=== PATIENT | male | born 1955 | race Caucasian/White ===

== ENCOUNTER 2023-11-22 12:07 | Inpatient (IN) | payer OTHER, SELFPAY ==
[2023-11-22] VITALS (12 sets, daily range): BP systolic 107–135; BP diastolic 56–90; PULSE 82–160; RESP 18–30; TEMP 36.5–36.6; O2SAT 93–97; BMI 33.0
--- NOTE | 2023-11-22 12:17 | ED.GENADULT ---
HPI - General Adult General Chief complaint: Arrhythmia/Palpitations Stated complaint: Difficulty breathing - COPD Time Seen by Provider: 11/22/23 12:19 Source: patient and family Mode of arrival: ambulatory History of Present Illness HPI narrative: 68-year-old male with known atrial fibrillation in states he has not been on medication for months. He comes in with worsening shortness of breath, lower extremity leg swelling and not feeling well. Related Data Home Medications Medication Instructions Recorded Confirmed No Known Home Meds 11/22/23 11/22/23 Allergies Allergy/AdvReac Type Severity Reaction Status Date / Time No Known Allergies Allergy Unverified 08/05/20 19:16 [No Known Allergies*] Review of Systems Review of Systems: Pertinent positives and negatives as stated in HPI FOR[facility]LY [facility] Past Medical History Source: nursing notes reviewed Onset Date is defined in the Problem List Problems that require an onset date and time if occurred within 24 hrs of arrival to the ED Aortic Dissection and Rupture; Neurologic impairment; Cardiopulmonary Arrest; Endotracheal Intubation; Insertion or Replacement of Mechanical Circulatory Assist Device Medical History COPD (chronic obstructive pulmonary disease) Social History Social History Patient Tobacco Use Status: Never used Tobacco Use of substances other than those prescribed or required for medical reasons: Yes Substance Use Type: Marijuana Advance Directives: No Advance Directives Information Provided: Yes Nutrition Risks: No Nutritional Risk Physical Exam ED Vital Signs: Vital Signs - 24 hr 11/22/23 12:20 11/22/23 12:26 11/22/23 12:51 Temperature Pulse Rate 160 H 150 H 126 H Respiratory Rate 22 H 30 H Blood Pressure 135/84 107/80 Pulse Oximetry 95 96 97 Oxygen Delivery Method Nasal Cannula Nasal Cannula Room Air Oxygen Flow Rate 3 3 11/22/23 13:07 11/22/23 14:00 11/22/23 14:22 Temperature Pulse Rate 129 H 118 H 135 H Respiratory Rate 20 18 Blood Pressure 118/88 112/88 120/90 H Pulse Oximetry 95 96 97 Oxygen Delivery Method Nasal Cannula Room Air Nasal Cannula Nasal Cannula Oxygen Flow Rate 3 3 2 11/22/23 15:23 11/22/23 16:00 Temperature 97.9 F Pulse Rate 125 H 140 H Respiratory Rate 27 H 22 H Blood Pressure 125/86 122/88 Pulse Oximetry 97 95 Oxygen Delivery Method Nasal Cannula Nasal Cannula Oxygen Flow Rate 2 3 BMI result Body Mass Index 33.0 VITAL SIGNS: Reviewed. GENERAL: Elevated BMI, Well developed, well nourished, in severe distress. HEAD: Normocephalic/atraumatic EYES: PERRLA, EOMI intact without pain, no nystagmus/pallor/icterus noted EARS: Ext canals without abnormality NOSE: Nares patent bilateral OROPHARYNX: no oral lesions noted, posterior pharynx clear NECK: Supple, no adenopathy LUNGS: Bibasilar rales, tachypnea, increased work of breathing SpO2<95> 2 L via nasal cannula CARDIOVASCULAR: Irregular/RVR without noted murmurs, no JVD 2 to 3+ pitting edema bilaterally ABDOMEN: Soft, non-tender, non-distended with bowel sounds. MUSCULOSKELETAL: No tenderness, deformities, or effusions noted on gross inspection. EXTREMITIES: No cyanosis, clubbing or edema. SKIN: Inspection of the skin reveals no rashes NEUROLOGIC: Alert and oriented x 4. Strength and sensation to light touch were grossly intact x 4. Course Course Course Narrative: rme: 68-YEAR-OLD MALE HISTORY OF COPD AND CHF PRESENTS TO ED FOR DIFFICULTY BREATHING FOR PAST COUPLE OF DAYS. O2 SATURATION ROOM AIR 88% HEART RATE 173. PATIENT PLACED ON NON-REBREATHER OXYGEN TANK AND BROUGHT TO ED ROOM BED 9 IMMEDIATELY. dR. Mckenna TOOK CARE OF CASE. LABS ORDERED Medications Administered Generic Name Dose Route Start Last Admin Trade Name Freq PRN Reason Stop Dose Admin Albuterol/Ipratropium 3 ml 11/22/23 20:00 11/23/23 07:47 Albuterol/Iprat 2.5/0.5mg 3 Ml Ampul.Neb INHALE 3 ml RQ4H WHILE AWAKE TREY Administration Apixaban 5 mg 11/22/23 21:00 11/23/23 08:47 Apixaban 5 Mg Tablet PO 5 mg BID TREY Administration Furosemide 40 mg 11/22/23 18:00 11/23/23 08:47 Furosemide 40 Mg/4 Ml Vial IVPUSH 40 mg BID@0900,1800 TREY Administration Protocol Methylprednisolone Sodium Succinate 40 mg 11/22/23 17:00 11/23/23 04:43 Methylprednisolone Sod Succ 40 Mg/Ml Vial IVPUSH 40 mg Q12H TREY Administration Sodium Chloride 3 ml 11/23/23 00:00 11/23/23 08:49 0.9 % Sodium Chloride Flush 3 Ml Syringe IVFLUSH 3 ml QSHIFT TREY Administration Discontinued Medications Generic Name Dose Route Start Last Admin Trade Name Freq PRN Reason Stop Dose Admin Diltiazem HCl 5 mg 11/22/23 13:26 11/22/23 13:35 Diltiazem Hcl 50 Mg/10 Ml Vial IVPUSH 11/22/23 13:27 5 mg STAT STA Administration Diltiazem HCl 5 mg 11/22/23 14:17 11/22/23 14:31 Diltiazem Hcl 50 Mg/10 Ml Vial IVPUSH 11/22/23 14:18 5 mg STAT STA Administration Furosemide 60 mg 11/22/23 13:18 11/22/23 13:29 Furosemide 100 Mg/10 Ml Vial IVPUSH 11/22/23 13:19 60 mg ONCE ONE Administration Protocol Diltiazem HCl 125 mg/ Sodium 125 mls @ 0 mls/hr 11/22/23 15:30 11/23/23 03:02 Chloride IVCONT Infused .Q0M TREY Titration Protocol Per Protocol Diltiazem HCl 125 mg/ Sodium 125 mls @ 0 mls/hr 11/23/23 02:45 11/23/23 02:55 Chloride IVCONT 10 mg/hr .Q0M TREY 10 mls/hr Administration Protocol Per Protocol Metoprolol Tartrate 5 mg 11/22/23 12:23 11/22/23 12:25 Metoprolol Tartrate 5 Mg/5 Ml Vial IVPUSH 11/22/23 12:24 5 mg ONCE ONE Administration Metoprolol Tartrate 5 mg 11/22/23 12:26 11/22/23 12:28 Metoprolol Tartrate 5 Mg/5 Ml Vial IVPUSH 11/22/23 12:27 5 mg ONCE ONE Administration Metoprolol Tartrate 5 mg 11/22/23 12:32 11/22/23 12:34 Metoprolol Tartrate 5 Mg/5 Ml Vial IVPUSH 11/22/23 12:33 5 mg ONCE ONE Administration Metoprolol Tartrate 50 mg 11/22/23 16:10 11/22/23 17:01 Metoprolol Tartrate 50 Mg Tablet PO 11/22/23 16:11 50 mg ONCE ONE Administration Protocol Medical Decision Making Medical Decision Making MDM Narrative: 68-year-old male with history and clinical presentation, DDX: Atrial fibrillation with RVR, acute CHF exacerbation with pulmonary edema. INTERVENTION: Applied oxygen, IV access, Lopressor Patient is received a total of 15 mg of Lopressor with some improvement in heart rate, started off in 170s and currently 120s to 130s, also gave additional Cardizem 10 mg, blood pressure remained stable and had to place on a drip. Patient also received 60 mg of Lasix. I reviewed all investigations and hematologic indices are negative for leukocytosis/anemia/thrombocytopenia. Coagulation studies are within normal limits. VBG does not demonstrate any respiratory acidosis and there is no evidence of hypercapnia. Chemistry indices do not demonstrated KARTIK and electrolytes within normal limits, suspect elevation of the total bilirubin and AST are secondary to CHF. BNP-1130. Urinalysis negative for UTI and viral testing negative. Chest x-ray does not demonstrate any infiltrate and no reported venous congestion and otherwise my interpretation is in agreement with radiology's impression. EKG demonstrates atrial fibrillation with RVR. Patient placed on a Cardizem drip, he remains hemodynamically stable and his breathing has improved. 1601: I discussed case with inpatient hospitalist who accepts admission. Differential Diagnosis Differential Diagnoses: The differential diagnosis associated with the presentation includes Please see the discussion above Admission/Observation Consideration of admission/observation: Escalation of care including admission/observation considered Please see the discussion above Consult Healthcare Provider Management of the patient was discussed with: Hospitalist Please see the discussion above Lab Data [facility] Lab Attestation statement: I reviewed the patient's lab results. Please see the discussion above 11/23/23 06:52 11/23/23 06:52 Labs: Lab Results 11/22/23 11/22/23 11/22/23 Range/Units 12:30 12:31 12:37 WBC 10.4 (4.8-10.8) X10*3/uL RBC 4.87 (4.60-5.80) X10*6/uL Hgb 14.6 (14.0-18.0) g/dl Hct 46.5 (42.0-52.0) % MCV 95.5 (80.0-98.0) fL MCH 30.0 (27.0-33.0) pg MCHC 31.4 (31.0-36.0) g/dl RDW 15.1 (11.0-16.0) % Plt Count 201 (160-400) X10*3/uL MPV 10.7 (9.4-12.4) fL Immature Gran % (Auto) 0.6 H (0.0-0.4) % Neut % (Auto) 84.6 H (45-73) % Lymph % (Auto) 11.2 L (20-40) % [place] % (Auto) 3.4 (2-11) % Eos % (Auto) 0.0 (0-4) % Baso % (Auto) 0.2 (0-2) % Lymph # (Auto) 1.2 (1.2-4.9) X10*3/uL [place] # (Auto) 0.4 (0.1-1.2) X10*3/uL Eos # (Auto) 0.0 (0.0-0.4) X10*3/uL Baso # (Auto) 0.0 (0.0-0.2) X10*3/uL Abs Immat Gran (auto) 0.06 H (0.00-0.03) X10*3/uL Absolute Neuts (auto) 8.8 H (2.0-8.3) x10*3/uL Absolute Nucleated RBC 0.000 (0.0-0.012) X10*3/uL Nucleated RBC % (auto) 0.0 (0.0-0.2) /100WBC PT 13.5 H (11.1-13.3) SEC INR 1.1 (0.9-1.1) APTT 27.7 (26.0-36.4) SEC VBG pH 7.39 (7.32-7.43) VBG pCO2 28 mmHg VBG pO2 63 mmHg VBG HCO3 17 L (22-26) mmol/L VBG O2 Saturation 89.0 % VBG Base Excess -5.7 mmol/L Sodium 136 (135-145) mmol/L Potassium 4.4 (3.3-5.1) mmol/L Chloride 104 (96-108) mmol/L Carbon Dioxide 18 L (22-29) mmol/L Anion Gap 18 (12-20) BUN 17 H (9-16) mg/dL Creatinine 1.12 (0.5-1.4) mg/dL Estim Creat Clear Calc 74.2 Estimated GFR > 60 Random Glucose 168 H (60-115) mg/dL Calcium 9.2 (8.4-10.2) mg/dL Total Bilirubin 1.4 H (0.0-1.0) mg/dL AST 87 H (5-37) U/L ALT 38 (0-40) U/L Alkaline Phosphatase 85 (39-117) U/L Troponin I High Sens 9.2 (<3.5-35.0) ng/L B-Natriuretic Peptide 1130 H (<100) pg/mL Total Protein 7.1 (6.5-8.0) g/dL Albumin 4.1 (3.5-5.0) g/dL Urine Color Urine Appearance Urine pH (5.0-9.0) Ur Specific [place] (1.005-1.025) Urine Protein (Neg-Trace) mg/dL Urine Glucose (UA) (Negative) mg/dL Urine Ketones (Negative) mg/dL Urine Blood (Negative) Urine Nitrite (Negative) Ur Leukocyte Esterase (Negative) Urine RBC (0-2) /HPF Urine WBC (0-5) /HPF Ur Squamous Epith Cells (0-2) /HPF Urine Bacteria (None Seen) Hyaline Casts (0-2) /LPF Influenza Type A (PCR) NEGATIVE (Negative) Influenza Type B (PCR) NEGATIVE (Negative) RSV RNA Qual (PCR) NEGATIVE (Negative) SARS-CoV-2 RNA (RT-PCR) NEGATIVE (Negative) 11/22/23 Range/Units 14:06 WBC (4.8-10.8) X10*3/uL RBC (4.60-5.80) X10*6/uL Hgb (14.0-18.0) g/dl Hct (42.0-52.0) % MCV (80.0-98.0) fL MCH (27.0-33.0) pg MCHC (31.0-36.0) g/dl RDW (11.0-16.0) % Plt Count (160-400) X10*3/uL MPV (9.4-12.4) fL Immature Gran % (Auto) (0.0-0.4) % Neut % (Auto) (45-73) % Lymph % (Auto) (20-40) % [place] % (Auto) (2-11) % Eos % (Auto) (0-4) % Baso % (Auto) (0-2) % Lymph # (Auto) (1.2-4.9) X10*3/uL [place] # (Auto) (0.1-1.2) X10*3/uL Eos # (Auto) (0.0-0.4) X10*3/uL Baso # (Auto) (0.0-0.2) X10*3/uL Abs Immat Gran (auto) (0.00-0.03) X10*3/uL Absolute Neuts (auto) (2.0-8.3) x10*3/uL Absolute Nucleated RBC (0.0-0.012) X10*3/uL Nucleated RBC % (auto) (0.0-0.2) /100WBC PT (11.1-13.3) SEC INR (0.9-1.1) APTT (26.0-36.4) SEC VBG pH (7.32-7.43) VBG pCO2 mmHg VBG pO2 mmHg VBG HCO3 (22-26) mmol/L VBG O2 Saturation % VBG Base Excess mmol/L Sodium (135-145) mmol/L Potassium (3.3-5.1) mmol/L Chloride (96-108) mmol/L Carbon Dioxide (22-29) mmol/L Anion Gap (12-20) BUN (9-16) mg/dL Creatinine (0.5-1.4) mg/dL Estim Creat Clear Calc Estimated GFR Random Glucose (60-115) mg/dL Calcium (8.4-10.2) mg/dL Total Bilirubin (0.0-1.0) mg/dL AST (5-37) U/L ALT (0-40) U/L Alkaline Phosphatase (39-117) U/L Troponin I High Sens (<3.5-35.0) ng/L B-Natriuretic Peptide (<100) pg/mL Total Protein (6.5-8.0) g/dL Albumin (3.5-5.0) g/dL Urine Color Yellow Urine Appearance Clear Urine pH 5.5 (5.0-9.0) Ur Specific [place] 1.015 (1.005-1.025) Urine Protein 30 (1+) H (Neg-Trace) mg/dL Urine Glucose (UA) Negative (Negative) mg/dL Urine Ketones Negative (Negative) mg/dL Urine Blood Trace H (Negative) Urine Nitrite Negative (Negative) Ur Leukocyte Esterase Trace H (Negative) Urine RBC 0-2 (0-2) /HPF Urine WBC 6-10 H (0-5) /HPF Ur Squamous Epith Cells 0-2 (0-2) /HPF Urine Bacteria None Seen (None Seen) Hyaline Casts 3-5 (0-2) /LPF Influenza Type A (PCR) (Negative) Influenza Type B (PCR) (Negative) RSV RNA Qual (PCR) (Negative) SARS-CoV-2 RNA (RT-PCR) (Negative) Independent Interpretation I performed an independent interpretation of an: EKG Interpretation: Atrial fibrillation with RVR, HR-138, no STEMI, QRS/QTC is within normal limits. Radiology Impression Discussion of test interpretation with radiology: I have reviewed the radiologist's reading. Radiologist Impression: Please see the discussion above Chronic Conditions Patient?s care impacted by: Other Atrial fibrillation Critical Care Time Critical Care Time Critical Care Time: Yes Total Critical Care Time: 90 Attestation: I personally attest to this time spent taking care of the patient. Discharge Plan Discharge Clinical Impression: Atrial fibrillation with RVR, CHF exacerbation Patient Disposition: Admitted As Inpatient
[2023-11-22 13:00] LABS: Alanine Aminotransferase 38 U/L (0-40); Albumin Level 4.1 g/dL (3.5-5.0); Alkaline Phosphatase 85 U/L (39-117); Anion Gap 18 (12-20); Aspartate Amino Transferase 87 U/L (5-37); Bilirubin Total 1.4 mg/dL (0.0-1.0); Blood Urea Nitrogen 17 mg/dL (9-16); Calcium 9.2 mg/dL (8.4-10.2); Carbon Dioxide 18 mmol/L (22-29); Chloride 104 mmol/L (96-108); Creatinine Clr Calc Pharmacy 74.2; Estimated Glomerular Filt Rate > 60; Glucose Random 168 mg/dL (60-115); Potassium 4.4 mmol/L (3.3-5.1); Sodium 136 mmol/L (135-145); Total Protein 7.1 g/dL (6.5-8.0)
--- NOTE | 2023-11-22 13:02 | PC.NURSE ---
aox4. afib on tele rate 110-130s. 3 doses of 5mg lopressor given iv. 2 IVs right wrist, left ac. labs and ekg done.
--- NOTE | 2023-11-22 15:49 | PC.NURSE ---
diltiazem drip started 10ml/hr
--- NOTE | 2023-11-22 16:21 | PM.IMHP ---
History of Present Illness Date of Service: 11/22/23 Chief Complaint: sob 68M PMH paroxysmal afib s/p multiple ablations, no longer on meds, COPD (recently off symbicort), obesity, chf with mildly reduced EF, presented with sob. patient reports episodic sob since sep 2023, lasts 10-20 minutes, associated with palpitations and quick recovery to baseline. now complaining of several days persistent sob, wheezing, increased lower extremity edema. in ED noted to be hypoxic, in rapid afib. denies chest pain, fever, chills, n/v/d. Review of Systems Review of Systems: Yes all other systems are reviewed and are negative [facility] Medical History COPD (chronic obstructive pulmonary disease) Social History Use of substances other than those prescribed or required for medical reasons: Yes Substance Use Type: Marijuana Advance Directives: No Advance Directives Information Provided: Yes Meds Allergies Allergy/AdvReac Type Severity Reaction Status Date / Time No Known Allergies Allergy Unverified 08/05/20 19:16 [No Known Allergies*] Active Medications: Current Medications Diltiazem HCl 125 mg/ Sodium (Chloride) 125 mls @ 0 mls/hr IVCONT .Q0M TREY; Protocol Last Titration: 11/22/23 16:09 Dose: 15 mg/hr, 15 mls/hr Home Medications Medication Instructions Recorded Confirmed Last Taken Type No Known Home Meds 11/22/23 11/22/23 Unknown History Physical Exam Vital Signs and Narrative: Vital Signs: Last Vital Signs Temp 97.9 F 11/22/23 15:23 Pulse 140 H 11/22/23 16:00 Resp 22 H 11/22/23 16:00 BP 122/88 11/22/23 16:00 Pulse Ox 95 11/22/23 16:00 O2 Del Method Nasal Cannula 11/22/23 16:00 O2 Flow Rate 3 11/22/23 16:00 Oxygen Flow Rate 2 11/22/23 12:20 BMI result Body Mass Index 33.0 General: AO X 3, in some acute distress Resp: poor air entry, wheezing bilateral, no accessory muscles used CVS: S1,S2,irregular, rapid GI: soft, non tender, non distended Neuro: motor grossly intact, alert Psych: appropriate affect, appropriate insight Results Labs 11/22/23 12:31 11/22/23 12:31 Labs: Laboratory Results - last 24 hr 11/22/23 11/22/23 11/22/23 12:30 12:31 12:37 MCV 95.5 MCH 30.0 MCHC 31.4 RDW 15.1 Plt Count 201 MPV 10.7 Immature Gran % (Auto) 0.6 H Neut % (Auto) 84.6 H Lymph % (Auto) 11.2 L [place] % (Auto) 3.4 Eos % (Auto) 0.0 Baso % (Auto) 0.2 Lymph # (Auto) 1.2 [place] # (Auto) 0.4 Eos # (Auto) 0.0 Baso # (Auto) 0.0 Abs Immat Gran (auto) 0.06 H Absolute Neuts (auto) 8.8 H Absolute Nucleated RBC 0.000 Nucleated RBC % (auto) 0.0 PT 13.5 H INR 1.1 APTT 27.7 VBG pH 7.39 VBG pCO2 28 VBG pO2 63 VBG HCO3 17 L VBG O2 Saturation 89.0 VBG Base Excess -5.7 Anion Gap 18 Estim Creat Clear Calc 74.2 Estimated GFR > 60 Random Glucose 168 H Calcium 9.2 Total Bilirubin 1.4 H AST 87 H ALT 38 Alkaline Phosphatase 85 B-Natriuretic Peptide 1130 H Total Protein 7.1 Albumin 4.1 Urine Color Urine Appearance Urine pH Ur Specific [place] Urine Protein Urine Glucose (UA) Urine Ketones Urine Blood Urine Nitrite Ur Leukocyte Esterase Urine RBC Urine WBC Ur Squamous Epith Cells Urine Bacteria Hyaline Casts Influenza Type A (PCR) NEGATIVE Influenza Type B (PCR) NEGATIVE RSV RNA Qual (PCR) NEGATIVE SARS-CoV-2 RNA (RT-PCR) NEGATIVE 11/22/23 14:06 MCV MCH MCHC RDW Plt Count MPV Immature Gran % (Auto) Neut % (Auto) Lymph % (Auto) [place] % (Auto) Eos % (Auto) Baso % (Auto) Lymph # (Auto) [place] # (Auto) Eos # (Auto) Baso # (Auto) Abs Immat Gran (auto) Absolute Neuts (auto) Absolute Nucleated RBC Nucleated RBC % (auto) PT INR APTT VBG pH VBG pCO2 VBG pO2 VBG HCO3 VBG O2 Saturation VBG Base Excess Anion Gap Estim Creat Clear Calc Estimated GFR Random Glucose Calcium Total Bilirubin AST ALT Alkaline Phosphatase B-Natriuretic Peptide Total Protein Albumin Urine Color Yellow Urine Appearance Clear Urine pH 5.5 Ur Specific [place] 1.015 Urine Protein 30 (1+) H Urine Glucose (UA) Negative Urine Ketones Negative Urine Blood Trace H Urine Nitrite Negative Ur Leukocyte Esterase Trace H Urine RBC 0-2 Urine WBC 6-10 H Ur Squamous Epith Cells 0-2 Urine Bacteria None Seen Hyaline Casts 3-5 Influenza Type A (PCR) Influenza Type B (PCR) RSV RNA Qual (PCR) SARS-CoV-2 RNA (RT-PCR) Imaging Radiologist's Impressions: Impressions Chest X-Ray 11/22/23 13:30 IMPRESSION: No acute intrathoracic disease. A cause for the patient's shortness of breath is not seen. Assessment and Plan (1) COPD (chronic obstructive pulmonary disease): Status: Acute Plan 68M PMH paroxysmal afib s/p multiple ablations, no longer on meds, COPD (recently off symbicort), obesity, chf with mildly reduced EF, presented with sob Acute hypoxic respiratory failure due to COPD with acute decompensation and acute on chronic CHF with reduced EF IV Solu-Medrol, bronchodilators, IV Lasix, check echo, cardio eval Paroxysmal atrial fibrillation with rapid ventricular response Diltiazem infusion, restarted apixaban, echo, cardio Obesity Weight loss recommended DVT prophylaxis-on apixaban Full code Patient with significant shortness of breath and hypoxia due to COPD and CHF as well as AFib with RVR requiring IV infusion, expected require at least 2 midnights inpatient. Quality Stroke Does the patient have a stroke diagnosis?: No VTE Prior VTE?: No VTE Risk Level:: Medical - moderate - high VTE Device Contraindication: Treatment Not Indicated VTE Drug Contraindication: N/A - Med Ordered
--- NOTE | 2023-11-22 16:22 | PHA.MEDREC ---
Pharmacy Consult ? Medication Reconciliation Pharmacy has completed the medication reconciliation. Patient reported he only takes the ocassional OTC medications and a supplement called Lung Detox. Rhiannon Boyd, PharmD
--- NOTE | 2023-11-22 18:12 | PC.NURSE ---
titrate down to 10mg/hr based on HR between 100-110
--- NOTE | 2023-11-22 19:08 | PC.NURSE ---
assumed care of pt
[2023-11-23] VITALS (12 sets, daily range): BP systolic 106–113; BP diastolic 56–75; PULSE 84–123; RESP 20–25; TEMP 36.4–36.5; O2SAT 90–95
--- NOTE | 2023-11-23 05:59 | MHC.EDTECH ---
Hourly rounds completed,Emptied 500MLS of urine, Call nadine turcios
--- NOTE | 2023-11-23 09:31 | HO.PM.IMPN ---
Subjective Subjective Date of Service: 11/23/23 Interval History: about same as yesterday Physical Exam Vital Signs: Vital Signs: Last Vital Signs Temp 97.5 F 11/23/23 02:57 Pulse 88 11/23/23 07:50 Resp 22 H 11/23/23 07:50 BP 108/71 11/23/23 07:38 Pulse Ox 92 11/23/23 07:38 O2 Del Method Nasal Cannula 11/23/23 07:38 O2 Flow Rate 3 11/23/23 07:38 Oxygen Flow Rate 2 11/22/23 12:20 BMI result Body Mass Index 33.0 General: AO X 3, some acute distress Resp: wheezing bilateral, mild accessory muscles used CVS: S1,S2, irregular rapid GI: soft, non tender, non distended Neuro: motor grossly intact, alert Psych: appropriate affect, appropriate insight Objective Data Active Medications Albuterol/Ipratropium (Albuterol/Iprat 2.5/0.5mg 3 Ml Ampul.Neb) 3 ml INHALE RQ4H WHILE AWAKE [facility] Last Admin: 11/23/23 07:47 Dose: 3 ml Documented By: ROSARIO Apixaban (Apixaban 5 Mg Tablet) 5 mg PO BID [facility] Last Admin: 11/23/23 08:47 Dose: 5 mg Documented By: KELVIN Furosemide (Furosemide 40 Mg/4 Ml Vial) 40 mg IVPUSH BID@0900,1800 [facility]; Protocol Last Admin: 11/23/23 08:47 Dose: 40 mg Documented By: KELVIN Methylprednisolone Sodium Succinate (Methylprednisolone Sod Succ 40 Mg/Ml Vial) 40 mg IVPUSH Q12H [facility] Last Admin: 11/23/23 04:43 Dose: 40 mg Documented By: DAR Sodium Chloride (0.9 % Sodium Chloride Flush 3 Ml Syringe) 3 ml IVFLUSH QSHIFT [facility] Last Admin: 11/23/23 08:49 Dose: 3 ml Documented By: KELVIN Labs 11/23/23 06:52 11/23/23 06:52 Labs: Laboratory Results - last 24 hr 11/22/23 11/22/23 11/22/23 12:30 12:31 12:37 MCV 95.5 MCH 30.0 MCHC 31.4 RDW 15.1 Plt Count 201 MPV 10.7 Immature Gran % (Auto) 0.6 H Neut % (Auto) 84.6 H Lymph % (Auto) 11.2 L [place] % (Auto) 3.4 Eos % (Auto) 0.0 Baso % (Auto) 0.2 Lymph # (Auto) 1.2 [place] # (Auto) 0.4 Eos # (Auto) 0.0 Baso # (Auto) 0.0 Abs Immat Gran (auto) 0.06 H Absolute Neuts (auto) 8.8 H Absolute Nucleated RBC 0.000 Nucleated RBC % (auto) 0.0 PT 13.5 H INR 1.1 APTT 27.7 VBG pH 7.39 VBG pCO2 28 VBG pO2 63 VBG HCO3 17 L VBG O2 Saturation 89.0 VBG Base Excess -5.7 Anion Gap 18 Estim Creat Clear Calc 74.2 Estimated GFR > 60 Random Glucose 168 H Fasting Glucose Estimat Average Glucose Hemoglobin A1c % Calcium 9.2 Magnesium Total Bilirubin 1.4 H AST 87 H ALT 38 Alkaline Phosphatase 85 B-Natriuretic Peptide 1130 H Total Protein 7.1 Albumin 4.1 Triglycerides Cholesterol LDL Cholesterol, Calc HDL Cholesterol Urine Color Urine Appearance Urine pH Ur Specific [place] Urine Protein Urine Glucose (UA) Urine Ketones Urine Blood Urine Nitrite Ur Leukocyte Esterase Urine RBC Urine WBC Ur Squamous Epith Cells Urine Bacteria Hyaline Casts Influenza Type A (PCR) NEGATIVE Influenza Type B (PCR) NEGATIVE RSV RNA Qual (PCR) NEGATIVE SARS-CoV-2 RNA (RT-PCR) NEGATIVE 11/22/23 11/23/23 14:06 06:52 MCV 94.7 MCH 29.9 MCHC 31.6 RDW 14.7 Plt Count 188 MPV 10.8 Immature Gran % (Auto) Neut % (Auto) Lymph % (Auto) [place] % (Auto) Eos % (Auto) Baso % (Auto) Lymph # (Auto) [place] # (Auto) Eos # (Auto) Baso # (Auto) Abs Immat Gran (auto) Absolute Neuts (auto) Absolute Nucleated RBC 0.000 Nucleated RBC % (auto) 0.0 PT INR APTT VBG pH VBG pCO2 VBG pO2 VBG HCO3 VBG O2 Saturation VBG Base Excess Anion Gap 17 Estim Creat Clear Calc 86.6 Estimated GFR > 60 Random Glucose Fasting Glucose 116 H Estimat Average Glucose 105 Hemoglobin A1c % 5.3 Calcium 8.9 Magnesium 2.4 Total Bilirubin AST ALT Alkaline Phosphatase B-Natriuretic Peptide Total Protein Albumin Triglycerides 69 Cholesterol 145 LDL Cholesterol, Calc 103 H HDL Cholesterol 29 L Urine Color Yellow Urine Appearance Clear Urine pH 5.5 Ur Specific [place] 1.015 Urine Protein 30 (1+) H Urine Glucose (UA) Negative Urine Ketones Negative Urine Blood Trace H Urine Nitrite Negative Ur Leukocyte Esterase Trace H Urine RBC 0-2 Urine WBC 6-10 H Ur Squamous Epith Cells 0-2 Urine Bacteria None Seen Hyaline Casts 3-5 Influenza Type A (PCR) Influenza Type B (PCR) RSV RNA Qual (PCR) SARS-CoV-2 RNA (RT-PCR) Assessment and Plan (1) COPD (chronic obstructive pulmonary disease): Status: Acute Plan 68M PMH paroxysmal afib s/p multiple ablations, no longer on meds, COPD (recently off symbicort), obesity, chf with mildly reduced EF, presented with sob Acute hypoxic respiratory failure due to COPD with acute decompensation and acute on chronic CHF with reduced EF IV Solu-Medrol, bronchodilators, IV Lasix prelim echo with severe reduced EF, follow up cardio Paroxysmal atrial fibrillation with rapid ventricular response Diltiazem stopped for reduced EF, restarted apixaban, follow up cardio Obesity Weight loss recommended DVT prophylaxis-on apixaban Full code reason for continued hospitalization:still hypoxi, sob, rapid afib Quality Stroke Does the patient have a stroke diagnosis?: No VTE Prior VTE?: No VTE Risk Level:: Medical - moderate - high VTE Device Contraindication: Treatment Not Indicated VTE Drug Contraindication: N/A - Med Ordered
--- NOTE | 2023-11-23 11:13 | PC.NURSE ---
afib on tele. Dilt drip DCed per order. digoxin given per jan.
--- NOTE | 2023-11-23 11:22 | PM.CNCAR ---
History of Present Illness History of Present Illness Date of Service: 11/23/23 Requesting physician: Son Martin Chief complaint: Chf,afib,copd Narrative: 68-year-old gentleman with known history of coronary disease with previous ramus PCI, tobacco abuse and COPD, paroxysmal atrial fibrillation for which he was on apixaban in the past who is presenting with shortness of breath and edema. He said he ran out of his inhalers recently and developed shortness of breath after that. He has been experiencing orthopnea and PND for long time. Denying any significant palpitations. In the ER was noticed to be in AFib with RVR and had wheezes and rhonchi and was treated as COPD and heart failure. He was started on Cardizem drip. Heart rates improved with Cardizem. He would echocardiogram performed and LV function is 15-20% and right ventricle is mildly dilated with mild dysfunction. Cardizem was stopped and he was started on digoxin load. He is on IV diuretics currently. He said he ran out of his scripts on apixaban and thought that he should not take it anymore. Detailed discussion was done with him to improve his understanding of AFib and role of anticoagulation and that it will likely be lifelong. [facility] Past Medical History Medical History COPD (chronic obstructive pulmonary disease) Social History Social History Patient Tobacco Use Status: Never used Tobacco Use of substances other than those prescribed or required for medical reasons: Yes Substance Use Type: Marijuana Advance Directives: No Advance Directives Information Provided: Yes Nutrition Risks: No Nutritional Risk Meds Allergies Allergy/AdvReac Type Severity Reaction Status Date / Time No Known Allergies Allergy Unverified 08/05/20 19:16 [No Known Allergies*] Active Medications: Current Medications Albuterol/Ipratropium (Albuterol/Iprat 2.5/0.5mg 3 Ml Ampul.Neb) 3 ml INHALE RQ4H WHILE AWAKE [facility] Last Admin: 11/23/23 07:47 Dose: 3 ml Apixaban (Apixaban 5 Mg Tablet) 5 mg PO BID [facility] Last Admin: 11/23/23 08:47 Dose: 5 mg Digoxin (Digoxin 0.5 Mg/2 Ml Ampul) 0.25 mg IVPUSH Q6H [facility] Stop: 11/23/23 22:31 Last Admin: 11/23/23 11:15 Dose: 0.25 mg Furosemide (Furosemide 40 Mg/4 Ml Vial) 40 mg IVPUSH BID@0900,1800 [facility]; Protocol Last Admin: 11/23/23 08:47 Dose: 40 mg Methylprednisolone Sodium Succinate (Methylprednisolone Sod Succ 40 Mg/Ml Vial) 40 mg IVPUSH Q12H [facility] Last Admin: 11/23/23 04:43 Dose: 40 mg Sodium Chloride (0.9 % Sodium Chloride Flush 3 Ml Syringe) 3 ml IVFLUSH QSHIFT [facility] Last Admin: 11/23/23 08:49 Dose: 3 ml Home Medications Medication Instructions Recorded Confirmed Last Taken Type No Known Home Meds 11/22/23 11/22/23 Unknown History Physical Exam Vital Signs: Vital Signs: Last Vital Signs Temp 97.5 F 11/23/23 02:57 Pulse 96 11/23/23 11:12 Resp 22 H 11/23/23 11:12 BP 113/56 L 11/23/23 11:12 Pulse Ox 92 11/23/23 11:12 O2 Del Method Nasal Cannula 11/23/23 11:12 O2 Flow Rate 3 11/23/23 11:12 Oxygen Flow Rate 2 11/22/23 12:20 BMI result Body Mass Index 33.0 GENERAL APPEARANCE: in no acute distress, pleasant. NECK: no carotid bruit, ++ jugular venous distention. SKIN: no suspicious lesions, warm and dry. HEART: no murmurs, irregular rate and rhythm. LUNGS: Bilateral wheezes and rhonchi. ABDOMEN: soft, nontender. EXTREMITIES: no edema. PERIPHERAL PULSES: equal. NEUROLOGIC: No gross deficits, AAO X 3 Objective Labs and Meds 11/23/23 06:52 11/23/23 06:52 Lab results: Laboratory Results - last 24 hr 11/22/23 11/22/23 11/22/23 12:30 12:31 12:37 WBC 10.4 RBC 4.87 Hgb 14.6 Hct 46.5 MCV 95.5 MCH 30.0 MCHC 31.4 RDW 15.1 Plt Count 201 MPV 10.7 Immature Gran % (Auto) 0.6 H Neut % (Auto) 84.6 H Lymph % (Auto) 11.2 L [place] % (Auto) 3.4 Eos % (Auto) 0.0 Baso % (Auto) 0.2 Lymph # (Auto) 1.2 [place] # (Auto) 0.4 Eos # (Auto) 0.0 Baso # (Auto) 0.0 Abs Immat Gran (auto) 0.06 H Absolute Neuts (auto) 8.8 H Absolute Nucleated RBC 0.000 Nucleated RBC % (auto) 0.0 PT 13.5 H INR 1.1 APTT 27.7 VBG pH 7.39 VBG pCO2 28 VBG pO2 63 VBG HCO3 17 L VBG O2 Saturation 89.0 VBG Base Excess -5.7 Sodium 136 Potassium 4.4 Chloride 104 Carbon Dioxide 18 L Anion Gap 18 BUN 17 H Creatinine 1.12 Estim Creat Clear Calc 74.2 Estimated GFR > 60 Random Glucose 168 H Fasting Glucose Estimat Average Glucose Hemoglobin A1c % Calcium 9.2 Magnesium Total Bilirubin 1.4 H AST 87 H ALT 38 Alkaline Phosphatase 85 Troponin I High Sens 9.2 B-Natriuretic Peptide 1130 H Total Protein 7.1 Albumin 4.1 Triglycerides Cholesterol LDL Cholesterol, Calc HDL Cholesterol Urine Color Urine Appearance Urine pH Ur Specific [place] Urine Protein Urine Glucose (UA) Urine Ketones Urine Blood Urine Nitrite Ur Leukocyte Esterase Urine RBC Urine WBC Ur Squamous Epith Cells Urine Bacteria Hyaline Casts Influenza Type A (PCR) NEGATIVE Influenza Type B (PCR) NEGATIVE RSV RNA Qual (PCR) NEGATIVE SARS-CoV-2 RNA (RT-PCR) NEGATIVE 11/22/23 11/23/23 14:06 06:52 WBC 6.5 RBC 4.71 Hgb 14.1 Hct 44.6 MCV 94.7 MCH 29.9 MCHC 31.6 RDW 14.7 Plt Count 188 MPV 10.8 Immature Gran % (Auto) Neut % (Auto) Lymph % (Auto) [place] % (Auto) Eos % (Auto) Baso % (Auto) Lymph # (Auto) [place] # (Auto) Eos # (Auto) Baso # (Auto) Abs Immat Gran (auto) Absolute Neuts (auto) Absolute Nucleated RBC 0.000 Nucleated RBC % (auto) 0.0 PT INR APTT VBG pH VBG pCO2 VBG pO2 VBG HCO3 VBG O2 Saturation VBG Base Excess Sodium 137 Potassium 4.6 Chloride 101 Carbon Dioxide 24 Anion Gap 17 BUN 22 H Creatinine 0.96 Estim Creat Clear Calc 86.6 Estimated GFR > 60 Random Glucose Fasting Glucose 116 H Estimat Average Glucose 105 Hemoglobin A1c % 5.3 Calcium 8.9 Magnesium 2.4 Total Bilirubin AST ALT Alkaline Phosphatase Troponin I High Sens B-Natriuretic Peptide Total Protein Albumin Triglycerides 69 Cholesterol 145 LDL Cholesterol, Calc 103 H HDL Cholesterol 29 L Urine Color Yellow Urine Appearance Clear Urine pH 5.5 Ur Specific [place] 1.015 Urine Protein 30 (1+) H Urine Glucose (UA) Negative Urine Ketones Negative Urine Blood Trace H Urine Nitrite Negative Ur Leukocyte Esterase Trace H Urine RBC 0-2 Urine WBC 6-10 H Ur Squamous Epith Cells 0-2 Urine Bacteria None Seen Hyaline Casts 3-5 Influenza Type A (PCR) Influenza Type B (PCR) RSV RNA Qual (PCR) SARS-CoV-2 RNA (RT-PCR) Imaging Radiologist's impression: Impressions Chest X-Ray 11/22/23 13:30 IMPRESSION: No acute intrathoracic disease. A cause for the patient's shortness of breath is not seen. Assessment and Plan (1) CHF exacerbation: Status: Acute (2) Atrial fibrillation with RVR: Status: Acute Plan 68-year-old gentleman presenting with shortness of breath and AFib with RVR. Clinically he is in heart failure. On IV diuretics. Echocardiography has shown severe LV dysfunction. Stop IV Cardizem as above. Digoxin load with 250 mcg x3 6 hours apart. Apixaban 5 mg twice a day for anticoagulation. Avoid beta-mahesh currently but will introduced in the coming day or 2. Start him on low-dose losartan 25 mg daily. Coverage for Jardiance and Farxiga can be checked and if his insurance will cover it then start the medication. Hopefully blood pressure will improve as diltiazem washes out. Thank you for allowing me to participate in the care of your patient. Please feel free to contact me if you have any questions. Procedures Date of Service Date of Service: 11/23/23
--- NOTE | 2023-11-23 15:55 | MHC.CM.PN ---
PT REPORTS HE LIVES WITH HIS S/O AND IS INDEPENDENT WITH CARE HE HAS NO HOME SERVICES AND NO DME HE DOES NOT HAVE A HCP AND DECLINES TO COMPLETE ONE PCP: JESSIE BILL IMM DELIVERED DCP: HOME NO SERVICES VIA PRIVATE TRANSPORT
[2023-11-23] MEDS: Metoprolol Tartrate 25 MG TABLET PO (20:42)
--- NOTE | 2023-11-23 21:48 | PC.NURSE ---
Pt is resting comfortably in bed at this time. A&Ox4, GCS 15, denying pain. Pt is on the electronic device monitor at this time. Waiting bed assignment.
[2023-11-24] VITALS (7 sets, daily range): BP systolic 121–151; BP diastolic 65–97; PULSE 93–133; RESP 18–22; TEMP 36.2–36.6; O2SAT 88–94
--- NOTE | 2023-11-24 02:02 | PC.NURSE ---
Addendum entered by Marilou King RN 11/24/23 02:28: Per Dr Mcmillan, O2 above 88% is acceptable for the pt. Pt is getting a chest x-ray and another dose of lasix. Urinal emptied at this time, approx 700mL of urine. Original Note: Pt O2 noted to be in the mid 80's on 3 LPM O2 via NC. O2 was raised to 5 LPM and sat got up to 90%. Pt stated he feels congested and when I asked him to take a deep breath, he started to cough up mucous. aware.
--- NOTE | 2023-11-24 06:02 | PC.NURSE ---
Pt reporting trouble breathing. I administered scheduled solumedrol and pt had a coughing fit which produced mucous. Pt stated he feels better after coughing. Pt was complaining that the nasal cannula was uncomfortable. I offered an oximask and pt was very content with the oximask. O2 is remaining at 94%. Pt is comfortable in bed at this time. Waiting room assignment.
--- NOTE | 2023-11-24 06:39 | PC.NURSE ---
Report finished in chart
--- NOTE | 2023-11-24 11:28 | HO.PM.IMPN ---
Subjective Subjective Date of Service: 11/24/23 Interval History: about same as yesterday Physical Exam Vital Signs: Vital Signs: Last Vital Signs Temp 97.8 F 11/24/23 06:00 Pulse 93 11/24/23 08:11 Resp 20 11/24/23 08:11 BP 121/85 11/24/23 06:00 Pulse Ox 94 11/24/23 06:00 O2 Del Method Oxymask 11/24/23 06:00 O2 Flow Rate 5 11/24/23 06:00 Oxygen Flow Rate 2 11/22/23 12:20 BMI result Body Mass Index 30.0 GENERAL APPEARANCE: in no acute distress, pleasant. NECK: no carotid bruit, ++ jugular venous distention. SKIN: no suspicious lesions, warm and dry. HEART: no murmurs, irregular rate and rhythm. LUNGS: Bilateral wheezes and rhonchi. ABDOMEN: soft, nontender. EXTREMITIES: no edema. PERIPHERAL PULSES: equal. NEUROLOGIC: No gross deficits, AAO X 3 Objective Data Active Medications Albuterol/Ipratropium (Albuterol/Iprat 2.5/0.5mg 3 Ml Ampul.Neb) 3 ml INHALE RQ4H WHILE AWAKE [facility] Last Admin: 11/24/23 08:07 Dose: 3 ml Documented By: AMAN Apixaban (Apixaban 5 Mg Tablet) 5 mg PO BID [facility] Last Admin: 11/24/23 10:41 Dose: 5 mg Documented By: PATRICIO Furosemide (Furosemide 40 Mg/4 Ml Vial) 40 mg IVPUSH BID@0900,1800 [facility]; Protocol Last Admin: 11/24/23 10:41 Dose: 40 mg Documented By: PATRICIO Methylprednisolone Sodium Succinate (Methylprednisolone Sod Succ 40 Mg/Ml Vial) 40 mg IVPUSH Q12H [facility] Last Admin: 11/24/23 05:57 Dose: 40 mg Documented By: YARI Metoprolol Tartrate (Metoprolol Tartrate 25 Mg Tablet) 25 mg PO BID [facility]; Protocol Last Admin: 11/24/23 10:41 Dose: 25 mg Documented By: PATRICIO Sodium Chloride (0.9 % Sodium Chloride Flush 3 Ml Syringe) 3 ml IVFLUSH QSHIFT [facility] Last Admin: 11/24/23 07:00 Dose: Not Given Documented By: HO.PROVENC Non-Admin Reason: Patient Asleep Labs 11/24/23 06:50 11/24/23 06:50 Labs: Laboratory Results - last 24 hr 11/24/23 06:50 MCV 93.0 MCH 30.4 MCHC 32.7 RDW 14.3 Plt Count 194 MPV 10.5 Absolute Nucleated RBC 0.000 Nucleated RBC % (auto) 0.0 Anion Gap 14 Estim Creat Clear Calc 73.5 Estimated GFR > 60 Fasting Glucose 128 H Calcium 9.5 D Magnesium 2.4 Microbiology Microbiology Results: Microbiology 11/22/23 Unknown Urine Culture - Final Urine clean catch - Urine snider top No growth. Assessment and Plan (1) COPD (chronic obstructive pulmonary disease): Status: Acute Plan 68M PMH paroxysmal afib s/p multiple ablations, no longer on meds, COPD (recently off symbicort), obesity, chf with mildly reduced EF, presented with sob Acute hypoxic respiratory failure due to COPD with acute decompensation and acute on chronic CHF with reduced EF continue IV Solu-Medrol, bronchodilators, IV Lasix echo with severe reduced EF Paroxysmal atrial fibrillation with rapid ventricular response apixaban, metoprolol, s/p dig load Obesity Weight loss recommended DVT prophylaxis-on apixaban Full code reason for continued hospitalization:still hypoxic, sob, rapid afib Quality Stroke Does the patient have a stroke diagnosis?: No VTE Prior VTE?: No VTE Risk Level:: Medical - moderate - high VTE Device Contraindication: Treatment Not Indicated VTE Drug Contraindication: N/A - Med Ordered
--- NOTE | 2023-11-24 13:30 | PM.PNCARD ---
Subjective Subjective Date of Service: 11/24/23 Interval history: Seen examined at bedside. Still short of breath. In atrial fibrillation Physical Exam Vital Signs: Last Vital Signs Temp 97.4 F 11/24/23 12:00 Pulse 126 H 11/24/23 12:00 Resp 20 11/24/23 12:00 BP 140/75 H 11/24/23 12:00 Pulse Ox 91 L 11/24/23 12:00 O2 Del Method Nasal Cannula 11/24/23 12:00 O2 Flow Rate 3 11/24/23 12:00 Oxygen Flow Rate 2 11/22/23 12:20 BMI result Body Mass Index 30.0 GENERAL APPEARANCE: in no acute distress, pleasant. NECK: no carotid bruit, + jugular venous distention. SKIN: no suspicious lesions, warm and dry. HEART: no murmurs, irregular rate and rhythm. LUNGS: Bilateral wheezes and rhonchi. ABDOMEN: soft, nontender. EXTREMITIES: no edema. PERIPHERAL PULSES: equal. NEUROLOGIC: No gross deficits, AAO X 3 Objective Labs and Meds 11/24/23 06:50 11/24/23 06:50 Lab results: Laboratory Results - last 24 hr 11/24/23 06:50 WBC 10.3 RBC 4.73 Hgb 14.4 Hct 44.0 MCV 93.0 MCH 30.4 MCHC 32.7 RDW 14.3 Plt Count 194 MPV 10.5 Absolute Nucleated RBC 0.000 Nucleated RBC % (auto) 0.0 Sodium 136 Potassium 4.4 Chloride 98 Carbon Dioxide 28 Anion Gap 14 BUN 27 H Creatinine 1.13 Estim Creat Clear Calc 73.5 Estimated GFR > 60 Fasting Glucose 128 H Calcium 9.5 D Magnesium 2.4 Imaging Radiologist's impression: Impressions Chest X-Ray 11/24/23 02:15 IMPRESSION: No evidence for acute disease. Progress Note: A&P Assessment and plan (1) COPD (chronic obstructive pulmonary disease): Status: Acute (2) Atrial fibrillation with RVR: Status: Acute (3) CHF exacerbation: Status: Acute Plan 68-year-old gentleman presenting for shortness of breath and AFib with RVR. Echocardiography showing severe LV dysfunction. Loaded with digoxin and is on oral metoprolol for rate control. On Eliquis which was started recently. He was not using any medications at home as he ran out long time ago. Continue diurese. Also has COPD exacerbation at this point. As he stabilizes he will need MAIA cardioversion. Thank you for allowing me to participate in the care of your patient. Please feel free to contact me if you have any questions. Time Spent With Patient Time: Total time managing care of this patient today ____ minutes. Progress Note: Quality Stroke Does the patient have a stroke diagnosis?: No Procedures Date of Service Date of Service: 11/24/23
[2023-11-25] VITALS (10 sets, daily range): BP systolic 121–139; BP diastolic 65–98; PULSE 80–118; RESP 16–20; TEMP 35.9–36.9; O2SAT 88–97; BMI 29.1
[2023-11-25 08:41] LABS: Alanine Aminotransferase 41 U/L (0-40); Albumin Level 3.8 g/dL (3.5-5.0); Alkaline Phosphatase 77 U/L (39-117); Anion Gap 13 (12-20); Aspartate Amino Transferase 42 U/L (5-37); Bilirubin Direct 0.4 mg/dL (0.0-0.5); Bilirubin Total 0.9 mg/dL (0.0-1.0); Blood Urea Nitrogen 27 mg/dL (9-16); Calcium 9.3 mg/dL (8.4-10.2); Carbon Dioxide 36 mmol/L (22-29); Chloride 93 mmol/L (96-108); Creatinine Clr Calc Pharmacy 69.9; Estimated Glomerular Filt Rate > 60; Glucose Fasting 129 mg/dL (60-99); Potassium 3.9 mmol/L (3.3-5.1); Sodium 138 mmol/L (135-145); Total Protein 6.8 g/dL (6.5-8.0)
--- NOTE | 2023-11-25 10:09 | HO.PM.IMPN ---
Subjective Subjective Date of Service: 11/25/23 Interval History: about same as yesterday Physical Exam Vital Signs: Vital Signs: Last Vital Signs Temp 97.5 F 11/25/23 08:00 Pulse 80 11/25/23 08:06 Resp 18 11/25/23 08:06 BP 136/74 11/25/23 08:00 Pulse Ox 93 11/25/23 08:00 O2 Del Method Oxymask 11/25/23 08:00 O2 Flow Rate 2 11/25/23 08:00 Oxygen Flow Rate 2 11/22/23 12:20 BMI result Body Mass Index 29.1 General: AO X 3, no acute distress Resp: improved exp wheeze bilateral, no accessory muscles used CVS: S1,S2,Rapid irregular GI: soft, non tender, non distended Neuro: motor grossly intact, alert Psych: appropriate affect, appropriate insight Objective Data Active Medications Albuterol/Ipratropium (Albuterol/Iprat 2.5/0.5mg 3 Ml Ampul.Neb) 3 ml INHALE RQ4H WHILE AWAKE [facility] Last Admin: 11/25/23 08:04 Dose: 3 ml Documented By: AMAN Apixaban (Apixaban 5 Mg Tablet) 5 mg PO BID [facility] Last Admin: 11/25/23 09:04 Dose: 5 mg Documented By: PATRICIO Digoxin (Digoxin 0.125 Mg Tablet) 0.125 mg PO DAILY [facility] Last Admin: 11/25/23 09:05 Dose: 0.125 mg Documented By: PATRICIO Furosemide (Furosemide 40 Mg/4 Ml Vial) 40 mg IVPUSH BID@0900,1800 [facility]; Protocol Last Admin: 11/25/23 09:05 Dose: 40 mg Documented By: PATRICIO Methylprednisolone Sodium Succinate (Methylprednisolone Sod Succ 40 Mg/Ml Vial) 40 mg IVPUSH Q12H [facility] Last Admin: 11/25/23 05:06 Dose: 40 mg Documented By: TARYN Metoprolol Tartrate (Metoprolol Tartrate 25 Mg Tablet) 25 mg PO BID [facility]; Protocol Last Admin: 11/25/23 09:05 Dose: 25 mg Documented By: PATRICIO Sodium Chloride (0.9 % Sodium Chloride Flush 3 Ml Syringe) 3 ml IVFLUSH QSHIFT [facility] Last Admin: 11/25/23 09:07 Dose: 3 ml Documented By: PATRICIO Labs 11/25/23 07:50 11/25/23 07:50 Labs: Laboratory Results - last 24 hr 11/25/23 07:50 MCV 94.8 MCH 30.4 MCHC 32.0 RDW 14.3 Plt Count 214 MPV 10.8 Absolute Nucleated RBC 0.000 Nucleated RBC % (auto) 0.0 Anion Gap 13 Estim Creat Clear Calc 69.9 Estimated GFR > 60 Fasting Glucose 129 H Calcium 9.3 Total Bilirubin 0.9 Direct Bilirubin 0.4 AST 42 H ALT 41 H Alkaline Phosphatase 77 Total Protein 6.8 Albumin 3.8 Assessment and Plan (1) COPD (chronic obstructive pulmonary disease): Status: Acute Plan 68M PMH paroxysmal afib s/p multiple ablations, no longer on meds, COPD (recently off symbicort), obesity, chf with mildly reduced EF, presented with sob Acute hypoxic respiratory failure due to COPD with acute decompensation and acute on chronic CHF with reduced EF continue IV Solu-Medrol, bronchodilators, IV Lasix echo with severe reduced EF Paroxysmal atrial fibrillation with rapid ventricular response apixaban, metoprolol, dig Obesity Weight loss recommended DVT prophylaxis-on apixaban Full code reason for continued hospitalization:still hypoxic, sob, rapid afib Quality Stroke Does the patient have a stroke diagnosis?: No VTE Prior VTE?: No VTE Risk Level:: Medical - moderate - high VTE Device Contraindication: Treatment Not Indicated VTE Drug Contraindication: N/A - Med Ordered
--- NOTE | 2023-11-25 12:01 | PM.PNCARD ---
Subjective Subjective Date of Service: 11/25/23 Interval history: Seen examined at bedside. Feeling better. Mild wheezes. Physical Exam Vital Signs: Last Vital Signs Temp 97.5 F 11/25/23 08:00 Pulse 118 H 11/25/23 11:37 Resp 18 11/25/23 11:37 BP 136/74 11/25/23 08:00 Pulse Ox 93 11/25/23 08:00 O2 Del Method Oxymask 11/25/23 08:00 O2 Flow Rate 2 11/25/23 08:00 Oxygen Flow Rate 2 11/22/23 12:20 BMI result Body Mass Index 29.1 GENERAL APPEARANCE: in no acute distress, pleasant. NECK: no carotid bruit, no jugular venous distention. SKIN: no suspicious lesions, warm and dry. HEART: no murmurs, irregular rate and rhythm. LUNGS: Mild wheezes. ABDOMEN: soft, nontender. EXTREMITIES: no edema. PERIPHERAL PULSES: equal. NEUROLOGIC: No gross deficits, AAO X 3 Objective Labs and Meds 11/25/23 07:50 11/25/23 07:50 Lab results: Laboratory Results - last 24 hr 11/25/23 07:50 WBC 11.7 H RBC 5.20 Hgb 15.8 Hct 49.3 MCV 94.8 MCH 30.4 MCHC 32.0 RDW 14.3 Plt Count 214 MPV 10.8 Absolute Nucleated RBC 0.000 Nucleated RBC % (auto) 0.0 Sodium 138 Potassium 3.9 Chloride 93 L Carbon Dioxide 36 H Anion Gap 13 BUN 27 H Creatinine 1.12 Estim Creat Clear Calc 69.9 Estimated GFR > 60 Fasting Glucose 129 H Calcium 9.3 Total Bilirubin 0.9 Direct Bilirubin 0.4 AST 42 H ALT 41 H Alkaline Phosphatase 77 Total Protein 6.8 Albumin 3.8 Progress Note: A&P Assessment and plan (1) COPD (chronic obstructive pulmonary disease): Status: Acute (2) CHF exacerbation: Status: Acute (3) Atrial fibrillation with RVR: Status: Acute Plan [age] year gentleman with atrial fibrillation, congestive heart failure, COPD exacerbation and cardiomyopathy. LVEF is severely reduced. On metoprolol and digoxin for rate control. Clinically appears to be euvolemic now. Can be changed to oral Lasix 40 mg daily. Keep him NPO after midnight for potential MAIA cardioversion tomorrow. Thank you for allowing me to participate in the care of your patient. Please feel free to contact me if you have any questions. Time Spent With Patient Time: Total time managing care of this patient today ____ minutes. Progress Note: Quality Stroke Does the patient have a stroke diagnosis?: No Procedures Date of Service Date of Service: 11/25/23
[2023-11-26] VITALS (16 sets, daily range): BP systolic 111–155; BP diastolic 63–90; PULSE 57–117; RESP 16–20; TEMP 36–37; O2SAT 92–96; BMI 29.7; BMI 30.1
[2023-11-26 06:42] LABS: Hematocrit 50.3 % (42.0-52.0); Hemoglobin 16.1 g/dl (14.0-18.0); Mean Corpuscular Hemoglobin 30.1 pg (27.0-33.0); Mean Platelet Volume 10.7 fL (9.4-12.4); Platelet Count 209 X10*3/uL (160-400); Red Blood Count 5.35 X10*6/uL (4.60-5.80); Red Cell Distribution Width 14.1 % (11.0-16.0)
[2023-11-26 06:57] LABS: Anion Gap 16 (12-20); Blood Urea Nitrogen 31 mg/dL (9-16); Calcium 9.1 mg/dL (8.4-10.2); Carbon Dioxide 31 mmol/L (22-29); Chloride 95 mmol/L (96-108); Creatinine Clr Calc Pharmacy 71.2; Estimated Glomerular Filt Rate > 60; Glucose Fasting 115 mg/dL (60-99); Potassium 3.9 mmol/L (3.3-5.1); Sodium 138 mmol/L (135-145)
--- NOTE | 2023-11-26 09:48 | PM.PNCARD ---
Subjective Subjective Date of Service: 11/26/23 Principal diagnosis: Cardiomyopathy, CHF, atrial fibrillation. Interval history: Patient remained in slightly rapid heart rate. Shortness of breath is improved. Leg edema is improved. Wheezing has improved. Review of Systems Constitutional: Reports no additional constitutional complaints Cardiovascular: Denies chest pain, Reports rapid heart rate, Denies leg edema, Denies palpitations and Reports dyspnea on exertion Respiratory: Reports no additional respiratory complaints and Reports dyspnea on exertion Gastrointestinal: Denies no additional gastrointestinal complaints Psychiatric: Reports no additional psychiatric complaints Endocrine: Denies palpitations Physical Exam Vital Signs: Last Vital Signs Temp 96.8 F 11/26/23 08:00 Pulse 87 11/26/23 08:52 Resp 16 11/26/23 08:52 BP 132/74 11/26/23 08:00 Pulse Ox 96 11/26/23 08:00 O2 Del Method Nasal Cannula 11/26/23 08:00 O2 Flow Rate 3 11/26/23 08:00 Oxygen Flow Rate 2 11/22/23 12:20 BMI result Body Mass Index 29.7 Const General: cooperative, comfortable and no acute distress Nutritional Appearance: overweight Orientation/consciousness: patient oriented x3 Neck Neck: Yes trachea midline, Yes supple and Yes no JVD Resp Effort & Inspection: normal respiratory effort Auscultation: clear to auscultation bilaterally Cardio Jugular venous distension: no JVD Rate: tachycardic Rhythm: abnormal rhythm irregularly irregular Heart sounds: S1 normal heart sound present, S2 normal heart sound present, no click, no gallops, no murmurs and no rubs GI Auscultation: normal bowel sounds Skin General skin exam: no rashes or lesions noted Neuro General: patient oriented x3 and no focal motor deficits Extrem General: Yes no clubbing, cyanosis or edema Objective Labs and Meds 11/26/23 06:07 11/26/23 06:07 Lab results: Laboratory Results - last 24 hr 11/26/23 06:07 WBC 13.0 H RBC 5.35 Hgb 16.1 Hct 50.3 MCV 94.0 MCH 30.1 MCHC 32.0 RDW 14.1 Plt Count 209 MPV 10.7 Absolute Nucleated RBC 0.000 Nucleated RBC % (auto) 0.0 Sodium 138 Potassium 3.9 Chloride 95 L Carbon Dioxide 31 H Anion Gap 16 BUN 31 H Creatinine 1.11 Estim Creat Clear Calc 71.2 Estimated GFR > 60 Fasting Glucose 115 H Calcium 9.1 Progress Note: A&P Assessment and plan (1) CHF exacerbation: Status: Acute Assessment and Plan: Patient presents with respiratory failure with CHF exacerbation with severe LV systolic dysfunction. Question tachycardia mediated. Plan for MAIA guided cardioversion. Continue metoprolol therapy. Agree with p.o. Lasix as clinically appears to be euvolemic. Also start valsartan 40 mg b.i.d. for neurohormonal modulation and vaso dilatation. Eventually switch to Entresto therapy. (2) Atrial fibrillation with RVR: Status: Acute Assessment and Plan: Atrial fibrillation with persistent rapid ventricular response. Possibly causing heart failure as well as tachycardia mediated cardiomyopathy. Will pursue MAIA guided cardioversion later today. Continue Eliquis. Will require case management involvement for procurement of his medications especially Eliquis and help him with the same. In the past he had taken Eliquis for only about 3 weeks and then had discontinued it. Will try to assist him in any way we can. May require antiarrhythmic drug therapy with amiodarone. Discussed with him the process of MAIA and cardioversion including risk, benefits, alternatives. He understands and agrees. Will continue to follow with you. Time Spent With Patient Time: Total time managing care of this patient today ____ minutes. Progress Note: Quality Stroke Does the patient have a stroke diagnosis?: No Procedures Date of Service Date of Service: 11/26/23
--- NOTE | 2023-11-26 10:31 | HO.PM.IMPN ---
Subjective Subjective Date of Service: 11/26/23 Interval History: about same as yesterday Physical Exam Vital Signs: Vital Signs: Last Vital Signs Temp 96.8 F 11/26/23 08:00 Pulse 87 11/26/23 08:52 Resp 16 11/26/23 08:52 BP 132/74 11/26/23 08:00 Pulse Ox 96 11/26/23 08:00 O2 Del Method Nasal Cannula 11/26/23 08:00 O2 Flow Rate 3 11/26/23 08:00 Oxygen Flow Rate 2 11/22/23 12:20 BMI result Body Mass Index 29.7 Const: General: cooperative, comfortable and no acute distress Nutritional Appearance: overweight Orientation/consciousness: patient oriented x3 Neck: Neck: Yes trachea midline, Yes supple and Yes no JVD Resp: Effort & Inspection: normal respiratory effort Auscultation: clear to auscultation bilaterally Cardio: Jugular venous distension: no JVD Rate: tachycardic Rhythm: abnormal rhythm irregularly irregular Heart sounds: S1 normal heart sound present, S2 normal heart sound present, no click, no gallops, no murmurs and no rubs GI: Auscultation: normal bowel sounds Skin: General skin exam: no rashes or lesions noted Neuro: General: patient oriented x3 and no focal motor deficits Extrem: General: Yes no clubbing, cyanosis or edema Objective Data Active Medications Acetaminophen (Acetaminophen 325 Mg Tablet) 650 mg PO Q6H PRN PRN Reason: Pain, Mild (Pain Scale 1-3) Last Admin: 11/25/23 23:15 Dose: 650 mg Documented By: HÉCTOR Albuterol/Ipratropium (Albuterol/Iprat 2.5/0.5mg 3 Ml Ampul.Neb) 3 ml INHALE RQ4H WHILE AWAKE [facility] Last Admin: 11/26/23 08:50 Dose: 3 ml Documented By: ROSARIO Apixaban (Apixaban 5 Mg Tablet) 5 mg PO BID [facility] Last Admin: 11/26/23 09:18 Dose: 5 mg Documented By: NELLI Digoxin (Digoxin 0.125 Mg Tablet) 0.125 mg PO DAILY [facility] Last Admin: 11/26/23 09:18 Dose: 0.125 mg Documented By: NELLI Furosemide (Furosemide 40 Mg Tablet) 40 mg PO DAILY [facility]; Protocol Last Admin: 11/26/23 09:18 Dose: 40 mg Documented By: NELLI Methylprednisolone Sodium Succinate (Methylprednisolone Sod Succ 40 Mg/Ml Vial) 40 mg IVPUSH Q12H [facility] Last Admin: 11/26/23 05:17 Dose: 40 mg Documented By: HÉCTOR Metoprolol Tartrate (Metoprolol Tartrate 25 Mg Tablet) 25 mg PO BID [facility]; Protocol Last Admin: 11/26/23 09:18 Dose: 25 mg Documented By: NELLI Sodium Chloride (0.9 % Sodium Chloride Flush 3 Ml Syringe) 3 ml IVFLUSH QSHIFT [facility] Last Admin: 11/26/23 09:20 Dose: 3 ml Documented By: NELLI Valsartan (Valsartan 40 Mg Tablet) 40 mg PO BID [facility]; Protocol Labs 11/26/23 06:07 11/26/23 06:07 Labs: Laboratory Results - last 24 hr 11/26/23 06:07 MCV 94.0 MCH 30.1 MCHC 32.0 RDW 14.1 Plt Count 209 MPV 10.7 Absolute Nucleated RBC 0.000 Nucleated RBC % (auto) 0.0 Anion Gap 16 Estim Creat Clear Calc 71.2 Estimated GFR > 60 Fasting Glucose 115 H Calcium 9.1 Assessment and Plan (1) COPD (chronic obstructive pulmonary disease): Status: Acute Plan 68M PMH paroxysmal afib s/p multiple ablations, no longer on meds, COPD (recently off symbicort), obesity, chf with mildly reduced EF, presented with sob Acute hypoxic respiratory failure due to COPD with acute decompensation and acute on chronic CHF with reduced EF continue IV Solu-Medrol, bronchodilators, po Lasix metoprolol, valsartan echo with severe reduced EF Paroxysmal atrial fibrillation with rapid ventricular response apixaban, metoprolol, dig plan for chauncey/cv today Obesity Weight loss recommended DVT prophylaxis-on apixaban Full code reason for continued hospitalization:still hypoxic, sob, rapid afib Quality Stroke Does the patient have a stroke diagnosis?: No VTE Prior VTE?: No VTE Risk Level:: Medical - moderate - high VTE Device Contraindication: Treatment Not Indicated VTE Drug Contraindication: N/A - Med Ordered
--- NOTE | 2023-11-26 15:39 | HO.ANESPROP2 ---
[facility] Active Problems Active Problems: All Active Problems (Updated 11/22/23 @ 16:18 by Son Martin MD) COPD (chronic obstructive pulmonary disease) (Acute) CHF exacerbation (Acute) Atrial fibrillation with RVR (Acute) Past Medical History Medical History COPD (chronic obstructive pulmonary disease) Social History Social History Household Members: Significant Other Housing: Apartment Do you presently have visiting nurse or other home services: No Comment: pt refused bed alarm Patient Tobacco Use Status: Former Tobacco user Quit Date: 11/19/23 Tobacco use type: Cigarette Cigarette Packs Per Day: 0.25 Cigarettes Per Day: 5 Years Smoked: 50 Second Hand Smoke Exposure: Yes Substance Use Type: Marijuana service: Yes Meds Allergies Allergy/AdvReac Type Severity Reaction Status Date / Time No Known Allergies Allergy Unverified 08/05/20 19:16 [No Known Allergies*] Active Medications: Current Medications Acetaminophen (Acetaminophen 325 Mg Tablet) 650 mg PO Q6H PRN PRN Reason: Pain, Mild (Pain Scale 1-3) Last Admin: 11/25/23 23:15 Dose: 650 mg Albuterol/Ipratropium (Albuterol/Iprat 2.5/0.5mg 3 Ml Ampul.Neb) 3 ml INHALE RQ4H WHILE AWAKE [facility] Last Admin: 11/26/23 15:22 Dose: Not Given Apixaban (Apixaban 5 Mg Tablet) 5 mg PO BID [facility] Last Admin: 11/26/23 09:18 Dose: 5 mg Digoxin (Digoxin 0.125 Mg Tablet) 0.125 mg PO DAILY [facility] Last Admin: 11/26/23 09:18 Dose: 0.125 mg Furosemide (Furosemide 40 Mg Tablet) 40 mg PO DAILY [facility]; Protocol Last Admin: 11/26/23 09:18 Dose: 40 mg Methylprednisolone Sodium Succinate (Methylprednisolone Sod Succ 40 Mg/Ml Vial) 40 mg IVPUSH Q12H [facility] Last Admin: 11/26/23 05:17 Dose: 40 mg Metoprolol Tartrate (Metoprolol Tartrate 25 Mg Tablet) 25 mg PO BID [facility]; Protocol Last Admin: 11/26/23 09:18 Dose: 25 mg Sodium Chloride (0.9 % Sodium Chloride Flush 3 Ml Syringe) 3 ml IVFLUSH QSHIFT [facility] Last Admin: 11/26/23 09:20 Dose: 3 ml Valsartan (Valsartan 40 Mg Tablet) 40 mg PO BID [facility]; Protocol Home Medications Medication Instructions Recorded Confirmed Last Taken Type No Known Home Meds 11/22/23 11/22/23 Unknown History Exam Height,Weight and Vital Signs: Height 5 ft 10 in Weight 94 kg Last Vital Signs Temp 97.0 F 11/26/23 15:12 Pulse 80 11/26/23 15:12 Resp 20 11/26/23 15:12 BP 122/72 11/26/23 15:12 Pulse Ox 92 11/26/23 15:12 O2 Del Method Nasal Cannula 11/26/23 15:12 O2 Flow Rate 3 11/26/23 15:12 Oxygen Flow Rate 2 11/22/23 12:20 Pertinent Lab Results Pertinent Lab Results: Laboratory Tests 11/22/23 11/22/23 11/22/23 12:30 12:31 12:37 WBC 10.4 RBC 4.87 Hgb 14.6 Hct 46.5 MCV 95.5 MCH 30.0 MCHC 31.4 RDW 15.1 Plt Count 201 MPV 10.7 Immature Gran % (Auto) 0.6 H Neut % (Auto) 84.6 H Lymph % (Auto) 11.2 L [place] % (Auto) 3.4 Eos % (Auto) 0.0 Baso % (Auto) 0.2 Lymph # (Auto) 1.2 [place] # (Auto) 0.4 Eos # (Auto) 0.0 Baso # (Auto) 0.0 Abs Immat Gran (auto) 0.06 H Absolute Neuts (auto) 8.8 H Absolute Nucleated RBC 0.000 Nucleated RBC % (auto) 0.0 PT 13.5 H INR 1.1 APTT 27.7 VBG pH 7.39 VBG pCO2 28 VBG pO2 63 VBG HCO3 17 L VBG O2 Saturation 89.0 VBG Base Excess -5.7 Sodium 136 Potassium 4.4 Chloride 104 Carbon Dioxide 18 L Anion Gap 18 BUN 17 H Creatinine 1.12 Estim Creat Clear Calc 74.2 Estimated GFR > 60 Random Glucose 168 H Fasting Glucose Estimat Average Glucose Hemoglobin A1c % Calcium 9.2 Magnesium Total Bilirubin 1.4 H Direct Bilirubin AST 87 H ALT 38 Alkaline Phosphatase 85 Troponin I High Sens 9.2 B-Natriuretic Peptide 1130 H Total Protein 7.1 Albumin 4.1 Triglycerides Cholesterol LDL Cholesterol, Calc HDL Cholesterol Urine Color Urine Appearance Urine pH Ur Specific [place] Urine Protein Urine Glucose (UA) Urine Ketones Urine Blood Urine Nitrite Ur Leukocyte Esterase Urine RBC Urine WBC Ur Squamous Epith Cells Urine Bacteria Hyaline Casts Influenza Type A (PCR) NEGATIVE Influenza Type B (PCR) NEGATIVE RSV RNA Qual (PCR) NEGATIVE SARS-CoV-2 RNA (RT-PCR) NEGATIVE 11/22/23 11/23/23 11/24/23 14:06 06:52 06:50 WBC 6.5 10.3 RBC 4.71 4.73 Hgb 14.1 14.4 Hct 44.6 44.0 MCV 94.7 93.0 MCH 29.9 30.4 MCHC 31.6 32.7 RDW 14.7 14.3 Plt Count 188 194 MPV 10.8 10.5 Immature Gran % (Auto) Neut % (Auto) Lymph % (Auto) [place] % (Auto) Eos % (Auto) Baso % (Auto) Lymph # (Auto) [place] # (Auto) Eos # (Auto) Baso # (Auto) Abs Immat Gran (auto) Absolute Neuts (auto) Absolute Nucleated RBC 0.000 0.000 Nucleated RBC % (auto) 0.0 0.0 PT INR APTT VBG pH VBG pCO2 VBG pO2 VBG HCO3 VBG O2 Saturation VBG Base Excess Sodium 137 136 Potassium 4.6 4.4 Chloride 101 98 Carbon Dioxide 24 28 Anion Gap 17 14 BUN 22 H 27 H Creatinine 0.96 1.13 Estim Creat Clear Calc 86.6 73.5 Estimated GFR > 60 > 60 Random Glucose Fasting Glucose 116 H 128 H Estimat Average Glucose 105 Hemoglobin A1c % 5.3 Calcium 8.9 9.5 D Magnesium 2.4 2.4 Total Bilirubin Direct Bilirubin AST ALT Alkaline Phosphatase Troponin I High Sens B-Natriuretic Peptide Total Protein Albumin Triglycerides 69 Cholesterol 145 LDL Cholesterol, Calc 103 H HDL Cholesterol 29 L Urine Color Yellow Urine Appearance Clear Urine pH 5.5 Ur Specific [place] 1.015 Urine Protein 30 (1+) H Urine Glucose (UA) Negative Urine Ketones Negative Urine Blood Trace H Urine Nitrite Negative Ur Leukocyte Esterase Trace H Urine RBC 0-2 Urine WBC 6-10 H Ur Squamous Epith Cells 0-2 Urine Bacteria None Seen Hyaline Casts 3-5 Influenza Type A (PCR) Influenza Type B (PCR) RSV RNA Qual (PCR) SARS-CoV-2 RNA (RT-PCR) 11/25/23 11/26/23 07:50 06:07 WBC 11.7 H 13.0 H RBC 5.20 5.35 Hgb 15.8 16.1 Hct 49.3 50.3 MCV 94.8 94.0 MCH 30.4 30.1 MCHC 32.0 32.0 RDW 14.3 14.1 Plt Count 214 209 MPV 10.8 10.7 Immature Gran % (Auto) Neut % (Auto) Lymph % (Auto) [place] % (Auto) Eos % (Auto) Baso % (Auto) Lymph # (Auto) [place] # (Auto) Eos # (Auto) Baso # (Auto) Abs Immat Gran (auto) Absolute Neuts (auto) Absolute Nucleated RBC 0.000 0.000 Nucleated RBC % (auto) 0.0 0.0 PT INR APTT VBG pH VBG pCO2 VBG pO2 VBG HCO3 VBG O2 Saturation VBG Base Excess Sodium 138 138 Potassium 3.9 3.9 Chloride 93 L 95 L Carbon Dioxide 36 H 31 H Anion Gap 13 16 BUN 27 H 31 H Creatinine 1.12 1.11 Estim Creat Clear Calc 69.9 71.2 Estimated GFR > 60 > 60 Random Glucose Fasting Glucose 129 H 115 H Estimat Average Glucose Hemoglobin A1c % Calcium 9.3 9.1 Magnesium Total Bilirubin 0.9 Direct Bilirubin 0.4 AST 42 H ALT 41 H Alkaline Phosphatase 77 Troponin I High Sens B-Natriuretic Peptide Total Protein 6.8 Albumin 3.8 Triglycerides Cholesterol LDL Cholesterol, Calc HDL Cholesterol Urine Color Urine Appearance Urine pH Ur Specific [place] Urine Protein Urine Glucose (UA) Urine Ketones Urine Blood Urine Nitrite Ur Leukocyte Esterase Urine RBC Urine WBC Ur Squamous Epith Cells Urine Bacteria Hyaline Casts Influenza Type A (PCR) Influenza Type B (PCR) RSV RNA Qual (PCR) SARS-CoV-2 RNA (RT-PCR)
--- NOTE | 2023-11-26 15:40 | HO.ANESPROP2 ---
[facility] Active Problems Active Problems: All Active Problems COPD (chronic obstructive pulmonary disease) (Acute) CHF exacerbation (Acute) Atrial fibrillation with RVR (Acute) Past Medical History Medical History COPD (chronic obstructive pulmonary disease) Functional capacity: independent ambulation Family History Family history of problems with anesthesia: No Surgical History History of Problems with Anesthesia: No Social History Social History Household Members: Significant Other Housing: Apartment Do you presently have visiting nurse or other home services: No Comment: pt refused bed alarm Patient Tobacco Use Status: Former Tobacco user Quit Date: 11/19/23 Tobacco use type: Cigarette Cigarette Packs Per Day: 0.25 Cigarettes Per Day: 5 Years Smoked: 50 Second Hand Smoke Exposure: Yes Substance Use Type: Marijuana service: Yes Meds Allergies Allergy/AdvReac Type Severity Reaction Status Date / Time No Known Allergies Allergy Unverified 08/05/20 19:16 [No Known Allergies*] Active Medications: Current Medications Acetaminophen (Acetaminophen 325 Mg Tablet) 650 mg PO Q6H PRN PRN Reason: Pain, Mild (Pain Scale 1-3) Last Admin: 11/25/23 23:15 Dose: 650 mg Albuterol/Ipratropium (Albuterol/Iprat 2.5/0.5mg 3 Ml Ampul.Neb) 3 ml INHALE RQ4H WHILE AWAKE [facility] Last Admin: 11/26/23 15:22 Dose: Not Given Apixaban (Apixaban 5 Mg Tablet) 5 mg PO BID [facility] Last Admin: 11/26/23 09:18 Dose: 5 mg Digoxin (Digoxin 0.125 Mg Tablet) 0.125 mg PO DAILY [facility] Last Admin: 11/26/23 09:18 Dose: 0.125 mg Furosemide (Furosemide 40 Mg Tablet) 40 mg PO DAILY [facility]; Protocol Last Admin: 11/26/23 09:18 Dose: 40 mg Methylprednisolone Sodium Succinate (Methylprednisolone Sod Succ 40 Mg/Ml Vial) 40 mg IVPUSH Q12H [facility] Last Admin: 11/26/23 05:17 Dose: 40 mg Metoprolol Tartrate (Metoprolol Tartrate 25 Mg Tablet) 25 mg PO BID [facility]; Protocol Last Admin: 11/26/23 09:18 Dose: 25 mg Sodium Chloride (0.9 % Sodium Chloride Flush 3 Ml Syringe) 3 ml IVFLUSH QSHIFT [facility] Last Admin: 11/26/23 09:20 Dose: 3 ml Valsartan (Valsartan 40 Mg Tablet) 40 mg PO BID [facility]; Protocol Home Medications Medication Instructions Recorded Confirmed Last Taken Type No Known Home Meds 11/22/23 11/22/23 Unknown History Exam Height,Weight and Vital Signs: Height 5 ft 10 in Weight 94 kg Last Vital Signs Temp 97.0 F 11/26/23 15:12 Pulse 80 11/26/23 15:12 Resp 20 11/26/23 15:12 BP 122/72 11/26/23 15:12 Pulse Ox 92 11/26/23 15:12 O2 Del Method Nasal Cannula 11/26/23 15:12 O2 Flow Rate 3 11/26/23 15:12 Oxygen Flow Rate 2 11/22/23 12:20 Pertinent Lab Results Pertinent Lab Results: Laboratory Tests 11/22/23 11/22/23 11/22/23 12:30 12:31 12:37 WBC 10.4 RBC 4.87 Hgb 14.6 Hct 46.5 MCV 95.5 MCH 30.0 MCHC 31.4 RDW 15.1 Plt Count 201 MPV 10.7 Immature Gran % (Auto) 0.6 H Neut % (Auto) 84.6 H Lymph % (Auto) 11.2 L [place] % (Auto) 3.4 Eos % (Auto) 0.0 Baso % (Auto) 0.2 Lymph # (Auto) 1.2 [place] # (Auto) 0.4 Eos # (Auto) 0.0 Baso # (Auto) 0.0 Abs Immat Gran (auto) 0.06 H Absolute Neuts (auto) 8.8 H Absolute Nucleated RBC 0.000 Nucleated RBC % (auto) 0.0 PT 13.5 H INR 1.1 APTT 27.7 VBG pH 7.39 VBG pCO2 28 VBG pO2 63 VBG HCO3 17 L VBG O2 Saturation 89.0 VBG Base Excess -5.7 Sodium 136 Potassium 4.4 Chloride 104 Carbon Dioxide 18 L Anion Gap 18 BUN 17 H Creatinine 1.12 Estim Creat Clear Calc 74.2 Estimated GFR > 60 Random Glucose 168 H Fasting Glucose Estimat Average Glucose Hemoglobin A1c % Calcium 9.2 Magnesium Total Bilirubin 1.4 H Direct Bilirubin AST 87 H ALT 38 Alkaline Phosphatase 85 Troponin I High Sens 9.2 B-Natriuretic Peptide 1130 H Total Protein 7.1 Albumin 4.1 Triglycerides Cholesterol LDL Cholesterol, Calc HDL Cholesterol Urine Color Urine Appearance Urine pH Ur Specific [place] Urine Protein Urine Glucose (UA) Urine Ketones Urine Blood Urine Nitrite Ur Leukocyte Esterase Urine RBC Urine WBC Ur Squamous Epith Cells Urine Bacteria Hyaline Casts Influenza Type A (PCR) NEGATIVE Influenza Type B (PCR) NEGATIVE RSV RNA Qual (PCR) NEGATIVE SARS-CoV-2 RNA (RT-PCR) NEGATIVE 11/22/23 11/23/23 11/24/23 14:06 06:52 06:50 WBC 6.5 10.3 RBC 4.71 4.73 Hgb 14.1 14.4 Hct 44.6 44.0 MCV 94.7 93.0 MCH 29.9 30.4 MCHC 31.6 32.7 RDW 14.7 14.3 Plt Count 188 194 MPV 10.8 10.5 Immature Gran % (Auto) Neut % (Auto) Lymph % (Auto) [place] % (Auto) Eos % (Auto) Baso % (Auto) Lymph # (Auto) [place] # (Auto) Eos # (Auto) Baso # (Auto) Abs Immat Gran (auto) Absolute Neuts (auto) Absolute Nucleated RBC 0.000 0.000 Nucleated RBC % (auto) 0.0 0.0 PT INR APTT VBG pH VBG pCO2 VBG pO2 VBG HCO3 VBG O2 Saturation VBG Base Excess Sodium 137 136 Potassium 4.6 4.4 Chloride 101 98 Carbon Dioxide 24 28 Anion Gap 17 14 BUN 22 H 27 H Creatinine 0.96 1.13 Estim Creat Clear Calc 86.6 73.5 Estimated GFR > 60 > 60 Random Glucose Fasting Glucose 116 H 128 H Estimat Average Glucose 105 Hemoglobin A1c % 5.3 Calcium 8.9 9.5 D Magnesium 2.4 2.4 Total Bilirubin Direct Bilirubin AST ALT Alkaline Phosphatase Troponin I High Sens B-Natriuretic Peptide Total Protein Albumin Triglycerides 69 Cholesterol 145 LDL Cholesterol, Calc 103 H HDL Cholesterol 29 L Urine Color Yellow Urine Appearance Clear Urine pH 5.5 Ur Specific [place] 1.015 Urine Protein 30 (1+) H Urine Glucose (UA) Negative Urine Ketones Negative Urine Blood Trace H Urine Nitrite Negative Ur Leukocyte Esterase Trace H Urine RBC 0-2 Urine WBC 6-10 H Ur Squamous Epith Cells 0-2 Urine Bacteria None Seen Hyaline Casts 3-5 Influenza Type A (PCR) Influenza Type B (PCR) RSV RNA Qual (PCR) SARS-CoV-2 RNA (RT-PCR) 11/25/23 11/26/23 07:50 06:07 WBC 11.7 H 13.0 H RBC 5.20 5.35 Hgb 15.8 16.1 Hct 49.3 50.3 MCV 94.8 94.0 MCH 30.4 30.1 MCHC 32.0 32.0 RDW 14.3 14.1 Plt Count 214 209 MPV 10.8 10.7 Immature Gran % (Auto) Neut % (Auto) Lymph % (Auto) [place] % (Auto) Eos % (Auto) Baso % (Auto) Lymph # (Auto) [place] # (Auto) Eos # (Auto) Baso # (Auto) Abs Immat Gran (auto) Absolute Neuts (auto) Absolute Nucleated RBC 0.000 0.000 Nucleated RBC % (auto) 0.0 0.0 PT INR APTT VBG pH VBG pCO2 VBG pO2 VBG HCO3 VBG O2 Saturation VBG Base Excess Sodium 138 138 Potassium 3.9 3.9 Chloride 93 L 95 L Carbon Dioxide 36 H 31 H Anion Gap 13 16 BUN 27 H 31 H Creatinine 1.12 1.11 Estim Creat Clear Calc 69.9 71.2 Estimated GFR > 60 > 60 Random Glucose Fasting Glucose 129 H 115 H Estimat Average Glucose Hemoglobin A1c % Calcium 9.3 9.1 Magnesium Total Bilirubin 0.9 Direct Bilirubin 0.4 AST 42 H ALT 41 H Alkaline Phosphatase 77 Troponin I High Sens B-Natriuretic Peptide Total Protein 6.8 Albumin 3.8 Triglycerides Cholesterol LDL Cholesterol, Calc HDL Cholesterol Urine Color Urine Appearance Urine pH Ur Specific [place] Urine Protein Urine Glucose (UA) Urine Ketones Urine Blood Urine Nitrite Ur Leukocyte Esterase Urine RBC Urine WBC Ur Squamous Epith Cells Urine Bacteria Hyaline Casts Influenza Type A (PCR) Influenza Type B (PCR) RSV RNA Qual (PCR) SARS-CoV-2 RNA (RT-PCR) Airway Mallampati Class: III TM Dist: >3cm Loose/Missing/Broken Teeth: Yes, Upper and Lower Heart: fIrregular,fast Lungs: diminished breath sounds Assessment and Plan Assessment Anesthesia Assessment: Anesthesia Plan Discussed and Smoking Cess. Discussed Final Anesthetic Review Family History of Problems with Anesthesia: No History of Problems with Anesthesia: No NPO: Yes ASA Class: III and Emergency Final Preanesthetic Review: Meds/Allgs Chart Reviewed and Consent Obtained/Reviewed Patient Risk: Intermediate Procedure Risk: Low Anesthetic Plan Anesthetic Plan: GA Disposition: Standard PACU
--- NOTE | 2023-11-26 16:29 | CA_ITS ---
Transesophageal Echocardiogram Patient (Last, First, Middle): Steve Morales, Gender: Male Date of : 1955 Age: 68 Procedure Date: 11/26/2023 Procedure Type: Transesophageal Echocardiogram Location: [facility] [place] Height: 177.8 cm Weight: 95.25 kg BSA: 2.13 m2 Heart Rate: bpm BP: 123 / 83 mmHg Tracing Lathe Set Up Operator: Referring MD: Manny Man MD Shirt Sorter: Manny Man MD Symptoms: Afib,Pre cardioversion Conclusion: ??? 1. No intracardiac thrombi, masses or vegetations 2. Severely reduced LV ejection fraction of 15-20% 3. Biatrial enlargement, left greater than right 4. Normal cardiac valvular Dopplers next 5. No intracardiac shunting 6. Mild atherosclerotic changes noted in descending and arch of the aorta 7. No gross pericardial effusion Findings Procedure Information Consent was obtained prior to the procedure. Pre MAIA oral cavity was checked and revealed mild overcrowding. The adult 3D probe was passed with no difficulty. This was a technically good study. Left Ventricle The left ventricular systolic function is severely decreased. The visually estimated ejection fraction is between 15-20%. There is severe global hypokinesis. Diastolic function is indeterminate on the basis of available data. There is no evidence of a mass in the left ventricle. Right Ventricle Mildly increased right ventricular cavity size. There is normal right ventricular systolic function. Atria The left atrium is moderately dilated. There is lipomatous hypertrophy of the interatrial septum. There is no evidence of interatrial shunt. there is mild small formation seen the left atrial appendage cavity and the left atrial cavity. The no significant masses or clot seen within the left atrium or left atrial appendage cavity. The left upper, right upper and right lower pulmonary veins drain normally into the left atrium. The right atrium is moderately dilated. The right atrium is free of any thrombi or masses. The IVC in SVC drain normally into the right atrium. The right atrial appendage is free of any thrombus. Aortic Valve Normal aortic valve structure and function. There is no aortic valve stenosis. There is no evidence of a mass on the aortic valve. There is no aortic valve regurgitation. Mitral Valve Normal mitral valve structure and function. There is trace mitral valve regurgitation. There is no mitral valve stenosis. There is no mass noted on the mitral valve. Pulmonic Valve The pulmonic valve is normal. There is no mass noted on the pulmonic valve. There is trace to mild pulmonic valve regurgitation. Tricuspid Valve Normal tricuspid valve structure. There is mild tricuspid valve regurgitation. There is no evidence of a mass on the tricuspid valve. Great Vessels All visible segments of the aorta are normal in size. The visualized portions of the pulmonary artery and branches are normal. Mild atherosclerotic change noted descending thoracic an arch of the aorta. Venous The inferior vena cava is normal in size and collapses greater than 50% with inspiration. Pericardium/Pleural There is no evidence of pericardial effusion. Updated by Manny Man on 05:47 PM with Status of Final Manny Man MD electronically signed on 11/26/2023 5:47:09 PM with status of Final
--- NOTE | 2023-11-26 17:06 | P.CONAN_ITS ---
[facility] Active Problems Active Problems: All Active Problems (Updated 11/22/23 @ 16:18 by Son Martin MD) COPD (chronic obstructive pulmonary disease) (Acute) CHF exacerbation (Acute) Atrial fibrillation with RVR (Acute) Past Medical History Medical History COPD (chronic obstructive pulmonary disease) Functional capacity: independent ambulation Family History Family history of problems with anesthesia: No Surgical History History of Problems with Anesthesia: No Social History Social History Household Members: Significant Other Housing: Apartment Do you presently have visiting nurse or other home services: No Comment: pt refused bed alarm Patient Tobacco Use Status: Former Tobacco user Quit Date: 11/19/23 Tobacco use type: Cigarette Cigarette Packs Per Day: 0.25 Cigarettes Per Day: 5 Years Smoked: 50 Second Hand Smoke Exposure: Yes Substance Use Type: Marijuana service: Yes Meds Allergies Allergy/AdvReac Type Severity Reaction Status Date / Time No Known Allergies Allergy Unverified 08/05/20 19:16 [No Known Allergies*] Active Medications: Current Medications Acetaminophen (Acetaminophen 325 Mg Tablet) 650 mg PO Q6H PRN PRN Reason: Pain, Mild (Pain Scale 1-3) Last Admin: 11/25/23 23:15 Dose: 650 mg Albuterol/Ipratropium (Albuterol/Iprat 2.5/0.5mg 3 Ml Ampul.Neb) 3 ml INHALE RQ4H WHILE AWAKE [facility] Last Admin: 11/26/23 15:22 Dose: Not Given Apixaban (Apixaban 5 Mg Tablet) 5 mg PO BID [facility] Last Admin: 11/26/23 09:18 Dose: 5 mg Digoxin (Digoxin 0.125 Mg Tablet) 0.125 mg PO DAILY [facility] Last Admin: 11/26/23 09:18 Dose: 0.125 mg Fentanyl (Fentanyl Citrate/Pf 100 Mcg/2 Ml Vial) 25 mcg IVPUSH Q5M PRN; Protocol PRN Reason: Pain, Moderate(Pain Scale 4-6) Furosemide (Furosemide 40 Mg Tablet) 40 mg PO DAILY [facility]; Protocol Last Admin: 11/26/23 09:18 Dose: 40 mg Methylprednisolone Sodium Succinate (Methylprednisolone Sod Succ 40 Mg/Ml Vial) 40 mg IVPUSH Q12H [facility] Last Admin: 11/26/23 05:17 Dose: 40 mg Metoprolol Tartrate (Metoprolol Tartrate 25 Mg Tablet) 25 mg PO BID [facility]; Protocol Last Admin: 11/26/23 09:18 Dose: 25 mg Sodium Chloride (0.9 % Sodium Chloride Flush 3 Ml Syringe) 3 ml IVFLUSH QSHIFT [facility] Last Admin: 11/26/23 09:20 Dose: 3 ml Valsartan (Valsartan 40 Mg Tablet) 40 mg PO BID [facility]; Protocol Home Medications Medication Instructions Recorded Confirmed Last Taken Type No Known Home Meds 11/22/23 11/22/23 Unknown History Exam Height,Weight and Vital Signs: Height 5 ft 10 in Weight 95.254 kg Last Vital Signs Temp 98.5 F 11/26/23 15:44 Pulse 106 H 11/26/23 15:44 Resp 18 11/26/23 15:44 BP 111/76 11/26/23 15:44 Pulse Ox 94 11/26/23 15:44 O2 Del Method Nasal Cannula 11/26/23 15:44 O2 Flow Rate 2 11/26/23 15:44 Oxygen Flow Rate 2 11/22/23 12:20 Pertinent Lab Results Pertinent Lab Results: Laboratory Tests 11/22/23 11/22/23 11/22/23 12:30 12:31 12:37 WBC 10.4 RBC 4.87 Hgb 14.6 Hct 46.5 MCV 95.5 MCH 30.0 MCHC 31.4 RDW 15.1 Plt Count 201 MPV 10.7 Immature Gran % (Auto) 0.6 H Neut % (Auto) 84.6 H Lymph % (Auto) 11.2 L [place] % (Auto) 3.4 Eos % (Auto) 0.0 Baso % (Auto) 0.2 Lymph # (Auto) 1.2 [place] # (Auto) 0.4 Eos # (Auto) 0.0 Baso # (Auto) 0.0 Abs Immat Gran (auto) 0.06 H Absolute Neuts (auto) 8.8 H Absolute Nucleated RBC 0.000 Nucleated RBC % (auto) 0.0 PT 13.5 H INR 1.1 APTT 27.7 VBG pH 7.39 VBG pCO2 28 VBG pO2 63 VBG HCO3 17 L VBG O2 Saturation 89.0 VBG Base Excess -5.7 Sodium 136 Potassium 4.4 Chloride 104 Carbon Dioxide 18 L Anion Gap 18 BUN 17 H Creatinine 1.12 Estim Creat Clear Calc 74.2 Estimated GFR > 60 Random Glucose 168 H Fasting Glucose Estimat Average Glucose Hemoglobin A1c % Calcium 9.2 Magnesium Total Bilirubin 1.4 H Direct Bilirubin AST 87 H ALT 38 Alkaline Phosphatase 85 Troponin I High Sens 9.2 B-Natriuretic Peptide 1130 H Total Protein 7.1 Albumin 4.1 Triglycerides Cholesterol LDL Cholesterol, Calc HDL Cholesterol Urine Color Urine Appearance Urine pH Ur Specific [place] Urine Protein Urine Glucose (UA) Urine Ketones Urine Blood Urine Nitrite Ur Leukocyte Esterase Urine RBC Urine WBC Ur Squamous Epith Cells Urine Bacteria Hyaline Casts Influenza Type A (PCR) NEGATIVE Influenza Type B (PCR) NEGATIVE RSV RNA Qual (PCR) NEGATIVE SARS-CoV-2 RNA (RT-PCR) NEGATIVE 11/22/23 11/23/23 11/24/23 14:06 06:52 06:50 WBC 6.5 10.3 RBC 4.71 4.73 Hgb 14.1 14.4 Hct 44.6 44.0 MCV 94.7 93.0 MCH 29.9 30.4 MCHC 31.6 32.7 RDW 14.7 14.3 Plt Count 188 194 MPV 10.8 10.5 Immature Gran % (Auto) Neut % (Auto) Lymph % (Auto) [place] % (Auto) Eos % (Auto) Baso % (Auto) Lymph # (Auto) [place] # (Auto) Eos # (Auto) Baso # (Auto) Abs Immat Gran (auto) Absolute Neuts (auto) Absolute Nucleated RBC 0.000 0.000 Nucleated RBC % (auto) 0.0 0.0 PT INR APTT VBG pH VBG pCO2 VBG pO2 VBG HCO3 VBG O2 Saturation VBG Base Excess Sodium 137 136 Potassium 4.6 4.4 Chloride 101 98 Carbon Dioxide 24 28 Anion Gap 17 14 BUN 22 H 27 H Creatinine 0.96 1.13 Estim Creat Clear Calc 86.6 73.5 Estimated GFR > 60 > 60 Random Glucose Fasting Glucose 116 H 128 H Estimat Average Glucose 105 Hemoglobin A1c % 5.3 Calcium 8.9 9.5 D Magnesium 2.4 2.4 Total Bilirubin Direct Bilirubin AST ALT Alkaline Phosphatase Troponin I High Sens B-Natriuretic Peptide Total Protein Albumin Triglycerides 69 Cholesterol 145 LDL Cholesterol, Calc 103 H HDL Cholesterol 29 L Urine Color Yellow Urine Appearance Clear Urine pH 5.5 Ur Specific [place] 1.015 Urine Protein 30 (1+) H Urine Glucose (UA) Negative Urine Ketones Negative Urine Blood Trace H Urine Nitrite Negative Ur Leukocyte Esterase Trace H Urine RBC 0-2 Urine WBC 6-10 H Ur Squamous Epith Cells 0-2 Urine Bacteria None Seen Hyaline Casts 3-5 Influenza Type A (PCR) Influenza Type B (PCR) RSV RNA Qual (PCR) SARS-CoV-2 RNA (RT-PCR) 11/25/23 11/26/23 07:50 06:07 WBC 11.7 H 13.0 H RBC 5.20 5.35 Hgb 15.8 16.1 Hct 49.3 50.3 MCV 94.8 94.0 MCH 30.4 30.1 MCHC 32.0 32.0 RDW 14.3 14.1 Plt Count 214 209 MPV 10.8 10.7 Immature Gran % (Auto) Neut % (Auto) Lymph % (Auto) [place] % (Auto) Eos % (Auto) Baso % (Auto) Lymph # (Auto) [place] # (Auto) Eos # (Auto) Baso # (Auto) Abs Immat Gran (auto) Absolute Neuts (auto) Absolute Nucleated RBC 0.000 0.000 Nucleated RBC % (auto) 0.0 0.0 PT INR APTT VBG pH VBG pCO2 VBG pO2 VBG HCO3 VBG O2 Saturation VBG Base Excess Sodium 138 138 Potassium 3.9 3.9 Chloride 93 L 95 L Carbon Dioxide 36 H 31 H Anion Gap 13 16 BUN 27 H 31 H Creatinine 1.12 1.11 Estim Creat Clear Calc 69.9 71.2 Estimated GFR > 60 > 60 Random Glucose Fasting Glucose 129 H 115 H Estimat Average Glucose Hemoglobin A1c % Calcium 9.3 9.1 Magnesium Total Bilirubin 0.9 Direct Bilirubin 0.4 AST 42 H ALT 41 H Alkaline Phosphatase 77 Troponin I High Sens B-Natriuretic Peptide Total Protein 6.8 Albumin 3.8 Triglycerides Cholesterol LDL Cholesterol, Calc HDL Cholesterol Urine Color Urine Appearance Urine pH Ur Specific [place] Urine Protein Urine Glucose (UA) Urine Ketones Urine Blood Urine Nitrite Ur Leukocyte Esterase Urine RBC Urine WBC Ur Squamous Epith Cells Urine Bacteria Hyaline Casts Influenza Type A (PCR) Influenza Type B (PCR) RSV RNA Qual (PCR) SARS-CoV-2 RNA (RT-PCR) Airway Heart: irregular Lungs: diminished Assessment and Plan Final Anesthetic Review Family History of Problems with Anesthesia: No History of Problems with Anesthesia: No NPO: Yes ASA Class: III and Emergency Final Preanesthetic Review: Meds/Allgs Chart Reviewed, Consent Obtained/Reviewed and Anes Risks/Benef Reviewed Patient Risk: High Procedure Risk: Intermediate Anesthetic Plan Anesthetic Plan: GA Disposition: Standard PACU
--- NOTE | 2023-11-26 17:12 | HO.CARDIVERS ---
Cardioversion Procedure Note Cardioversion Date of Procedure: Today Ordering Provider: Myself Performing Provider: Myself Indication for Procedure: Persistent difficult to control atrial fibrillation with severe cardiomyopathy and heart failure Pre-Op Diagnosis: Same Post-Op Diagnosis: Sinus rhythm Performed with Transesophageal Echo: Yes MAIA findings (if MAIA Performed): Dictated separately History: See the consult note Consent: Verbal and Written consent was obtained from the patient before starting and after confirming oral anticoagulation. The patient was made aware of the risk of synchronized cardioversion including benefits and alternatives Procedure: After consent obtained, cardioversion pads were attached in anteroposterior configuration and the patient was sedated by the anesthesia team. Once adequate sedation achieved, patient was delivered 200 joules of biphasic synchronized energy in anteroposterior configuration. Patient converted to sinus rhythm Complications: None Impression: Successful conversion to sinus rhythm Recommendations: 1. 12 lead EKG 2. Continue full oral anticoagulation with Eliquis 3. Start amiodarone 400 mg b.i.d. loading dose for 2 weeks
--- NOTE | 2023-11-26 17:14 | ECG_ITS ---
Test Reason : Status post cardioversion Blood Pressure : / mmHG Vent. Rate : 081 BPM Atrial Rate : 081 BPM P-R Int : 150 ms QRS Dur : 084 ms QT Int : 380 ms P-R-T Axes : 065 030 263 degrees QTc Int : 441 ms Sinus rhythm with Premature atrial complexes ST & T wave abnormality, consider anterior ischemia Abnormal ECG When compared with ECG of 22-NOV-2023 12:23, Sinus rhythm has replaced Atrial fibrillation Vent. rate has decreased BY 57 BPM Questionable change in QRS axis T wave inversion now evident in Anterior leads Referred By: Manny Man Electronically Signed By:MANNY MAN MD
[2023-11-26] MEDS: methylPREDNISolone Sod Succ 40 MG/ML VIAL IVPUSH (18:07)
[2023-11-26] MEDS: Albuterol/Iprat 2.5/0.5MG 3 ML AMPUL.NEB INHALE (19:46)
[2023-11-26] MEDS: Amiodarone HCL 200 MG TABLET 400 MG PO (20:35)
[2023-11-26] MEDS: Valsartan 40 MG TABLET PO (20:35)
[2023-11-26] MEDS: Apixaban 5 MG TABLET PO (20:35)
[2023-11-26] MEDS: Metoprolol Tartrate 25 MG TABLET PO (20:35)
[2023-11-27 03:00] VITALS: BP 112/76; PULSE 55; RESP 20; TEMP 36.1; O2SAT 92
[2023-11-27] MEDS: methylPREDNISolone Sod Succ 40 MG/ML VIAL IVPUSH (04:29)
[2023-11-27 06:00] VITALS: BMI 30.4
[2023-11-27 07:24] LABS: Hematocrit 54.9 % (42.0-52.0); Hemoglobin 17.3 g/dl (14.0-18.0); Mean Corpuscular HGB Conc 31.5 g/dl (31.0-36.0); Mean Corpuscular Hemoglobin 30.4 pg (27.0-33.0); Mean Corpuscular Volume 96.5 fL (80.0-98.0); Mean Platelet Volume 10.9 fL (9.4-12.4); Platelet Count 218 X10*3/uL (160-400); Red Blood Count 5.69 X10*6/uL (4.60-5.80)
[2023-11-27 07:33] VITALS: BP 116/73; PULSE 78; RESP 20; TEMP 36.6; O2SAT 93
[2023-11-27 07:47] LABS: Anion Gap 15 (12-20); Blood Urea Nitrogen 33 mg/dL (9-16); Calcium 9.4 mg/dL (8.4-10.2); Carbon Dioxide 37 mmol/L (22-29); Chloride 93 mmol/L (96-108); Creatinine Clr Calc Pharmacy 64.4; Estimated Glomerular Filt Rate 58; Glucose Fasting 127 mg/dL (60-99); Potassium 4.5 mmol/L (3.3-5.1); Sodium 140 mmol/L (135-145)
[2023-11-27] MEDS: Metoprolol Tartrate 25 MG TABLET PO (08:05)
[2023-11-27] MEDS: Amiodarone HCL 200 MG TABLET 400 MG PO (08:05)
[2023-11-27] MEDS: Apixaban 5 MG TABLET PO (08:05)
[2023-11-27] MEDS: Valsartan 40 MG TABLET PO (08:06)
[2023-11-27] MEDS: Digoxin 0.125 MG TABLET PO (08:06)
[2023-11-27] MEDS: Furosemide 40 MG TABLET PO (08:09)
[2023-11-27] MEDS: Albuterol/Iprat 2.5/0.5MG 3 ML AMPUL.NEB INHALE ×2 (08:20→11:44)
[2023-11-27 08:22] VITALS: PULSE 61; RESP 18; O2SAT 94
--- NOTE | 2023-11-27 09:36 | P.PNIM_ITS ---
Subjective Subjective Date of Service: 11/27/23 Interval History: feels better after cardioversion, still some sob Physical Exam 2 Vital Signs: Vital Signs: Last Vital Signs Temp 97.8 F 11/27/23 07:33 Pulse 61 11/27/23 08:22 Resp 18 11/27/23 08:22 BP 116/73 11/27/23 07:33 Pulse Ox 93 11/27/23 07:33 O2 Del Method Nasal Cannula 11/27/23 07:33 O2 Flow Rate 3 11/27/23 07:33 Oxygen Flow Rate 2 11/22/23 12:20 BMI result Body Mass Index 30.4 Const: General: cooperative, comfortable and no acute distress Nutritional Appearance: overweight Orientation/consciousness: patient oriented x3 Neck: Neck: Yes trachea midline, Yes supple and Yes no JVD Resp: Auscultation: diminished lung sounds (wheezing) Cardio: Jugular venous distension: no JVD Rate: tachycardic Rhythm: a bnormal rhythm irregularly irregular Heart sounds: S1 normal heart sound present, S2 normal heart sound present, no click, no gallops, no murmurs and no rubs GI: Auscultation: normal bowel sounds Skin: General skin exam: no rashes or lesions noted Neuro: General: patient oriented x3 and no focal motor deficits Extrem: General: Yes no clubbing, cyanosis or edema Objective Data Active Medications Acetaminophen (Acetaminophen 325 Mg Tablet) 650 mg PO Q6H PRN PRN Reason: Pain, Mild (Pain Scale 1-3) Last Admin: 11/25/23 23:15 Dose: 650 mg Documented By: HÉCTOR Albuterol/Ipratropium (Albuterol/Iprat 2.5/0.5mg 3 Ml Ampul.Neb) 3 ml INHALE RQ4H WHILE AWAKE [facility] Last Admin: 11/27/23 08:20 Dose: 3 ml Documented By: ROSARIO Amiodarone HCl (Amiodarone Hcl 200 Mg Tablet) 400 mg PO BID [facility] Last Admin: 11/27/23 08:05 Dose: 400 mg Documented By: FELIEP Apixaban (Apixaban 5 Mg Tablet) 5 mg PO BID [facility] Last Admin: 11/27/23 08:05 Dose: 5 mg Documented By: FELIPE Digoxin (Digoxin 0.125 Mg Tablet) 0.125 mg PO DAILY [facility] Last Admin: 11/27/23 08:06 Dose: 0.125 mg Documented By: FELIPE Fentanyl (Fentanyl Citrate/Pf 100 Mcg/2 Ml Vial) 25 mcg IVPUSH Q5M PRN; Protocol PRN Reason: Pain, Moderate(Pain Scale 4-6) Furosemide (Furosemide 40 Mg Tablet) 40 mg PO DAILY [facility]; Protocol Last Admin: 11/27/23 08:09 Dose: 40 mg Documented By: FELIPE Methylprednisolone Sodium Succinate (Methylprednisolone Sod Succ 40 Mg/Ml Vial) 40 mg IVPUSH Q12H [facility] Last Admin: 11/27/23 04:29 Dose: 40 mg Documented By: HÉCTOR Metoprolol Tartrate (Metoprolol Tartrate 25 Mg Tablet) 25 mg PO BID [facility]; Protocol Last Admin: 11/27/23 08:05 Dose: 25 mg Documented By: FELIPE Sodium Chloride (0.9 % Sodium Chloride Flush 3 Ml Syringe) 3 ml IVFLUSH QSHIFT [facility] Last Admin: 11/27/23 08:06 Dose: 3 ml Documented By: FELIPE Valsartan (Valsartan 40 Mg Tablet) 40 mg PO BID [facility]; Protocol Last Admin: 11/27/23 08:06 Dose: 40 mg Documented By: FELIPE Labs 11/27/23 06:43 11/27/23 06:43 Labs: Laboratory Results - last 24 hr 11/27/23 06:43 MCV 96.5 MCH 30.4 MCHC 31.5 RDW 14.0 Plt Count 218 MPV 10.9 Absolute Nucleated RBC 0.000 Nucleated RBC % (auto) 0.0 Anion Gap 15 Estim Creat Clear Calc 64.4 Estimated GFR 58 Fasting Glucose 127 H Calcium 9.4 Assessment and Plan (1) COPD (chronic obstructive pulmonary disease): Status: Acute Plan 68M PMH paroxysmal afib s/p multiple ablations, no longer on meds, COPD (recently off symbicort), obesity, chf with mildly reduced EF, presented with sob Acute hypoxic respiratory failure due to COPD with acute decompensation and acute on chronic CHF with reduced EF continue IV Solu-Medrol, bronchodilators, po Lasix metoprolol, valsartan echo with severe reduced EF Paroxysmal atrial fibrillation with rapid ventricular response apixaban, metoprolol, dig started amiodarone load, 400mg bid for 2 weeks (end 12/09/23) then decrease to 200mg daily s/p chauncey/cv 11/26/23 now in sinus with pacs Obesity Weight loss recommended DVT prophylaxis-on apixaban Full code reason for continued hospitalization:still hypoxic, sob Quality Stroke Does the patient have a stroke diagnosis?: No VTE Prior VTE?: No VTE Risk Level:: Medical - moderate - high VTE Device Contraindication: Treatment Not Indicated VTE Drug Contraindication: N/A - Med Ordered
--- NOTE | 2023-11-27 10:15 | P.PNCA_ITS ---
Subjective Subjective Date of Service: 11/27/23 Principal diagnosis: Cardiomyopathy, CHF, atrial fibrillation. Interval history: Patient status post MAIA guided cardioversion yesterday. Remaining in sinus rhythm with PACs which short burst of AFib. Breathing is better. Review of Systems Constitutional: Reports no additional constitutional complaints Cardiovascular: Denies chest pain, Denies rapid heart rate, Denies lightheadedness, Denies Loss of Consciousness and Reports dyspnea Respiratory: Reports no additional respiratory complaints and Reports dyspnea Gastrointestinal: Reports no additional gastrointestinal complaints Reports system reviewed and no additional complaints, except as documented Psychiatric: Reports no additional psychiatric complaints Physical Exam Vital Signs: Last Vital Signs Temp 97.8 F 11/27/23 07:33 Pulse 61 11/27/23 08:22 Resp 18 11/27/23 08:22 BP 116/73 11/27/23 07:33 Pulse Ox 93 11/27/23 07:33 O2 Del Method Nasal Cannula 11/27/23 07:33 O2 Flow Rate 3 11/27/23 07:33 Oxygen Flow Rate 2 11/22/23 12:20 BMI result Body Mass Index 30.4 Const General: cooperative, comfortable and no acute distress Nutritional Appearance: overweight Orientation/consciousness: patient oriented x3 Neck Neck: Yes trachea midline, Yes supple and Yes no JVD Resp Effort & Inspection: normal respiratory effort Auscultation: wheezes Cardio Jugular venous distension: no JVD Rate: tachycardic Rhythm: abnormal rhythm irregularly irregular Heart sounds: S1 normal heart sound present, S2 normal heart sound present, no click, no gallops, no murmurs and no rubs GI Auscultation: normal bowel sounds Skin General skin exam: no rashes or lesions noted Neuro General: patient oriented x3 and no focal motor deficits Extrem General: Yes no clubbing, cyanosis or edema Objective Labs and Meds 11/27/23 06:43 11/27/23 06:43 Lab results: Laboratory Results - last 24 hr 11/27/23 06:43 WBC 10.0 RBC 5.69 Hgb 17.3 Hct 54.9 H MCV 96.5 MCH 30.4 MCHC 31.5 RDW 14.0 Plt Count 218 MPV 10.9 Absolute Nucleated RBC 0.000 Nucleated RBC % (auto) 0.0 Sodium 140 Potassium 4.5 Chloride 93 L Carbon Dioxide 37 H Anion Gap 15 BUN 33 H Creatinine 1.24 Estim Creat Clear Calc 64.4 Estimated GFR 58 Fasting Glucose 127 H Calcium 9.4 Progress Note: A&P Assessment and plan (1) CHF exacerbation: Status: Acute Assessment and Plan: Heart failure with reduced ejection fraction severe LV systolic dysfunction. Ischemic etiology needs to be evaluated as outpatient. Will schedule for Chrystal Mibi in the future. Hopefully patient shows of for follow-up. Clinically appears to be euvolemic. 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 Agree with valsartan and metoprolol and rhythm control approach. Continue p.o. Lasix. From cardiac perspective patient can be discharged home. CHF education to be provided. Will set up for follow- up in 2-4 weeks in the office. (2) Atrial fibrillation with RVR: Status: Acute Assessment and Plan: Atrial fibrillation rapid ventricular responses with left atrial enlargement. Status post MAIA guided cardioversion. Continue amiodarone loading 400 mg b.i.d. for 2 weeks followed by 200 mg daily as a maintenance dose. Continue full oral anticoagulation Eliquis. Patient says he is not going to take medication if he can afford it. Just found out that he has [employer] and have advise case management to get involved to help him to procure his medications to avoid rehospitalization. Will follow up in the clinic in 4 weeks time. Thank you for allowing me to partake in his care Time Spent With Patient Time: Total time managing care of this patient today ____ minutes. Progress Note: Quality Stroke Does the patient have a stroke diagnosis?: No Procedures Date of Service Date of Service: 11/27/23
[2023-11-27 10:56] VITALS: BP 121/63; PULSE 72; RESP 20; TEMP 36; O2SAT 91
[2023-11-27 11:45] VITALS: PULSE 60; RESP 18; O2SAT 94
--- NOTE | 2023-11-27 14:06 | P.DS_ITS ---
DS: Providers Provider Date of Service: 11/27/23 Date of admission: 11/22/23 16:20 Primary care physician: Papi Sanders MD Consults: 11/22/23 16:18 Consult to Cardiology Routine [place]ing [place] [facility] [place] [facility] Reason for consultation: afib Has provider been notified: Yes DS: Diagnosis Discharge Diagnosis (1) CHF exacerbation: Status: Acute (2) Atrial fibrillation with RVR: Status: Acute DS: Summary Hospital Course Hospital Course: from initial hpi: 68M PMH paroxysmal afib s/p multiple ablations, no longer on meds, COPD (rec ently off symbicort), obesity, chf with mildly reduced EF, presented with sob. patient reports episodic sob since sep 2023, lasts 10-20 minutes, associated with palpitations and quick recovery to baseline. now complaining of several days persistent sob, wheezing, increased lower extremity edema. in ED noted to be hypoxic, in rapid afib. denies chest pain, fever, chills, n/v/d. hospital course: Patient was admitted for acute hypoxic respiratory failure secondary to COPD with acute decompensation and acute on chronic CHF with reduced ejection fraction. He was treated with IV Solu-Medrol, bronchodilators, IV Lasix later transitioned to p.o. Lasix. Echocardiogram showed severe reduced EF of 10-20%. Course further complicated by paroxysmal atrial fibrillation with rapid ventricular response. He was seen by Cardiology who performed MAIA and cardioversion. Patient was not on any medications at home, he was been started on apixaban, metoprolol, digoxin, amiodarone load, valsartan, furosemide. Will also be given 5 more days of prednisone on discharge. For obesity weight loss recommended. Patient is not medically stable for discharge, he is still hypoxic and wheezing. He is requesting to leave against medical advice. He is not interested in home oxygen evaluation. He is aware of the risks of leaving against medical advice including and able to express understanding. Time Attestation Discharge coordination time: Greater than 30 minutes Quality: Safe Use of Opioids Does Pt have an Active Cancer Diagnosis on the Problem List?: No Quality: Stroke Does the patient have a stroke diagnosis?: No Physical Exam Vital Signs: Vital Signs: Last Vital Signs Temp 96.8 F 11/27/23 10:56 Pulse 60 11/27/23 11:45 Resp 18 11/27/23 11:45 BP 121/63 11/27/23 10:56 Pulse Ox 91 L 11/27/23 10:56 O2 Del Method Nasal Cannula 11/27/23 10:56 O2 Flow Rate 3 11/27/23 10:56 Oxygen Flow Rate 2 11/22/23 12:20 BMI result Body Mass Index 30.4 Const: General: cooperative, comfortable and no acute distress Nutritional Appearance: overweight Orientation/consciousness: patient oriented x3 Neck: Neck: Yes trachea midline, Yes supple and Yes no JVD Resp: Effort & Inspection: normal respiratory effort Auscultation: wheezes Cardio: Jugular venous distension: no JVD Rate: tachycardic Rhythm: abnormal rhythm irregularly irregular Heart sounds: S1 normal heart sound present, S2 normal heart sound present, no click, no gallops, no murmurs and no rubs GI: Auscultation: normal bowel sounds Skin: General skin exam: no rashes or lesions noted Neuro: General: patient oriented x3 and no focal motor deficits Extrem: General: Yes no clubbing, cyanosis or edema DS: Data Data Completed and Pending Labs on day of discharge: Laboratory Results - last 24 hr 11/27/23 06:43 WBC 10.0 RBC 5.69 Hgb 17.3 Hct 54.9 H MCV 96.5 MCH 30.4 MCHC 31.5 RDW 14.0 Plt Count 218 MPV 10.9 Absolute Nucleated RBC 0.000 Nucleated RBC % (auto) 0.0 Sodium 140 Potassium 4.5 Chloride 93 L Carbon Dioxide 37 H Anion Gap 15 BUN 33 H Creatinine 1.24 Estim Creat Clear Calc 64.4 Estimated GFR 58 Fasting Glucose 127 H Calcium 9.4 Discharge Plan Discharge Anticipated Discharge Date/Time: 11/27/23 14:04 Patient Disposition: Left Against Medical Advice Discharge Diagnosis: afib, chf Referrals: Papi Sanders MD [Primary Care Provider] - 1 Week Discharge Medications: New Eliquis 5 mg Tablet 5 mg PO BID Qty: 60 0RF amiodarone 200 mg Tablet 400 mg PO BID Qty: 60 0RF Rx Instructions: 400mg bid for 2 weeks then decrease to 200mg daily furosemide 40 mg Tablet 40 mg PO DAILY Qty: 30 0RF Protocol: Hold for SBP< HOLD for SBP < : 90 digoxin 125 mcg (0.125 mg) Tablet 0.125 mg PO DAILY Qty: 30 0RF valsartan 40 mg Tablet 40 mg PO BID Qty: 60 0RF Protocol: Hold for SBP< HOLD for SBP < : 90 metoprolol tartrate 25 mg Tablet 25 mg PO BID Qty: 60 0RF Protocol: Hold for SBP/HR < HOLD for SBP < : 90 HOLD for HR < : 60 prednisone 20 mg tablet 40 mg PO DAILY Qty: 10 0RF albuterol sulfate [Ventolin HFA] 90 mcg/actuation HFA aerosol inhaler 2 puff inhalation QID PRN (Reason: shortness of breath or wheezing) Qty: 6.7 0RF Discharge Orders: Discharge Order (Routine); Ordered 11/27/23 Ordered By: Son Martin Diet: Advance to usual diet Activity on Discharge: As tolerated Stand Alone Forms: Patient Portal Discharge page Care Plan Goals: recovery Health Concerns: chf, copd, afib Plan of Treatment: you are leaving against medical advice and cannot be treated ideally as outpaitnet start meds as prescribed Assessment: see above
--- NOTE | 2023-11-27 14:34 | MHC.CM.PN ---
PER HOSPITALIST PT LEAVING AMA, S.O. AT BEDSIDE AND WILL TRANSPORT.
--- NOTE | 2023-11-27 14:52 | HO.POSTANES ---
Post Anesthesia Evaluation Post Anesthesia Evaluation Date of Service: 11/27/23 Vital Signs: Vital Signs Temp Pulse Resp BP Pulse Ox O2 Del Method O2 Flow Rate 11/27/23 11:45 60 18 11/27/23 10:56 96.8 F 72 20 121/63 91 L Nasal Cannula 3 11/27/23 08:22 61 18 11/27/23 07:33 97.8 F 78 20 116/73 93 Nasal Cannula 3 11/27/23 03:00 97.0 F 55 20 112/76 92 Nasal Cannula 3 Anesthesia: General Mental Status: Awake Pain Control: Satisfactory Nausea/Vomiting: None Hydration: Adequate Anesthesia-Related Issues: No Anes. Related Issues
== END 2023-11-27 14:38 | disposition left against medical advice (07) | DRG 308 ==
LOC: HO.ED 16:10 → HO.EDOVER 16:31 → HO.IMC 11-24 07:34
PROVIDERS: Internal Medicine Cardiovascular Disease; Physician Assistant; Admitting Provider Internal Medicine; Emergency Provider Student in an Organized Health Care Education/Training Program; PCP Internal Medicine; Visit Provider Internal Medicine
PROC: 5A2204Z Restoration of Cardiac Rhythm, Single (ICD-10-PCS; CPT 93312; principal; 2023-11-26 16:00)
PROC: 5A2204Z Restoration of Cardiac Rhythm, Single (ICD-10-PCS; 2023-11-26 16:00)
DX: I48.19 Other persistent atrial fibrillation (principal); I50.23 Acute on chronic systolic (congestive) heart failure; J96.21 Acute and chronic respiratory failure with hypoxia; J44.1 Chronic obstructive pulmonary disease with (acute) exacerbation; I42.9 Cardiomyopathy, unspecified; I25.10 Atherosclerotic heart disease of native coronary artery without angina pectoris; E66.9 Obesity, unspecified; Z68.30 Body mass index [BMI] 30.0-30.9, adult; Z87.891 Personal history of nicotine dependence; Z23 Encounter for immunization; Z20.822 Contact with and (suspected) exposure to COVID-19; Z79.899 Other long term (current) drug therapy
CPT/HCPCS: 0241U; 36415; 71045; 80048; 80053; 80061; 80076; 81001; 82803; 83036; 83735; 83880; 84484; 85025; 85027; 85610; 85730; 87086; 90686; 92960; 93005; 93306; 94640; 99285; J1100; J1160; J1940; J2704; J2920; Q9957

== ENCOUNTER → 2023-11-22 12:13 | Outpatient (BNV) | payer OTHER, SELFPAY | PROVIDERS: Emergency Provider Student in an Organized Health Care Education/Training Program; PCP Internal Medicine; Visit Provider Internal Medicine Cardiovascular Disease | DX: I48.91 Unspecified atrial fibrillation (principal); R94.31 Abnormal electrocardiogram [ECG] [EKG] | CPT/HCPCS: 93010 ==

== ENCOUNTER → 2023-11-22 12:47 | Outpatient (BNV) | payer OTHER, SELFPAY | PROVIDERS: Emergency Provider Student in an Organized Health Care Education/Training Program; PCP Internal Medicine; Visit Provider Internal Medicine | DX: I50.9 Heart failure, unspecified (principal); I48.91 Unspecified atrial fibrillation; J44.9 Chronic obstructive pulmonary disease, unspecified | CPT/HCPCS: 99222; 99233; 99239 ==

== ENCOUNTER 2023-11-22 16:20 | Outpatient (BNV) | payer OTHER, SELFPAY | END 2023-11-26 16:29 | PROVIDERS: Admitting Provider Internal Medicine; Emergency Provider Student in an Organized Health Care Education/Training Program; PCP Internal Medicine; Visit Provider Internal Medicine Cardiovascular Disease | DX: I48.91 Unspecified atrial fibrillation (principal); I36.1 Nonrheumatic tricuspid (valve) insufficiency | CPT/HCPCS: 93010; 93312; 93320; 93325 ==

== ENCOUNTER 2023-11-22 16:20 | Outpatient (BNV) | payer OTHER, SELFPAY | END 2023-11-23 07:00 | PROVIDERS: Admitting Provider Internal Medicine; Emergency Provider Student in an Organized Health Care Education/Training Program; PCP Internal Medicine; Visit Provider Internal Medicine Cardiovascular Disease | DX: I50.9 Heart failure, unspecified (principal); I36.1 Nonrheumatic tricuspid (valve) insufficiency | CPT/HCPCS: 93306 ==

== ENCOUNTER → 2023-11-22 16:20 | Outpatient (BNV) | payer OTHER, SELFPAY | PROVIDERS: Admitting Provider Internal Medicine; Emergency Provider Student in an Organized Health Care Education/Training Program; PCP Internal Medicine; Visit Provider Internal Medicine Cardiovascular Disease | DX: I50.9 Heart failure, unspecified (principal); I48.91 Unspecified atrial fibrillation | CPT/HCPCS: 92960; 99223; 99233 ==

== ENCOUNTER 2023-12-24 08:47 | Outpatient (REF) | payer OTHER, SELFPAY ==
[2023-12-24 09:41] LABS: Anion Gap 15 (12-20); Blood Urea Nitrogen 11 mg/dL (9-16); Calcium 9.2 mg/dL (8.4-10.2); Carbon Dioxide 32 mmol/L (22-29); Chloride 100 mmol/L (96-108); Estimated Glomerular Filt Rate > 60; Glucose Random 102 mg/dL (60-115); Potassium 4.2 mmol/L (3.3-5.1); Sodium 143 mmol/L (135-145)
[2023-12-24 09:47] LABS: B Type Natriuretic Peptide 161 pg/mL (<100)
== END 2023-12-24 08:48 | disposition home or self-care (01) ==
LOC: HO.LAB 08:47
PROVIDERS: PCP Internal Medicine; Visit Provider Internal Medicine Cardiovascular Disease
DX: I48.91 Unspecified atrial fibrillation (principal); I50.9 Heart failure, unspecified; J44.9 Chronic obstructive pulmonary disease, unspecified
CPT/HCPCS: 36415; 80048; 83880

== ENCOUNTER → 2024-01-03 07:39 | Outpatient (REF) | payer OTHER, SELFPAY | LOC: HO.CARD 07:39 | PROVIDERS: Visit Provider Internal Medicine Cardiovascular Disease | DX: Z13.89 Encounter for screening for other disorder (principal) ==

== ENCOUNTER 2024-01-08 13:14 | Outpatient (AMB) | payer OTHER, SELFPAY ==
[2024-01-08 13:20] VITALS: BP 150/80; PULSE 126; BMI 30.2
--- NOTE | 2024-01-08 13:20 | MHC.OFFVIS ---
Intake Vital Signs 01/08/24 13:20 Height 5 ft 10 in Weight 210 lb 12.191 oz BMI 30.2 BP 150/80 H Blood Pressure Location Lt brachial Position Sitting Pulse 126 H Pulse Source Pulse Oximeter Intake Visit Reasons: f/u after testing Intake Note: pt its here f/up after testing pt its feeling fine out of breath due to walking. 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 He never got testing done due to being fluid overloaded and having rapid rates day of testing. He presents today feeling better but still short of breath. He has been without medications for about 3 weeks. He was advised to seek emergency care when he arrived for testing. He stated he would come back the next day but didn't due to feeling better. [facility] Medical History COPD (chronic obstructive pulmonary disease) Social History Household Members: Significant Other Housing: Apartment Do you presently have visiting nurse or other home services: No Comment: pt refused bed alarm Patient Tobacco Use Status: Former Tobacco user Quit Date: 11/19/23 Tobacco use type: Cigarette Cigarette Packs Per Day: 0.25 Cigarettes Per Day: 5 Years Smoked: 50 Smoked in Last 30 Days: No Second Hand Smoke Exposure: Yes Use of substances other than those prescribed or required for medical reasons: Yes Substance Use Type: Marijuana Advance Directives: No Advance Directives Information Provided: Yes service: Yes Review of Systems Const Denies chills, Denies fatigue, Denies fever(s), Denies frequent falls, Denies weakness, Denies weight gain and Denies weight loss ENT Denies dizziness Card Denies chest pain, Denies leg edema, Denies lightheadedness, Denies palpitations, Denies dyspnea and Denies dyspnea on exertion Resp Denies cough, Denies dyspnea and Denies dyspnea on exertion GI Denies hematochezia Musc Denies abnormal gait, Denies muscle weakness, Denies numbness, Denies radiating pain into limb and Denies tingling Neuro Denies abnormal gait, Denies dizziness, Denies frequent falls, Denies numbness, Denies tingling and Denies weakness Endo Denies fatigue and Denies palpitations Physical Exam Vital Signs: Last Vital Signs Pulse 126 H 01/08/24 13:20 BP 150/80 H 01/08/24 13:20 BMI result Body Mass Index 30.2 Const General: healthy appearing and no acute distress Orientation/consciousness: patient oriented x3 HEENT Head: Yes normal to inspection Eyes General: appearance normal, both eyes and all related structures Neck Neck: Yes normal visual inspection Chest Chest palpation & inspection: normal inspection of the chest Resp Effort & Inspection: normal respiratory effort Auscultation: crackles bilateral at the base Cardio Jugular venous distension: no JVD Palpation: normal PMI Rate: regular rate Rhythm: abnormal rhythm (atrial fibrillation) Heart sounds: S1 normal heart sound present, S2 normal heart sound present, no click, no gallops, no murmurs and no rubs GI Inspection: Yes normal to inspection Palpation (GI): Soft to palpation Skin General skin exam: no rashes or lesions noted Neuro General: patient oriented x3 Extrem General: Yes normal to inspection Psych Appearance: grossly normal Office Procedures EKG Details: EKG today. Atrial Fibrillation with rapid ventricular response. Nonspecific ST and T wave abnormality. Rate 136 bpm. [id number], Complete Assessment & Plan Assessment & Plan (1) Atrial fibrillation with RVR: Code(s): I48.91 - Unspecified atrial fibrillation Plan Plan to bring down the the emergency room for rate control. Patient agreed to plan and was accompanied to ED via wheelchair. Report was called to Marilyn HERNANDEZ at [facility] ED. Coding Level of Care Code Est Pt Level 3 (27118) Diagnoses Atrial fibrillation with RVR I48.91 CPT Codes EKG - CPT: 22205-[id number], Complete ([id number])
== END 2024-01-08 14:20 | disposition home or self-care (01) ==
PROVIDERS: PCP Internal Medicine; Visit Provider Nurse Practitioner
DX: I48.91 Unspecified atrial fibrillation (principal)
CPT/HCPCS: 93010; 99213

== ENCOUNTER → 2024-01-08 13:14 | Outpatient (BNVA) | payer OTHER, SELFPAY | PROVIDERS: PCP Internal Medicine; Visit Provider Nurse Practitioner ==

== ENCOUNTER 2024-01-08 14:00 | Emergency (ER) | payer OTHER, SELFPAY ==
--- NOTE | ~2024-01-08 | XR_ITS ---
EXAMINATION: XR CHEST CLINICAL INFORMATION: SOB. COMPARISON: None available. TECHNIQUE: Frontal view of the chest was obtained. FINDINGS: No significant abnormality is noted involving the heart, lungs, mediastinum, bony thorax or soft tissues. XR/XR chest 1V IMPRESSION: Unremarkable chest examination.
--- NOTE | 2024-01-08 14:05 | ECG_ITS ---
Test Reason : afib Blood Pressure : / mmHG Vent. Rate : 095 BPM Atrial Rate : 095 BPM P-R Int : 156 ms QRS Dur : 088 ms QT Int : 372 ms P-R-T Axes : 055 018 046 degrees QTc Int : 467 ms Normal sinus rhythm Low voltage QRS Borderline ECG When compared with ECG of 26-NOV-2023 17:25, Premature atrial complexes are no longer Present T wave inversion no longer evident in Anterior leads Referred By: Generic ED Physician Electronically Signed By:CECILIA GIBBS MD
[2024-01-08 14:17] VITALS: BP 141/81; PULSE 95; RESP 19; TEMP 36.6; O2SAT 88; BMI 30.7
--- NOTE | 2024-01-08 14:21 | ED_ITS ---
HPI - General Adult General Chief complaint: Arrhythmia/Palpitations Stated complaint: Afib Time Seen by Provider: 01/08/24 15:04 Source: patient Limitations: no limitations History of Present Illness HPI narrative: 68-year-old male with a history of atrial fibrillation, COPD and congestive heart failure who presents emergency department for evaluation of atrial fibrillation with rapid ventricular rate of 156 beats per minute. Patient states that he has not been on any medications since he does not have a PCP. Patient was hospitalized from 11/22/2023 until 11/27/2023 with acute congestive heart failure and atrial fibrillation with RVR. Patient was treated for COPD exacerbation and CHF with Solu-Medrol, bronchodilators IV Lasix. Echocardiogram revealed an EF of 10-20%. Patient had a transesophageal echo and then was cardioverted. He was started on apixaban, metoprolol, digoxin, amiodarone, valsartan and furosemide. He is also discharged on a 5 day course of prednisone. The patient left against medical advice. Patient followed up with the cardiology today and he was seen by Dr. Man who found the patient to be in atrial fibrillation with a ventricular rate of 156 and the patient was sent to the emergency department for evaluation. Patient states that he was asymptomatic but he was having shortness of breath and dyspnea on exertion. He denied lightheadedness, dizziness, palpitations, chest pain. Related Data Previous Rx's Medication Instructions Recorded albuterol sulfate 90 mcg/actuation 2 puff inhalation QID PRN 11/27/23 aerosol inhaler (Ventolin HFA) shortness of breath or wheezing #6.7 grams albuterol sulfate 90 mcg/actuation 2 puff inhalation Q4-6H PRN 01/08/24 aerosol inhaler (ProAir HFA) shortness of breath or wheezing #8.5 grams amiodarone 200 mg tablet 200 mg PO BID 90 days #180 tabs 01/08/24 apixaban 5 mg tablet (Eliquis) 5 mg PO BID 90 days #180 tabs 01/08/24 digoxin 125 mcg (0.125 mg) tablet 125 mcg PO DAILY 90 days #90 tabs 01/08/24 furosemide 40 mg tablet (Lasix) 40 mg PO DAILY 90 days #90 tabs 01/08/24 metoprolol tartrate 25 mg tablet 25 mg PO BID 90 days #180 tabs 01/08/24 valsartan 40 mg tablet 40 mg PO BID 90 days #180 tabs 01/08/24 Allergies Allergy/AdvReac Type Severity Reaction Status Date / Time No Known Allergies Allergy Verified 01/08/24 14:17 [No Known Allergies*] Review of Systems 2 Review of Systems: Yes all other systems are reviewed and are negative [facility] Past Medical History Medical History COPD (chronic obstructive pulmonary disease) Social History Social History Household Members: Significant Other Housing: Apartment Do you presently have visiting nurse or other home services: No Comment: pt refused bed alarm Patient Tobacco Use Status: Former Tobacco user Quit Date: 11/19/23 Tobacco use type: Cigarette Cigarette Packs Per Day: 0.25 Cigarettes Per Day: 5 Years Smoked: 50 Smoked in Last 30 Days: No Second Hand Smoke Exposure: Yes Use of substances other than those prescribed or required for medical reasons: Yes Substance Use Type: Marijuana Advance Directives: No Advance Directives Information Provided: Yes service: Yes Physical Exam ED Vital Signs: Vital Signs - 24 hr 01/08/24 14:17 01/08/24 14:35 Temperature 98 F 97.7 F Pulse Rate 95 95 Respiratory Rate 19 20 Blood Pressure 141/81 H 159/91 H Pulse Oximetry 88 L 88 L Oxygen Delivery Method Room Air Room Air BMI result Body Mass Index 30.7 Vital signs were normal Exam General: Awake, alert in no distress Head: Normocephalic, atraumatic EENT: PERRL, Lids normal, sclera normal, conjunctiva normal, nose normal , ears normal, throat without erythema or exudates Neck: Supple, no adenopathy Lung: breath sounds symmetric, no wheezing, rales or rhonchi Chest: symmetric movement, nontender Heart: regular rate and rhythm, normal S1, S2 no murmurs or rubs Abdomen: soft, non-tender, nondistended, normal bowel sounds Back: no vertebral tenderness, no CVAT Extremities: no deformities, moves all extremities symmetrically Skin: no rashes, no lesion, normal color and warmth Neuro: Awake, alert, oriented, normal speech, cranial nerves intact, moves all extremities symmetrically Psych: Pleasant, cooperative Course Course Course Narrative: RME: 68 yold male sent from cardiologists for being in Afib RVR. patient has been without his afib meds due to lack of PCP. office EKG shows afib HR 135. Now Hear rate is 96. Brought to bed 4. labs EkG Ordered Medications Administered Discontinued Medications Generic Name Dose Route Start Last Admin Trade Name Watson PRN Reason Stop Dose Admin Amiodarone HCl 200 mg 01/08/24 15:30 01/08/24 16:08 Amiodarone Hcl 200 Mg Tablet PO 01/08/24 15:31 200 mg ONCE ONE Administration Apixaban 5 mg 01/08/24 15:30 01/08/24 16:08 Apixaban 5 Mg Tablet PO 01/08/24 15:31 5 mg ONCE ONE Administration Digoxin 0.125 mg 01/08/24 15:30 01/08/24 16:08 Digoxin 0.125 Mg Tablet PO 01/08/24 15:31 0.125 mg ONCE ONE Administration Metoprolol Tartrate 25 mg 01/08/24 15:30 01/08/24 16:08 Metoprolol Tartrate 25 Mg Tablet PO 01/08/24 15:31 25 mg ONCE ONE Administration Protocol Medical Decision Making Medical Decision Making [facility] Narrative: 68-year-old male with a history of atrial fibrillation, COPD and congestive heart failure who was recently hospital from 11/22/2023 until 11/27/2023 with acute congestive heart failure and atrial fibrillation with RVR. Patient was treated for COPD exacerbation and CHF with Solu-Medrol, bronchodilators IV Lasix. Echocardiogram revealed an EF of 10-20%. Patient had a transesophageal echo and then was cardioverted. He was started on apixaban, metoprolol, digoxin, amiodarone, valsartan and furosemide. However, the patient states that he ran out of his medications and was not able to get a refill. He followed up with Cardiology and was seen by Dr. Man and was found to be in atrial fibrillation with a RVR of 156 and sent to emergency department for evaluation. Patient had no symptoms. Vital signs revealed heart rate of 88 and heart exam revealed regular rate and rhythm. Following evaluation was ordered: CBC, CMP, TSH with free T4, PT INR, PTT, troponin, BNP. My interpretation patient's laboratory evaluation as follows: CBC was normal. Coags were normal. CMP was normal. Troponin was detectable but not elevated 8.0. BNP was elevated 521. Chest x-ray revealed no evidence of congestive heart failure pneumonia 12 EKG is consistent with a sinus rhythm. The patient's spontaneously converted without any treatment. Patient was given a dose of the medications that he was prescribed from his recent admission. This included valsartan 40 mg orally, amiodarone 200 mg orally, Eliquis 5 mg orally, metoprolol 25 mg orally. Patient was given a prescription for these medications with a 90 day supply. Differential Diagnosis Differential Diagnoses: The differential diagnosis associated with the presentation includes Differential diagnosis includes was not limited to atrial fibrillation, myocardial infarction, myocardial ischemia, electrolyte abnormalities, hyperthyroidism, noncompliance with medications Admission/Observation Consideration of admission/observation: Escalation of care including admission/observation considered Lab Data MDM Lab Attestation statement: I reviewed the patient's lab results. 01/08/24 14:46 01/08/24 14:46 Labs: Lab Results 01/08/24 Range/Units 14:46 WBC 9.1 (4.8-10.8) X10*3/uL RBC 4.54 L D (4.60-5.80) X10*6/uL Hgb 13.4 L D (14.0-18.0) g/dl Hct 41.9 L D (42.0-52.0) % MCV 92.3 (80.0-98.0) fL MCH 29.5 (27.0-33.0) pg MCHC 32.0 (31.0-36.0) g/dl RDW 13.7 (11.0-16.0) % Plt Count 304 D (160-400) X10*3/uL MPV 9.4 (9.4-12.4) fL Immature Gran % (Auto) 0.5 H (0.0-0.4) % Neut % (Auto) 71.2 (45-73) % Lymph % (Auto) 20.5 (20-40) % [place] % (Auto) 5.8 (2-11) % Eos % (Auto) 1.2 (0-4) % Baso % (Auto) 0.8 (0-2) % Lymph # (Auto) 1.9 (1.2-4.9) X10*3/uL [place] # (Auto) 0.5 (0.1-1.2) X10*3/uL Eos # (Auto) 0.1 (0.0-0.4) X10*3/uL Baso # (Auto) 0.1 (0.0-0.2) X10*3/uL Abs Immat Gran (auto) 0.05 H (0.00-0.03) X10*3/uL Absolute Neuts (auto) 6.5 (2.0-8.3) x10*3/uL Absolute Nucleated RBC 0.000 (0.0-0.012) X10*3/uL Nucleated RBC % (auto) 0.0 (0.0-0.2) /100WBC PT 13.5 H (11.1-13.3) SEC INR 1.1 (0.9-1.1) APTT 34.2 (26.0-36.8) SEC Sodium 143 (135-145) mmol/L Potassium 4.0 (3.3-5.1) mmol/L Chloride 107 (96-108) mmol/L Carbon Dioxide 26 (22-29) mmol/L Anion Gap 14 (12-20) BUN 8 L (9-16) mg/dL Creatinine 0.83 (0.5-1.4) mg/dL Estim Creat Clear Calc 96.7 Estimated GFR > 60 Random Glucose 89 (60-115) mg/dL Calcium 9.1 (8.4-10.2) mg/dL Total Bilirubin 0.5 (0.0-1.0) mg/dL AST 13 (5-37) U/L ALT 8 (0-40) U/L Alkaline Phosphatase 87 (39-117) U/L Troponin I High Sens 8.0 (<3.5-35.0) ng/L B-Natriuretic Peptide 521 H (<100) pg/mL Total Protein 7.1 (6.5-8.0) g/dL Albumin 3.2 L (3.5-5.0) g/dL TSH 8.35 H (0.32-4.0) uIU/mL Free T4 0.78 (0.71-1.85) ng/dL Independent Interpretation I performed an independent interpretation of an: EKG Interpretation: My interpretation the patient's 12 EKG done at 14:09 hours is as follows: Normal sinus rhythm with a rate of 95, normal SD interval, QRS duration and QTC interval, no ST segment elevation, no ST segment depression, no significant T- wave abnormalities, no PACs, no PVCs My independent interpretation patient's chest x-ray is as follows: No acute disease Radiology Impression Discussion of test interpretation with radiology: I have reviewed the radiologist's reading. Radiologist Impression: XR chest 1V IMPRESSION: Unremarkable chest examination. Dictated By: Jhonny Alvarez MD Independent Historian Clinical information obtained from an independent historian. History obtained from or confirmed by: Spouse Chronic Conditions Patient?s care impacted by: Other (COPD, cardiomyopathy) Discharge Plan Discharge Clinical Impression: Atrial fibrillation with RVR Patient Disposition: Home, Self-Care Instructions: A-fib (Atrial Fibrillation) (ED) Additional Instructions: Your blood work was unremarkable and at your baseline which is reassuring. 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 You were given your morning dose of medications which include Eliquis 5 mg, amiodarone 200 mg, furosemide 40 mg, digoxin 125 mcg, valsartan 40 mg, metoprolol 25 mg. I am giving him a refill of these medications, take them as prescribed. I am also prescribing an albuterol inhaler, take 2 puffs every 4 hours as needed for shortness of breath. Continue using your other inhaler as prescribed by your provider Follow-up with your doctor in 2 days. Please return to the emergency department if your symptoms get worse or if you develop any symptoms that are concerning to you. Prescriptions: New Eliquis 5 mg tablet 5 mg PO BID 90 Days Qty: 180 0RF amiodarone 200 mg tablet 200 mg PO BID 90 Days Qty: 180 0RF furosemide [Lasix] 40 mg tablet 40 mg PO DAILY 90 Days Qty: 90 0RF digoxin 125 mcg (0.125 mg) tablet 125 mcg PO DAILY 90 Days Qty: 90 0RF valsartan 40 mg tablet 40 mg PO BID 90 Days Qty: 180 0RF metoprolol tartrate 25 mg tablet 25 mg PO BID 90 Days Qty: 180 0RF albuterol sulfate [ProAir HFA] 90 mcg/actuation HFA aerosol inhaler 2 puff inhalation Q4-6H PRN (Reason: shortness of breath or wheezing) Qty: 8.5 0RF No Action albuterol sulfate [Ventolin HFA] 90 mcg/actuation HFA aerosol inhaler 2 puff inhalation QID PRN (Reason: shortness of breath or wheezing) Qty: 6.7 0RF Interventions: ED Discharge Assessment Last Done: 01/08/24 16:43 Discharge Date/Time: 01/08/24 16:44
[2024-01-08 14:35] VITALS: BP 159/91; PULSE 95; RESP 20; TEMP 36.5; O2SAT 88
--- NOTE | 2024-01-08 14:38 | PC.NURSE ---
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 pt is awake, alert and oriented, breathing even but noted to be labored on any exertion. skin warm and dry. pt reports SOB on exertion, denies any CP or pain. pt reports he has not taken any of his meds in 1 week, no baseline home O2. pt has hx of COPD, SPO2 on RA noted to be 88-91%. pt on bedside quality assurance monitor body, NSR with PVCs noted. pt comfortable when at rest.
[2024-01-08 14:53] LABS: MANUAL DIFF FLAG NO
[2024-01-08 14:55] LABS: Basophils Absolute Auto 0.1 X10*3/uL (0.0-0.2); Basophils Percent Auto 0.8 % (0-2); Eosinophils Absolute Auto 0.1 X10*3/uL (0.0-0.4); Eosinophils Percent Auto 1.2 % (0-4); Hematocrit 41.9 % (42.0-52.0); Hemoglobin 13.4 g/dl (14.0-18.0); Imm Gran Abs Auto 0.05 X10*3/uL (0.00-0.03); Imm Gran Pct Auto 0.5 % (0.0-0.4); Lymphocytes Absolute Auto 1.9 X10*3/uL (1.2-4.9); Lymphocytes Percent Auto 20.5 % (20-40); Mean Corpuscular Hemoglobin 29.5 pg (27.0-33.0); Mean Corpuscular Volume 92.3 fL (80.0-98.0); Mean Platelet Volume 9.4 fL (9.4-12.4); Monocytes Absolute Auto 0.5 X10*3/uL (0.1-1.2); Monocytes Percent Auto 5.8 % (2-11); Neutrophils Absolute Auto 6.5 x10*3/uL (2.0-8.3); Neutrophils Percent Auto 71.2 % (45-73); Platelet Count 304 X10*3/uL (160-400); Red Blood Count 4.54 X10*6/uL (4.60-5.80); Red Cell Distribution Width 13.7 % (11.0-16.0); White Blood Count 9.1 X10*3/uL (4.8-10.8)
[2024-01-08 15:05] LABS: INTERNATIONAL NORM RATIO 1.1 (0.9-1.1); Prothrombin Time 13.5 SEC (11.1-13.3)
[2024-01-08 15:08] LABS: Partial Thromboplastin Time 34.2 SEC (26.0-36.8)
[2024-01-08 15:16] LABS: B Type Natriuretic Peptide 521 pg/mL (<100)
[2024-01-08 15:17] LABS: Alanine Aminotransferase 8 U/L (0-40); Albumin Level 3.2 g/dL (3.5-5.0); Alkaline Phosphatase 87 U/L (39-117); Anion Gap 14 (12-20); Aspartate Amino Transferase 13 U/L (5-37); Bilirubin Total 0.5 mg/dL (0.0-1.0); Blood Urea Nitrogen 8 mg/dL (9-16); Calcium 9.1 mg/dL (8.4-10.2); Carbon Dioxide 26 mmol/L (22-29); Chloride 107 mmol/L (96-108); Creatinine Clr Calc Pharmacy 96.7; Estimated Glomerular Filt Rate > 60; Glucose Random 89 mg/dL (60-115); Sodium 143 mmol/L (135-145); Total Protein 7.1 g/dL (6.5-8.0)
[2024-01-08 15:34] LABS: TSH reflex Free T4 8.35 uIU/mL (0.32-4.0)
[2024-01-08 16:04] LABS: Free T4 (Free Thyroxine) 0.78 ng/dL (0.71-1.85)
[2024-01-08] MEDS: Apixaban 5 MG TABLET PO (16:08)
[2024-01-08] MEDS: Digoxin 0.125 MG TABLET PO (16:08)
[2024-01-08] MEDS: Metoprolol Tartrate 25 MG TABLET PO (16:08)
[2024-01-08] MEDS: Amiodarone HCL 200 MG TABLET PO (16:08)
== END 2024-01-08 16:44 | disposition home or self-care (01) ==
PROVIDERS: Physician Assistant; Emergency Provider Emergency Medicine Emergency Medical Services
DX: I48.91 Unspecified atrial fibrillation (principal); R00.2 Palpitations; I48.20 Chronic atrial fibrillation, unspecified; R06.02 Shortness of breath; Z79.899 Other long term (current) drug therapy
CPT/HCPCS: 36415; 71045; 80053; 83880; 84439; 84443; 84484; 85025; 85610; 85730; 93005; 99212; 99284; 99285

== ENCOUNTER 2024-04-11 09:53 | Outpatient (AMB) | payer OTHER, SELFPAY ==
--- NOTE | 2024-04-11 09:56 | A.OFFPC_ITS ---
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 Transferring care from Dr Day ([facility]). Medical records have not been requested and have not received. 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 Fuser Tender: Not Required per policy Accompanied by: Self / Same As Patient Allergies No Known Allergies [No Known Allergies*] Allergy (Verified 04/11/24 10:49) Medication List - Last Reconciled 04/11/24 by Papi Sanders MD albuterol sulfate 90 mcg/actuation (Ventolin HFA) 2 puffs inhalation QID PRN amiodarone 200 mg PO BID 90 days apixaban (Eliquis) 5 mg PO BID 90 days digoxin 125 mcg PO DAILY 90 days furosemide (Lasix) 40 mg PO DAILY 90 days metoprolol tartrate 25 mg PO BID 90 days valsartan 40 mg PO BID 90 days Tobacco use date assessed: 04/11/24 Fall risk assessment: 2 + Falls in past year Last assessed Fall Risk: 04/11/24 Dental Screening Dental Screen Date: 04/11/24 Did you have a dental visit in the last 12 months?: No Did you have a dental problem in the last 6 months where you did not have access to dental care?: No Was dental information given to patient?: No 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 Akshat Bill in [place] States that Dr. Bill is no longer accepting his health insurance at present Patient states that he feels okay and that he mainly needs his Rx refilled as they are running out and he can no longer have it refilled unless he has a PCP He denies any headaches or dizziness Denies any chest pains, no SOB No nausea/vomiting, no abdominal pain No change in bowel habits noted PFSH Medical History (Updated 04/15/24 @ 13:28 by Papi Sanders MD) Obesity (BMI 30-39.9) Coronary artery disease Congestive heart failure (CHF) Atrial fibrillation with RVR COPD (chronic obstructive pulmonary disease) Surgical History (Updated 04/15/24 @ 12:48 by Papi Sanders MD) History of coronary artery stent placement Social History Household Members: Significant Other Housing: Apartment Do you presently have visiting nurse or other home services: No Alcohol intake: never Comment: pt refused bed alarm Patient Tobacco Use Status: Former Tobacco user (10/2023) Quit Date: 11/19/23 Tobacco use type: Cigarette Cigarette Packs Per Day: 0.25 Cigarettes Per Day: 5 Years Smoked: 50 e-Cigarette/Vaping Use: Never Used Second Hand Smoke Exposure: Yes Substance Use Type: Marijuana service: Yes Current occupational status: retired Cognitive needs: No Hearing needs: No Vision needs: No Questionnaire PHQ-9 Over the last 2 weeks, how often have you been bothered by any of the following problems? 1. Little interest or pleasure in doing things: not at all 2. Feeling down, depressed, or hopeless: not at all 3. Trouble falling or staying asleep, or sleeping too much: not at all 4. Feeling tired or having little energy: not at all 5. Poor appetite or overeating: not at all 6. Feeling bad about yourself - or that you are a failure or have let yourself or your family down: not at all 7. Trouble concentrating on things, such as reading the newspaper or watching television: not at all 8. Moving or speaking so slowly that other people could have noticed. Or the opposite - being so fidgety or restless that you have been moving around a lot more than usual: not at all 9. Thoughts that you would be better off or of hurting yourself in some way: not at all Total score: 0 Depression Screening Interpretation: Negative Depression Screening Done: Yes 67525 - PHQ-9 Billing: Yes Source: Developed by Drs. Danilo Rico, Denisse Brown, Tino Magana and colleagues, with an educational tali from [employer] Thrive Questionnaire Date Thrive assessed: 04/11/24 I am a: Patient What is your living situation today?: I have a steady place to live Within the past 12 months, did the food you bought not last and you didn't have the money to get more?: Never true Within the past 12 months, did you worry whether your food would run out before you got money to buy more?: Never true Do you have trouble paying for medicines?: No Do you have trouble getting transportation to medical appointments?: No Do you have trouble paying your heating and electricity bill?: No Do you have trouble taking care of your child, family member or friend?: No Do you have trouble with day-to-day activities such as bathing, preparing meals, shopping, managing finances, etc.?: No Are you currently unemployed and looking for a job?: No Are you interested in more education?: No Currently or been in a relationship where the following occur: no concerns reported THRIVE Score: 0 AUDIT C Alcohol Use Questionnaire (AUDIT-C) 1. How often do you have a drink containing alcohol?: Never 3. How often do you have six or more drinks on one occasion?: Never Total Score: 0 Score Reviewed/Action Taken: Yes JANEE-7 AMB Questionnaire JANEE-7 Date JANEE - 7 assessed: 04/11/24 Feeling nervous, anxious, or on edge: 0 = Not at all Not being able to stop or control worryin = Not at all Worrying too much about different things: 0 = Not at all Trouble relaxin = Not at all Being so restless that it is hard to sit still: 0 = Not at all Becoming easily annoyed or irritable: 0 = Not at all Feeling afraid as if something awful might happen: 0 = Not at all Total JANEE-7 score (0-4 normal; 5-9 mild; 10-14 moderate; 15-21 severe): 0 Source: Developed by Drs. Danilo Rico, Denisse Brown, Tino Magana and colleagues, with an educational tali from [employer]. Review of Systems Const Denies chills, Denies fatigue, Denies fever(s) and Denies headache(s) ENT Denies dysphagia, Denies dizziness, Denies otalgia, Denies headache(s), Denies neck pain, Denies odynophagia and Denies sore throat Card Denies chest pain, Denies palpitations and Reports dyspnea on exertion (mild) Resp Denies cough and Reports dyspnea on exertion (mild) GI Denies abdominal pain, Denies constipation, Denies dysphagia, Denies heartburn, Denies diarrhea, Denies nausea, Denies odynophagia and Denies vomiting Denies dysuria, Denies nocturia and Denies urinary frequency Musc Denies back pain and Denies neck pain Skin/Breast Denies rash Neuro Denies dizziness and Denies headache(s) Endo Denies fatigue and Denies palpitations Physical exam (Primary Care) Vital Signs: Last Vital Signs Pulse 68 04/11/24 09:59 BP 130/72 04/11/24 09:59 Pulse Ox 94 04/11/24 09:59 Oxygen Delivery Method Room Air 04/11/24 09:59 BMI result Body Mass Index 31.3 Tobacco/Smoking Status: Tobacco use Status Tobacco use date assessed 04/11/24 04/11/24 10:12 Patient Tobacco Use Status Former Tobacco user (10/202304/11/24 10:12 ) Tobacco use type Cigarette 04/11/24 10:12 e-Cigarette/Vaping Use Never Used 04/11/24 10:12 PHQ-9: PHQ-9 Score PHQ-9: Total score 0 04/11/24 10:51 Depression Screening Interpretation: Negative Thrive Assessment: Date of Thrive Assessment Date Thrive assessed 11/23/23 04/11/24 10:12 Currently or been in a relationship where the following occur: no concerns reported Const General: no acute distress and alert HENMT Ears: TM's normal bilaterally and EAC's normal Throat: Yes posterior oropharynx normal and Yes tonsils normal (no TP congestion) Neck Neck: Yes no lymphadenopathy and Yes supple Thyroid: Thyroid normal Resp Auscultation: clear to auscultation bilaterally, no rales and no wheezes Cardio Rate: regular rate Rhythm: regular rhythm Heart sounds: no murmurs GI Palpation (GI): Soft to palpation, nontender and Hernia present ventral Auscultation: normal bowel sounds General: Yes no CVA tenderness Back/Spine/Pelvis Back: no CVA tenderness Skin Rashes: no rashes Extrem General: Yes no clubbing, cyanosis or edema Assessment and Plan Assessment & Plan (1) Coronary artery disease: Code(s): I25.10 - Atherosclerotic heart disease of [place] coronary artery without angina pectoris Qualifiers: Coronary Disease-Associated Artery/Lesion type: [place] artery [place] vs. transplanted heart: [place] heart Associated angina: without angina Qualified Code(s): I25.10 - Atherosclerotic heart disease of [place] coronary artery without angina pectoris Plan: S/P coronary stenting Patient has not had any follow up labs done in a while other than those done when he presented to the ER over the past few months as he has not had a PCP to follow up with in the past year or so Will send him for some labs KAYCE for follow up (2) Congestive heart failure (CHF): Code(s): I50.9 - Heart failure, unspecified Qualifiers: Heart failure type: systolic Heart failure chronicity: chronic Qualified Code(s): I50.22 - Chronic systolic (congestive) heart failure Plan: Patient currently appears compensated Echocardiogram done back in November 2023 revealed (+) severely reduced LV ejection fraction of 15-20%; biatrial enlargement, left greater than right; normal cardiac valvular dopplers; no intracardiac shunting; mild atherosclerotic changes noted in descending and arch of the aorta, no gross pericardial effusion Reinforced fluid restriction in CHF Continue Valsartan 40 mg BID, Digoxin 125 mcg QD and Furosemide 40 mg QD (3) Atrial fibrillation with RVR: Comment: S/P cardioversion Code(s): I48.91 - Unspecified atrial fibrillation Plan: Patient is currently in sinus rhythm and is rate-controlled Continue Apixaban 5 mg BID for thromboembolism prophylaxis Continue Amiodarone 200 mg BID, Digoxin 125 mcg QD and Metoprolol 25 mg BID States that he has not seen cardiology for follow up in a while and has no upcoming appt scheduled soon - will refer him back to cardiology for follow up and continuing management (4) COPD (chronic obstructive pulmonary disease): Code(s): J44.9 - Chronic obstructive pulmonary disease, unspecified Qualifiers: COPD type: unspecified COPD Qualified Code(s): J44.9 - Chronic obstructive pulmonary disease, unspecified Plan: Appears to be currently stable Continue Albuterol HFA 1 to 2 inhalations Q 6 hours PRN (5) Elevated TSH: Code(s): R79.89 - Other specified abnormal findings of blood chemistry Plan: Will send patient to check his TFTs and labs KAYCE for follow up He is advised that as long as he is on Amiodarone, we will need to monitor his TFTs regularly (6) Ventral hernia: Comment: supraumbilical Code(s): K43.9 - Ventral hernia without obstruction or gangrene Qualifiers: Obstruction and gangrene presence: without obstruction or gangrene Qualified Code(s): K43.9 - Ventral hernia without obstruction or gangrene Plan: Will refer him to surgery for further evaluation and management (7) Obesity (BMI 30-39.9): Code(s): E66.9 - Obesity, unspecified Plan: Reinforced diet; exercise and weight loss are unrealistic given patient's multiple comorbidities and physical issues Plan Follow up in 3 months Orders: Orders Thyroid Stimulating Hormone 04/11/24 R79.89 - Other specified abnormal findings of blood chemistry Free T4 (Free Thyroxine) 04/11/24 R79.89 - Other specified abnormal findings of blood chemistry Comprehensive Met. Panel 04/11/24 I48.91 - Unspecified atrial fibrillation Complete Blood Count Auto Diff 04/11/24 D64.9 - Anemia, unspecified, I48.91 - Unspecified atrial fibrillation UA CC w/rflx Micro + Cult 04/11/24 I48.91 - Unspecified atrial fibrillation, R30.0 - Dysuria B Type Natriuretic Peptide 04/11/24 I48.91 - Unspecified atrial fibrillation, I50.9 - Heart failure, unspecified Vitamin D 25-OH Total 04/11/24 E55.9 - Vitamin D deficiency, unspecified, I48.91 - Unspecified atrial fibrillation Referrals General Surgery Referral K43.9 - Ventral hernia without obstruction or gangren e Cardiology Referral I48.91 - Unspecified atrial fibrillation Medications: Refilled albuterol sulfate 90 mcg/actuation (Ventolin HFA) 2 puffs inhalation QID PRN 6.7 grams 0RF shortness of breath or wheezing valsartan 40 mg PO BID 90 days 180 tabs 1RF digoxin 125 mcg PO DAILY 90 days 90 tabs 0RF furosemide (Lasix) 40 mg PO DAILY 90 days 90 tabs 1RF metoprolol tartrate 25 mg PO BID 90 days 180 tabs 1RF apixaban (Eliquis) 5 mg PO BID 90 days 180 tabs 1RF amiodarone 200 mg PO BID 90 days 180 tabs 1RF Coding Level of Care Code New Pt Level 4 (80129) Diagnoses Coronary artery disease involving [place] coronary artery of [place] heart without angina pectoris I25.10 Coronary Disease-Associated Artery/Lesion type: [place] artery [place] vs. transplanted heart: [place] heart Associated angina: without angina Chronic systolic congestive heart failure I50.22 Heart failure type: systolic Heart failure chronicity: chronic Atrial fibrillation with RVR I48.91 Chronic obstructive pulmonary disease, unspecified COPD type J44.9 COPD type: unspecified COPD Elevated TSH R79.89 Ventral hernia without obstruction or gangrene K43.9 Obstruction and gangrene presence: without obstruction or gangrene Obesity (BMI 30-39.9) E66.9
[2024-04-11 09:59] VITALS: BP 130/72; PULSE 68; O2SAT 94; BMI 31.3
== END 2024-04-11 11:08 | disposition home or self-care (01) ==
PROVIDERS: PCP Internal Medicine; Visit Provider Internal Medicine
DX: I25.10 Atherosclerotic heart disease of native coronary artery without angina pectoris (principal); I50.22 Chronic systolic (congestive) heart failure; I48.91 Unspecified atrial fibrillation; J44.9 Chronic obstructive pulmonary disease, unspecified; R79.89 Other specified abnormal findings of blood chemistry; K43.9 Ventral hernia without obstruction or gangrene
CPT/HCPCS: 99204

== ENCOUNTER 2024-04-11 11:20 | Outpatient (REF) | payer OTHER, SELFPAY ==
[2024-04-11 11:47] LABS: MANUAL DIFF FLAG NO
[2024-04-11 12:33] LABS: Basophils Absolute Auto 0.1 X10*3/uL (0.0-0.2); Basophils Percent Auto 0.6 % (0-2); Eosinophils Absolute Auto 0.1 X10*3/uL (0.0-0.4); Eosinophils Percent Auto 0.7 % (0-4); Hematocrit 47.6 % (42.0-52.0); Hemoglobin 14.8 g/dl (14.0-18.0); Imm Gran Abs Auto 0.11 X10*3/uL (0.00-0.03); Lymphocytes Absolute Auto 1.7 X10*3/uL (1.2-4.9); Lymphocytes Percent Auto 15.7 % (20-40); Mean Corpuscular HGB Conc 31.1 g/dl (31.0-36.0); Mean Corpuscular Hemoglobin 28.4 pg (27.0-33.0); Mean Corpuscular Volume 91.2 fL (80.0-98.0); Mean Platelet Volume 10.4 fL (9.4-12.4); Monocytes Absolute Auto 0.8 X10*3/uL (0.1-1.2); Monocytes Percent Auto 7.1 % (2-11); Neutrophils Absolute Auto 8.1 x10*3/uL (2.0-8.3); Neutrophils Percent Auto 74.9 % (45-73); Platelet Count 240 X10*3/uL (160-400); Red Blood Count 5.22 X10*6/uL (4.60-5.80); Red Cell Distribution Width 15.6 % (11.0-16.0); White Blood Count 10.8 X10*3/uL (4.8-10.8)
[2024-04-11 12:42] LABS: Appearance Urine Clear; Color Urine Yellow; Glucose Urine UA Negative (Negative); Leukocyte Esterase Urine Negative (Negative); Nitrite Urine Negative (Negative); PH 7.5 (5.0-9.0); Urine Blood Negative (Negative); Urine Ketones Negative (Negative); Urine Protein Negative (Neg-Trace)
[2024-04-11 13:00] LABS: B Type Natriuretic Peptide 135 pg/mL (<100)
[2024-04-11 13:08] LABS: Alanine Aminotransferase 9 U/L (0-40); Alkaline Phosphatase 107 U/L (39-117); Anion Gap 14 (12-20); Aspartate Amino Transferase 20 U/L (5-37); Bilirubin Total 0.6 mg/dL (0.0-1.0); Blood Urea Nitrogen 18 mg/dL (9-16); Calcium 9.3 mg/dL (8.4-10.2); Carbon Dioxide 30 mmol/L (22-29); Chloride 101 mmol/L (96-108); Estimated Glomerular Filt Rate 55; Glucose Random 96 mg/dL (60-115); Sodium 141 mmol/L (135-145); Total Protein 7.9 g/dL (6.5-8.0)
[2024-04-11 13:29] LABS: Free T4 (Free Thyroxine) 0.74 ng/dL (0.71-1.85); Vitamin D 25-OH Total 10.5 ng/mL (>30)
== END 2024-04-11 11:21 | disposition home or self-care (01) ==
LOC: HO.LAB 11:20
PROVIDERS: PCP Internal Medicine; Visit Provider Internal Medicine
DX: R79.89 Other specified abnormal findings of blood chemistry (principal); I50.9 Heart failure, unspecified; I48.91 Unspecified atrial fibrillation; D64.9 Anemia, unspecified; R30.0 Dysuria; E55.9 Vitamin D deficiency, unspecified
CPT/HCPCS: 36415; 80053; 81003; 82306; 83880; 84439; 84443; 85025

== ENCOUNTER 2024-04-24 12:30 | Outpatient (AMB) | payer OTHER, SELFPAY ==
[2024-04-24 12:50] VITALS: BP 131/63; PULSE 63; BMI 31.3
--- NOTE | 2024-04-24 12:50 | A.OFFVIS_ITS ---
Vital Signs 3 04/24/24 12:50 Height 5 ft 7 in Weight 200 lb BMI 31.3 BP 131/63 Blood Pressure Location Rt brachial Position Sitting Pulse 63 Intake Visit Reasons: Ventral hernia Intake Note: Patient is seen in office for evaluation and treatment of a ventral hernia. Pt c/o: reports bugle when standing, reports bulge is not noticeable when sitting or laying down and it is more visible when standing, reports severe pain, reports needs to hold it in place to be able to walk, reports no nausea or vomiting. 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 Accompanied by: Self / Same As Patient Allergies No Known Allergies [No Known Allergies*] Allergy (Verified 04/24/24 12:56) Medication List - Last Reconciled 04/24/24 by Shady Evans MD albuterol sulfate 90 mcg/actuation (Ventolin HFA) 2 puffs inhalation QID PRN amiodarone 200 mg PO BID 90 days apixaban (Eliquis) 5 mg PO BID 90 days digoxin 125 mcg PO DAILY 90 days furosemide (Lasix) 40 mg PO DAILY 90 days metoprolol tartrate 25 mg PO BID 90 days valsartan 40 mg PO BID 90 days HPI Comments Details: 68-year-old male patient presenting for evaluation of a ventral hernia of approximately 6 months duration. His past medical history is significant for coronary artery disease, congestive heart failure, AFib with a rapid ventricular response on Eliquis, COPD, and obesity. He denies any previous surgery in this location but did have previous hernia surgery in the lower abdomen. He reports doing a lot of coughing due to his COPD which seemed to bring on the hernia. He is able to reduce the hernia with light pressure while in the supine position. He occasionally gets some sharp pain when coughing but denies nausea, vomiting, diarrhea or constipation. He is requesting repair of this painful hernia. [facility] Medical History Obesity (BMI 30-39.9) Coronary artery disease Congestive heart failure (CHF) Atrial fibrillation with RVR COPD (chronic obstructive pulmonary disease) Surgical History S/P appendectomy History of coronary artery stent placement Social History Household Members: Significant Other Housing: Apartment Do you presently have visiting nurse or other home services: No Alcohol intake: never Comment: pt refused bed alarm Patient Tobacco Use Status: Former Tobacco user (10/2023) Tobacco use type: Cigarette Cigarette Packs Per Day: 0.25 Cigarettes Per Day: 5 Years Smoked: 50 e-Cigarette/Vaping Use: Never Used Second Hand Smoke Exposure: Yes Substance Use Type: Marijuana service: Yes Current occupational status: retired Cognitive needs: No Hearing needs: No Vision needs: No Review of Systems Const All systems reviewed & are unremarkable except as noted in HPI and below Denies chills, Denies fever(s), Denies headache(s), Denies poor appetite and Denies weakness ENT Denies headache(s) Card Denies chest pain, Reports irregular heart rhythm, Denies palpitations and Reports dyspnea Resp Reports cough, Denies excessive phlegm production and Reports dyspnea GI Reports abdominal pain, Denies bloating, Denies change in bowel habits, Denies constipation, Denies heartburn, Denies diarrhea, Denies nausea and Denies vomiting Denies difficulty urinating and Denies urinary frequency Musc Denies back pain, Denies muscle weakness and Denies numbness Skin/Breast Denies changing lesions and Denies unusual bruising Neuro Denies headache(s), Denies numbness, Denies paresthesias and Denies weakness Psych Denies anxiety and Denies depression Endo Denies palpitations Akhil/Lymph Denies lymphadenopathy Physical Exam Const General: cooperative and no acute distress Nutritional Appearance: well nourished Orientation/consciousness: patient oriented x3 Limitations: no limitations HEENT Head: Yes normocephalic and Yes atraumatic Ears: hearing grossly normal bilaterally Resp Effort & Inspection: normal respiratory effort, no audible wheezes, no cough and no respiratory distress Cardio Jugular venous distension: no JVD GI Other: Upper midline abdominal wall hernia noted in the standing position with Valsalva maneuvers. Inspection: Yes normal to inspection and Yes Abdominal panniculus present Palpation (GI): Soft to palpation, no guarding and not rigid Abdomen image: 2 1. 5 cm reducible ventral hernia mid upper abdomen Skin Other: Warm, dry, no rash Neuro General: patient oriented x3 Extrem General: Yes no clubbing, cyanosis or edema Assessment & Plan Assessment & Plan (1) Ventral hernia: Comment: supraumbilical Code(s): K43.9 - Ventral hernia without obstruction or gangrene Category: Medical Qualifiers: Obstruction and gangrene presence: without obstruction or gangrene Q ualified Code(s): K43.9 - Ventral hernia without obstruction or gangrene Plan 68-year-old male patient presenting with a reducible but symptomatic ventral hernia caused by coughing. He is requesting repair of this symptomatic hernia. I reviewed the procedure, risks, and alternatives including wearing a compressive dressing such as an abdominal binder. He will require cardiology preop evaluation to assure he is a suitable candidate for general anesthesia. Ideally we would hold the Eliquis several days prior to surgery as well. After discussion of the procedure, risks, and alternatives, he consents to repair of the reducible ventral hernia with mesh. Coding Level of Care Code New Pt Level 4 (69699) Diagnoses Ventral hernia without obstruction or gangrene K43.9 Obstruction and gangrene presence: without obstruction or gangrene
== END 2024-04-24 13:29 | disposition home or self-care (01) ==
PROVIDERS: PCP Internal Medicine; Referring Provider Internal Medicine; Visit Provider Surgery
DX: K43.9 Ventral hernia without obstruction or gangrene (principal)
CPT/HCPCS: 99204

== ENCOUNTER → 2024-04-24 12:30 | Outpatient (BNVA) | payer OTHER, SELFPAY | PROVIDERS: PCP Internal Medicine; Referring Provider Internal Medicine; Visit Provider Surgery | DX: K43.9 Ventral hernia without obstruction or gangrene (principal) | CPT/HCPCS: 99202 ==

== ENCOUNTER 2024-04-30 13:01 | Outpatient (AMB) | payer OTHER, SELFPAY ==
--- NOTE | 2024-04-30 13:20 | A.OFFVIS_ITS ---
Vital Signs 04/30/24 13:21 Height 5 ft 7 in Weight 195 lb 12.328 oz BMI 30.7 BP 150/70 H Blood Pressure Location Lt brachial Position Sitting Pulse 54 Pulse Source Monitor Intake Visit Reasons: KM pt/ Dr. 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 He has background history of COPD, paroxysmal atrial fibrillation and severe cardiomyopathy for which he underwent MAIA cardioversion in 12/08/2023. Subsequently had another episode of atrial fibrillation and went to the ER but this was self-limiting. He has been on amiodarone since then. He has not sure whether he is taking amiodarone daily or twice a day. He is also on digoxin, metoprolol tartrate 25 mg twice a day and apixaban 5 mg twice a day. He has been experiencing abd ominal pain due to ventral hernia and is being considered for surgery. He is sent to us for perioperative cardiovascular risk assessment. He has shortness of breath with short distance activity. He continues to smoke up to 3 cigarettes per day. He has not seen pulmonology in the past. [facility] Medical History Obesity (BMI 30-39.9) Coronary artery disease Congestive heart failure (CHF) Atrial fibrillation with RVR COPD (chronic obstructive pulmonary disease) Surgical History S/P appendectomy History of coronary artery stent placement Social History Household Members: Significant Other Housing: Apartment Do you presently have visiting nurse or other home services: No Alcohol intake: never Comment: pt refused bed alarm Patient Tobacco Use Status: Former Tobacco user Tobacco use type: Cigarette Cigarette Packs Per Day: 0.25 Cigarettes Per Day: 5 Years Smoked: 50 e-Cigarette/Vaping Use: Never Used Second Hand Smoke Exposure: Yes Substance Use Type: Marijuana service: Yes Current occupational status: retired Cognitive needs: No Hearing needs: No Vision needs: No Review of Systems Const Denies chills, Denies fatigue, Denies fever(s), Denies frequent falls, Denies weakness, Denies weight gain and Denies weight loss ENT Denies dizziness Card Denies chest pain, Denies leg edema, Denies lightheadedness, Denies palpitations, Denies dyspnea and Denies dyspnea on exertion Resp Denies cough, Denies dyspnea and Denies dyspnea on exertion GI Denies hematochezia Musc Denies abnormal gait, Denies muscle weakness, Denies numbness, Denies radiating pain into limb and Denies tingling Neuro Denies abnormal gait, Denies dizziness, Denies frequent falls, Denies numbness, Denies tingling and Denies weakness Endo Denies fatigue and Denies palpitations Physical Exam Vital Signs: Last Vital Signs Pulse 54 04/30/24 13:21 BP 150/70 H 04/30/24 13:21 BMI result Body Mass Index 30.7 GENERAL APPEARANCE: in no acute distress, pleasant. NECK: no carotid bruit, no jugular venous distention. SKIN: no suspicious lesions, warm and dry. HEART: no murmurs, regular rate and rhythm. LUNGS: Mild bilateral wheezes. ABDOMEN: soft, nontender. EXTREMITIES: no edema. PERIPHERAL PULSES: equal. NEUROLOGIC: No gross deficits, AAO X 3 Office Procedures EKG Details: sinus bradycardia 54/min, rightward axis, QTc 440 msec. [id number], Complete Assessment & Plan Assessment & Plan (1) Preop cardiovascular exam: Code(s): Z01.810 - Encounter for preprocedural cardiovascular examination Category: Medical (2) Congestive heart failure (CHF): Code(s): I50.9 - Heart failure, unspecified Category: Medical Qualifiers: Heart failure type: systolic Heart failure chronicity: chronic Qualified Code(s): I50.22 - Chronic systolic (congestive) heart failure (3) PAF (paroxysmal atrial fibrillation): Code(s): I48.0 - Paroxysmal atrial fibrillation Category: Medical Plan Pleasant 68-year-old gentleman who is here for follow-up. He has ventral hernia and has been experiencing abdominal pain. He is being considered for surgery. He has history of COPD and continues to smoke up to 3 cigarettes per day. He has wheezing on examination. He is just taking Ventolin inhaler as needed and will need to be optimized from pulmonary point of view. I am referring him to pulmonology for further assessment. I have discussed with him about smoking cessation completely. From cardiovascular point of view he had severe cardiomyopathy in the setting of atrial fibrillation with a rapid ventricular response. He is now status post cardioversion and is in sinus rhythm. We will repeat echocardiogram to see how his ejection fraction has responded to rhythm control strategy. He has significant shortness of breath which could be due to lung disease but underlying coronary disease is a possibility. We will arrange a Lexiscan for him. I have advised him that he should be on amiodarone 200 mg once a day not twice a day. I am stopping the digoxin. His blood pressure is elevated and I am increasing the valsartan to 80 mg twice a day. Clinically appears to be euvolemic. Thank you for allowing me to participate in the care of your patient. Please feel free to contact me if you have any questions. Orders: Orders CA echo transthoracic complete Today I50.22 - Chronic systolic (congestive) heart failure CA lexiscan stress w simon Today I50.22 - Chronic systolic (congestive) heart failure Referrals Pulmonology Referral J44.9 - Chronic obstructive pulmonary disease, unspecified Medications: Changed From valsartan 40 mg PO BID 90 days 180 tabs 1RF To valsartan 80 mg (2 x 40 mg) PO BID 90 days 360 tabs 3RF From amiodarone 200 mg PO BID 90 days 180 tabs 1RF To amiodarone 200 mg PO DAILY 90 days 120 tabs 3RF Discontinued digoxin Discontinued Reason: Doctor's Order 125 mcg PO DAILY 90 days 90 tabs 0RF Coding Level of Care Code Est Pt Level 5 (78023) Diagnoses Preop cardiovascular exam Z01.810 Chronic systolic congestive heart failure I50.22 Heart failure type: systolic Heart failure chronicity: chronic PAF (paroxysmal atrial fibrillation) I48.0 CPT Codes EKG - CPT: [id number], Complete ([id number])
[2024-04-30 13:21] VITALS: BP 150/70; PULSE 54; BMI 30.7
== END 2024-04-30 13:57 | disposition home or self-care (01) ==
PROVIDERS: PCP Internal Medicine; Visit Provider Internal Medicine Cardiovascular Disease
DX: I50.22 Chronic systolic (congestive) heart failure (principal); I48.0 Paroxysmal atrial fibrillation; Z01.810 Encounter for preprocedural cardiovascular examination
CPT/HCPCS: 93010; 99214

== ENCOUNTER → 2024-04-30 13:01 | Outpatient (BNVA) | payer OTHER, SELFPAY | PROVIDERS: PCP Internal Medicine; Visit Provider Internal Medicine Cardiovascular Disease | DX: Z01.810 Encounter for preprocedural cardiovascular examination (principal); I11.0 Hypertensive heart disease with heart failure; I50.22 Chronic systolic (congestive) heart failure; I48.0 Paroxysmal atrial fibrillation | CPT/HCPCS: 93005; 99212 ==

== ENCOUNTER → 2024-05-27 08:43 | Outpatient (REF) | payer OTHER, SELFPAY ==
--- NOTE | ~2024-05-27 | NM_ITS ---
Lexiscan Myocardial perfusion study Indication: Congestive heart failure Technique: The patient was brought in for a Lexiscan perfusion study on 05/27/2024 and was injected 0.4 mg of Lexiscan intravenously. Within a minute of this injection 30 mCi of sestamibi was given intravenously. Images were obtained using the SPECT gamma camera interlaced with the gating device. Images were obtained in supine position. Resting perfusion study was performed on 05/28/2024. Patient was administered 30 mCi of sestamibi intravenously at rest. Images were then obtained in supine position. Images were processed with the software and compared side to side in short axis, horizontal long axis and vertical long axis views. Total DLP 98mGy-cm. Findings: Raw acquisition reviewed. The stress perfusion study showed markedly diminished tracer uptake in the inferior wall, inferolateral wall, apex. There is improvement with CT attenuation correction and hence could be components of diaphragmatic attenuation artifact. The gated study shows diminished LV systolic function with calculated LVEF of 45%. LV cavity is normal in size. The gated study shows diminished inferior wall and apical thickening or contractility. Resting study shows diminished tracer uptake in the inferior wall, inferolateral wall as well as the apex. Similar to stress acquisition.. Gating at rest reveals inferior and apical hypokinesis and LVEF 48%. The findings are consistent with fixed perfusion defect in the inferior wall, inferolateral wall and adjacent parts of apex. NM/NM simon perf SPECT rest & str Impression: 1. Myocardial perfusion imaging study shows prior infarct involving the inferior wall, inferolateral wall and adjacent apex. 2. Gated LVEF is 44% during stress and 48% during rest. 3. Transient ischemic dilatation not present. EKG component of the test reported separately.
--- NOTE | 2024-05-27 08:46 | CA_ITS ---
Acquisition Time: 2024-05-27 09:51:43 Total Exercise Time: 00:02:00 Test Indications: CHF Medications: Protocol: LEXISCAN Max HR: 075 BPM 50% of Pred: 150 BPM Max BP: 142/076 mmHG Max Work Load: 1.0 METS Pharmacological stress test with Lexiscan while sitting and marchilng in place, without anginal symptoms, with isolated PVCs, with normotensive response to injection, with nondiagnoisitic EKGs. Aminophylline 75mg IVP given to reverse Lexiscan. Nuclear images pending. Test reviewed with Dr. De La Rosa. Referred By: Yordy De La Rosa Overread By: Jeaneth Ansari
--- NOTE | 2024-05-27 08:46 | CA_ITS ---
Transthoracic Echocardiogram Patient (Last, First, Middle): Steve Morales, Gender: Male Date of : 1955 Age: 68 Procedure Date: 05/27/2024 Procedure Type: Transthoracic Echocardiogram Location: OP Height: 177.8 cm Weight: 90.72 kg BSA: 2.09 m2 Heart Rate: 61 bpm BP: 132 / 70 mmHg Gum Rolling Machine Tender: PIETRO Almanzar MD: Yordy De La Rosa MD Shim Plug Cutter: Yordy De La Rosa MD Symptoms: I50.22 - Chronic systolic (congestive) heart failure Study Quality: Adequate w Contrast ECG Rhythm: Sinus Findings Procedure Information Contrast agent, definity, is being given per protocol without apparent complications. Left Ventricle Normal left ventricular cavity size. There is normal left ventricular wall thickness. The left ventricular systolic function is low normal. The visually estimated ejection fraction is between 50-55%. Abnormal diastolic function is noted. Spectral Doppler is indicative of a pseudonormal filling pattern. E/E prime ratio is between 8 and 15 consistent with indeterminate filling pressures. In some views apical dyskinesis noted but wall motion appears to be due PVCs. Frequent PVCs throughout the study. Right Ventricle Mildly increased right ventricular cavity size. There is normal right ventricular systolic function. Atria The left atrium is normal in size. The right atrium is normal in size. Aortic Valve Normal aortic valve structure and function. There is no aortic valve stenosis. There is trace (trivial) aortic valve regurgitation. Mitral Valve The mitral valve appears normal. There is no mitral valve regurgitation. There is no mitral valve stenosis. Pulmonic Valve The pulmonic valve is likely normal. Tricuspid Valve Likely normal tricuspid valve structure and function. Normal right atrial pressure. There is no evidence of pulmonary hypertension. Great Vessels All visible segments of the aorta are normal in size. Venous The inferior vena cava is normal in size and collapses greater than 50% with inspiration. Pericardium/Pleural There is no evidence of pericardial effusion. Prior Study Comparison Changes noted compared to prior study dated: 11/26/2023. EF 50-55%. normal RV function with mild dilation. Measurements 2D Linear Measurements IVSd: 0.99 0.6-0.9/0.6-1.0 cm LVIDd: 4.73 3.9-5.3/4.2-5.9 cm LVIDd Index: 2.26 2.4-3.2/2.2-3.1 cm/m2 LVIDs: 3.56 2.0-3.6 cm LVPWd: 0.59 0.7-1.1 cm Ao Root: 3.40 2.1-3.5 cm LA Diam: 4.10 2.7-3.8/3.0-4.0 cm LAIDs Index: 1.96 1.5-2.3 cm/m2 LV Mass: 150.74 67-162/88-224 g LV Mass Index: 72.12 43-95/49-115 g/m2 LVOT Diam: 2.00 3.0+(-)1.3 cm 2D Systolic Function EF 4C: 45.80 >55% EF 2C: 62.90 >55% EF BiP: 57.50 >55% Mitral Valve MV Pk E: 1.10 MV PK A: 1.03 MV Decel Time: 285.00 E/A: 1.10 E'Lateral: 8.05 E'Medial: 5.00 E/E' Med: 22.00 E/E' Lat: 13.70 PHT: 83.00 MVA PHT: 2.65 Decel [place]: 3.86 Aortic Valve AoV Pk Garrick: 1.29 AoV Mn Garrick: 0.93 AoV VTI: 0.32 AoV Pk Grad: 7.00 Aov Mn Grad: 4.00 SANIYA Cont.VTI: 2.21 LVOT LVOT Pk Garrick: 1.00 LVOT Mn Garrick: 0.72 LVOT VTI: 0.23 LVOT Pk Grad: 4.00 LVOT Mn Grad: 2.00 LVOT Diam: 2.00 LVOT Area: 3.14 Diastolic Function MV Pk E: 1.10 MV Pk A: 1.03 E/A: 1.10 E'Medial: 5.00 E/E' Med: 22.00 E' Laterial: 8.05 E/E' Lat: 13.70 Right Ventricle TAPSE (mm): 22.00 TVS' Garrick: 13.00 Tricuspid Valve TR Pk Garrick: 1.47 TR Pk Grad: 9.00 RA Press: 3.00 RVSP: 12.00 Great Vessels Aorta Ao Root-2D: 3.40 2.0-3.7 cm Ao Asc: 3.60 2.1-3.4 cm Pulmonary Valve PV Pk Garrick: 1.10 Peak PV Grad: 5.00 Updated in Other Vendor System with Status of Final Yordy De La Rosa MD electronically signed on 05/28/2024 12:01:36 PM with status of Final
== END ==
LOC: HO.CARD 08:43
PROVIDERS: PCP Internal Medicine; Visit Provider Internal Medicine Cardiovascular Disease
DX: I50.22 Chronic systolic (congestive) heart failure (principal)
CPT/HCPCS: 78452; 93017; 93306; A9500; J0280; J2785; Q9957

== ENCOUNTER → 2024-05-27 08:46 | Outpatient (BNV) | payer OTHER, SELFPAY | PROVIDERS: PCP Internal Medicine; Visit Provider Nurse Practitioner | DX: I50.9 Heart failure, unspecified (principal) | CPT/HCPCS: 78452; 93016; 93018; 93320; 93325; 93350; 93352 ==

== ENCOUNTER 2024-06-16 09:58 | Outpatient (AMB) | payer OTHER, SELFPAY ==
--- NOTE | 2024-06-15 12:08 | A.OFFVIS_ITS ---
Vital Signs 06/16/24 10:03 Height 5 ft 7 in Weight 196 lb 3.382 oz BMI 30.7 BP 150/86 H Blood Pressure Location Rt brachial Position Sitting Pulse 58 Pulse Source Pulse Oximeter Pulse Oximetry (%) 95 Oxygen Delivery Method Room Air Intake Visit Reasons: COPD Allergies No Known Allergies [No Known Allergies*] Allergy (Verified 06/16/24 10:06) HPI HPI COPD: Details: Setve is a pleasant 68 year old male, current minimal smoker with 50 pack year history with underlying COPD, severe cardiomyopathy maintained on amiodarone, metoprolol, atrial fibrillation s/p cardioverson in 2018 on eliquis, CAD and CHF on lasix 40 mg. He was referred by cardiology for pulmonary evaluation. He notes that he is going to be undergoing hernia repair at [facility] and will likely need pulmonary clearance. He has been suboptimally controlled on albuterol PRN using frequently. Of note, he has been using symbicort 80 mcg given to him by a friend. He continues to report dyspnea on exertion, wheezing and productive cough with clear to white sputum. He denies prior hospitalization related to respiratory distress. He denies prior history of asthma. He denies recent PFT. Prior CXR from 12/2023 unremarkable. He denies any pertinent family history. 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 He denies any seasonal allergies. He also reports prior diagnosis of DUSTIN with symptoms of daytime fatigue, nonrestorative sleep , frequent night awakenings and PND. Previously he had a CPAP machine but has been without and no recent sleep study. [facility] Medical History Obesity (BMI 30-39.9) Coronary artery disease Congestive heart failure (CHF) Atrial fibrillation with RVR COPD (chronic obstructive pulmonary disease) Surgical History S/P appendectomy History of coronary artery stent placement Social History (Updated 06/16/24 @ 10:05 by Savanah Jimenes CMA) Household Members: Significant Other Housing: Apartment Do you presently have visiting nurse or other home services: No Alcohol intake: never Comment: pt refused bed alarm Patient Tobacco Use Status: Current everyday Tobacco user Tobacco use type: Cigarette Cigarette Packs Per Day: 0.25 Cigarettes Per Day: 5 Years Smoked: 50 e-Cigarette/Vaping Use: Never Used Second Hand Smoke Exposure: Yes Substance Use Type: Marijuana service: Yes Current occupational status: retired Cognitive needs: No Hearing needs: No Vision needs: No Review of Systems Const Denies chills, Denies excessive sweating, Denies fever(s), Denies headache(s) and Denies night sweats Eyes Denies dry eyes, Denies irritation and Denies itchy eyes ENT Reports Normal hearing present, Denies headache(s), Denies nasal congestion, Denies nasal discharge, Denies post nasal drip and Denies sore throat Card Denies chest pain, Denies chest pain at rest, Denies chest pain with activity, Denies claudication, Denies leg edema and Denies orthopnea Resp Denies chest congestion, Denies excessive phlegm production, Denies pain on inspiration, Denies pain with cough and Denies stridor Musc Denies myalgias Neuro Reports Normal hearing present and Denies headache(s) Endo Denies excessive sweating Akhil/Lymph Denies lymphadenopathy Aller/Immun Denies itchy eyes and Denies seasonal rhinorrhea Physical Exam Vital Signs: Last Vital Signs Pulse 58 06/16/24 10:03 BP 150/86 H 06/16/24 10:03 Pulse Ox 95 06/16/24 10:03 Oxygen Delivery Method Room Air 06/16/24 10:03 BMI result Body Mass Index 30.7 Const General: cooperative, healthy appearing, comfortable, no acute distress, well developed and alert Orientation/consciousness: patient oriented x3 Limitations: no limitations HEENT Head: Yes normal to inspection, Yes normocephalic and Yes atraumatic Ears: hearing grossly normal bilaterally and external ears normal Eyes General: appearance normal, both eyes and all related structures Eyelids: Yes eyelids normal Sclerae: sclerae normal EOM: EOMs intact bilaterally Neck Neck: Yes normal visual inspection and Yes no lymphadenopathy Lymphatic: no lymphadenopathy noted Chest Chest palpation & inspection: normal inspection of the chest Resp Effort & Inspection: normal respiratory effort, able to speak in complete sentences, no audible wheezes, no cough, no stridor, not tachypneic, no tripod positioning and no use of accessory muscles Auscultation: wheezes and diminished lung sounds Cardio Jugular venous distension: no JVD Rate: regular rate Skin Other: warm, dry General skin exam: no rashes or lesions noted Neuro General: patient oriented x3 Cranial nerves: Yes Normal hearing present Cognition (Neuro): normal cognition Gait exam (Neuro): Normal gait present Extrem General: Yes normal to inspection, Yes capillary refill normal, Yes no clubbing, cyanosis or edema and Yes no pedal edema Psych Appearance: grossly normal and well kempt Speech and movement: Normal speech and movement present and Clear speech present Affect: normal affect Attitude: cooperative Thought process: Normal thought process present Thought content: Normal thought content present Insight: Good insight present (Psych) Judgement: Good judgement present (Psych) Results Reviewed Results Reviewed: [address] [address] XRay Report Signed Patient: Steve Morales MR#: [id number] : 1955 Acct:[id number] Age/Sex: 68 / M ADM Date: 01/08/24 Loc: HO.ED Attending Dr: Ordering Physician: Moses Pressley Date of Service: 01/08/24 Procedure(s): XR chest 1V Accession Number(s): [id number] cc: Moses Pressley; Physician,Unknown ~ EXAMINATION: XR CHEST CLINICAL INFORMATION: SOB. COMPARISON: None available. TECHNIQUE: Frontal view of the chest was obtained. FINDINGS: No significant abnormality is noted involving the heart, lungs, mediastinum, bony thorax or soft tissues. XR/XR chest 1V IMPRESSION: Unremarkable chest examination. Dictated By: Jhonny Alvarez MD Signed By: <Electronically signed by Jhonny Alvarez MD in OV> 01/08/24 1536 DD/ 1500 TD/TT: Medical Assisting Instructor: [facility] Assessment & Plan Assessment & Plan (1) COPD (chronic obstructive pulmonary disease): Code(s): J44.9 - Chronic obstructive pulmonary disease, unspecified Category: Medical Qualifiers: COPD type: unspecified COPD Qualified Code(s): J44.9 - Chronic obstructive pulmonary disease, unspecified (2) Congestive heart failure (CHF): Code(s): I50.9 - Heart failure, unspecified Category: Medical Qualifiers: Heart failure chronicity: chronic Heart failure type: systolic Qualified Code(s): I50.22 - Chronic systolic (congestive) heart failure (3) Nicotine dependence, cigarettes, uncomplicated: Code(s): F17.210 - Nicotine dependence, cigarettes, uncomplicated Category: Medical (4) Paroxysmal nocturnal dyspnea: Code(s): R06.00 - Dyspnea, unspecified Category: Medical Plan Steve's symptoms are likely multifactorial with contribution from pulmonary and cardiac etiologies. On exam patient with expiratory wheezing throughout, will send in prednisone. Will also trial Symbicort 160 mcg and combivent PRN. Importance of oral hygiene reviewed.Patient with significant smoking history and continues to smoke, discussed importance of smoking cessation. Will send for PFT to assess severity of COPD and chest CT. Patient also reports symptoms suggestive of DUSTIN, with prior PSG positive many years ago. Will enter order for home sleep study. All questions were answered and patient is in agreement of plan. Will follow up in 4-6 weeks or sooner if needed. Orders: Orders RT home sleep study Today R06.00 - Dyspnea, unspecified CT chest wo IV con Today F17.210 - Nicotine dependence, cigarettes, uncomplicated PFT pulmonary function test Today J44.9 - Chronic obstructive pulmonary disease, unspecified Medications: New prednisone 40 mg (2 x 20 mg) PO DAILY 10 tabs 0RF budesonide-formoterol 160-4.5 mcg/actuation (Symbicort) 2 puffs inhalation Q12H 10.2 grams 6RF ipratropium-albuterol 20-100 mcg/actuation (Combivent Respimat) 1 puff inhalation Q6H 4 grams 3RF Coding Level of Care Code New Pt Level 4 (26051) Diagnoses Chronic obstructive pulmonary disease, unspecified COPD type J44.9 COPD type: unspecified COPD Chronic systolic congestive heart failure I50.22 Heart failure chronicity: chronic Heart failure type: systolic Nicotine dependence, cigarettes, uncomplicated F17.210 Paroxysmal nocturnal dyspnea R06.00
[2024-06-16 10:03] VITALS: BP 150/86; PULSE 58; O2SAT 95; BMI 30.7
== END 2024-06-16 10:44 | disposition home or self-care (01) ==
PROVIDERS: PCP Internal Medicine; Visit Provider Nurse Practitioner Family
DX: J44.9 Chronic obstructive pulmonary disease, unspecified (principal); I50.22 Chronic systolic (congestive) heart failure; F17.210 Nicotine dependence, cigarettes, uncomplicated; R06.00 Dyspnea, unspecified
CPT/HCPCS: 99204; 99214

== ENCOUNTER → 2024-06-16 09:58 | Outpatient (BNVA) | payer OTHER, SELFPAY | PROVIDERS: PCP Internal Medicine; Visit Provider Nurse Practitioner Family | DX: J44.9 Chronic obstructive pulmonary disease, unspecified (principal); I48.91 Unspecified atrial fibrillation; I25.10 Atherosclerotic heart disease of native coronary artery without angina pectoris; I50.22 Chronic systolic (congestive) heart failure; R06.00 Dyspnea, unspecified; F17.210 Nicotine dependence, cigarettes, uncomplicated; Z79.01 Long term (current) use of anticoagulants; Z79.899 Other long term (current) drug therapy | CPT/HCPCS: 99202 ==

== ENCOUNTER 2024-07-07 10:41 | Outpatient (REF) | payer OTHER, SELFPAY ==
--- NOTE | ~2024-07-07 | CT_ITS ---
EXAMINATION: CT CHEST WITHOUT CONTRAST CLINICAL INFORMATION: Nicotine dependence. COMPARISON: CT chest 03/30/2018. TECHNIQUE: Multidetector volumetric CT imaging of the chest was done. Axial MIP volume rendering provided. Sagittal and coronal reformatted images were obtained. This CT examination was performed using dose optimization techniques as appropriate, variously including the following: *Automated exposure control *Adjustment of mA and/or kV according to patient size (this includes techniques or standardized protocols for targeted exams where dose is matched to indication/reason for exam; i.e. extremities or head) *Use of iterative reconstruction technique DLP: 187 mGy-cm FINDINGS: LUNGS: New 0.9 cm solid nodule abutting the left major fissure in the left upper lobe (5:158). New 0.3 cm solid pleural-based nodule in the posterior right lower lobe (5:422). New focal lucent pleural-based observation in the posterior left upper lobe with thickened michaud measuring 1.4 cm (5:313) and wall thickness measuring up to 0.5 cm. Unchanged 0.5 cm nodule in the posterior right upper lobe (5:203). Unchanged 0.3 cm peribronchial nodule in the right lower lobe (5:309). Increased platelike opacities in the lingula (5:406) suggesting scarring and subsegmental atelectasis. Chronic bronchial wall thickening with scattered mucous plugging and small cyclic attenuation lung parenchyma. No dense consolidation or significant groundglass disease. Central airways are patent. Moderate emphysema. MEDIASTINUM: Normal heart size. Trace amount of pericardial fluid. A few prominent mediastinal lymph nodes are not significantly changed, for instance a customer field representative measuring 1 cm short axis in the right lower paratracheal region (3:22). Moderate atherosclerotic disease of the thoracic aorta which is of normal diameter. Evaluation of the hilar structures is limited in the absence of intravenous contrast, however within limitations, no discrete bulky hilar adenopathy/mass is seen. CORONARY ARTERY CALCIFICATION: Severe multivessel coronary artery calcifications. PLEURA: No pleural effusion or pneumothorax. AXILLA: No lymphadenopathy. UPPER ABDOMEN: Unremarkable. OSSEOUS STRUCTURES: No acute or aggressive appearing osseous findings. CT/CT chest wo IV con IMPRESSION: New 0.9 cm solid nodule abutting the left major fissure in the left upper lobe and new 0.3 cm solid pleural-based nodule in the posterior right lower lobe. New focal lucent pleural-based observation in the posterior left upper lobe with thickened [place] measuring up to 1.4 cm. According to the UPDATED 2017 Fleischner Society recommendations, the advised follow-up imaging for multiple nodules with the largest measuring greater than [address] CT at 3 months, PET/CT, or tissue sampling as clinically appropriate. Chronic bronchial wall thickening with scattered mucous plugging and mosaic attenuation of the lung parenchyma that could indicate smoking-related small airways disease/bronchiolitis and air-trapping. Moderate emphysema. Severe multivessel coronary calcifications. Correlate with cardiovascular risk factors. Electronically signed by: Stella Boo MD 08/19/2024 01:42 PM EDT
== END 2024-07-07 10:42 | disposition home or self-care (01) ==
LOC: HO.CT 10:41
PROVIDERS: Visit Provider Nurse Practitioner Family
DX: F17.210 Nicotine dependence, cigarettes, uncomplicated (principal)
CPT/HCPCS: 71250

== ENCOUNTER 2024-07-12 07:35 | Outpatient (REF) | payer OTHER, SELFPAY ==
--- NOTE | 2024-07-12 08:00 | PFT_ITS ---
Flows: FEV1: 48 % of predicted at 1.53 L FVC: 83 % of predicted at 3.51 L FEV1/FVC: 44 % Bronchodilator response: Absent Volumes: Total lung capacity: 90 % of predicted at 6.39 L Residual volume: 111 % of predicted at 2.82 L Slow vital capacity: 78 % of predicted at 3.58 L Expiratory reserve volume: 70 % of predicted at 0.87 L Diffusion capacity: Severely decreased Impression: Severe obstructive ventilatory defect with no bronchodilator response. Decreased diffusion capacity suggests emphysema. MTDD
== END 2024-07-12 07:36 | disposition home or self-care (01) ==
LOC: HO.RESP 07:35
PROVIDERS: PCP Internal Medicine; Visit Provider Nurse Practitioner Family
DX: J44.9 Chronic obstructive pulmonary disease, unspecified (principal)
CPT/HCPCS: 94010; 94640; 94727; 94729

== ENCOUNTER 2024-07-14 10:36 | Outpatient (AMB) | payer OTHER, SELFPAY ==
--- NOTE | 2024-07-14 10:53 | MHC.OFFVIS ---
Vital Signs 07/14/24 10:54 Height 5 ft 7 in Weight 202 lb 13.204 oz BMI 31.8 BP 120/68 Blood Pressure Location Lt brachial Position Sitting Pulse 61 Pulse Source Pulse Oximeter Pulse Oximetry (%) 89 L Oxygen Delivery Method Room Air Intake Visit Reasons: COPD Allergies No Known Allergies [No Known Allergies*] Allergy (Verified 07/14/24 10:59) HPI HPI COPD: Details: Steve is a pleasant 68 year old male, current minimal smoker with 50 pack year history with underlying COPD, severe cardiomyopathy maintained on amiodarone, metoprolol, atrial fibrillation s/p cardioversion in 2018 on eliquis, CAD and CHF on lasix 40 mg. He continues to report suboptimal relief with symbicort 160 mcg given, using albuterol frequently. He reports dyspnea on exertion, wheezing and productive cough with clear to white sputum. Today he presents to review PFT results. [facility] Medical History Obesity (BMI 30-39.9) Coronary artery disease Congestive heart failure (CHF) Atrial fibrillation with RVR COPD (chronic obstructive pulmonary disease) Surgical History S/P appendectomy History of coronary artery stent placement Social History Household Members: Significant Other Housing: Apartment Do you presently have visiting nurse or other home services: No Alcohol intake: never Comment: pt refused bed alarm Patient Tobacco Use Status: Current everyday Tobacco user Tobacco use type: Cigarette Cigarette Packs Per Day: 0.25 Cigarettes Per Day: 5 Years Smoked: 50 e-Cigarette/Vaping Use: Never Used Second Hand Smoke Exposure: Yes Substance Use Type: Marijuana service: Yes Current occupational status: retired Cognitive needs: No Hearing needs: No Vision needs: No Review of Systems Const Denies chills, Denies excessive sweating, Denies fever(s), Denies headache(s) and Denies night sweats Eyes Denies dry eyes, Denies irritation and Denies itchy eyes ENT Reports Normal hearing present, Denies headache(s), Denies nasal congestion, Denies nasal discharge, Denies post nasal drip and Denies sore throat Card Denies chest pain, Denies chest pain at rest, Denies chest pain with activity, Denies claudication, Denies leg edema and Denies orthopnea Resp Denies chest congestion, Denies excessive phlegm production, Denies pain on inspiration, Denies pain with cough and Denies stridor Musc Denies myalgias Neuro Reports Normal hearing present and Denies headache(s) Endo Denies excessive sweating Akhil/Lymph Denies lymphadenopathy Aller/Immun Denies itchy eyes and Denies seasonal rhinorrhea Physical Exam Vital Signs: Last Vital Signs Pulse 61 07/14/24 10:54 BP 120/68 07/14/24 10:54 Pulse Ox 89 L 07/14/24 10:54 Oxygen Delivery Method Room Air 07/14/24 10:54 BMI result Body Mass Index 31.8 Const General: cooperative, healthy appearing, comfortable, no acute distress, well developed and alert Orientation/consciousness: patient oriented x3 Limitations: no limitations HEENT Head: Yes normal to inspection, Yes normocephalic and Yes atraumatic Ears: hearing grossly normal bilaterally and external ears normal Eyes General: appearance normal, both eyes and all related structures Eyelids: Yes eyelids normal Sclerae: sclerae normal EOM: EOMs intact bilaterally Neck Neck: Yes normal visual inspection and Yes no lymphadenopathy Lymphatic: no lymphadenopathy noted Chest Chest palpation & inspection: normal inspection of the chest Resp Effort & Inspection: normal respiratory effort, able to speak in complete sentences, no audible wheezes, no cough, no stridor, not tachypneic, no tripod positioning and no use of accessory muscles Auscultation: wheezes and diminished lung sounds Cardio Jugular venous distension: no JVD Rate: regular rate Skin Other: warm, dry General skin exam: no rashes or lesions noted Neuro General: patient oriented x3 Cranial nerves: Yes Normal hearing present Cognition (Neuro): normal cognition Gait exam (Neuro): Normal gait present Extrem General: Yes normal to inspection, Yes capillary refill normal, Yes no clubbing, cyanosis or edema and Yes no pedal edema Psych Appearance: grossly normal and well kempt Speech and movement: Normal speech and movement present and Clear speech present Affect: normal affect Attitude: cooperative Thought process: Normal thought process present Thought content: Normal thought content present Insight: Good insight present (Psych) Judgement: Good judgement present (Psych) Assessment & Plan Assessment & Plan (1) COPD (chronic obstructive pulmonary disease): Code(s): J44.9 - Chronic obstructive pulmonary disease, unspecified Category: Medical Qualifiers: COPD type: unspecified COPD Qualified Code(s): J44.9 - Chronic obstructive pulmonary disease, unspecified (2) Congestive heart failure (CHF): Code(s): I50.9 - Heart failure, unspecified Category: Medical Qualifiers: Heart failure chronicity: chronic Heart failure type: systolic Qualified Code(s): I50.22 - Chronic systolic (congestive) heart failure (3) Nicotine dependence, cigarettes, uncomplicated: Code(s): F17.210 - Nicotine dependence, cigarettes, uncomplicated Category: Medical (4) Paroxysmal nocturnal dyspnea: Code(s): R06.00 - Dyspnea, unspecified Category: Medical Plan On exam patient with moderate expiratory wheezes throughout, will send prednisone. He is aware if symptoms do not improve to call office and if they worsen seek emergent care. We discussed changing symbicort to a triple therapy inhaler, however he declined at this time. He was agreeable to nebulized therapy in place of combivent. He was given nebulizer in office for home use and DuoNeb rx sent to pharmacy. We reviewed PFT which revealed severe obstructive ventilatory defect with no bronchodilator response, FEV1 46%. Decreased diffusion capacity, DLCO 21%, suggests emphysema. Chest CT not officially read by radiology, will call patient when results available. He has upcoming PSG scheduled in July. All questions were answered and patient is in agreement of plan. Will follow up in 8-10 weeks or sooner if needed. Medications: New prednisone 40 mg (2 x 20 mg) PO DAILY 10 tabs 0RF ipratropium-albuterol 0.5 mg-3 mg(2.5 mg base)/3 mL 3 mL inhalation Q6H PRN 180 mL 4RF wheezing Coding Level of Care Code Est Pt Level 4 (55975) Diagnoses Chronic obstructive pulmonary disease, unspecified COPD type J44.9 COPD type: unspecified COPD Chronic systolic congestive heart failure I50.22 Heart failure chronicity: chronic Heart failure type: systolic Nicotine dependence, cigarettes, uncomplicated F17.210 Paroxysmal nocturnal dyspnea R06.00
[2024-07-14 10:54] VITALS: BP 120/68; PULSE 61; O2SAT 89; BMI 31.8
== END 2024-07-14 11:34 | disposition home or self-care (01) ==
PROVIDERS: PCP Internal Medicine; Visit Provider Nurse Practitioner Family
DX: J44.9 Chronic obstructive pulmonary disease, unspecified (principal); I50.22 Chronic systolic (congestive) heart failure; F17.210 Nicotine dependence, cigarettes, uncomplicated; R06.00 Dyspnea, unspecified
CPT/HCPCS: 99214

== ENCOUNTER → 2024-07-14 10:36 | Outpatient (BNVA) | payer OTHER, SELFPAY | PROVIDERS: PCP Internal Medicine; Visit Provider Nurse Practitioner Family | DX: J44.9 Chronic obstructive pulmonary disease, unspecified (principal); R06.00 Dyspnea, unspecified; I25.10 Atherosclerotic heart disease of native coronary artery without angina pectoris; I11.0 Hypertensive heart disease with heart failure; I50.22 Chronic systolic (congestive) heart failure; F17.210 Nicotine dependence, cigarettes, uncomplicated | CPT/HCPCS: 99212 ==

== ENCOUNTER 2024-07-15 09:30 | Outpatient (AMB) | payer OTHER, SELFPAY ==
--- NOTE | 2024-07-15 09:47 | MHC.OFFVIS ---
Vital Signs 07/15/24 09:48 Height 5 ft 7 in Weight 202 lb 13.204 oz BMI 31.8 BP 120/62 Blood Pressure Location Lt brachial Position Sitting Pulse 66 Pulse Source Monitor Intake Visit Reasons: Follow up discuss cardiac cath Allergies No Known Allergies [No Known Allergies*] Allergy (Verified 07/14/24 10:59) Medication List - Last Reconciled 07/15/24 by LINDA Lopez albuterol sulfate 90 mcg/actuation (Ventolin HFA) 2 puffs inhalation QID PRN amiodarone 200 mg PO DAILY 90 days apixaban (Eliquis) 5 mg PO BID 90 days budesonide-formoterol 160-4.5 mcg/actuation (Symbicort) 2 puffs inhalation Q12H furosemide (Lasix) 40 mg PO DAILY 90 days ipratropium-albuterol 0.5 mg-3 mg(2.5 mg base)/3 mL 3 mL inhalation Q6H PRN ipratropium-albuterol 20-100 mcg/actuation (Combivent Respimat) 1 puff inhalation Q6H metoprolol tartrate 25 mg PO BID 90 days prednisone 40 mg (2 x 20 mg) PO DAILY valsartan 80 mg (2 x 40 mg) PO BID 90 days HPI HPI Follow up discuss cardiac cath: Details: Steve is a 68-year-old male with past medical history of smoking, COPD, paroxysmal AFib, Congestive heart failure, cardiomyopathy, recent abnormal nuclear stress test to had been scheduled for a cardiac catheterization which was then canceled due to insurance issues. He now presents for follow-up. Today he reports he has been feeling well since his last visit in April. He has not been having any chest discomfort at rest or with activity. He says does get episodes where he feels short of breath and when that occurs he notices heaviness in the chest. He says the episodes are weather dependent and when he is over excited. He has more issues on the hot days. No palpitations, presyncope, syncope. He reports some lightheadedness after he gets up following prolonged sitting. No PND, orthopnea or edema. He has a ventral hernia and will still need surgery on this in the near future. No date set. No bleeding issues reported with anticoagulation use. He is taking his meds as directed. [facility] Medical History Obesity (BMI 30-39.9) Coronary artery disease Congestive heart failure (CHF) Atrial fibrillation with RVR COPD (chronic obstructive pulmonary disease) Surgical History S/P appendectomy History of coronary artery stent placement Social History Household Members: Significant Other Housing: Apartment Do you presently have visiting nurse or other home services: No Alcohol intake: never Comment: pt refused bed alarm Patient Tobacco Use Status: Current everyday Tobacco user Tobacco use type: Cigarette Cigarette Packs Per Day: 0.25 Cigarettes Per Day: 5 Years Smoked: 50 e-Cigarette/Vaping Use: Never Used Second Hand Smoke Exposure: Yes Substance Use Type: Marijuana service: Yes Current occupational status: retired Cognitive needs: No Hearing needs: No Vision needs: No Review of Systems Const All systems reviewed & are unremarkable except as noted in HPI and below Denies weakness ENT Denies dizziness Card Denies chest pain, Denies chest pain with activity, Denies syncope, Denies rapid heart rate, Denies pedal edema, Denies edema, Denies leg edema, Denies lightheadedness, Denies palpitations, Reports dyspnea, Reports dyspnea on exertion and Denies orthopnea Resp Denies cough, Reports dyspnea and Reports dyspnea on exertion GI Denies hematochezia and Denies change in stool character Musc Denies abnormal gait, Denies muscle cramps, Denies muscle weakness, Denies numbness, Denies radiating pain into limb and Denies tingling Neuro Denies abnormal gait, Denies dizziness, Denies syncope, Denies numbness, Denies tingling and Denies weakness Endo Denies palpitations Physical Exam Vital Signs: Last Vital Signs Pulse 66 07/15/24 09:48 BP 120/62 07/15/24 09:48 BMI result Body Mass Index 31.8 Const General: cooperative, healthy appearing, comfortable and no acute distress Orientation/consciousness: patient oriented x3 Neck Neck: Yes normal visual inspection and Yes no JVD Resp Effort & Inspection: normal respiratory effort Auscultation: clear to auscultation bilaterally, no crackles, no rales, no rhonchi and no wheezes Cardio Jugular venous distension: no JVD Rate: regular rate Rhythm: regular rhythm Heart sounds: S1 normal heart sound present, S2 normal heart sound present, no murmurs and no rubs Peripheral pulses: Peripheral pulses 2+ throughout Neuro General: patient oriented x3 Extrem General: Yes normal to inspection Psych Appearance: grossly normal Mental Status: mental status grossly normal Speech and movement: Normal speech and movement present Office Procedures EKG Details: Today, read by me, sinus rhythm with occasional PVC, right axis deviation, low-voltage QRS, nonspecific T-wave abnormality, rate 65, QTC 388 milliseconds [id number], Complete Assessment & Plan Assessment & Plan (1) Coronary artery disease: Code(s): I25.10 - Atherosclerotic heart disease of [place] coronary artery without angina pectoris Category: Medical Qualifiers: Associated angina: without angina Coronary Disease-Associated Artery/Lesion type: [place] artery [place] vs. transplanted heart: [place] heart Qualified Code(s): I25.10 - Atherosclerotic heart disease of [place] coronary artery without angina pectoris Plan: Known history of CAD with prior cardiac catheterization and ramus PCI 2018. Patient believes this may have been done at [facility]. He was admitted to [facility] in November 2023 with increased shortness of breath and found to have AFib RVR. An echocardiogram at that time showed EF 15-20%. His troponin level was normal. He did have treatment for the atrial fibrillation and put on medications for neurohormonal modulation. A follow-up echo was done on 05/27/2024 showing EF 50-55%, abnormal diastolic function, frequent PVCs during the exam with apical dyskinesis related to the PVCs. A nuclear stress test was done on 05/28/2024 showing prior infarct in the inferior and inferior lateral wall and adjacent apex. He has a ventral hernia that will need surgery in the near future. He was scheduled for cardiac catheterization and this was canceled due to insurance issues. Patient states his insurance does not cover [facility]. According to our commercial title examiner a prior authorization has been received. Today he reports no chest discomfort. He does have episodes of shortness of breath, especially in the hot weather. This could be related to his COPD and/or CAD. Will plan to pursue cardiac catheterization for further evaluation. Procedure and risks were described to patient last visit. Patient instructed to call his insurance company to see what the co-pay would be if the procedure was done at [facility]. Also informed to ask where his procedure would be covered by his insurance in full. -once known the arrangements will be made. Will then order preprocedure labs include lab work for amiodarone monitoring. Will continue on metoprolol. He is not on aspirin as he is on Eliquis. He is not on statin for unclear reason. Will add lipids to upcoming labs. His cardiology follow-up will be arranged for 2 weeks post cardiac catheterization. Unknown date of catheterization at this time. (2) Abnormal nuclear stress test: Code(s): R94.39 - Abnormal result of other cardiovascular function study Category: Medical Plan: As above (3) PAF (paroxysmal atrial fibrillation): Code(s): I48.0 - Paroxysmal atrial fibrillation Category: Medical Plan: History of paroxysmal atrial fibrillation. PAF noted at time of [facility] admission November 2023. He did require a MAIA cardioversion at that time. His rhythm has remained stable. EKG done today showing sinus rhythm with occasional PVCs, rate 65. He is not noticing any heart palpitations. He continues on amiodarone for rhythm control. He is on metoprolol for heart rate control. On Eliquis for anticoagulation. No bleeding issues reported. Will check labs for amiodarone monitoring as above. EF did improve with rhythm control. (4) Congestive heart failure (CHF): Code(s): I50.9 - Heart failure, unspecified Category: Medical Qualifiers: Heart failure chronicity: chronic Heart failure type: systolic Qualified Code(s): I50.22 - Chronic systolic (congestive) heart failure Plan: Treated for Congestive heart failure at the time of November 2023 admission. His EF was greatly reduced at that time but has since improved. Most recent EF 50-55%. He does not appear fluid overloaded on examination. He continues on daily Lasix. Signs and symptoms of heart failure reviewed with him. (5) COPD (chronic obstructive pulmonary disease): Code(s): J44.9 - Chronic obstructive pulmonary disease, unspecified Category: Medical Qualifiers: COPD type: unspecified COPD Qualified Code(s): J44.9 - Chronic obstructive pulmonary disease, unspecified Plan: History of COPD. He does have some expiratory wheezes noted on examination. He tells me his breathing feels comfortable. He has recently started seeing a windows deployment technician. Continues to smoke 3 cigarettes daily. Benefits of smoking cessation discussed with him and he does state understanding. Plan Time spent on chart review, documentation, interview and assessment Coding Level of Care Code Est Pt Level 4 (83654) Diagnoses Coronary artery disease involving [place] coronary artery of [place] heart without angina pectoris I25.10 Associated angina: without angina Coronary Disease-Associated Artery/Lesion type: [place] artery [place] vs. transplanted heart: [place] heart Abnormal nuclear stress test R94.39 PAF (paroxysmal atrial fibrillation) I48.0 Chronic systolic congestive heart failure I50.22 Heart failure chronicity: chronic Heart failure type: systolic Chronic obstructive pulmonary disease, unspecified COPD type J44.9 COPD type: unspecified COPD CPT Codes EKG - CPT: [id number], Complete ([id number]) Time Spent (min) 28
[2024-07-15 09:48] VITALS: BP 120/62; PULSE 66; BMI 31.8
== END 2024-07-15 10:55 | disposition home or self-care (01) ==
PROVIDERS: PCP Internal Medicine; Visit Provider Nurse Practitioner Family
DX: I25.10 Atherosclerotic heart disease of native coronary artery without angina pectoris (principal); R94.39 Abnormal result of other cardiovascular function study; I48.0 Paroxysmal atrial fibrillation; I50.22 Chronic systolic (congestive) heart failure; J44.9 Chronic obstructive pulmonary disease, unspecified
CPT/HCPCS: 93010; 99214

== ENCOUNTER → 2024-07-15 09:30 | Outpatient (BNVA) | payer OTHER, SELFPAY | PROVIDERS: PCP Internal Medicine; Visit Provider Nurse Practitioner Family | DX: I25.10 Atherosclerotic heart disease of native coronary artery without angina pectoris (principal); I50.22 Chronic systolic (congestive) heart failure; I48.0 Paroxysmal atrial fibrillation; I42.9 Cardiomyopathy, unspecified; J44.9 Chronic obstructive pulmonary disease, unspecified; R94.39 Abnormal result of other cardiovascular function study; Z87.891 Personal history of nicotine dependence | CPT/HCPCS: 93005; 99212 ==

== ENCOUNTER → 2024-07-29 09:35 | Outpatient (REF) | payer OTHER, SELFPAY | LOC: HO.SL 09:35 | PROVIDERS: PCP Internal Medicine; Visit Provider Nurse Practitioner Family | DX: R06.00 Dyspnea, unspecified (principal); G47.33 Obstructive sleep apnea (adult) (pediatric) | CPT/HCPCS: 95806 ==

== ENCOUNTER → 2024-07-29 10:00 | Outpatient (BNV) | payer OTHER, SELFPAY | PROVIDERS: PCP Internal Medicine; Visit Provider Internal Medicine | DX: G47.33 Obstructive sleep apnea (adult) (pediatric) (principal) | CPT/HCPCS: 95806 ==

== ENCOUNTER 2024-08-01 15:29 | Outpatient (AMB) | payer OTHER, SELFPAY ==
[2024-08-01 15:31] VITALS: BP 128/80; PULSE 65; O2SAT 86; BMI 31.4
--- NOTE | 2024-08-01 15:31 | MHC.PC.OV ---
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 [employer] Required: No Accompanied by: Self / Same As Patient Allergies No Known Allergies [No Known Allergies*] Allergy (Verified 08/01/24 16:19) Medication List - Last Reconciled 08/01/24 by Papi Sanders MD albuterol sulfate 90 mcg/actuation (Ventolin HFA) 2 puffs inhalation QID PRN amiodarone 200 mg PO DAILY 90 days apixaban (Eliquis) 5 mg PO BID 90 days budesonide-formoterol 160-4.5 mcg/actuation (Symbicort) 2 puffs inhalation Q12H furosemide (Lasix) 40 mg PO DAILY 90 days ipratropium-albuterol 0.5 mg-3 mg(2.5 mg base)/3 mL 3 mL inhalation Q6H PRN ipratropium-albuterol 20-100 mcg/actuation (Combivent Respimat) 1 puff inhalation Q6H metoprolol tartrate 25 mg PO BID 90 days prednisone 40 mg (2 x 20 mg) PO DAILY valsartan 80 mg (2 x 40 mg) PO BID 90 days Tobacco use date assessed: 08/01/24 Fall risk assessment: No Falls in past year Last assessed Fall Risk: 08/01/24 Dental Screening Dental Screen Date: 08/01/24 Did you have a dental visit in the last 12 months?: No Did you have a dental problem in the last 6 months where you did not have access to dental care?: No Was dental information given to patient?: No HPI 3 Month F/U HPI Details Patient comes in today for his follow up visit States that he currently feels okay He denies any headaches; reports (+) occasional brief episodes of lightheadedness that tend to occur when he gets up too quickly after he is sitting for a while He denies any exertional chest pains; still has some mild JAIMES States that he was experiencing on and off shortness of breath associated with a heavy sensation in his chest over the past few months - has noticed that these tend to occur more often when the weather was hot and humid States that he has not had these lately since the weather is now starting to turn cooler No nausea/vomiting, no abdominal pain No change in bowel habits noted Since his last visit in March 2024 when we referred him for his ventral hernia, he was seen by surgery and was advised to see cardiology first for cardiac clearance He was eventually seen by cardiology and was sent for a Lexiscan stress test prior to being cleared for surgery Myocardial perfusion scan revealed findings consistent with a fixed perfusion defect in the inferior wall, inferolateral wall and adjacent parts of apex; gated LVEF was 44% during stress and 48% during rest He was then scheduled for a cardiac catheterization but this was eventually canceled due to insurance issues He was also referred by cardiology to pulmonary to help assess his frequent JAIMES and was recommended to try switching from his current inhaler(s) (Symbicort) to triple therapy (Trelegy) but patient declined and opted to continue on his current Rx, likely due to insurance issues as well PFTs done revealed findings suggestive of emphysema, with (+) severe obstructive ventilatory defect with no bronchodilator response, FEV1 46%. Decreased diffusion capacity, DLCO 21% Chest CT was done back on 07/07/2024 but there are still no official radiology report on this available at this time Patient states that he will be switching over to a new insurance in August 2024 after which he will then be able to proceed with cardiac catheterization. States that he will contact cardiology KAYCE when he is ready to schedule his cardiac procedure [facility] Medical History (Updated 08/02/24 @ 03:15 by Papi Sanders MD) Smoker Acquired hypothyroidism Obesity (BMI 30-39.9) Coronary artery disease Congestive heart failure (CHF) Atrial fibrillation with RVR COPD (chronic obstructive pulmonary disease) Surgical History (Updated 08/02/24 @ 03:09 by Papi Sanders MD) S/P appendectomy History of coronary artery stent placement Social History Household Members: Significant Other Housing: Apartment Do you presently have visiting nurse or other home services: No Alcohol intake: never Comment: pt refused bed alarm Patient Tobacco Use Status: Current everyday Tobacco user Tobacco use type: Cigarette Cigarette Packs Per Day: 0.25 Cigarettes Per Day: 5 Years Smoked: 50 e-Cigarette/Vaping Use: Never Used Second Hand Smoke Exposure: Yes Substance Use Type: Marijuana service: Yes Current occupational status: retired Cognitive needs: No Hearing needs: No Vision needs: No Questionnaire PHQ-9 Over the last 2 weeks, how often have you been bothered by any of the following problems? 1. Little interest or pleasure in doing things: not at all 2. Feeling down, depressed, or hopeless: not at all 3. Trouble falling or staying asleep, or sleeping too much: not at all 4. Feeling tired or having little energy: not at all 5. Poor appetite or overeating: not at all 6. Feeling bad about yourself - or that you are a failure or have let yourself or your family down: not at all 7. Trouble concentrating on things, such as reading the newspaper or watching television: not at all 8. Moving or speaking so slowly that other people could have noticed. Or the opposite - being so fidgety or restless that you have been moving around a lot more than usual: not at all 9. Thoughts that you would be better off or of hurting yourself in some way: not at all Total score: 0 Depression Screening Interpretation: Negative Depression Screening Done: Yes 30227 - PHQ-9 Billing: Yes Source: Developed by Drs. Danilo Rico, Denisse Brown, Tino Magana and colleagues, with an educational tali from [employer]. Thrive Questionnaire Date Thrive assessed: 08/01/24 I am a: Patient What is your living situation today?: I have a steady place to live Within the past 12 months, did the food you bought not last and you didn't have the money to get more?: Never true Within the past 12 months, did you worry whether your food would run out before you got money to buy more?: Never true Do you have trouble paying for medicines?: No Do you have trouble getting transportation to medical appointments?: No Do you have trouble paying your heating and electricity bill?: No Do you have trouble taking care of your child, family member or friend?: No Do you have trouble with day-to-day activities such as bathing, preparing meals, shopping, managing finances, etc.?: No Are you currently unemployed and looking for a job?: No Are you interested in more education?: No Please select the resources that you would like help with: None Currently or been in a relationship where the following occur: No concerns reported THRIVE Score: 0 AUDIT C Alcohol Use Questionnaire (AUDIT-C) 1. How often do you have a drink containing alcohol?: Never 3. How often do you have six or more drinks on one occasion?: Never Total Score: 0 Score Reviewed/Action Taken: Yes JANEE-7 AMB Questionnaire JANEE-7 Date JANEE - 7 assessed: 08/01/24 Feeling nervous, anxious, or on edge: 0 = Not at all Not being able to stop or control worryin = Not at all Worrying too much about different things: 0 = Not at all Trouble relaxin = Not at all Being so restless that it is hard to sit still: 0 = Not at all Becoming easily annoyed or irritable: 0 = Not at all Feeling afraid as if something awful might happen: 0 = Not at all Total JANEE-7 score (0-4 normal; 5-9 mild; 10-14 moderate; 15-21 severe): 0 Source: Developed by Drs. Danilo Rico, Denisse Brown, Tino Magana and colleagues, with an educational tali from [employer]. Review of Systems Const Denies chills, Reports fatigue, Denies fever(s) and Denies headache(s) ENT Denies dysphagia, Denies dizziness, Denies otalgia, Denies headache(s), Denies neck pain, Denies odynophagia and Denies sore throat Card Denies chest pain, Denies chest pain with activity, Denies palpitations and Reports dyspnea on exertion (mild) Resp Denies chest congestion, Denies cough, Reports dyspnea on exertion (mild) and Denies wheezing GI Reports abdominal pain (on and off, mostly over where his hernia is at), Denies constipation, Denies dysphagia, Denies heartburn, Denies diarrhea, Denies nausea, Denies odynophagia and Denies vomiting Denies dysuria, Denies nocturia and Denies urinary frequency Musc Denies back pain and Denies neck pain Skin/Breast Denies rash Neuro Denies dizziness and Denies headache(s) Endo Reports fatigue and Denies palpitations Aller/Immun Denies wheezing Physical exam (Primary Care) Vital Signs: Last Vital Signs Pulse 65 08/01/24 15:31 BP 128/80 08/01/24 15:31 Pulse Ox 86 L 08/01/24 15:31 Oxygen Delivery Method Room Air 08/01/24 15:31 BMI result Body Mass Index 31.4 Tobacco/Smoking Status: Tobacco use Status Tobacco use date assessed 08/01/24 08/01/24 15:32 Patient Tobacco Use Status Current everyday Tobacco 08/01/24 15:32 Tobacco use type Cigarette 08/01/24 15:32 e-Cigarette/Vaping Use Never Used 08/01/24 15:32 PHQ-9: PHQ-9 Score PHQ-9: Total score 0 08/01/24 16:29 Depression Screening Interpretation: Negative Thrive Assessment: Date of Thrive Assessment Date Thrive assessed 08/01/24 08/01/24 15:32 Currently or been in a relationship where the following occur: No concerns reported Const General: no acute distress and alert HENMT Ears: TM's normal bilaterally and EAC's normal Throat: Yes posterior oropharynx normal and Yes tonsils normal (no TP congestion) Neck Neck: Yes no lymphadenopathy and Yes supple Thyroid: Thyroid normal Resp Auscultation: no crackles, no rales, rhonchi (occasional) throughout, no wheezes and diminished lung sounds bilateral Cardio Rate: regular rate Rhythm: regular rhythm Heart sounds: no murmurs GI Palpation (GI): Soft to palpation, nontender and Hernia present ventral Auscultation: normal bowel sounds General: Yes no CVA tenderness Back/Spine/Pelvis Back: no CVA tenderness Thoracic/Lumbar Spine: No lumbar spinal tenderness Skin Rashes: no rashes Extrem General: Yes no clubbing, cyanosis or edema Results Reviewed Results Reviewed: Laboratory Tests 04/11/24 11:46 WBC 10.8 Hgb 14.8 Hct 47.6 Plt Count 240 Sodium 141 Potassium 4.0 Creatinine 1.30 Estimated GFR 55 Random Glucose 96 Calcium 9.3 AST 20 ALT 9 B-Natriuretic Peptide 135 H 25-OH Vitamin D Total 10.5 L TSH 21.30 H Free T4 0.74 Assessment and Plan Assessment & Plan (1) Coronary artery disease: Code(s): I25.10 - Atherosclerotic heart disease of [place] coronary artery without angina pectoris Qualifiers: Associated angina: without angina Coronary Disease-Associated Artery/Lesion type: [place] artery [place] vs. transplanted heart: [place] heart Qualified Code(s): I25.10 - Atherosclerotic heart disease of [place] coronary artery without angina pectoris Plan: (+) history of CAD with prior cardiac catheterization and ramus PCI at [facility] in 2018 Patient is not on Aspirin 81 mg QD as he is on Apixaban 5 mg BID Myocardial perfusion scan done in May 2024 revealed findings consistent with a fixed perfusion defect in the inferior wall, inferolateral wall and adjacent parts of apex; gated LVEF was 44% during stress and 48% during rest He was scheduled for a cardiac catheterization but this was eventually canceled due to insurance issues Patient states that he will be switching over to a new insurance in August 2024 after which he will then be able to proceed with cardiac catheterization. States that he will contact cardiology KAYCE when he is ready to schedule his cardiac procedure As he has not had his fasting lipids done in a while, will try to include this when patient is instructed to go to the lab to recheck his TFTs in 6 week (2) Congestive heart failure (CHF): Code(s): I50.9 - Heart failure, unspecified Qualifiers: Heart failure chronicity: chronic Heart failure type: systolic Qualified Code(s): I50.22 - Chronic systolic (congestive) heart failure Plan: Patient currently appears compensated Echocardiogram done back in November 2023 revealed (+) severely reduced LV ejection fraction of 15-20%; biatrial enlargement, left greater than right; normal cardiac valvular dopplers; no intracardiac shunting; mild atherosclerotic changes noted in descending and arch of the aorta, no gross pericardial effusion Reinforced fluid restriction in CHF Continue Valsartan 80 mg BID and Furosemide 40 mg QD His Digoxin was discontinued by cardiology and he was started instead on Metoprolol 25 mg BID; Valsartan was also raised then from 40 mg to 80 mg BID Follow up with cardiology as scheduled (3) Atrial fibrillation with RVR: Comment: S/P cardioversion Code(s): I48.91 - Unspecified atrial fibrillation Plan: S/P MAIA cardioversion in 12/08/2023; he subsequently had another episode of atrial fibrillation and went to the ER but this was self-limiting Patient is currently in sinus rhythm and is rate-controlled Continue Apixaban 5 mg BID for thromboembolism prophylaxis Continue Amiodarone 200 mg QD and Metoprolol 25 mg BID Follow up with cardiology as scheduled (4) COPD (chronic obstructive pulmonary disease): Code(s): J44.9 - Chronic obstructive pulmonary disease, unspecified Qualifiers: COPD type: unspecified COPD Qualified Code(s): J44.9 - Chronic obstructive pulmonary disease, unspecified Plan: PFTs done revealed findings suggestive of emphysema, with (+) severe obstructive ventilatory defect with no bronchodilator response, FEV1 46%. Decreased diffusion capacity, DLCO 21% Chest CT was done back on 07/07/2024 but there are still no official radiology report on this available at this time Continue Symbicort 160-4.5 mcg 2 inhalations BID, Combivent Respimat 20-100 mcg 1 inhalation Q 6 hours and Albuterol HFA 1 to 2 inhalations Q 6 hours PRN He also uses Duoneb via updrafts Q 6 hours as needed alternatively when his symptoms are more pronounced He was recommended to try switching from his current inhaler(s) (Symbicort and Combivent) to triple therapy (Trelegy) but patient declined and opted to continue on his current Rx, likely due to insurance issues Follow up with pulmonary as scheduled (5) Acquired hypothyroidism: Code(s): E03.9 - Hypothyroidism, unspecified Plan: Patient currently remains on Amiodarone Rx for his PAF His TSH level was elevated at 8.35 back in December 2023 and he was sent for repeat labs at his last visit for further evaluation His repeat TFTs revealed a significantly higher TSH level at 21.30 (with low normal free T4 level at 0.74) consistent with hypothyrodism Will go ahead and start patient on Levothyroxine 25 mcg QD Will have him recheck his TFTs in 6 weeks for follow up (6) Ventral hernia: Comment: supraumbilical Code(s): K43.9 - Ventral hernia without obstruction or gangrene Qualifiers: Obstruction and gangrene presence: without obstruction or gangrene Qualified Code(s): K43.9 - Ventral hernia without obstruction or gangrene Plan: He was referred to and seen by surgery a few months ago Ventral hernia repair was recommended but he has to get cleared by cardiology first to be able to proceed with surgery (7) Smoker: Code(s): F17.200 - Nicotine dependence, unspecified, uncomplicated Plan: Patient is currently still smoking a few cigarettes a day Counseled again on complete smoking cessation (8) Obesity (BMI 30-39.9): Code(s): E66.9 - Obesity, unspecified Plan: Reinforced diet; exercise and weight loss are unrealistic given patient's multiple comorbidities and physical issues Plan Follow up in 3 months Orders: Orders Free T4 (Free Thyroxine) 6 Weeks E03.9 - Hypothyroidism, unspecified Lipid Panel 6 Weeks E78.00 - Pure hypercholesterolemia, unspecified Thyroid Stimulating Hormone 6 Weeks E03.9 - Hypothyroidism, unspecified Comprehensive Cando. Panel Fast 6 Weeks E78.00 - Pure hypercholesterolemia, unspecified Medications: New levothyroxine Take on an empty stomach, first thing in the morning, with water. Do not eat or drink anything else for 30 minutes afterwards 25 mcg PO DAILY 90 days 90 tabs 1RF E03.9 - Hypothyroidism, unspecified Coding Level of Care Code Est Pt Level 4 (35087) Complex EM visit Add On G2211 Diagnoses Coronary artery disease involving [place] coronary artery of [place] heart without angina pectoris I25.10 Associated angina: without angina Coronary Disease-Associated Artery/Lesion type: [place] artery [place] vs. transplanted heart: [place] heart Chronic systolic congestive heart failure I50.22 Heart failure chronicity: chronic Heart failure type: systolic Atrial fibrillation with RVR I48.91 Chronic obstructive pulmonary disease, unspecified COPD type J44.9 COPD type: unspecified COPD Acquired hypothyroidism E03.9 Ventral hernia without obstruction or gangrene K43.9 Obstruction and gangrene presence: without obstruction or gangrene Smoker F17.200 Obesity (BMI 30-39.9) E66.9
== END 2024-08-01 16:31 | disposition home or self-care (01) ==
PROVIDERS: Visit Provider Internal Medicine
DX: I25.10 Atherosclerotic heart disease of native coronary artery without angina pectoris (principal); I50.22 Chronic systolic (congestive) heart failure; I48.91 Unspecified atrial fibrillation; J44.9 Chronic obstructive pulmonary disease, unspecified; E03.9 Hypothyroidism, unspecified; K43.9 Ventral hernia without obstruction or gangrene; F17.200 Nicotine dependence, unspecified, uncomplicated
CPT/HCPCS: 99214; G2211

== ENCOUNTER 2024-08-18 15:00 | Outpatient (AMB) | payer OTHER, SELFPAY ==
--- NOTE | 2024-08-18 15:11 | MHC.OFFVIS ---
Vital Signs 08/18/24 15:12 Height 5 ft 7 in Weight 200 lb 9.93 oz BMI 31.4 BP 104/60 Blood Pressure Location Rt brachial Position Sitting Pulse 62 Pulse Source Pulse Oximeter Pulse Oximetry (%) 89 L Oxygen Delivery Method Room Air Intake Visit Reasons: COPD/ sleep study results Allergies No Known Allergies [No Known Allergies*] Allergy (Verified 08/18/24 15:14) HPI HPI COPD/ sleep study results: Details: Steve is a pleasant 68 year old male, current minimal smoker with 50 pack year history with underlying COPD, severe cardiomyopathy maintained on amiodarone, metoprolol, atrial fibrillation s/p cardioversion in 2018 on eliquis, CAD and CHF on lasix 40 mg. He reports moderate control with symbicort 160 mcg, DuoNeb and albuterol MDI. He continues to report dyspnea on exertion and wheezing. Denies cough or chest tightness. Today he presents to review home sleep study and chest CT results of CT however not officially read by radiology. [facility] Medical History (Updated 08/18/24 @ 19:47 by Kinga Carey NP) Smoker Acquired hypothyroidism Obesity (BMI 30-39.9) Coronary artery disease Congestive heart failure (CHF) Atrial fibrillation with RVR COPD (chronic obstructive pulmonary disease) Surgical History (Updated 08/02/24 @ 03:09 by Papi Sanders MD) S/P appendectomy History of coronary artery stent placement Social History Household Members: Significant Other Housing: Apartment Do you presently have visiting nurse or other home services: No Alcohol intake: never Comment: pt refused bed alarm Patient Tobacco Use Status: Current everyday Tobacco user Tobacco use type: Cigarette Cigarette Packs Per Day: 0.25 Cigarettes Per Day: 5 Years Smoked: 50 e-Cigarette/Vaping Use: Never Used Second Hand Smoke Exposure: Yes Substance Use Type: Marijuana service: Yes Current occupational status: retired Cognitive needs: No Hearing needs: No Vision needs: No Review of Systems Const Denies chills, Denies excessive sweating, Denies fever(s), Denies headache(s) and Denies night sweats Eyes Denies dry eyes, Denies irritation and Denies itchy eyes ENT Reports Normal hearing present, Denies headache(s), Denies nasal congestion, Denies nasal discharge, Denies post nasal drip and Denies sore throat Card Denies chest pain, Denies chest pain at rest, Denies chest pain with activity, Denies claudication, Denies leg edema and Denies orthopnea Resp Denies chest congestion, Denies excessive phlegm production, Denies pain on inspiration and Denies stridor Musc Denies myalgias Neuro Reports Normal hearing present and Denies headache(s) Endo Denies excessive sweating Akhil/Lymph Denies lymphadenopathy Aller/Immun Denies itchy eyes and Denies seasonal rhinorrhea Physical Exam Vital Signs: Last Vital Signs Pulse 62 08/18/24 15:12 BP 104/60 08/18/24 15:12 Pulse Ox 89 L 08/18/24 15:12 Oxygen Delivery Method Room Air 08/18/24 15:12 BMI result Body Mass Index 31.4 Const General: cooperative, comfortable, no acute distress, well developed and alert Orientation/consciousness: patient oriented x3 Limitations: no limitations HEENT Head: Yes normal to inspection, Yes normocephalic and Yes atraumatic Ears: hearing grossly normal bilaterally and external ears normal Eyes General: appearance normal, both eyes and all related structures Eyelids: Yes eyelids normal Sclerae: sclerae normal EOM: EOMs intact bilaterally Neck Neck: Yes normal visual inspection and Yes no lymphadenopathy Lymphatic: no lymphadenopathy noted Chest Chest palpation & inspection: normal inspection of the chest Resp Effort & Inspection: normal respiratory effort, able to speak in complete sentences, no audible wheezes, no cough, no stridor, not tachypneic, no tripod positioning and no use of accessory muscles Auscultation: wheezes and diminished lung sounds Cardio Jugular venous distension: no JVD Rate: regular rate Skin Other: warm, dry General skin exam: no rashes or lesions noted Neuro General: patient oriented x3 Cranial nerves: Yes Normal hearing present Cognition (Neuro): normal cognition Gait exam (Neuro): Normal gait present Extrem General: Yes normal to inspection, Yes capillary refill normal, Yes no clubbing, cyanosis or edema and Yes no pedal edema Psych Appearance: grossly normal and well kempt Speech and movement: Normal speech and movement present and Clear speech present Affect: normal affect Attitude: cooperative Thought process: Normal thought process present Thought content: Normal thought content present Insight: Good insight present (Psych) Judgement: Good judgement present (Psych) Assessment & Plan Assessment & Plan (1) COPD (chronic obstructive pulmonary disease): Code(s): J44.9 - Chronic obstructive pulmonary disease, unspecified Category: Medical Qualifiers: COPD type: unspecified COPD Qualified Code(s): J44.9 - Chronic obstructive pulmonary disease, unspecified (2) Congestive heart failure (CHF): Code(s): I50.9 - Heart failure, unspecified Category: Medical Qualifiers: Heart failure type: systolic Heart failure chronicity: chronic Qualified Code(s): I50.22 - Chronic systolic (congestive) heart failure (3) Nicotine dependence, cigarettes, uncomplicated: Code(s): F17.210 - Nicotine dependence, cigarettes, uncomplicated Category: Medical (4) Obstructive sleep apnea: Code(s): G47.33 - Obstructive sleep apnea (adult) (pediatric) Category: Medical (5) Nocturnal hypoxemia: Code(s): G47.34 - Idiopathic sleep related nonobstructive alveolar hypoventilation Category: Medical Plan Patient has been better controlled using DuoNeb with symbicort, advised to continue. At this time patient presents with exacerbation, will send prednisone. Upon arrival to exam room patient 89% RA. After recovering rechecked and patient increased to 91% on RA. Discussed performing a 6MWT however he decline as he has significant pain related to abdominal hernia, which he has consultation at [facility] to have repaired in the near future. He is aware that he likely needs supplemental oxygen but stated even if he required it, he would decline at this time. Discussed adverse effects of hypoxia. Reviewed home sleep study which revealed mild DUSTIN with AHI of 11 with significant nocturnal hypoxemia, <88% for 344 minutes, lowest 65%. Discussed importance of in lab sleep titration study to ensure optimal pressures. Again reviewed importance of correcting hypoxia with nocturnal supplemental oxygen but he declined. He stated many years ago, he required supplemental oxygen and could not afford the cost of having a concentrator at home. He is in the process of obtaining new insurance and will consider in the future if financially feasible. He was agreeable to a 6MWT at the next visit, if he is not in significant pain. He is aware to seek emergent care if symptoms persist. Chest CT not officially read, will review at next visit, as he will be scheduled for close follow up. All questions were answered and patient is in agreement of plan. Will follow up in 8-10 weeks or sooner if needed. Orders: Orders RT PSG in-lab sleep titration Today G47.33 - Obstructive sleep apnea (adult) (pediatric), G47.34 - Idiopathic sleep related nonobstructive alveolar hypoventilation Medications: New prednisone 40 mg x 5 days, 20 mg x 5 days 40 mg (2 x 20 mg) PO DAILY 15 tabs 0RF Refilled budesonide-formoterol 160-4.5 mcg/actuation (Symbicort) 2 puffs inhalation Q12H 10.2 grams 6RF ipratropium-albuterol 20-100 mcg/actuation (Combivent Respimat) 1 puff inhalation Q6H 4 grams 3RF Coding Level of Care Code Est Pt Level 4 (22748) Diagnoses Chronic obstructive pulmonary disease, unspecified COPD type J44.9 COPD type: unspecified COPD Chronic systolic congestive heart failure I50.22 Heart failure type: systolic Heart failure chronicity: chronic Nicotine dependence, cigarettes, uncomplicated F17.210 Obstructive sleep apnea G47.33 Nocturnal hypoxemia G47.34
[2024-08-18 15:12] VITALS: BP 104/60; PULSE 62; O2SAT 89; BMI 31.4
== END 2024-08-18 16:17 | disposition home or self-care (01) ==
PROVIDERS: PCP Internal Medicine; Visit Provider Nurse Practitioner Family
DX: J44.9 Chronic obstructive pulmonary disease, unspecified (principal); I50.22 Chronic systolic (congestive) heart failure; F17.210 Nicotine dependence, cigarettes, uncomplicated; G47.33 Obstructive sleep apnea (adult) (pediatric); G47.34 Idiopathic sleep related nonobstructive alveolar hypoventilation
CPT/HCPCS: 99214

== ENCOUNTER → 2024-08-18 15:00 | Outpatient (BNVA) | payer OTHER, SELFPAY | PROVIDERS: PCP Internal Medicine; Visit Provider Nurse Practitioner Family | DX: J44.9 Chronic obstructive pulmonary disease, unspecified (principal); G47.33 Obstructive sleep apnea (adult) (pediatric); G47.34 Idiopathic sleep related nonobstructive alveolar hypoventilation; I50.22 Chronic systolic (congestive) heart failure; F17.210 Nicotine dependence, cigarettes, uncomplicated | CPT/HCPCS: 99212 ==

== ENCOUNTER 2024-08-26 10:28 | Outpatient (REF) | payer MEDICARE, SELFPAY ==
[2024-08-26 12:21] LABS: Hemoglobin 15.2 g/dl (14.0-18.0); Mean Corpuscular Volume 96.8 fL (80.0-98.0); Mean Platelet Volume 9.8 fL (9.4-12.4); Platelet Count 180 X10*3/uL (160-400); Red Blood Count 5.06 X10*6/uL (4.60-5.80); Red Cell Distribution Width 17.5 % (11.0-16.0); White Blood Count 14.2 X10*3/uL (4.8-10.8)
[2024-08-26 12:31] LABS: INTERNATIONAL NORM RATIO 1.1 (0.9-1.1); Prothrombin Time 12.9 SEC (10.9-12.4)
[2024-08-26 12:58] LABS: Anion Gap 13 (12-20); Blood Urea Nitrogen 22 mg/dL (9-16); Calcium 8.9 mg/dL (8.4-10.2); Carbon Dioxide 36 mmol/L (22-29); Chloride 100 mmol/L (96-108); Estimated Glomerular Filt Rate 52; Glucose Random 92 mg/dL (60-115); Potassium 4.2 mmol/L (3.3-5.1); Sodium 145 mmol/L (135-145)
== END 2024-08-26 10:29 | disposition home or self-care (01) ==
LOC: HO.LAB 10:28
PROVIDERS: PCP Internal Medicine; Visit Provider Internal Medicine Cardiovascular Disease
DX: I25.10 Atherosclerotic heart disease of native coronary artery without angina pectoris (principal)
CPT/HCPCS: 36415; 80048; 85027; 85610

== ENCOUNTER → 2024-09-04 23:59 | Outpatient (BNV) | payer MEDICARE, SELFPAY | PROVIDERS: PCP Internal Medicine; Visit Provider Internal Medicine Cardiovascular Disease | DX: I20.89 Other forms of angina pectoris (principal) | CPT/HCPCS: 92928; 92978; 93458; 99152 ==

== ENCOUNTER 2024-09-15 12:57 | Outpatient (AMB) | payer MEDICARE, SELFPAY ==
[2024-09-15 13:15] VITALS: BP 110/60; PULSE 66; BMI 32.2
--- NOTE | 2024-09-15 13:15 | A.OFFVIS_ITS ---
Vital Signs 09/15/24 13:15 Height 5 ft 7 in Weight 205 lb 14.588 oz BMI 32.2 BP 110/60 Blood Pressure Location Lt brachial Position Sitting Pulse 66 Pulse Source Monitor Intake Visit Reasons: 4 mth f/up testing/ surg Intake Note: 4 mth f/up/testing/ Surg Slot Router Required: No Accompanied by: Self / Same As Patient Allergies No Known Allergies [No Known Allergies*] Allergy (Verified 08/18/24 15:14) Medication List - Last Reconciled 09/15/24 by Yordy De La Rosa MD albuterol sulfate 90 mcg/actuation (Ventolin HFA) 2 puffs inhalation QID PRN amiodarone 200 mg PO DAILY 90 days apixaban (Eliquis) 5 mg PO BID 90 days budesonide-formoterol 160-4.5 mcg/actuation (Symbicort) 2 puffs inhalation Q12H furosemide (Lasix) 40 mg PO DAILY 90 days ipratropium-albuterol 0.5 mg-3 mg(2.5 mg base)/3 mL 3 mL inhalation Q6H PRN ipratropium-albuterol 20-100 mcg/actuation (Combivent Respimat) 1 puff inhalation Q6H levothyroxine 25 mcg PO DAILY 90 days metoprolol tartrate 25 mg PO BID 90 days prednisone 40 mg (2 x 20 mg) PO DAILY prednisone 40 mg (2 x 20 mg) PO DAILY valsartan 80 mg (2 x 40 mg) PO BID 90 days HPI Comments Details: Pleasant 68-year-old gentleman who is here for follow-up. He has background history of COPD, paroxysmal atrial fibrillation and severe cardiomyopathy for which he underwent MAIA cardioversion in 12/08/2023. Subsequently had another episode of atrial fibrillation and went to the ER but this was self-limiting. He has been on amiodarone since then. He has not sure whether he is taking amiodarone daily or twice a day. He is also on digoxin, metoprolol tartrate 25 mg twice a day and apixaban 5 mg twice a day. He has been experiencing abdominal pain due to ventral hernia and is being considered for surgery. He is sent to us for perioperative cardiovascular risk assessment. He has shortness of breath with short distance activity. He continues to smoke up to 3 cigarettes per day. He has not seen pulmonology in the past. 09/15/24: He is here for follow-up. He underwent cardiac catheterization for abnormal nuclear perfusion imaging showing inferior perfusion defect. This was done on September 04. He was noticed to have severe distal RCA stenosis involving the PDA PL bifurcation. This was treated with provisional approach with 2.75 by 18 mm tori JOSE which was post dilated with 3.5 mm balloon proximally. He was noticed to have hypoxia at rest and we decided to admit him and involve Pulmonary have nurse to see if we can get home oxygen arranged for him. He said he had oxygen arranged for him and went home. Next day he had some swelling at the wrist/cath site which slowly progressed and he has significant bruising of his whole forearm and lower part of the arm. He has some swelling there too. He is denying any trauma to the arm. He has left arm bruising which is improving and he is saying this is due to local trauma from bumping into things etcetera. He is on Plavix 75 mg daily and Eliquis currently. He is on prednisone for COPD. [facility] Medical History (Updated 09/15/24 @ 13:20 by Yordy De La Rosa MD) Smoker Acquired hypothyroidism Obesity (BMI 30-39.9) Coronary artery disease Congestive heart failure (CHF) Atrial fibrillation with RVR COPD (chronic obstructive pulmonary disease) Surgical History (Updated 09/15/24 @ 13:19 by Marian Lopez [facility]) Hx of cardiac cath S/P appendectomy History of coronary artery stent placement Social History Household Members: Significant Other Housing: Apartment Do you presently have visiting nurse or other home services: No Alcohol intake: never Comment: pt refused bed alarm Patient Tobacco Use Status: Current everyday Tobacco user Tobacco use type: Cigarette Cigarette Packs Per Day: 0.25 Cigarettes Per Day: 5 Years Smoked: 50 e-Cigarette/Vaping Use: Never Used Second Hand Smoke Exposure: Yes Substance Use Type: Marijuana service: Yes Current occupational status: retired Cognitive needs: No Hearing needs: No Vision needs: No Review of Systems Const Denies chills, Denies fatigue, Denies fever(s), Denies frequent falls, Denies weakness, Denies weight gain and Denies weight loss ENT Denies dizziness Card Denies chest pain, Denies leg edema, Denies lightheadedness, Denies palpitations, Denies dyspnea and Denies dyspnea on exertion Resp Denies cough, Denies dyspnea and Denies dyspnea on exertion GI Denies hematochezia Musc Denies abnormal gait, Denies muscle weakness, Denies numbness, Denies radiating pain into limb and Denies tingling Neuro Denies abnormal gait, Denies dizziness, Denies frequent falls, Denies numbness, Denies tingling and Denies weakness Endo Denies fatigue and Denies palpitations Physical Exam Vital Signs: Last Vital Signs Temp 97.5 F 11/25/23 08:00 Pulse 118 H 11/25/23 11:37 Resp 18 11/25/23 11:37 BP 136/74 11/25/23 08:00 Pulse Ox 93 11/25/23 08:00 O2 Del Method Oxymask 11/25/23 08:00 O2 Flow Rate 2 11/25/23 08:00 Oxygen Flow Rate 2 11/22/23 12:20 BMI result Body Mass Index 29.1 GENERAL APPEARANCE: in no acute distress, pleasant. NECK: no carotid bruit, no jugular venous distention. SKIN: no suspicious lesions, warm and dry. HEART: no murmurs, irregular rate and rhythm. LUNGS: Mild wheezes. ABDOMEN: soft, nontender. EXTREMITIES: no edema. Right hand, forearm and arm has bruising with mild swelling. Pulses are intact. No perfusion issue to the hand. PERIPHERAL PULSES: equal. NEUROLOGIC: No gross deficits, AAO X 3 Office Procedures EKG Details: Sinus rhythm 66 beats per minute, normal axis, low voltage, QTC 503 milliseconds. [id number], Complete Assessment & Plan Assessment & Plan (1) PAF (paroxysmal atrial fibrillation): Code(s): I48.0 - Paroxysmal atrial fibrillation Category: Medical (2) Chronic heart failure: Code(s): I50.9 - Heart failure, unspecified Category: Medical (3) Coronary artery disease: Code(s): I25.10 - Atherosclerotic heart disease of [place] coronary artery without angina pectoris Category: Medical Qualifiers: Associated angina: without angina Coronary Disease-Associated Artery/Lesion type: [place] artery [place] vs. transplanted heart: [place] heart Qualified Code(s): I25.10 - Atherosclerotic heart disease of [place] coronary artery without angina pectoris Plan Pleasant 68-year-old gentleman who is here for follow-up. He had tachycardia induced cardiomyopathy which improved after cardioversion and starting him on amiodarone. He has been taking Eliquis for anticoagulation. He was complaining of dyspnea with activities and underwent stress testing which showed inferior perfusion defect. He underwent cardiac catheterization which showed severe distal RCA stenosis involving the PDA PLV bifurcation. This was treated with drug-eluting stent with provisional stenting approach. He was noticed to be hypoxic and was admitted and Pulmonary rehab nurse saw him and he has oxygen arrange for him at this point. He did fine postop but as he went home a day later he had swelling at the wrist side with progressive bruising involving the whole forearm at this point. He has slight tenderness in the arm with swelling but has bounding radial pulse as well as normal perfusion to the hand. I have advised him to ice the arm and hand and keep it elevated. We will bring him back on Sunday to reassess the arm. He is on Plavix 75 mg and Eliquis currently. From atrial fibrillation point of view he has been on amiodarone. He has COPD and is on oxygen at this point. I think amiodarone is not a long-term drug for him. I am referring him to atrial physiology to have a discussion about ablation and if he is a good candidate for ablation then potentially can get off the amiodarone post ablation. Follow-up with us in few months. He will see us for site check on Sunday again. Thank you for allowing me to participate in the care of your patient. Please feel free to contact me if you have any questions. Orders: Referrals Cardiology Referral I48.0 - Paroxysmal atrial fibrillation Medications: New clopidogrel 75 mg PO DAILY 90 tabs 4RF Coding Level of Care Code Est Pt Level 5 (47351) Diagnoses PAF (paroxysmal atrial fibrillation) I48.0 Chronic heart failure I50.9 Coronary artery disease involving [place] coronary artery of [place] heart without angina pectoris I25.10 Associated angina: without angina Coronary Disease-Associated Artery/Lesion type: [place] artery [place] vs. transplanted heart: [place] heart CPT Codes EKG - CPT: 53343-[id number], Complete ([id number])
== END 2024-09-15 13:56 | disposition home or self-care (01) ==
LOC: HO.HCS 12:57
PROVIDERS: PCP Internal Medicine; Visit Provider Internal Medicine Cardiovascular Disease
DX: I48.0 Paroxysmal atrial fibrillation (principal); I50.9 Heart failure, unspecified; I25.10 Atherosclerotic heart disease of native coronary artery without angina pectoris
CPT/HCPCS: 93010; 99214

== ENCOUNTER → 2024-09-15 12:57 | Outpatient (BNVA) | payer MEDICARE, SELFPAY | PROVIDERS: PCP Internal Medicine; Visit Provider Internal Medicine Cardiovascular Disease | DX: I48.0 Paroxysmal atrial fibrillation (principal); I25.10 Atherosclerotic heart disease of native coronary artery without angina pectoris; I11.0 Hypertensive heart disease with heart failure; I50.9 Heart failure, unspecified; Z72.0 Tobacco use; Z95.5 Presence of coronary angioplasty implant and graft | CPT/HCPCS: 93005; 99212 ==

== ENCOUNTER → 2024-09-17 00:54 | Outpatient (BNV) | payer MEDICARE, SELFPAY | PROVIDERS: PCP Internal Medicine; Visit Provider Internal Medicine | DX: G47.33 Obstructive sleep apnea (adult) (pediatric) (principal); G47.34 Idiopathic sleep related nonobstructive alveolar hypoventilation | CPT/HCPCS: 95811 ==

== ENCOUNTER → 2024-09-17 19:30 | Outpatient (REF) | payer MEDICARE, SELFPAY | LOC: HO.SL 19:30 | PROVIDERS: PCP Internal Medicine; Visit Provider Nurse Practitioner Family | DX: G47.33 Obstructive sleep apnea (adult) (pediatric) (principal); G47.34 Idiopathic sleep related nonobstructive alveolar hypoventilation | CPT/HCPCS: 95811 ==

== ENCOUNTER 2024-09-19 12:50 | Outpatient (AMB) | payer MEDICARE, SELFPAY ==
[2024-09-19 13:05] VITALS: BP 100/60; PULSE 76; BMI 31.2
--- NOTE | 2024-09-19 13:05 | MHC.OFFVIS ---
Vital Signs 09/19/24 13:05 Height 5 ft 7 in Weight 199 lb 4.766 oz BMI 31.2 BP 100/60 Blood Pressure Location Lt brachial Position Sitting Pulse 76 Intake Visit Reasons: follow up ok per DC [place] [employer] Required: No Allergies No Known Allergies [No Known Allergies*] Allergy (Verified 09/19/24 13:08) Medication List - Last Reconciled 09/19/24 by LINDA Lopez albuterol sulfate 90 mcg/actuation (Ventolin HFA) 2 puffs inhalation QID PRN amiodarone 200 mg PO DAILY 90 days apixaban (Eliquis) 5 mg PO BID 90 days budesonide-formoterol 160-4.5 mcg/actuation (Symbicort) 2 puffs inhalation Q12H clopidogrel 75 mg PO DAILY furosemide (Lasix) 40 mg PO DAILY 90 days ipratropium-albuterol 0.5 mg-3 mg(2.5 mg base)/3 mL 3 mL inhalation Q6H PRN ipratropium-albuterol 20-100 mcg/actuation (Combivent Respimat) 1 puff inhalation Q6H levothyroxine 25 mcg PO DAILY 90 days metoprolol tartrate 25 mg PO BID 90 days prednisone 40 mg (2 x 20 mg) PO DAILY valsartan 80 mg (2 x 40 mg) PO BID 90 days HPI HPI follow up ok per DC: Details: Steve is a 68-year-old male with past medical history of COPD, paroxysmal atrial fibrillation with MAIA cardioversion 12/08/2023, now on amiodarone, who had an abnormal nuclear stress test and recently had cardiac catheterization with placement of RCA stent. He was seen in post catheterization follow-up earlier this week and was noted to have significant ecchymosis and swelling of his right upper extremity, from his right radial catheterization site. Today he presents for re-evaluation. Today he reports he is feeling good overall. He is pleased with how his right arm is looking. 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 He denies any mobility or sensory issues with his right arm or hand. He does have some mild discomfort the base of his right thumb with grasping. He is unsure if this is entirely new. No chest discomfort at rest or with activity. No shortness of breath, PND, orthopnea or edema. He tells me he is not sleeping well for the last few months and he is unsure why. No lightheadedness, presyncope, syncope, falls. Taking meds as directed. No other bleeding issues noted. [facility] Medical History (Updated 09/19/24 @ 13:42 by Pricilla Mack NP-C) Smoker Acquired hypothyroidism Obesity (BMI 30-39.9) Coronary artery disease Congestive heart failure (CHF) Atrial fibrillation with RVR COPD (chronic obstructive pulmonary disease) Surgical History (Updated 09/19/24 @ 13:57 by Pricilla Mack NP-C) Hx of cardiac cath S/P appendectomy History of coronary artery stent placement Social History Household Members: Significant Other Housing: Apartment Do you presently have visiting nurse or other home services: No Alcohol intake: never Comment: pt refused bed alarm Patient Tobacco Use Status: Current everyday Tobacco user Tobacco use type: Cigarette Cigarette Packs Per Day: 0.25 Cigarettes Per Day: 5 Years Smoked: 50 e-Cigarette/Vaping Use: Never Used Second Hand Smoke Exposure: Yes Substance Use Type: Marijuana service: Yes Current occupational status: retired Cognitive needs: No Hearing needs: No Vision needs: No Review of Systems Const All systems reviewed & are unremarkable except as noted in HPI and below ENT Denies dizziness Card Denies chest pain, Denies chest pain at rest, Denies chest pain with activity, Denies rapid heart rate, Denies pedal edema, Denies edema, Denies leg edema, Denies lightheadedness, Denies palpitations, Denies dyspnea, Denies dyspnea on exertion and Denies orthopnea Resp Denies cough, Denies dyspnea and Denies dyspnea on exertion GI Denies hematochezia and Denies change in stool character Musc Details: Right arm swelling and bruising improving Denies abnormal gait, Denies limited range of motion, Denies muscle cramps, Denies muscle weakness, Denies numbness, Denies radiating pain into limb, Denies stiffness and Denies tingling Neuro Denies abnormal gait, Denies dizziness, Denies numbness and Denies tingling Endo Denies palpitations Physical Exam Vital Signs: Last Vital Signs Pulse 76 09/19/24 13:05 BP 100/60 09/19/24 13:05 BMI result Body Mass Index 31.2 Const General: cooperative, healthy appearing, comfortable and no acute distress Orientation/consciousness: patient oriented x3 Neck Neck: Yes normal visual inspection Resp Effort & Inspection: normal respiratory effort Auscultation: clear to auscultation bilaterally, no rales, no rhonchi and no wheezes Cardio Rate: regular rate Rhythm: regular rhythm Heart sounds: S1 normal heart sound present, S2 normal heart sound present, no murmurs and no rubs Neuro General: patient oriented x3 Extrem Other: Significant ecchimosis along right arm from fingers to upper arm, mild forearm swelling - No increase in discoloration or swelling compared to when I assessed it on 09/15. Overall looks improved. Radial pulse is easily palpable. Right hand mobility and sensation normal. Immediate capillary refill of nailbeds. Psych Appearance: grossly normal Mental Status: mental status grossly normal Speech and movement: Normal speech and movement present Assessment & Plan Assessment & Plan (1) Visit for wound check: Code(s): Z51.89 - Encounter for other specified aftercare Category: Medical Plan: Cardiac catheterization performed on 09/04/2024, right radial catheterization site. He was on Eliquis which was held for the catheterization then restarted. Following catheterization he was also started on Plavix. He came for post catheterization follow-up on 09/15/2024 and was found to have significant ecchymosis and swelling in his left arm. His right radial pulse was easily palpable. He was brought back in today for re-evaluation. Overall the condition of his right arm looks much improved. The ecchymosis has lightened and the swelling has decreased. His skin does have some laxity to it. His right radial pulse is easily palpable. Right hand assessment normal. Informed him that the condition of his right arm should only improve from this point going forward. He currently states it is not bothering him at all. (2) PAF (paroxysmal atrial fibrillation): Code(s): I48.0 - Paroxysmal atrial fibrillation Category: Medical Plan: History of paroxysmal atrial fibrillation with prior tachycardia induced cardiomyopathy which improved with rhythm control. Pulse is regular on examination today. No reports of heart palpitations. He is on amiodarone for rhythm control, metoprolol for heart rate control and Eliquis for anticoagulation. (3) Coronary artery disease: Code(s): I25.10 - Atherosclerotic heart disease of [place] coronary artery without angina pectoris Category: Medical Qualifiers: Coronary Disease-Associated Artery/Lesion type: [place] artery [place] vs. transplanted heart: [place] heart Associated angina: without angina Qualified Code(s): I25.10 - Atherosclerotic heart disease of [place] coronary artery without angina pectoris Plan: History of CAD with ramus PCI 2018. He recently had a nuclear stress test as part of preop evaluation for abdominal surgery. His nuclear stress test done on 05/28/2024 shows prior infarct involving the inferior wall, inferior lateral wall and adjacent apex. A cardiac catheterization was done on 09/04/2024 showing severe mid RCA stenosis and stent was placed. He was put on Plavix in addition to his Eliquis. He was continued on metoprolol rosuvastatin. He declines cardiac rehab due to the high cost. Signs and symptoms of angina reviewed. Cardiology follow-up in 3-4 months, sooner if needed. (4) Hx of cardiac cath: Comment: 09/04/2024, left main normal, mid LAD 50% stenosis at diagonal bifurcation, left circumflex normal, mid RCA, 90% stenosis, culprit lesion, mild disease in the ramus branch, previous stent mid ramus patent. JOSE to the mid RCA Code(s): Z98.890 - Other specified postprocedural states Category: Surgical (5) History of coronary artery stent placement: Comment: S/P cardiac catheterization and ramus PCI at [facility] in 2018 Code(s): Z95.5 - Presence of coronary angioplasty implant and graft Category: Surgical (6) Preop cardiovascular exam: Code(s): Z01.810 - Encounter for preprocedural cardiovascular examination Category: Medical Plan: Previously evaluated by Dr. Evans for possible ventral hernia repair surgery. At this time elective surgeries should be postponed. Patient had a coronary stent placement 09/04/2024. He should remain on Plavix uninterrupted for at least 1 year. 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 De La Rosa can be done. Plan Time spent on chart review, documentation, intravenous assessment Coding Level of Care Code Est Pt Level 3 (61114) Complex EM visit Add On G2211 Diagnoses Visit for wound check Z51.89 PAF (paroxysmal atrial fibrillation) I48.0 Coronary artery disease involving [place] coronary artery of [place] heart without angina pectoris I25.10 Coronary Disease-Associated Artery/Lesion type: [place] artery [place] vs. transplanted heart: [place] heart Associated angina: without angina Hx of cardiac cath Z98.890 History of coronary artery stent placement Z95.5 Preop cardiovascular exam Z01.810 Time Spent (min) 24
== END 2024-09-19 13:28 | disposition home or self-care (01) ==
LOC: HO.HCS 12:51
PROVIDERS: PCP Internal Medicine; Visit Provider Nurse Practitioner Family
DX: Z51.89 Encounter for other specified aftercare (principal); I48.0 Paroxysmal atrial fibrillation; I25.10 Atherosclerotic heart disease of native coronary artery without angina pectoris; Z98.890 Other specified postprocedural states; Z95.5 Presence of coronary angioplasty implant and graft; Z01.810 Encounter for preprocedural cardiovascular examination
CPT/HCPCS: 99213; G2211

== ENCOUNTER → 2024-09-19 12:50 | Outpatient (BNVA) | payer MEDICARE, SELFPAY | PROVIDERS: PCP Internal Medicine; Visit Provider Nurse Practitioner Family | DX: Z01.810 Encounter for preprocedural cardiovascular examination (principal); I48.0 Paroxysmal atrial fibrillation; I25.10 Atherosclerotic heart disease of native coronary artery without angina pectoris; Z51.89 Encounter for other specified aftercare; Z95.5 Presence of coronary angioplasty implant and graft; Z98.890 Other specified postprocedural states; Z79.01 Long term (current) use of anticoagulants; Z79.899 Other long term (current) drug therapy | CPT/HCPCS: 99212 ==

== ENCOUNTER 2024-10-04 09:52 | Inpatient (IN) | payer MEDICARE, SELFPAY ==
[2024-10-04] VITALS (9 sets, daily range): BP systolic 99–132; BP diastolic 50–63; PULSE 70–88; RESP 16–26; TEMP 36.6–37.1; O2SAT 92–96; BMI 29.2; BMI 28.1
--- NOTE | ~2024-10-04 | CT_ITS ---
EXAMINATION: CT CHEST WITHOUT CONTRAST CLINICAL INFORMATION: Hypoxia COMPARISON: 07/07/2024 TECHNIQUE: Multidetector volumetric CT imaging of the chest was done. Axial MIP volume rendering provided. Sagittal and coronal reformatted images were obtained. This CT examination was performed using dose optimization techniques as appropriate, variously including the following: *Automated exposure control *Adjustment of mA and/or kV according to patient size (this includes techniques or standardized protocols for targeted exams where dose is matched to indication/reason for exam; i.e. extremities or head) *Use of iterative reconstruction technique DLP: 194 mGy-cm FINDINGS: SERVICE ADVISOR: Hyperinflation consistent with obstructive airway disease LUNGS: Emphysematous changes noted consistent with COPD. Pre-existing small nodules are stable largest measuring up to 8 mm left upper lobe posteriorly. In the interim, there is development of parenchymal disease bilaterally. On the right, it is right upper lobe paramediastinal and suprahilar. No definite endobronchial central lesion. On the left, it involves multiple segments including the left perihilar, the left upper lobe and the superior segment left lower lobe. MEDIASTINUM: Reactive appearing mediastinal lymph nodes. No pathologic enlargement. Fatty israel noted. Thoracic vascular grossly normal. CORONARY ARTERY CALCIFICATION: Present PLEURA: There is no pleural effusion. No pleural mass or thickening. AXILLA: No lymphadenopathy. UPPER ABDOMEN: High density liver with the liver measuring 71 Hounsfield units. No discrete lesion. OSSEOUS STRUCTURES: Unremarkable. CT/CT chest wo IV con IMPRESSION: Multifocal airspace disease which could represent pneumonia versus atelectasis. No definite central endobronchial lesion. Hypodense liver consistent with statistically hemochromatosis. Pulmonary nodules are essentially stable from recent imaging. Continued surveillance imaging recommended in 6 months. Fleischner guidelines were followed. Electronically signed by: Brice Kirk MD 10/06/2024 06:03 PM [facility]
--- NOTE | ~2024-10-04 | XR_ITS ---
EXAMINATION: XR CHEST CLINICAL INFORMATION: Shortness of breath. COMPARISON: Most recent chest radiograph dated 10/04/2024. TECHNIQUE: Frontal view of the chest was obtained. FINDINGS: Mild interstitial prominence is unchanged. No new airspace consolidation. No pleural effusion or pneumothorax. Stable cardiomediastinal silhouette. XR/XR chest 1V IMPRESSION: No acute cardiopulmonary findings. Electronically signed by: Jose Zuniga MD 10/05/2024 12:[address] [facility]
--- NOTE | ~2024-10-04 | XR_ITS ---
EXAMINATION: XR CHEST CLINICAL INFORMATION: Dyspnea COMPARISON: January 08, 2024 TECHNIQUE: Frontal view of the chest was obtained. FINDINGS: There are no evidence of infiltrates but there mild increase interstitial markings with few Radha B-lines seen mostly on the left. No vascular congestion or cardiomegaly no pleural effusion. XR/XR chest 1V IMPRESSION: Mild interstitial edema Electronically signed by: Hossein Fam MD 10/04/2024 11:07 AM [facility]
--- NOTE | 2024-10-04 10:19 | ECG_ITS ---
Test Reason : SOB Blood Pressure : / mmHG Vent. Rate : 089 BPM Atrial Rate : 067 BPM P-R Int : 000 ms QRS Dur : 098 ms QT Int : 484 ms P-R-T Axes : 000 -34 056 degrees QTc Int : 588 ms Normal sinus rhythm Left axis deviation Pulmonary disease pattern Cannot rule out Inferior infarct , age undetermined Abnormal ECG When compared with ECG of 08-JAN-2024 14:09, Current undetermined rhythm precludes rhythm comparison, needs review QT has lengthened Referred By: Brunilda Vargas Electronically Signed By:Yordy De La Rosa
[2024-10-04] MEDS: Albuterol Sulfate 5 MG, Albuterol/Iprat 2.5/0.5MG 3 ML 3 ML INHALE (10:26)
--- NOTE | 2024-10-04 10:26 | ED_ITS ---
HPI - SOB/Dyspnea General Chief Complaint: Dyspnea Stated Complaint: diff breathing Time Seen by Provider: 10/04/24 10:18 Source: patient and old records reviewed Mode of arrival: ambulatory Limitations: no limitations History of Present Illness ED Provider: NATIVIDAD SORIA Narrative: 68 yo male with PMH of COPD on home 2-4L home O2 continues to smoke, CHF, cardiac cath with stent 1 month ago, hypothyroidism, PAF on eliquis here with c/o 2 weeks of worsening cough, congestion. NO sick contacts or travel. He is not responding to home therapy. No recent prednisone or antibiotics per the . He denies pain has a hard time sleeping at night and walking around - he does not have portable O2 tank MD elicited complaint: shortness of breath and cough Pertinent past history: COPD and congestive heart failure Onset (ago): week(s) (2) Context: smoke/fume exposure Timing: progressively worsening Severity: moderate Exacerbating factors: lying flat and exertion Relieving factors: oxygen, rest and upright position Known history of: COPD and congestive heart failure Associated symptoms: cough and sputum production Treatment prior to arrival: oxygen and bronchodilator Related Data Home Medications ?Medication ?Instructions ?Recorded ?Confirmed levothyroxine 25 mcg tablet 25 mcg PO DAILY@0600 10/04/24 rosuvastatin 20 mg tablet 20 mg PO BEDTIME 10/04/24 Previous Rx's ?Medication ?Instructions ?Recorded apixaban 5 mg tablet (Eliquis) 5 mg PO BID 90 days #180 tabs 04/11/24 furosemide 40 mg tablet (Lasix) 40 mg PO DAILY 90 days #90 tabs 04/11/24 metoprolol tartrate 25 mg tablet 25 mg PO BID 90 days #180 tabs 04/11/24 amiodarone 200 mg tablet 200 mg PO DAILY 90 days #120 tabs 04/30/24 valsartan 40 mg tablet 80 mg (2 x 40 mg) PO BID 90 days 04/30/24 #360 tabs albuterol sulfate 90 mcg/actuation 2 puff inhalation QID PRN 05/27/24 aerosol inhaler (Ventolin HFA) shortness of breath or wheezing #6.7 grams ipratropium 0.5 mg-albuterol 3 mg 3 ml inhalation Q6H PRN wheezing 07/14/24 (2.5 mg base)/3 mL nebulization #180 mL soln budesonide-formoterol HFA 160 2 puff inhalation Q12H #10.2 grams 08/18/24 mcg-4.5 mcg/actuation aerosol inhaler (Symbicort) ipratropium 20 mcg-albuterol 100 1 puff inhalation Q6H #4 grams 08/18/24 mcg/actuation mist for inhalation (Combivent Respimat) clopidogrel 75 mg tablet 75 mg PO DAILY #90 tabs 09/15/24 Allergies Allergy/AdvReac Type Severity Reaction Status Date / Time No Known Allergies Allergy Verified 10/04/24 10:05 [No Known Allergies*] Review of Systems 2 Review of Systems: Constitutional : No Fever, No Chills ENT/Mouth : No Hoarseness, No sore throat, No Rhinorrhea Eyes: No Redness, No Discharge, No Vision Changes Cardiovascular : No Chest Pain, positive SOB, positive Dyspnea on Exertion, No Edema Respiratory : positive Cough, pos Sputum, positive Wheezing, Gastrointestinal : No Nausea, No Vomiting, No Diarrhea, No abdominal Pain Genitourinary : No Dysuria, No Hematuria Musculoskeletal : No joint pain, No Myalgias Skin : No rash Neuro : No Weakness, No Numbness, No Headache Psych : No anxiety, depression All other systems reviewed and are negative PMFSH Past Medical History Attestation statement: The following information was validated with the patient. Source: old records reviewed Medical History Smoker Acquired hypothyroidism Obesity (BMI 30-39.9) Coronary artery disease Congestive heart failure (CHF) Atrial fibrillation with RVR COPD (chronic obstructive pulmonary disease) Surgical History Hx of cardiac cath S/P appendectomy History of coronary artery stent placement Social History Social History Household Members: Significant Other Housing: Apartment Do you presently have visiting nurse or other home services: No Alcohol intake: never Comment: pt refused bed alarm Patient Tobacco Use Status: Current everyday Tobacco user Tobacco use type: Cigarette Cigarette Packs Per Day: 0.25 Cigarettes Per Day: 5 Years Smoked: 50 Smoked in Last 30 Days: No e-Cigarette/Vaping Use: Never Used Second Hand Smoke Exposure: Yes Use of substances other than those prescribed or required for medical reasons: Yes Substance Use Type: Marijuana Substance Use Frequency: Chronic Longstanding Advance Directives: No Advance Directives Information Provided: Yes service: Yes Current occupational status: retired Cognitive needs: No Hearing needs: No Vision needs: No Physical Exam 2 Vital Signs: Vital Signs: Last Vital Signs Temp 97.9 F 10/04/24 13:05 Pulse 78 10/04/24 13:05 Resp 18 10/04/24 13:05 BP 104/56 L 10/04/24 13:05 Pulse Ox 96 10/04/24 13:05 O2 Del Method Room Air 10/04/24 13:05 O2 Flow Rate 3 10/04/24 11:17 Oxygen Flow Rate 3 10/04/24 09:59 BMI result Body Mass Index 29.2 Appearance: Alert. Oriented X3. No acute distress. Eyes: Pupils equal, round and reactive to light. ENT: Pharynx normal. Neck: Normal inspection. Neck supple. CVS: Normal heart rate and rhythm. Pulses normal. Respiratory: No respiratory distress. Breath sounds diminished throughout with insp and exp wheezes Abdomen: Soft and non-tender. Skin: Skin warm and dry. Normal skin color. Normal skin turgor. Extremities: No lower extremity edema. Neuro: Oriented X 3. No motor deficit. No sensory deficit. Medications Administered Generic Name Dose Route Start Last Admin Trade Name Freq PRN Reason Stop Dose Admin Potassium Chloride 10 meq in 100 mls @ 100 mls/hr 10/04/24 12:30 10/04/24 12:45 Potassium Chloride/H20 IV 10/04/24 16:29 100 mls/hr Q1H TREY Administration Discontinued Medications Generic Name Dose Route Start Last Admin Trade Name Freq PRN Reason Stop Dose Admin Albuterol Sulfate 5 mg/ 0 mg 10/04/24 10:21 10/04/24 10:26 Albuterol/Ipratropium 3 ml INHALE 10/04/24 10:22 7.5 each ONCE ONE Administration Furosemide 20 mg 10/04/24 11:14 10/04/24 11:27 Furosemide 20 Mg/2 Ml Vial IVPUSH 10/04/24 11:15 20 mg ONCE ONE Administration Protocol Azithromycin 500 mg/ Sodium 250 mls @ 125 mls/hr 10/04/24 10:18 10/04/24 11:27 Chloride IV 10/04/24 12:17 125 mls/hr ONCE ONE Administration Magnesium Sulfate 2 gm in 50 mls @ 150 mls/hr 10/04/24 11:05 10/04/24 12:24 Magnesium Sulfate/H2o IV 10/04/24 11:24 Infused ONCE ONE Infusion Methylprednisolone Sodium Succinate 60 mg 10/04/24 10:18 10/04/24 11:26 Methylprednisolone Sod Succ 125 Mg/2 Ml Vial IVPUSH 10/04/24 10:19 60 mg ONCE ONE Administration Potassium Chloride 40 meq 10/04/24 12:26 10/04/24 12:41 Potassium Chloride Er 20 Meq Tab.Er.Prt PO 10/04/24 12:27 40 meq ONCE ONE Administration Medical Decision Making Medical Decision Making [facility] Narrative: 68 yo male with PMH of COPD on home 2-4L home O2 continues to smoke, CHF, cardiac cath with stent 1 month ago, hypothyroidism, PAF on eliquis here with c/o cough, not feeling well, JAIMES and orthopnea x 2 weeks at this time will start steroids, IV azithromycin, EKG, labs, CXR viral panel Differential Diagnosis Differential Diagnoses: The differential diagnosis associated with the presentation includes COPD, pneumonia, viral syndrome, CHF Admission/Observation Consideration of admission/observation: Escalation of care including admission/observation considered repleting K needs qtc monitoring admission for COPD Consult Healthcare Provider Management of the patient was discussed with: Hospitalist (will admit) Lab Data [facility] Lab Attestation statement: I reviewed the patient's lab results. 10/04/24 11:00 10/04/24 11:00 Labs: Lab Results 10/04/24 10/04/24 10/04/24 Range/Units 11:00 11:08 11:35 WBC 7.7 (4.8-10.8) X10*3/uL RBC 4.10 L (4.60-5.80) X10*6/uL Hgb 12.7 L (14.0-18.0) g/dl Hct 37.8 L D (42.0-52.0) % MCV 92.2 (80.0-98.0) fL MCH 31.0 (27.0-33.0) pg MCHC 33.6 (31.0-36.0) g/dl RDW 14.2 (11.0-16.0) % Plt Count 194 (160-400) X10*3/uL MPV 9.5 (9.4-12.4) fL Immature Gran % (Auto) 0.8 H (0.0-0.4) % Neut % (Auto) 80.1 H (45-73) % Lymph % (Auto) 9.7 L (20-40) % [place] % (Auto) 8.6 (2-11) % Eos % (Auto) 0.3 (0-4) % Baso % (Auto) 0.5 (0-2) % Lymph # (Auto) 0.7 L (1.2-4.9) X10*3/uL [place] # (Auto) 0.7 (0.1-1.2) X10*3/uL Eos # (Auto) 0.0 (0.0-0.4) X10*3/uL Baso # (Auto) 0.0 (0.0-0.2) X10*3/uL Abs Immat Gran (auto) 0.06 H (0.00-0.03) X10*3/uL Absolute Neuts (auto) 6.1 (2.0-8.3) x10*3/uL Absolute Nucleated RBC 0.000 (0.0-0.012) X10*3/uL Nucleated RBC % (auto) 0.0 (0.0-0.2) /100WBC VBG pH 7.43 (7.32-7.43) VBG pCO2 51 mmHg VBG pO2 39 mmHg VBG HCO3 34 H (22-26) mmol/L VBG O2 Saturation 62.0 % VBG Base Excess 8.4 mmol/L Sodium 131 L (135-145) mmol/L Potassium 2.3 L* D (3.3-5.1) mmol/L Chloride 90 L (96-108) mmol/L Carbon Dioxide 31 H (22-29) mmol/L Anion Gap 12 (12-20) BUN 15 (9-16) mg/dL Creatinine 2.00 H (0.5-1.4) mg/dL Estim Creat Clear Calc 38.0 Estimated GFR 33 Random Glucose 101 (60-115) mg/dL Lactic Acid 1.3 (0.5-2.0) mmol/L Calcium 8.9 (8.4-10.2) mg/dL Magnesium 1.8 (1.6-2.6) mg/dL Total Bilirubin 0.4 (0.0-1.0) mg/dL Direct Bilirubin 0.2 (0.0-0.5) mg/dL AST 44 H (5-37) U/L ALT 15 (0-40) U/L Alkaline Phosphatase 93 (39-117) U/L Troponin I High Sens 11.3 (<3.5-35.0) ng/L C-Reactive Protein 10.71 H (< or = 0.50) mg/dL B-Natriuretic Peptide 70 (<100) pg/mL Total Protein 7.2 (6.5-8.0) g/dL Albumin 3.7 (3.5-5.0) g/dL Lipase 9 (8-78) U/L Urine Color Yellow Urine Appearance Clear Urine pH 6.0 (5.0-9.0) Ur Specific Orange 1.010 (1.005-1.025) Urine Protein 30 (1+) H (Neg-Trace) mg/dL Urine Glucose (UA) Negative (Negative) mg/dL Urine Ketones Negative (Negative) mg/dL Urine Blood Small (1+) H (Negative) Urine Nitrite Negative (Negative) Ur Leukocyte Esterase Negative (Negative) Urine RBC 0-2 (0-2) /HPF Urine WBC 0-5 (0-5) /HPF Ur Squamous Epith Cells 0-2 (0-2) /HPF Urine Bacteria None Seen (None Seen) Hyaline Casts 0-2 (0-2) /LPF Influenza Type A (PCR) NEGATIVE (Negative) Influenza Type B (PCR) NEGATIVE (Negative) RSV RNA Qual (PCR) NEGATIVE (Negative) SARS-CoV-2 RNA (RT-PCR) NEGATIVE (Negative) Independent Interpretation I performed an independent interpretation of an: EKG and Plain X-Ray (no pneumonia) Interpretation: Rate: 89 Rhythm: afib [place]: left Normal QRS complex. ST T wave : no KLEVER, flat t waves throughout qTC: 588 prolonged prior studies: afib The study has been interpreted contemporaneously by me. EKG#2 Rate: 88 Rhythm: afib [place]: left Normal QRS complex. ST T wave : no KLEVER artifact throughout but no KLEVER qTC: 367 prior studies: qtc shorter The study has been interpreted contemporaneously by me. . Radiology Impression Discussion of test interpretation with radiology: I have reviewed the radiologist's reading. Independent Historian Clinical information obtained from an independent historian. History obtained from or confirmed by: Spouse External Record Review External record reviewed: Inpatient record Critical Care Time Critical Care Time Critical Care Time: Yes Total Critical Care Time: 45 Attestation: review of records, IV potassium, nebs, IV magnesium I attest to this time spent taking care of the patient Discharge Plan Discharge Clinical Impression: Acute hypokalemia, Prolonged QT interval, KARTIK (acute kidney injury) COPD (chronic obstructive pulmonary disease) Qualifiers: COPD type: unspecified COPD Qualified Code(s): J44.9 - Chronic obstructive pulmonary disease, unspecified Patient Disposition: Admitted As Inpatient Print Language: Russian
[2024-10-04 11:08] LABS: MANUAL DIFF FLAG NO
[2024-10-04 11:10] LABS: Basophils Percent Auto 0.5 % (0-2); Eosinophils Percent Auto 0.3 % (0-4); Hematocrit 37.8 % (42.0-52.0); Imm Gran Abs Auto 0.06 X10*3/uL (0.00-0.03); Imm Gran Pct Auto 0.8 % (0.0-0.4); Lymphocytes Absolute Auto 0.7 X10*3/uL (1.2-4.9); Lymphocytes Percent Auto 9.7 % (20-40); Mean Corpuscular HGB Conc 33.6 g/dl (31.0-36.0); Mean Corpuscular Volume 92.2 fL (80.0-98.0); Mean Platelet Volume 9.5 fL (9.4-12.4); Monocytes Absolute Auto 0.7 X10*3/uL (0.1-1.2); Monocytes Percent Auto 8.6 % (2-11); Neutrophils Absolute Auto 6.1 x10*3/uL (2.0-8.3); Neutrophils Percent Auto 80.1 % (45-73); Platelet Count 194 X10*3/uL (160-400); Red Cell Distribution Width 14.2 % (11.0-16.0); White Blood Count 7.7 X10*3/uL (4.8-10.8)
[2024-10-04 11:15] LABS: VBG Base Excess 8.4 mmol/L; VBG HCO3 34 mmol/L (22-26); VBG pCO2 51 mmHg; VBG pH 7.43 (7.32-7.43); VBG pO2 39 mmHg
--- NOTE | 2024-10-04 11:18 | PC.NURSE ---
Assumed care of this patient at 1100, upon entering the room, patient was not on any oxygen at all, sating 89% on RA. placed on 3L NC, sats much improved 95%. IV line placed, labs obtained by AHMET Snider, patient to be medicated w/ ordered meds from JAN. Resting quietly on the stretcher at this time.
[2024-10-04 11:19] LABS: Venous Blood Gas Refer to POC result
[2024-10-04] MEDS: methylPREDNISolone Sod Succ 125 MG/2 ML VIAL 60 MG IVPUSH (11:26)
[2024-10-04] MEDS: Magnesium Sulfate/H2O 2 GM/50 ML PIGGYBACK IV (11:27)
[2024-10-04] MEDS: Azithromycin 500 MG in 0.9 % Sodium Chloride 250 ML 125 MG IV (11:27)
[2024-10-04] MEDS: Furosemide 20 MG/2 ML VIAL IVPUSH (11:27)
[2024-10-04 11:28] LABS: Hemoglobin 12.7 g/dl (14.0-18.0)
[2024-10-04 11:29] LABS: Lactic Acid 1.3 mmol/L (0.5-2.0)
[2024-10-04 11:34] LABS: B Type Natriuretic Peptide 70 pg/mL (<100)
[2024-10-04 11:36] LABS: Troponin-I High Sensitivity 11.3 ng/L (<3.5-35.0)
[2024-10-04 11:45] LABS: Appearance Urine Clear; Color Urine Yellow; Glucose Urine UA Negative (Negative); Leukocyte Esterase Urine Negative (Negative); Nitrite Urine Negative (Negative); UMIC TRIGGER UACC YES; Urine Blood Small (1+) (Negative); Urine Ketones Negative (Negative); Urine Protein 30 (1+) mg/dL (Neg-Trace)
[2024-10-04 11:48] LABS: Influenza A PCR NEGATIVE (Negative); Influenza B PCR NEGATIVE (Negative); Resp Syncy Virus RNA Qual PCR NEGATIVE (Negative); SARS COV2 PCR INHOUSE NEGATIVE (Negative)
[2024-10-04 11:56] LABS: Bacteria Urine None Seen (None Seen); Hyaline Casts Urine 0-2 /LPF (0-2); RBC Urine 0-2 /HPF (0-2); Squamous Epithelial Cell Urine 0-2 /HPF (0-2); WBC Urine 0-5 /HPF (0-5)
[2024-10-04 12:28] LABS: Alanine Aminotransferase 15 U/L (0-40); Albumin Level 3.7 g/dL (3.5-5.0); Alkaline Phosphatase 93 U/L (39-117); Anion Gap 12 (12-20); Aspartate Amino Transferase 44 U/L (5-37); Bilirubin Direct 0.2 mg/dL (0.0-0.5); Bilirubin Total 0.4 mg/dL (0.0-1.0); Blood Urea Nitrogen 15 mg/dL (9-16); C Reactive Protein 10.71 mg/dL (< or = 0.50); Calcium 8.9 mg/dL (8.4-10.2); Carbon Dioxide 31 mmol/L (22-29); Chloride 90 mmol/L (96-108); Estimated Glomerular Filt Rate 33; Glucose Random 101 mg/dL (60-115); Lipase 9 U/L (8-78); Magnesium 1.8 mg/dL (1.6-2.6); Potassium 2.3 mmol/L (3.3-5.1); Sodium 131 mmol/L (135-145); Total Protein 7.2 g/dL (6.5-8.0)
[2024-10-04] MEDS: Potassium Chloride ER 20 MEQ TAB.ER.PRT 40 MEQ PO (12:41)
[2024-10-04] MEDS: Potassium Chloride/H20 10 MEQ/100 ML PIGGYBACK 100 MEQ IV (12:45)
--- NOTE | 2024-10-04 13:30 | ECG_ITS ---
Test Reason : PROLONGED QTC Blood Pressure : / mmHG Vent. Rate : 088 BPM Atrial Rate : 080 BPM P-R Int : 266 ms QRS Dur : 092 ms QT Int : 304 ms P-R-T Axes : 030 -17 023 degrees QTc Int : 367 ms Poor data quality Likely sinus rhythm When compared with ECG of 04-OCT-2024 10:41, Current undetermined rhythm precludes rhythm comparison, needs review Referred By: Brunilda Vargas Electronically Signed By:Yordy De La Rosa
[2024-10-04] MEDS: Potassium Chloride/H20 10 MEQ/100 ML PIGGYBACK 75 MEQ IV ×3 (13:51→17:03)
--- NOTE | 2024-10-04 14:28 | PM.IMHP ---
History of Present Illness Date of Service: 10/04/24 Attending physician on admission: Nawaf Mcgowan Chief Complaint: sob, low k This is a 68-year-old male with history of COPD who presents to the emergency department with complaints of shortness of breath. Patient reports 2 weeks of increasing shortness a breath with associated dry cough. He also reports chills and nasal congestion. In addition he reports decreased oral appetite. He denies any recent sick contacts workup in the emergency department was significant for RADHA with a creatinine of 2.0, hypokalemia with potassium of 2.3 and prolonged QTC on EKG. Patient received 40 mEq of potassium and was started on IV potassium as well as IV magnesium. He was noted to have wheezing on physical exam. He received a dose of Solu-Medrol, IV Lasix, azithromycin, DuoNeb breathing treatment. Due to electrolyte abnormalities, prolonged QTC and acute COPD exacerbation he will be admitted to the hospital for further management. Review of Systems Review of Systems: Yes all other systems are reviewed and are negative Constitutional: Constitutional: Reports chills and Denies fever(s) Cardiovascular: Cardiovascular: Denies chest pain, Denies palpitations and Reports dyspnea Respiratory: Respiratory: Reports cough and Reports dyspnea Endocrine: Endocrine: Denies palpitations [facility] Medical History Smoker Acquired hypothyroidism Obesity (BMI 30-39.9) Coronary artery disease Congestive heart failure (CHF) Atrial fibrillation with RVR COPD (chronic obstructive pulmonary disease) Surgical History Hx of cardiac cath S/P appendectomy History of coronary artery stent placement Social History Household Members: Significant Other Housing: Apartment Do you presently have visiting nurse or other home services: No Alcohol intake: never Comment: pt refused bed alarm Patient Tobacco Use Status: Current everyday Tobacco user Tobacco use type: Cigarette Cigarette Packs Per Day: 0.25 Cigarettes Per Day: 5 Years Smoked: 50 Smoked in Last 30 Days: No e-Cigarette/Vaping Use: Never Used Second Hand Smoke Exposure: Yes Use of substances other than those prescribed or required for medical reasons: Yes Substance Use Type: Marijuana Substance Use Frequency: Chronic Longstanding Advance Directives: No Advance Directives Information Provided: Yes service: Yes Current occupational status: retired Cognitive needs: No Hearing needs: No Vision needs: No Meds Allergies Allergy/AdvReac Type Severity Reaction Status Date / Time No Known Allergies Allergy Verified 10/04/24 10:05 [No Known Allergies*] Active Medications: Current Medications Potassium Chloride (Potassium Chloride/H20) 10 meq in 100 mls @ 100 mls/hr IV Q1H TREY Stop: 10/04/24 16:29 Last Admin: 10/04/24 13:51 Dose: 75 mls/hr Home Medications ?Medication ?Instructions ?Recorded ?Confirmed ?Last Taken ?Type levothyroxine 25 mcg tablet 25 mcg PO DAILY@0600 10/04/24 10/04/24 10/04/24 History rosuvastatin 20 mg tablet 20 mg PO BEDTIME 10/04/24 10/04/24 Unknown History Physical Exam Vital Signs and Narrative: Vital Signs: Last Vital Signs Temp 97.9 F 10/04/24 13:05 Pulse 78 10/04/24 13:05 Resp 18 10/04/24 13:05 BP 104/56 L 10/04/24 13:05 Pulse Ox 96 10/04/24 13:05 O2 Del Method Room Air 10/04/24 13:05 O2 Flow Rate 3 10/04/24 11:17 Oxygen Flow Rate 3 10/04/24 09:59 BMI result Body Mass Index 29.2 Const: General: cooperative, comfortable, no acute distress, alert and awake Nutritional Appearance: overweight Orientation/consciousness: patient oriented x3 Resp: Other: b/l expiratory wheeze Effort & Inspection: normal respiratory effort, able to speak in complete sentences and no respiratory distress Cardio: Rate: regular rate GI: Inspection: No distended Palpation (GI): Soft to palpation and nontender Neuro: General: patient oriented x3, moves all extremities and CN's II-XI intact bilaterally Extrem: General: Yes no pedal edema Results Labs 10/04/24 11:00 10/04/24 11:00 Labs: Laboratory Results - last 24 hr 10/04/24 10/04/24 10/04/24 11:00 11:08 11:35 MCV 92.2 MCH 31.0 MCHC 33.6 RDW 14.2 Plt Count 194 MPV 9.5 Immature Gran % (Auto) 0.8 H Neut % (Auto) 80.1 H Lymph % (Auto) 9.7 L [place] % (Auto) 8.6 Eos % (Auto) 0.3 Baso % (Auto) 0.5 Lymph # (Auto) 0.7 L [place] # (Auto) 0.7 Eos # (Auto) 0.0 Baso # (Auto) 0.0 Abs Immat Gran (auto) 0.06 H Absolute Neuts (auto) 6.1 Absolute Nucleated RBC 0.000 Nucleated RBC % (auto) 0.0 VBG pH 7.43 VBG pCO2 51 VBG pO2 39 VBG HCO3 34 H VBG O2 Saturation 62.0 VBG Base Excess 8.4 Anion Gap 12 Estim Creat Clear Calc 38.0 Estimated GFR 33 Random Glucose 101 Lactic Acid 1.3 Calcium 8.9 Magnesium 1.8 Total Bilirubin 0.4 Direct Bilirubin 0.2 AST 44 H ALT 15 Alkaline Phosphatase 93 Troponin I High Sens 11.3 C-Reactive Protein 10.71 H B-Natriuretic Peptide 70 Total Protein 7.2 Albumin 3.7 Lipase 9 Urine Color Yellow Urine Appearance Clear Urine pH 6.0 Ur Specific [place] 1.010 Urine Protein 30 (1+) H Urine Glucose (UA) Negative Urine Ketones Negative Urine Blood Small (1+) H Urine Nitrite Negative Ur Leukocyte Esterase Negative Urine RBC 0-2 Urine WBC 0-5 Ur Squamous Epith Cells 0-2 Urine Bacteria None Seen Hyaline Casts 0-2 Influenza Type A (PCR) NEGATIVE Influenza Type B (PCR) NEGATIVE RSV RNA Qual (PCR) NEGATIVE SARS-CoV-2 RNA (RT-PCR) NEGATIVE Imaging Radiologist's Impressions: Impressions Chest X-Ray 10/04/24 10:19 IMPRESSION: Mild interstitial edema Electronically signed by: Hossein Fam MD 10/04/2024 11:07 AM [facility] Assessment and Plan (1) Prolonged QT interval: Status: Acute (2) RADHA (acute kidney injury): Status: Acute (3) Acute hypokalemia: Status: Acute Plan This is a 68-year-old male with history of COPD on 2-3L home oxygen (does not have portable tank), atrial fibrillation on Eliquis, coronary artery disease status post stent placement in August who presents to the emergency department with shortness of breath of 2 week duration found to have RADHA, hypokalemia and prolonged QTC Acute exacerbation of COPD no sepsis IV Solu-Medrol, breathing treatments continue supplemental oxygen RADHA denies recent changes in medications does report decreased appetite avoid nephrotoxic medications - hold lasix and valsartan follow BMP Prolonged QTC Due to medication (on amio at baseline) and hypokalemia received po and IV K replacement as well as mag repeat EKG shows improvement tele monitoring goal to keep K>4 and mag >2 paroxysmal atrial fibrillation HR controlled continue metoprolol continue AC with Eliquis hold amiodorone for now due to prolonged QTc severe cardiomyopathy hold lasix for RADHA CAD s/p JOSE to RCA in august continue plavix, BB hold statin for radha hypothyroidism continue thyroid replacement dvt ppx - eliquis code status - DNR/DNI Patient will likely require 2 midnight stay in the hospital for close cardiac monitoring in the setting of electrolyte abnormalities and prolonged QTC Quality Stroke Does the patient have a stroke diagnosis?: No VTE Prior VTE?: No VTE Risk Level:: Medical - moderate - high VTE Device Contraindication: Treatment Not Indicated VTE Drug Contraindication: N/A - Med Ordered
--- NOTE | 2024-10-04 15:43 | PHA.MEDREC ---
Pharmacy Consult ? Medication Reconciliation Pharmacy has completed the medication reconciliation. Spoke to pt to confirm meds. His confirmed all meds on the phone. Pt pciked up rosuvastatin last august per [facility] pharmacy.
[2024-10-04] MEDS: Albuterol/Iprat 2.5/0.5MG 3 ML AMPUL.NEB INHALE (20:29)
[2024-10-04] MEDS: Apixaban 5 MG TABLET PO (20:40)
[2024-10-04] MEDS: Metoprolol Tartrate 25 MG TABLET PO (20:41)
[2024-10-04] MEDS: Benzonatate 100 MG CAPSULE PO (20:44)
[2024-10-04] MEDS: Melatonin 3 MG TABLET 6 MG PO (20:44)
[2024-10-04] MEDS: 0.9 % Sodium Chloride Flush 3 ML SYRINGE IVFLUSH (20:46)
[2024-10-04] MEDS: methylPREDNISolone Sod Succ 40 MG/ML VIAL IVPUSH (23:53)
[2024-10-05] VITALS (12 sets, daily range): BP systolic 102–128; BP diastolic 51–66; PULSE 57–78; RESP 16–24; TEMP 36.6–37; O2SAT 90–98
--- NOTE | 2024-10-05 | ECG_ITS ---
Test Reason : qtc Blood Pressure : / mmHG Vent. Rate : 071 BPM Atrial Rate : 071 BPM P-R Int : 202 ms QRS Dur : 098 ms QT Int : 456 ms P-R-T Axes : 085 -32 066 degrees QTc Int : 495 ms Normal sinus rhythm Left axis deviation Pulmonary disease pattern Abnormal ECG When compared with ECG of 04-OCT-2024 13:36, Previous ECG has undetermined rhythm, needs review Nonspecific T wave abnormality now evident in Lateral leads QT has lengthened Referred By: Savanah Figueroa Electronically Signed By:Yordy De La Rosa
[2024-10-05 06:32] LABS: Anion Gap 16 (12-20); Blood Urea Nitrogen 15 mg/dL (9-16); Carbon Dioxide 25 mmol/L (22-29); Chloride 96 mmol/L (96-108); Creatinine Clr Calc Pharmacy 48.2; Estimated Glomerular Filt Rate 45; Glucose Random 123 mg/dL (60-115); Potassium 3.6 mmol/L (3.3-5.1); Sodium 133 mmol/L (135-145)
[2024-10-05] MEDS: Levothyroxine Sodium 25 MCG TABLET PO (06:38)
[2024-10-05] MEDS: Clopidogrel Bisulfate 75 MG TABLET PO (08:36)
[2024-10-05] MEDS: Acetaminophen 325 MG TABLET 650 MG PO ×3 (08:36→22:28)
[2024-10-05] MEDS: Apixaban 5 MG TABLET PO ×2 (08:36→20:30)
[2024-10-05] MEDS: Benzonatate 100 MG CAPSULE PO ×3 (08:36→20:30)
[2024-10-05] MEDS: Albuterol/Iprat 2.5/0.5MG 3 ML AMPUL.NEB INHALE ×3 (08:36→19:40)
[2024-10-05] MEDS: Metoprolol Tartrate 25 MG TABLET PO ×2 (08:36→20:30)
[2024-10-05] MEDS: methylPREDNISolone Sod Succ 40 MG/ML VIAL IVPUSH ×2 (08:36→20:30)
[2024-10-05] MEDS: Fluticasone/Vilanterol 200/25 BLST.W.DEV 1 PUFF INHALE (08:36)
[2024-10-05] MEDS: 0.9 % Sodium Chloride Flush 3 ML SYRINGE IVFLUSH ×2 (08:37→14:42)
--- NOTE | 2024-10-05 10:43 | MHC.CM.PN ---
IMM 10/05. Pt self-care, lives at home with significant other Faye, who will transport him home at discharge. Pt has home O2 through [facility]. Pt states Faye is his HCP, a copy has been requested. PCP: Dr. Papi Sanders
[2024-10-05 10:52] LABS: Magnesium 2.3 mg/dL (1.6-2.6)
--- NOTE | 2024-10-05 11:35 | P.PNIM_ITS ---
Subjective Subjective Date of Service: 10/05/24 Interval History: seen and examined this morning follow up for COPD exacerbation +SOB, +cough Review of Systems Review of Systems: Yes all other systems are reviewed and are negative Constitutional Constitutional: Denies chills and Denies fever(s) Cardiovascular Cardiovascular: Denies chest pain, Denies palpitations and Reports dyspnea Respiratory Respiratory: Reports cough and Reports dyspnea Endocrine Endocrine: Denies palpitations Physical Exam 2 Vital Signs: Vital Signs: Last Vital Signs Temp 98.6 F 10/05/24 11:05 Pulse 64 10/05/24 11:05 Resp 20 10/05/24 11:05 BP 110/54 L 10/05/24 11:05 Pulse Ox 94 10/05/24 11:05 O2 Del Method Nasal Cannula 10/05/24 11:05 O2 Flow Rate 3 10/05/24 11:05 Oxygen Flow Rate 3 10/04/24 09:59 BMI result Body Mass Index 28.1 Const: General: cooperative, comfortable, no acute distress, alert and awake Nutritional Appearance: overweight Orientation/consciousness: patient oriented x3 Resp: Other: b/l expiratory wheeze Effort & Inspection: normal respiratory effort, able to speak in complete sentences and no respiratory distress Auscultation: no crackles and wheezes Cardio: Rate: regular rate GI: Inspection: No distended Palpation (GI): Soft to palpation and nontender Neuro: General: patient oriented x3, moves all extremities and CN's II-XI intact bilaterally Extrem: Other: trace leg edema Objective Data Active Medications Acetaminophen (Acetaminophen 325 Mg Tablet) 650 mg PO Q6H PRN PRN Reason: Pain, Mild (Pain Scale 1-3), fever or headache Last Admin: 10/05/24 08:36 Dose: 650 mg Documented By: PATRICIO Albuterol Sulfate (Albuterol Sulfate (0.083%) 2.5 Mg/3 Ml Vial.Neb) 2.5 mg INHALE Q4H PRN PRN Reason: Shortness of Breath Albuterol/Ipratropium (Albuterol/Iprat 2.5/0.5mg 3 Ml Ampul.Neb) 3 ml INHALE RQ6H WHILE AWAKE TREY Last Admin: 10/05/24 08:36 Dose: 3 ml Documented By: DOREEN Amiodarone HCl (Amiodarone Hcl 200 Mg Tablet) 200 mg PO DAILY [facility] Apixaban (Apixaban 5 Mg Tablet) 5 mg PO BID [facility] Last Admin: 10/05/24 08:36 Dose: 5 mg Documented By: PATRICIO Benzonatate (Benzonatate 100 Mg Capsule) 100 mg PO TID PRN PRN Reason: Cough Last Admin: 10/05/24 08:36 Dose: 100 mg Documented By: PATRICIO Calcium Carbonate (Calcium Carbonate 750 Mg Tab.Chew) 750 mg PO Q4H PRN PRN Reason: Heartburn Clopidogrel Bisulfate (Clopidogrel Bisulfate 75 Mg Tablet) 75 mg PO DAILY [facility] Last Admin: 10/05/24 08:36 Dose: 75 mg Documented By: PATRICIO Fluticasone/Vilanterol (Fluticasone/Vilanterol 200/25 Blst.W.Dev) 1 puff INHALE RDAILY [facility] Last Admin: 10/05/24 08:36 Dose: 1 puff Documented By: DOREEN Levothyroxine Sodium (Levothyroxine Sodium 25 Mcg Tablet) 25 mcg PO DAILY@0600 [facility] Last Admin: 10/05/24 06:38 Dose: 25 mcg Documented By: THADDEUS Magnesium Hydroxide (Milk Of Magnesia 30 Ml Oral.Susp) 30 ml PO DAILY PRN PRN Reason: Constipation Melatonin (Melatonin 3 Mg Tablet) 6 mg PO BEDTIME PRN PRN Reason: Insomnia Last Admin: 10/04/24 20:44 Dose: 6 mg Documented By: THADDEUS Methylprednisolone Sodium Succinate (Methylprednisolone Sod Succ 40 Mg/Ml Vial) 40 mg IVPUSH Q12H [facility] Last Admin: 10/05/24 08:36 Dose: 40 mg Documented By: PATRICIO Metoprolol Tartrate (Metoprolol Tartrate 25 Mg Tablet) 25 mg PO BID [facility]; Protocol Last Admin: 10/05/24 08:36 Dose: 25 mg Documented By: PATRICIO Sodium Chloride (0.9 % Sodium Chloride Flush 3 Ml Syringe) 3 ml IVFLUSH QSHIFT [facility] Last Admin: 10/05/24 08:37 Dose: 3 ml Documented By: PATRICIO Labs 10/04/24 11:00 10/05/24 05:27 Labs: Laboratory Results - last 24 hr 10/04/24 10/04/24 10/05/24 11:00 11:35 05:27 Anion Gap 12 16 Estim Creat Clear Calc 38.0 48.2 Estimated GFR 33 45 Random Glucose 101 123 H Calcium 8.9 9.0 Magnesium 1.8 2.3 Total Bilirubin 0.4 Direct Bilirubin 0.2 AST 44 H ALT 15 Alkaline Phosphatase 93 Troponin I High Sens 11.3 C-Reactive Protein 10.71 H B-Natriuretic Peptide 70 Total Protein 7.2 Albumin 3.7 Lipase 9 Urine Color Yellow Urine Appearance Clear Urine pH 6.0 Ur Specific [place] 1.010 Urine Protein 30 (1+) H Urine Glucose (UA) Negative Urine Ketones Negative Urine Blood Small (1+) H Urine Nitrite Negative Ur Leukocyte Esterase Negative Urine RBC 0-2 Urine WBC 0-5 Ur Squamous Epith Cells 0-2 Urine Bacteria None Seen Hyaline Casts 0-2 Influenza Type A (PCR) NEGATIVE Influenza Type B (PCR) NEGATIVE RSV RNA Qual (PCR) NEGATIVE SARS-CoV-2 RNA (RT-PCR) NEGATIVE Assessment and Plan (1) Prolonged QT interval: Status: Acute (2) KARTIK (acute kidney injury): Status: Acute (3) COPD (chronic obstructive pulmonary disease): Status: Acute Plan This is a 68-year-old male with history of COPD on 2-3L home oxygen (does not have portable tank), atrial fibrillation on Eliquis, coronary artery disease status post stent placement in August who presents to the emergency department with shortness of breath of 2 week duration found to have KARTIK, hypokalemia and prolonged QTC Acute exacerbation of COPD no sepsis IV Solu-Medrol, breathing treatments scheduled and prn po doxycycline continue supplemental oxygen, uses 2-3L at baseline KARTIK SCr 2 on arrival, down 1.55 resume lasix at 20mg (baseline 40) if SCr remains stable would add spironolactone 25mg follow BMP Prolonged QTC Due to medication (on amio at baseline) and hypokalemia received po and IV K replacement as well as mag repeat EKG shows improvement tele monitoring goal to keep K>4 and mag >2 paroxysmal atrial fibrillation HR controlled continue metoprolol continue AC with Eliquis ok to resume amiodorone HFrEF with recovered EF does not appear fluid overloaded lasix on hold for KARTIK initially, will resume lasix lower dose and consider adding aldactone CAD s/p JOSE to RCA in august continue plavix, BB hold statin for kartik hypothyroidism continue synthroid dvt ppx - eliquis code status - DNR/DNI patient will need ongoing inpatient stay for cardiac monitoring in the setting of electrolyte abnormalities and prolonged QTC and management of copd exacerbation Quality Stroke Does the patient have a stroke diagnosis?: No VTE Prior VTE?: No VTE Risk Level:: Medical - moderate - high VTE Device Contraindication: Treatment Not Indicated VTE Drug Contraindication: N/A - Med Ordered
[2024-10-05] MEDS: Albuterol Sulfate (0.083%) 2.5 MG/3 ML VIAL.NEB INHALE (11:46)
[2024-10-05] MEDS: Doxycycline Monohydrate 100 MG CAPSULE PO ×2 (11:51→22:28)
[2024-10-05] MEDS: Amiodarone HCL 200 MG TABLET PO (11:51)
[2024-10-05] MEDS: Furosemide 20 MG TABLET PO (12:10)
[2024-10-05] MEDS: guaiFEN/Codeine SF 200/20/10ML 10 ML LIQUID 5 ML PO ×2 (14:41→20:29)
[2024-10-05] MEDS: Albuterol Sulfate 5 MG, Albuterol/Iprat 2.5/0.5MG 3 ML 3 ML INHALE (21:25)
[2024-10-05] MEDS: HYDROmorphone HCl 0.5 MG/0.5 ML SYRINGE IVPUSH (22:29)
[2024-10-06] VITALS (9 sets, daily range): BP systolic 105–146; BP diastolic 56–68; PULSE 66–77; RESP 16–19; TEMP 36.3–37.1; O2SAT 82–96
--- NOTE | 2024-10-06 | ECG_ITS ---
Test Reason : qtc check Blood Pressure : / mmHG Vent. Rate : 068 BPM Atrial Rate : 068 BPM P-R Int : 186 ms QRS Dur : 100 ms QT Int : 412 ms P-R-T Axes : 072 026 035 degrees QTc Int : 438 ms Normal sinus rhythm Low voltage QRS Septal infarct , age undetermined Abnormal ECG When compared with ECG of 05-OCT-2024 08:30, QT has shortened Referred By: Lili Stallings Electronically Signed By:CECILIA GIBBS MD
[2024-10-06] MEDS: 0.9 % Sodium Chloride Flush 3 ML SYRINGE IVFLUSH ×2 (06:05→09:52)
[2024-10-06] MEDS: Levothyroxine Sodium 25 MCG TABLET PO (06:07)
[2024-10-06 07:25] LABS: Anion Gap 15 (12-20); Blood Urea Nitrogen 16 mg/dL (9-16); Calcium 9.3 mg/dL (8.4-10.2); Carbon Dioxide 28 mmol/L (22-29); Chloride 92 mmol/L (96-108); Creatinine Clr Calc Pharmacy 46.4; Estimated Glomerular Filt Rate 43; Glucose Random 127 mg/dL (60-115); Potassium 3.5 mmol/L (3.3-5.1); Sodium 131 mmol/L (135-145)
[2024-10-06] MEDS: Albuterol/Iprat 2.5/0.5MG 3 ML AMPUL.NEB INHALE ×2 (08:17→14:38)
[2024-10-06] MEDS: Fluticasone/Vilanterol 200/25 BLST.W.DEV 1 PUFF INHALE (08:17)
[2024-10-06] MEDS: methylPREDNISolone Sod Succ 40 MG/ML VIAL IVPUSH (09:52)
[2024-10-06] MEDS: Furosemide 20 MG TABLET PO (09:54)
[2024-10-06] MEDS: Clopidogrel Bisulfate 75 MG TABLET PO (09:54)
[2024-10-06] MEDS: Apixaban 5 MG TABLET PO (09:55)
[2024-10-06] MEDS: Metoprolol Tartrate 25 MG TABLET PO (09:55)
[2024-10-06] MEDS: Amiodarone HCL 200 MG TABLET PO (09:55)
[2024-10-06] MEDS: Benzonatate 100 MG CAPSULE PO ×2 (09:55→17:35)
--- NOTE | 2024-10-06 10:19 | HO.WOUND ---
Wound Consult: Initial 68yr old?Male admitted to [facility] on 10/04/24 - See progress notes and H&P for detailed history.? Wound consult placed for Left Forearm Skin Tear.? Patient agreeable to assessment and photo documentation. 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 of note the patients bilateral arms are noted for ? various stages of scabbed wounds beds. Stable and intact no topical dressings needs to area other than forearm. Left Forearm Etiology: Skin Tear Measurements: 1cm x 0.4cm x 0.2cm Wound Bed: red moist wound bed Drainage / Odor: serosang oozing noted Edges: ? well defined Bettie wound: ?dry thin fragile skin, ecchymosis noted - No Induration, Fluctuance or Warmth noted Pain: denies Goals of Treatment: ? moist wound healing Recommendations: 1. Left Forearm - Cleanse with [place], pat dry. ?Apply Xeroform secure with Abd pads, gauze wrap and tape. Change Daily. ?Do not apply tape to patient?s skin.? Avoid Adhesive application to skin - when necessary, apply skin prep prior.? Re-consult wound care Nurse for wound deterioration or wound changes.
[2024-10-06] MEDS: Doxycycline Monohydrate 100 MG CAPSULE PO (12:46)
--- NOTE | 2024-10-06 13:04 | P.DS_ITS ---
DS: Providers Provider Date of Service: 10/06/24 Date of admission: 10/04/24 14:25 Primary care physician: Papi Sanders MD Consults: 10/04/24 17:37 Consult to Wound Care Routine Reason for consultation: JOSE G skin tear Has provider been notified: Yes DS: Diagnosis Discharge Diagnosis (1) Prolonged QT interval: Status: Acute (2) KARTIK (acute kidney injury): Status: Acute (3) COPD (chronic obstructive pulmonary disease): Status: Acute DS: Summary Hospital Course Hospital Course: History and physical as per admitting provider. This is a 68-year-old male with history of COPD who presents to the emergency department with complaints of shortness of breath. Patient reports 2 weeks of increasing shortness a breath with associated dry cough. He also reports chills and nasal congestion. In addition he reports decreased oral appetite. He denies any recent sick contacts workup in the emergency department was significant for KARTIK with a creatinine of 2.0, hypokalemia with potassium of 2.3 and prolonged QTC on EKG. Patient received 40 mEq of potassium and was started on IV potassium as well as IV mag nesium. He was noted to have wheezing on physical exam. He received a dose of Solu-Medrol, IV Lasix, azithromycin, DuoNeb breathing treatment. Due to electrolyte abnormalities, prolonged QTC and acute COPD exacerbation he will be admitted to the hospital for further management. 68-year-old man treated for acute COPD exacerbation with IV Solu-Medrol, scheduled DuoNebs and oral doxycycline. Patient was on baseline 2-3 L of oxygen at home, he has been continued on this. He was also noted to have KARTIK which may have been related to his Lasix. He is now back to baseline. He was also noted to have prolonged QTC patient is on amiodarone at baseline, he received IV potassium replacement due to hypokalemia, repeat EKG showed stable QTC. Plan is to discharge patient home with steroid taper and a few more days of doxycycline. He continue his inhalers as needed and oxygen. Paroxysmal atrial fibrillation. Heart rate controlled. 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 No fluid overload during hospitalization. Continue Lasix dose of Coronary artery disease. Status post drug-eluting stent to RCA in August. Continue Plavix, beta-mahesh, statin Hypothyroidism. Continue levothyroxine Time Attestation Discharge Coordination Time (in mins): 35 Quality: Safe Use of Opioids Does Pt have an Active Cancer Diagnosis on the Problem List?: No Quality: Stroke Does the patient have a stroke diagnosis?: No Physical Exam Vital Signs: Vital Signs: Last Vital Signs Temp 97.7 F 10/06/24 11:28 Pulse 74 10/06/24 11:28 Resp 17 10/06/24 11:28 BP 113/56 L 10/06/24 11:28 Pulse Ox 94 10/06/24 11:28 O2 Del Method Nasal Cannula 10/06/24 11:28 O2 Flow Rate 4 10/06/24 11:28 Oxygen Flow Rate 3 10/04/24 09:59 BMI result Body Mass Index 28.1 Appearing in no acute distress head is normocephalic atraumatic eyes pupils are PERRLA sclera is anicteric mouth throat mucous membranes are intact and moist neck is supple no lymphadenopathy, no JVD noted lung sounds are clear to auscultation heart regular rate rhythm, clear S1, S2 positive bowel sounds, abdomen is soft, nontender neuro patient is alert x3, no focal deficits DS: Data Data Completed and Pending Completed studies during hospitalization [Text1]: Procedures Denominational of Cardiac Rhythm, Single (11/22/23) Ultrasonography of Heart with Aorta, Transesophageal (11/22/23) Labs on day of discharge: Laboratory Results - last 24 hr 10/06/24 06:34 Hold Purple Top SEE NOTE Sodium 131 L Potassium 3.5 Chloride 92 L Carbon Dioxide 28 Anion Gap 15 BUN 16 Creatinine 1.61 H Estim Creat Clear Calc 46.4 Estimated GFR 43 Random Glucose 127 H Calcium 9.3 Preliminary micro results at discharge 10/04/24 11:14 Blood Culture - Preliminary Blood - Venous No growth after 24 hours. 10/04/24 11:00 Blood Culture - Preliminary Blood - Venous No growth after 24 hours. Discharge Plan Discharge Anticipated Discharge Date/Time: 10/06/24 12:46 Patient Disposition: Home, Self-Care Discharge Diagnosis: Acute COPD exacerbation KARTIK Prolonged QTC Referrals: Papi Sanders MD [Primary Care Provider] - 1 Week Discharge Medications: New prednisone 10 mg tablet See Taper PO DIRECTED Qty: 30 0RF Taper: Prednisone 40 mg daily for 3 Days and 0 Hour 30 mg daily for 3 Days and 0 Hour 20 mg daily for 3 Days and 0 Hour 10 mg daily for 3 Days and 0 Hour Rx Instructions: see taper instructions doxycycline monohydrate 100 mg Capsule 100 mg PO Q12H Qty: 6 0RF Continued rosuvastatin 20 mg tablet 20 mg PO BEDTIME levothyroxine 25 mcg tablet 25 mcg PO DAILY@0600 Rx Instructions: Take on an empty stomach, first thing in the morning, with water. Do not eat or drink anything else for 30 minutes afterwards furosemide [Lasix] 40 mg tablet 40 mg PO DAILY 90 Days Qty: 90 1RF metoprolol tartrate 25 mg tablet 25 mg PO BID 90 Days Qty: 180 1RF Eliquis 5 mg tablet 5 mg PO BID 90 Days Qty: 180 1RF amiodarone 200 mg tablet 200 mg PO DAILY 90 Days Qty: 120 3RF valsartan 40 mg tablet 80 mg PO BID 90 Days Qty: 360 3RF clopidogrel 75 mg tablet 75 mg PO DAILY Qty: 90 4RF ipratropium-albuterol 0.5 mg-3 mg(2.5 mg base)/3 mL solution for nebulization 3 ml inhalation Q6H PRN (Reason: wheezing) Qty: 180 4RF budesonide-formoterol [Symbicort] 160-4.5 mcg/actuation HFA aerosol inhaler 2 puff inhalation Q12H Qty: 10.2 6RF Combivent Respimat 20-100 mcg/actuation mist 1 puff inhalation Q6H Qty: 4 3RF Discharge Orders: Discharge Order (Routine); Ordered 10/06/24 Ordered By: Lili Stallings Diet: Advance to usual diet Activity on Discharge: As tolerated Stand Alone Forms: Patient Portal Discharge page Print Language: [place]an Care Plan Goals: Continue supplemental oxygen therapy as per home dose Health Concerns: Acute COPD exacerbation KARTIK Prolonged QTC Plan of Treatment: Follow-up with primary care provider as needed Take all medications as prescribed Assessment: See discharge summary
--- NOTE | 2024-10-06 14:07 | MHC.CM.PN ---
Pt has been medically cleared for DC, he will go home via private transport, plan is: home, self care.
--- NOTE | 2024-10-06 15:20 | P.PNIM_ITS ---
Subjective Subjective Date of Service: 10/06/24 Interval History: seen and examined this morning follow up for COPD exacerbation +SOB, +cough Review of Systems Review of Systems: Yes all other systems are reviewed and are negative Constitutional Constitutional: Denies chills and Denies fever(s) Cardiovascular Cardiovascular: Denies chest pain, Denies palpitations and Reports dyspnea Respiratory Respiratory: Reports cough and Reports dyspnea Endocrine Endocrine: Denies palpitations Physical Exam 2 Vital Signs: Vital Signs: Last Vital Signs Temp 98.2 F 10/06/24 15:14 Pulse 77 10/06/24 15:14 Resp 18 10/06/24 15:14 BP 146/68 H 10/06/24 15:14 Pulse Ox 92 10/06/24 15:14 O2 Del Method Nasal Cannula 10/06/24 15:14 O2 Flow Rate 3 10/06/24 15:14 Oxygen Flow Rate 3 10/04/24 09:59 BMI result Body Mass Index 28.1 Appearing in no acute distress lung sounds clear with mild exp wheezing heart regular rate rhythm, clear S1, S2 positive bowel sounds, abdomen is soft, nontender neuro patient is alert x3, no focal deficits Objective Data Active Medications Acetaminophen (Acetaminophen 325 Mg Tablet) 650 mg PO Q6H PRN PRN Reason: Pain, Mild (Pain Scale 1-3), fever or headache Last Admin: 10/05/24 22:28 Dose: 650 mg Documented By: WHIT Albuterol Sulfate (Albuterol Sulfate (0.083%) 2.5 Mg/3 Ml Vial.Neb) 2.5 mg INHALE Q4H PRN PRN Reason: Shortness of Breath Last Admin: 10/05/24 11:46 Dose: 2.5 mg Documented By: DOREEN Albuterol/Ipratropium (Albuterol/Iprat 2.5/0.5mg 3 Ml Ampul.Neb) 3 ml INHALE RQ6H WHILE AWAKE [facility] Last Admin: 10/06/24 14:38 Dose: 3 ml Documented By: NIKKI Amiodarone HCl (Amiodarone Hcl 200 Mg Tablet) 200 mg PO DAILY [facility] Last Admin: 10/06/24 09:55 Dose: 200 mg Documented By: TIANA Apixaban (Apixaban 5 Mg Tablet) 5 mg PO BID [facility] Last Admin: 10/06/24 09:55 Dose: 5 mg Documented By: TIANA Benzonatate (Benzonatate 100 Mg Capsule) 100 mg PO TID [facility] Last Admin: 10/06/24 09:55 Dose: 100 mg Documented By: TIANA Calcium Carbonate (Calcium Carbonate 750 Mg Tab.Chew) 750 mg PO Q4H PRN PRN Reason: Heartburn Clopidogrel Bisulfate (Clopidogrel Bisulfate 75 Mg Tablet) 75 mg PO DAILY [facility] Last Admin: 10/06/24 09:54 Dose: 75 mg Documented By: TIANA Doxycycline Monohydrate (Doxycycline Monohydrate 100 Mg Capsule) 100 mg PO Q12H [facility] Last Admin: 10/06/24 12:46 Dose: 100 mg Documented By: TIANA Fluticasone/Vilanterol (Fluticasone/Vilanterol 200/25 Blst.W.Dev) 1 puff INHALE RDAILY [facility] Last Admin: 10/06/24 08:17 Dose: 1 puff Documented By: NIKKI Furosemide (Furosemide 20 Mg Tablet) 20 mg PO DAILY [facility]; Protocol Last Admin: 10/06/24 09:54 Dose: 20 mg Documented By: TIANA Guaifenesin/Codeine Phosphate (Guaifen/Codeine Sf 200/20/10ml 10 Ml Liquid) 5 ml PO Q6H PRN PRN Reason: Cough Last Admin: 10/05/24 20:29 Dose: 5 ml Documented By: WHIT Levothyroxine Sodium (Levothyroxine Sodium 25 Mcg Tablet) 25 mcg PO DAILY@0600 [facility] Last Admin: 10/06/24 06:07 Dose: 25 mcg Documented By: PEYMAN Magnesium Hydroxide (Milk Of Magnesia 30 Ml Oral.Susp) 30 ml PO DAILY PRN PRN Reason: Constipation Melatonin (Melatonin 3 Mg Tablet) 6 mg PO BEDTIME PRN PRN Reason: Insomnia Last Admin: 10/04/24 20:44 Dose: 6 mg Documented By: THADDEUS Methylprednisolone Sodium Succinate (Methylprednisolone Sod Succ 40 Mg/Ml Vial) 40 mg IVPUSH Q12H [facility] Last Admin: 10/06/24 09:52 Dose: 40 mg Documented By: TIANA Metoprolol Tartrate (Metoprolol Tartrate 25 Mg Tablet) 25 mg PO BID [facility]; Protocol Last Admin: 10/06/24 09:55 Dose: 25 mg Documented By: TIANA Sodium Chloride (0.9 % Sodium Chloride Flush 3 Ml Syringe) 3 ml IVFLUSH QSHIFT [facility] Last Admin: 10/06/24 09:52 Dose: 3 ml Documented By: TIANA Labs 10/04/24 11:00 10/06/24 06:34 Labs: Laboratory Results - last 24 hr 10/06/24 06:34 Hold Purple Top SEE NOTE Anion Gap 15 Estim Creat Clear Calc 46.4 Estimated GFR 43 Random Glucose 127 H Calcium 9.3 Microbiology Microbiology Results: Microbiology 10/04/24 11:14 Blood Culture - Preliminary Blood - Venous No growth after 48 hours. 10/04/24 11:00 Blood Culture - Preliminary Blood - Venous No growth after 48 hours. Assessment and Plan (1) Prolonged QT interval: Status: Acute (2) RADHA (acute kidney injury): Status: Acute (3) COPD (chronic obstructive pulmonary disease): Status: Acute Plan This is a 68-year-old male with history of COPD on 2-3L home oxygen (does not have portable tank), atrial fibrillation on Eliquis, coronary artery disease status post stent placement in August who presents to the emergency department with shortness of breath of 2 week duration found to have RADHA, hypokalemia and prolonged QTC Acute exacerbation of COPD no sepsis IV Solu-Medrol, breathing treatments scheduled and prn po doxycycline continue supplemental oxygen, uses 2-3L at baseline hypoxia down to 82% on [address] RADHA SCr 2 on arrival, down 1.61 lasix at 20mg (baseline 40) if SCr remains stable would add spironolactone 25mg follow BMP Prolonged QTC. Resolved Due to medication (on amio at baseline) and hypokalemia received po and IV K replacement as well as mag repeat EKG shows improvement tele monitoring goal to keep K>4 and mag >2 paroxysmal atrial fibrillation HR controlled continue metoprolol continue AC with Eliquis ok to resume amiodorone HFrEF with recovered EF does not appear fluid overloaded lasix on hold for RADHA initially, will resume lasix lower dose and consider adding aldactone CAD s/p JOSE to RCA in august continue plavix, BB hold statin for radha hypothyroidism continue synthroid dvt ppx - eliquis Attending Dr. Mejía code status - DNR/DNI patient will need ongoing inpatient stay for cardiac monitoring in the setting of electrolyte abnormalities and prolonged QTC and management of copd exacerbation Quality Stroke Does the patient have a stroke diagnosis?: No VTE Prior VTE?: No VTE Risk Level:: Medical - moderate - high VTE Device Contraindication: Treatment Not Indicated VTE Drug Contraindication: N/A - Med Ordered
== END 2024-10-06 19:15 | disposition home or self-care (01) | DRG 191 ==
LOC: HO.ED 12:27 → HO.EDOVER 14:51 → HO.IMC 16:17
PROVIDERS: Admitting Provider Physician Assistant Medical; Emergency Provider Emergency Medicine; PCP Internal Medicine; Visit Provider Nurse Practitioner Acute Care
DX: J44.1 Chronic obstructive pulmonary disease with (acute) exacerbation (principal); I42.9 Cardiomyopathy, unspecified; I50.22 Chronic systolic (congestive) heart failure; R94.31 Abnormal electrocardiogram [ECG] [EKG]; E87.6 Hypokalemia; I25.10 Atherosclerotic heart disease of native coronary artery without angina pectoris; Z66 Do not resuscitate; E03.9 Hypothyroidism, unspecified; Z99.81 Dependence on supplemental oxygen; F17.210 Nicotine dependence, cigarettes, uncomplicated; Z71.6 Tobacco abuse counseling; I48.0 Paroxysmal atrial fibrillation; Z20.822 Contact with and (suspected) exposure to COVID-19; Z95.5 Presence of coronary angioplasty implant and graft; Z79.02 Long term (current) use of antithrombotics/antiplatelets; Z79.890 Hormone replacement therapy; Z79.899 Other long term (current) drug therapy
CPT/HCPCS: 0241U; 36415; 71045; 71250; 80048; 80076; 81001; 82803; 83605; 83690; 83735; 83880; 84484; 85025; 86140; 87040; 93005; 94640; 99285; J0456; J1171; J1940; J2919; J3475; J3480

== ENCOUNTER → 2024-10-04 10:19 | Outpatient (BNV) | payer MEDICARE, SELFPAY | PROVIDERS: Admitting Provider Physician Assistant Medical; Emergency Provider Emergency Medicine; PCP Internal Medicine; Visit Provider Internal Medicine Cardiovascular Disease | DX: R94.31 Abnormal electrocardiogram [ECG] [EKG] (principal); I45.81 Long QT syndrome | CPT/HCPCS: 93010 ==

== ENCOUNTER 2024-10-04 14:25 | Outpatient (BNV) | payer MEDICARE, SELFPAY | END 2024-10-05 08:30 | PROVIDERS: Admitting Provider Physician Assistant Medical; Emergency Provider Emergency Medicine; PCP Internal Medicine; Visit Provider Internal Medicine Cardiovascular Disease | DX: R94.31 Abnormal electrocardiogram [ECG] [EKG] (principal) | CPT/HCPCS: 93010 ==

== ENCOUNTER 2024-10-04 14:25 | Outpatient (BNV) | payer MEDICARE, SELFPAY | END 2024-10-06 08:32 | PROVIDERS: Admitting Provider Physician Assistant Medical; Emergency Provider Emergency Medicine; PCP Internal Medicine; Visit Provider Internal Medicine Cardiovascular Disease | DX: R94.31 Abnormal electrocardiogram [ECG] [EKG] (principal) | CPT/HCPCS: 93010 ==

== ENCOUNTER → 2024-10-04 14:25 | Outpatient (BNV) | payer MEDICARE, SELFPAY | PROVIDERS: Admitting Provider Physician Assistant Medical; Emergency Provider Emergency Medicine; PCP Internal Medicine; Visit Provider Physician Assistant Medical | DX: N17.9 Acute kidney failure, unspecified (principal); J44.1 Chronic obstructive pulmonary disease with (acute) exacerbation; R94.31 Abnormal electrocardiogram [ECG] [EKG] | CPT/HCPCS: 99222; 99232; 99239 ==

== ENCOUNTER 2024-10-08 03:03 | Emergency (ER) | payer MEDICARE, SELFPAY ==
[2024-10-08] VITALS (9 sets, daily range): BP systolic 108–127; BP diastolic 66–75; PULSE 74–83; RESP 17–25; TEMP 36.4; O2SAT 67–96; BMI 29.1
--- NOTE | ~2024-10-08 | XR_ITS ---
EXAMINATION: XR CHEST CLINICAL INFORMATION: SOB COMPARISON: CT chest 10/06/2024. TECHNIQUE: Frontal view of the chest was obtained. FINDINGS: Normal appearance of the cardiomediastinal structures. No effusions or pneumothoraces. Scattered coarse reticular opacities are present in the left lung base. Central peribronchial wall thickening noted. No focal pulmonary consolidation identified. No effusions or pneumothoraces visualized. XR/XR chest 1V IMPRESSION: *Peribronchial wall thickening which could represent bronchitis or the chronic sequela of asthma. *Mild scattered coarse reticular opacities in the left lung base which may represent minimal platelike atelectasis. *No focal pulmonary consolidation. Electronically signed by: Jose Maldonado MD 10/08/2024 04:33 AM [facility] GRANT
--- NOTE | 2024-10-08 03:14 | ECG_ITS ---
Test Reason : SOB Blood Pressure : / mmHG Vent. Rate : 079 BPM Atrial Rate : 079 BPM P-R Int : 186 ms QRS Dur : 084 ms QT Int : 310 ms P-R-T Axes : 109 046 084 degrees QTc Int : 355 ms Normal sinus rhythm Low voltage QRS Nonspecific ST and T wave abnormality Abnormal ECG When compared with ECG of 08-OCT-2024 03:20, Nonspecific T wave abnormality now evident in Lateral leads QT has shortened Referred By: Generic ED Physician Electronically Signed By:CECILIA GIBBS MD
--- NOTE | 2024-10-08 03:20 | ECG_ITS ---
Test Reason : DYSPNEA Blood Pressure : / mmHG Vent. Rate : 076 BPM Atrial Rate : 076 BPM P-R Int : 176 ms QRS Dur : 094 ms QT Int : 428 ms P-R-T Axes : 061 051 041 degrees QTc Int : 481 ms Normal sinus rhythm Low voltage QRS Borderline ECG When compared with ECG of 06-OCT-2024 08:32, Criteria for Septal infarct are no longer Present Nonspecific T wave abnormality, improved in Inferior leads Referred By: Ronald Brown Electronically Signed By:CECILIA GIBBS MD
[2024-10-08 03:25] LABS: Basophils Percent Auto 0.1 % (0-2); Hematocrit 41.6 % (42.0-52.0); Hemoglobin 13.6 g/dl (14.0-18.0); Imm Gran Abs Auto 0.56 X10*3/uL (0.00-0.03); Imm Gran Pct Auto 4.2 % (0.0-0.4); Lymphocytes Absolute Auto 1.8 X10*3/uL (1.2-4.9); Lymphocytes Percent Auto 13.7 % (20-40); MANUAL DIFF FLAG NO; Mean Corpuscular HGB Conc 32.7 g/dl (31.0-36.0); Mean Corpuscular Hemoglobin 30.7 pg (27.0-33.0); Mean Corpuscular Volume 93.9 fL (80.0-98.0); Mean Platelet Volume 9.1 fL (9.4-12.4); Monocytes Absolute Auto 0.9 X10*3/uL (0.1-1.2); Monocytes Percent Auto 6.4 % (2-11); Neutrophils Absolute Auto 10.1 x10*3/uL (2.0-8.3); Neutrophils Percent Auto 75.6 % (45-73); Platelet Count 274 X10*3/uL (160-400); Red Blood Count 4.43 X10*6/uL (4.60-5.80); Red Cell Distribution Width 14.1 % (11.0-16.0); White Blood Count 13.4 X10*3/uL (4.8-10.8)
--- NOTE | 2024-10-08 03:26 | PC.NURSE ---
pt brought from waiting room, a&ox4, respirations even and unlabored. pt reporting sudden onset of shortness of breath at home today, reports being discharged sunday and sent home. pt reports hx of copd and uses 2-4L of o2 at home as needed. pt did not have o2 on, on arrival. pt noted to be 68%on room air, placed on 2L oxymax, sating 92%. pt denies chest pain. 20G placed in right forearm, labs obtained and sent to lab.
--- NOTE | 2024-10-08 03:30 | ED_ITS ---
HPI - SOB/Dyspnea General Chief Complaint: Dyspnea Stated Complaint: SOB Time Seen by Provider: 10/08/24 03:27 Source: patient Mode of arrival: EMS Limitations: no limitations History of Present Illness ED Provider: dana SORIA Narrative: 68-year-old male with history of COPD on 2-3L home oxygen (does not have portable tank), atrial fibrillation on Eliquis, coronary artery disease status post stent placement in August/2024 , severe cardiomyopathy with diastolic heart failure discharged on 10/06 for COPD exacerbation comes back as he did not feel good even after discharge ,feeling short of breath no chest pain or palpitation currently patient is on Eliquis, clopidogrel, aspirin prednisone and doxycycline Related Data Home Medications ?Medication ?Instructions ?Recorded ?Confirmed levothyroxine 25 mcg tablet 25 mcg PO DAILY@0600 10/04/24 10/07/24 rosuvastatin 20 mg tablet 20 mg PO BEDTIME 10/04/24 10/07/24 Previous Rx's ?Medication ?Instructions ?Recorded apixaban 5 mg tablet (Eliquis) 5 mg PO BID 90 days #180 tabs 04/11/24 furosemide 40 mg tablet (Lasix) 40 mg PO DAILY 90 days #90 tabs 04/11/24 metoprolol tartrate 25 mg tablet 25 mg PO BID 90 days #180 tabs 04/11/24 amiodarone 200 mg tablet 200 mg PO DAILY 90 days #120 tabs 04/30/24 valsartan 40 mg tablet 80 mg (2 x 40 mg) PO BID 90 days 04/30/24 #360 tabs ipratropium 0.5 mg-albuterol 3 mg 3 ml inhalation Q6H PRN wheezing 07/14/24 (2.5 mg base)/3 mL nebulization #180 mL soln budesonide-formoterol HFA 160 2 puff inhalation Q12H #10.2 grams 08/18/24 mcg-4.5 mcg/actuation aerosol inhaler (Symbicort) ipratropium 20 mcg-albuterol 100 1 puff inhalation Q6H #4 grams 08/18/24 mcg/actuation mist for inhalation (Combivent Respimat) clopidogrel 75 mg tablet 75 mg PO DAILY #90 tabs 09/15/24 doxycycline monohydrate 100 mg 100 mg PO Q12H #6 caps 10/06/24 capsule prednisone 10 mg tablet See Taper PO DIRECTED #30 tabs 10/06/24 Allergies Allergy/AdvReac Type Severity Reaction Status Date / Time No Known Allergies Allergy Verified 10/08/24 03:19 [No Known Allergies*] Review of Systems 2 Review of Systems: Yes all other systems are reviewed and are negative [facility] Past Medical History Medical History Smoker Acquired hypothyroidism Obesity (BMI 30-39.9) Coronary artery disease Congestive heart failure (CHF) Atrial fibrillation with RVR COPD (chronic obstructive pulmonary disease) Surgical History Hx of cardiac cath S/P appendectomy History of coronary artery stent placement Social History Social History Household Members: Significant Other Housing: Apartment Do you presently have visiting nurse or other home services: No Alcohol intake: never Comment: pt refused bed alarm Patient Tobacco Use Status: Former Tobacco user Tobacco use type: Cigarette Cigarette Packs Per Day: 0.25 Cigarettes Per Day: 5 Years Smoked: 50 Smoked in Last 30 Days: No e-Cigarette/Vaping Use: Former Use Second Hand Smoke Exposure: Yes Use of substances other than those prescribed or required for medical reasons: No Substance Use Type: Marijuana Advance Directives: No service: No Current occupational status: retired Cognitive needs: No Hearing needs: No Vision needs: No Physical Exam 2 Vital Signs: Vital Signs: Last Vital Signs Temp 97.5 F 10/08/24 03:16 Pulse 81 10/08/24 05:11 Resp 25 H 10/08/24 05:11 BP 108/75 10/08/24 05:11 Pulse Ox 95 10/08/24 05:11 O2 Del Method Oxymask 10/08/24 05:11 O2 Flow Rate 4 10/08/24 05:11 BMI result Body Mass Index 29.1 Appearance: Alert. Oriented X3. No acute distress. Eyes: PERRLA, No Nystagmus ENT: Pharynx normal. Oral Mucosa moist Neck: Normal inspection. Neck supple. CVS: Normal heart rate and rhythm. Pulses normal. Respiratory: No respiratory distress. Equal air entry bilateral, bilateral prolonged expiration Abdomen: Soft and nontender. Bowel sounds are present, no mass palpable, no CVA tenderness Skin: Skin warm and dry. Normal skin color. Normal skin turgor. Extremities: No lower extremity edema. No calf tenderness Neuro: Oriented X 3. No motor deficit. No sensory deficit. Medications Administered Discontinued Medications Generic Name Dose Route Start Last Admin Trade Name Freq PRN Reason Stop Dose Admin Albuterol Sulfate 2.5 mg/ 0 mg 10/08/24 03:41 10/08/24 03:53 Albuterol/Ipratropium 3 ml INHALE 10/08/24 03:42 3.5 dose ONCE ONE Administration Albuterol Sulfate 2.5 mg/ 0 mg 10/08/24 04:13 10/08/24 04:30 Albuterol/Ipratropium 3 ml INHALE 10/08/24 04:14 3.5 dose ONCE ONE Administration Morphine Sulfate 4 mg 10/08/24 05:01 10/08/24 05:11 Morphine Sulfate 4 Mg/Ml Cartridge IVPUSH 10/08/24 05:02 4 mg ONCE ONE Administration Protocol Ondansetron HCl 4 mg 10/08/24 05:01 10/08/24 05:11 Ondansetron Hcl 4 Mg/2 Ml Vial IVPUSH 10/08/24 05:02 4 mg ONCE ONE Administration Medical Decision Making Medical Decision Making [facility] Narrative: Patient's COPD with coronary artery disease status post stent placement with cardiomyopathy came back after discharge a day ago for COPD workup again is stable 2 sets of cardiac enzymes negative no signs of CHF normal BNP chest x-ray without any acute changes after nebulizing treatment patient is feeling much better saturating 96% on 4 L will discharge patient home advised to follow with web solutions architect Differential Diagnosis Differential Diagnoses: The differential diagnosis associated with the presentation includes Pneumonia/bronchitis/COPD/ACS/CHF Admission/Observation Consideration of admission/observation: Escalation of care including admission/observation considered Lab Data [facility] Lab Attestation statement: I reviewed the patient's lab results. 10/08/24 03:19 10/08/24 03:19 Labs: Lab Results 10/08/24 10/08/24 10/08/24 Range/Units 03:19 03:20 03:28 WBC 13.4 H (4.8-10.8) X10*3/uL RBC 4.43 L (4.60-5.80) X10*6/uL Hgb 13.6 L (14.0-18.0) g/dl Hct 41.6 L (42.0-52.0) % MCV 93.9 (80.0-98.0) fL MCH 30.7 (27.0-33.0) pg MCHC 32.7 (31.0-36.0) g/dl RDW 14.1 (11.0-16.0) % Plt Count 274 D (160-400) X10*3/uL MPV 9.1 L (9.4-12.4) fL Immature Gran % (Auto) 4.2 H (0.0-0.4) % Neut % (Auto) 75.6 H (45-73) % Lymph % (Auto) 13.7 L (20-40) % Vigo % (Auto) 6.4 (2-11) % Eos % (Auto) 0.0 (0-4) % Baso % (Auto) 0.1 (0-2) % Lymph # (Auto) 1.8 (1.2-4.9) X10*3/uL Vigo # (Auto) 0.9 (0.1-1.2) X10*3/uL Eos # (Auto) 0.0 (0.0-0.4) X10*3/uL Baso # (Auto) 0.0 (0.0-0.2) X10*3/uL Abs Immat Gran (auto) 0.56 H (0.00-0.03) X10*3/uL Absolute Neuts (auto) 10.1 H (2.0-8.3) x10*3/uL Absolute Nucleated RBC 0.000 (0.0-0.012) X10*3/uL Nucleated RBC % (auto) 0.0 (0.0-0.2) /100WBC PT 14.1 H (10.9-12.4) SEC INR 1.2 H (0.9-1.1) APTT 34.9 (26.0-36.8) SEC D-Dimer High Sensitivty 179 NG/ML Hold Blue Top SEE NOTE VBG pH 7.40 (7.32-7.43) VBG pCO2 59 mmHg VBG pO2 47 mmHg VBG HCO3 37 H (22-26) mmol/L VBG O2 Saturation 80.0 % VBG Base Excess 10.0 mmol/L Sodium 136 (135-145) mmol/L Potassium 3.2 L (3.3-5.1) mmol/L Chloride 93 L (96-108) mmol/L Carbon Dioxide 30 H (22-29) mmol/L Anion Gap 16 (12-20) BUN 25 H (9-16) mg/dL Creatinine 1.81 H (0.5-1.4) mg/dL Estim Creat Clear Calc 42.0 Estimated GFR 37 Random Glucose 115 (60-115) mg/dL Calcium 10.1 D (8.4-10.2) mg/dL Total Bilirubin 0.3 (0.0-1.0) mg/dL AST 51 H (5-37) U/L ALT 30 (0-40) U/L Alkaline Phosphatase 111 (39-117) U/L Troponin I High Sens 9.1 (<3.5-35.0) ng/L B-Natriuretic Peptide 91 (<100) pg/mL Total Protein 7.2 (6.5-8.0) g/dL Albumin 3.8 (3.5-5.0) g/dL Hold Green Top See Note Influenza Type A (PCR) NEGATIVE (Negative) Influenza Type B (PCR) NEGATIVE (Negative) RSV RNA Qual (PCR) NEGATIVE (Negative) SARS-CoV-2 RNA (RT-PCR) NEGATIVE (Negative) 10/08/24 Range/Units 05:19 WBC (4.8-10.8) X10*3/uL RBC (4.60-5.80) X10*6/uL Hgb (14.0-18.0) g/dl Hct (42.0-52.0) % MCV (80.0-98.0) fL MCH (27.0-33.0) pg MCHC (31.0-36.0) g/dl RDW (11.0-16.0) % Plt Count (160-400) X10*3/uL MPV (9.4-12.4) fL Immature Gran % (Auto) (0.0-0.4) % Neut % (Auto) (45-73) % Lymph % (Auto) (20-40) % Vigo % (Auto) (2-11) % Eos % (Auto) (0-4) % Baso % (Auto) (0-2) % Lymph # (Auto) (1.2-4.9) X10*3/uL Vigo # (Auto) (0.1-1.2) X10*3/uL Eos # (Auto) (0.0-0.4) X10*3/uL Baso # (Auto) (0.0-0.2) X10*3/uL Abs Immat Gran (auto) (0.00-0.03) X10*3/uL Absolute Neuts (auto) (2.0-8.3) x10*3/uL Absolute Nucleated RBC (0.0-0.012) X10*3/uL Nucleated RBC % (auto) (0.0-0.2) /100WBC PT (10.9-12.4) SEC INR (0.9-1.1) APTT (26.0-36.8) SEC D-Dimer High Sensitivty NG/ML Hold Blue Top VBG pH (7.32-7.43) VBG pCO2 mmHg VBG pO2 mmHg VBG HCO3 (22-26) mmol/L VBG O2 Saturation % VBG Base Excess mmol/L Sodium (135-145) mmol/L Potassium (3.3-5.1) mmol/L Chloride (96-108) mmol/L Carbon Dioxide (22-29) mmol/L Anion Gap (12-20) BUN (9-16) mg/dL Creatinine (0.5-1.4) mg/dL Estim Creat Clear Calc Estimated GFR Random Glucose (60-115) mg/dL Calcium (8.4-10.2) mg/dL Total Bilirubin (0.0-1.0) mg/dL AST (5-37) U/L ALT (0-40) U/L Alkaline Phosphatase (39-117) U/L Troponin I High Sens 9.0 (<3.5-35.0) ng/L B-Natriuretic Peptide (<100) pg/mL Total Protein (6.5-8.0) g/dL Albumin (3.5-5.0) g/dL Hold Green Top Influenza Type A (PCR) (Negative) Influenza Type B (PCR) (Negative) RSV RNA Qual (PCR) (Negative) SARS-CoV-2 RNA (RT-PCR) (Negative) Independent Interpretation I performed an independent interpretation of an: EKG and Plain X-Ray Interpretation: Normal sinus rhythm heart rate 79 beats per minute normal intervals normal axis no acute ST-T changes no acute ischemia Radiology Impression Discussion of test interpretation with radiology: I have reviewed the radiologist's reading. Discharge Plan Discharge Clinical Impression: Acute exacerbation of chronic obstructive airways disease Patient Disposition: Home, Self-Care Instructions: COPD (Chronic Obstructive Pulmonary Disease) (ED) Additional Instructions: Continue to use your medication nebulizer steroids and oxygen Take your antibiotics as prescribed Follow with your web solutions architect Prescriptions: No Action rosuvastatin 20 mg tablet 20 mg PO BEDTIME levothyroxine 25 mcg tablet 25 mcg PO DAILY@0600 Rx Instructions: Take on an empty stomach, first thing in the morning, with water. Do not eat or drink anything else for 30 minutes afterwards prednisone 10 mg tablet See Taper PO DIRECTED Qty: 30 0RF Taper: Prednisone 40 mg daily for 3 Days and 0 Hour 30 mg daily for 3 Days and 0 Hour 20 mg daily for 3 Days and 0 Hour 10 mg daily for 3 Days and 0 Hour Rx Instructions: see taper instructions doxycycline monohydrate 100 mg Capsule 100 mg PO Q12H Qty: 6 0RF furosemide [Lasix] 40 mg tablet 40 mg PO DAILY 90 Days Qty: 90 1RF metoprolol tartrate 25 mg tablet 25 mg PO BID 90 Days Qty: 180 1RF Eliquis 5 mg tablet 5 mg PO BID 90 Days Qty: 180 1RF amiodarone 200 mg tablet 200 mg PO DAILY 90 Days Qty: 120 3RF valsartan 40 mg tablet 80 mg PO BID 90 Days Qty: 360 3RF clopidogrel 75 mg tablet 75 mg PO DAILY Qty: 90 4RF ipratropium-albuterol 0.5 mg-3 mg(2.5 mg base)/3 mL solution for nebulization 3 ml inhalation Q6H PRN (Reason: wheezing) Qty: 180 4RF budesonide-formoterol [Symbicort] 160-4.5 mcg/actuation HFA aerosol inhaler 2 puff inhalation Q12H Qty: 10.2 6RF Combivent Respimat 20-100 mcg/actuation mist 1 puff inhalation Q6H Qty: 4 3RF Print Language: Kittitian
[2024-10-08 03:38] LABS: Venous Blood Gas Refer to POC result
[2024-10-08 03:41] LABS: VBG HCO3 37 mmol/L (22-26); VBG pCO2 59 mmHg; VBG pO2 47 mmHg
[2024-10-08 03:49] LABS: Troponin-I High Sensitivity 9.1 ng/L (<3.5-35.0)
[2024-10-08 03:51] LABS: Alanine Aminotransferase 30 U/L (0-40); Albumin Level 3.8 g/dL (3.5-5.0); Alkaline Phosphatase 111 U/L (39-117); Anion Gap 16 (12-20); Aspartate Amino Transferase 51 U/L (5-37); Bilirubin Total 0.3 mg/dL (0.0-1.0); Blood Urea Nitrogen 25 mg/dL (9-16); Calcium 10.1 mg/dL (8.4-10.2); Carbon Dioxide 30 mmol/L (22-29); Chloride 93 mmol/L (96-108); Estimated Glomerular Filt Rate 37; Glucose Random 115 mg/dL (60-115); Potassium 3.2 mmol/L (3.3-5.1); Sodium 136 mmol/L (135-145); Total Protein 7.2 g/dL (6.5-8.0)
[2024-10-08 03:53] LABS: B Type Natriuretic Peptide 91 pg/mL (<100)
[2024-10-08] MEDS: Albuterol Sulfate 2.5 MG, Albuterol/Iprat 2.5/0.5MG 3 ML 3 ML INHALE ×2 (03:53→04:30)
[2024-10-08 04:02] LABS: Influenza A PCR NEGATIVE (Negative); Influenza B PCR NEGATIVE (Negative); Resp Syncy Virus RNA Qual PCR NEGATIVE (Negative); SARS COV2 PCR INHOUSE NEGATIVE (Negative)
[2024-10-08] MEDS: Morphine Sulfate 4 MG/ML CARTRIDGE IVPUSH (05:11)
[2024-10-08] MEDS: ondansetron HCL 4 MG/2 ML VIAL IVPUSH (05:11)
--- NOTE | 2024-10-08 05:12 | PC.NURSE ---
pt reporting sudden onset of chest pain, aware, pt medicated per jan. vss.
[2024-10-08 05:13] LABS: INTERNATIONAL NORM RATIO 1.2 (0.9-1.1); Prothrombin Time 14.1 SEC (10.9-12.4)
[2024-10-08 05:15] LABS: D Dimer High Sensitivity 179 NG/ML
[2024-10-08 05:16] LABS: Partial Thromboplastin Time 34.9 SEC (26.0-36.8)
--- NOTE | 2024-10-08 07:02 | PC.NURSE ---
respiratory to come to bedside to give pt home o2 to go home. provider aware, pt offers no complaints at this time. pt uses 2-4L nasal cannula at home baseline but at this time does not have portable o2.
--- NOTE | 2024-10-08 07:13 | PC.NURSE ---
RT to ED to provide Pt with supplemental O2 for d/c. RT applies O2 via NC with Pts settings. This RN escorted Pt out to car in wheelchair. No sign of respiratory distress and supplemental O2. Pt placed in car with and departed.
== END 2024-10-08 07:16 | disposition home or self-care (01) ==
PROVIDERS: Emergency Provider Internal Medicine; PCP Internal Medicine
DX: J44.1 Chronic obstructive pulmonary disease with (acute) exacerbation (principal); R06.02 Shortness of breath; Z03.818 Encounter for observation for suspected exposure to other biological agents ruled out; I48.0 Paroxysmal atrial fibrillation; F17.210 Nicotine dependence, cigarettes, uncomplicated; Z79.01 Long term (current) use of anticoagulants; Z79.02 Long term (current) use of antithrombotics/antiplatelets
CPT/HCPCS: 0241U; 36415; 71045; 80053; 82803; 83880; 84484; 85025; 85379; 85610; 85730; 93005; 94640; 96374; 96375; 99284; 99285; J2270; J2405

== ENCOUNTER → 2024-10-08 03:14 | Outpatient (BNV) | payer MEDICARE, SELFPAY | PROVIDERS: Emergency Provider Internal Medicine; PCP Internal Medicine; Visit Provider Internal Medicine Cardiovascular Disease | DX: R06.00 Dyspnea, unspecified (principal) | CPT/HCPCS: 93010 ==

== ENCOUNTER 2024-10-10 14:39 | Outpatient (AMB) | payer MEDICARE, SELFPAY ==
--- NOTE | 2024-10-10 14:56 | A.OFFVIS_ITS ---
Vital Signs 10/10/24 14:57 Height 5 ft 9 in Weight 194 lb 8 oz BMI 28.7 BP 142/60 H Blood Pressure Location Rt brachial Position Sitting Pulse 81 Pulse Source Pulse Oximeter Pulse Oximetry (%) 93 Oxygen Delivery Method Nasal Cannula Oxygen Flow Rate 3 Intake Visit Reasons: ER follow up/reassess O2 need Allergies No Known Allergies [No Known Allergies*] Allergy (Verified 10/10/24 15:03) HPI HPI ER follow up/reassess O2 need: Details: Steve is a pleasant 68 year old male, current minimal smoker with 50 pack year history with underlying COPD, severe cardiomyopathy maintained on amiodarone, metoprolol, atrial fibrillation s/p cardioversion in 2018 on eliquis, CAD and CHF on lasix 40 mg. At baseline, he is moderately controlled on symbicort 160 mcg, DuoNeb and albuterol MDI. Since the last visit, he had worsening respiratory symptoms requiring ED evaluation. He was admitted to [facility] from 10/04- 10/06 for COPD exacerbation treated with IV steroids, IV lasix, discharged with doxycycline and prednisone. At this time, he was discharged on 3L of supplemental oxygen. He is currently on 40 mg of prednisone. Of note, he was also evaluated on 10/08 for worsening respiratory symptoms however discharged same day without any change in medications. Today he presented to room 84% on room air, as he noted his tank was running low. He was switched to office tanks, initially requiring 4 L of supplemental oxygen to get him to maintain 92-93%, able to decrease to 3L to maintain >92%. He reports significant weakness, dyspnea with any exertion and wheezing with intermittent cough over the last few days that has been progressively worsening. He reports this morning oxygen saturation dropped to the 60s on room air. He denies fevers, reports chills. Of note, he has a concentrator at home through [employer] without larger portable tanks. [facility] Medical History Smoker Acquired hypothyroidism Obesity (BMI 30-39.9) Coronary artery disease Congestive heart failure (CHF) Atrial fibrillation with RVR COPD (chronic obstructive pulmonary disease) Surgical History Hx of cardiac cath S/P appendectomy History of coronary artery stent placement Social History Household Members: Significant Other Housing: Apartment Do you presently have visiting nurse or other home services: No Alcohol intake: never Comment: pt refused bed alarm Patient Tobacco Use Status: Former Tobacco user Tobacco use type: Cigarette Cigarette Packs Per Day: 0.25 Cigarettes Per Day: 5 Years Smoked: 50 e-Cigarette/Vaping Use: Former Use Second Hand Smoke Exposure: Yes Substance Use Type: Marijuana service: No Current occupational status: retired Cognitive needs: No Hearing needs: No Vision needs: No Review of Systems Const Denies excessive sweating, Denies fever(s), Denies headache(s) and Denies night sweats Eyes Denies dry eyes, Denies irritation and Denies itchy eyes ENT Reports Normal hearing present, Denies headache(s), Denies nasal congestion, Denies nasal discharge, Denies post nasal drip and Denies sore throat Card Denies chest pain, Denies chest pain at rest, Denies chest pain with activity and Denies claudication Resp Denies chest congestion, Denies excessive phlegm production, Denies pain on inspiration, Denies pain with cough and Denies stridor Musc Denies myalgias Neuro Reports Normal hearing present and Denies headache(s) Endo Denies excessive sweating Akhil/Lymph Denies lymphadenopathy Aller/Immun Denies itchy eyes and Denies seasonal rhinorrhea Physical Exam Vital Signs: Last Vital Signs Pulse 81 10/10/24 14:57 BP 142/60 H 10/10/24 14:57 Pulse Ox 93 10/10/24 14:57 Oxygen Delivery Method Nasal Cannula 10/10/24 14:57 Oxygen Flow Rate 3 10/10/24 14:57 BMI result Body Mass Index 28.7 Const General: cooperative, well developed and alert Orientation/consciousness: patient oriented x3 HEENT Head: Yes normal to inspection, Yes normocephalic and Yes atraumatic Ears: hearing grossly normal bilaterally and external ears normal Eyes General: appearance normal, both eyes and all related structures Eyelids: Yes eyelids normal Sclerae: sclerae normal EOM: EOMs intact bilaterally Neck Neck: Yes normal visual inspection and Yes no lymphadenopathy Lymphatic: no lymphadenopathy noted Chest Chest palpation & inspection: normal inspection of the chest Resp Other: scattered coarse expiratory wheezes throughout, mildly improved with Duoneb, bibasilar inspiratory crackles Effort & Inspection: normal respiratory effort, audible wheezes, no cough, no stridor, not tachypneic, no tripod positioning, no use of accessory muscles and prolonged expiratory phase Auscultation: crackles, wheezes and diminished lung sounds Cardio Jugular venous distension: no JVD Rate: regular rate Skin Other: warm, dry General skin exam: no rashes or lesions noted Neuro General: patient oriented x3 Cranial nerves: Yes Normal hearing present Cognition (Neuro): normal cognition Extrem Other: 1-2 + pitting edema BLE Psych Appearance: grossly normal and well kempt Speech and movement: Normal speech and movement present and Clear speech present Affect: normal affect Attitude: cooperative Thought process: Normal thought process present Thought content: Normal thought content present Insight: Good insight present (Psych) Judgement: Good judgement present (Psych) Office Procedures Nebulizer Treatment Nebulizer Treatment [id number] RX initial, or Nebulizer Subsequent Treatment Office Meds ipratropium 0.5 mg-albuterol 3 mg (2.5 mg base)/3 mL nebulization soln Performing Provider: Kinga Carey NP Performing Location: [facility] Pulmonology Services-[facility] Administered by: Lorena Quintero LPN on 10/10/24 16:07 Dose Route Admin Location Dispensed Lot Number Expiration Date [facility] [employer] 3 mL inhalation 3 mL [id number] 02/16/26 05044-983-56 [employer] Assessment & Plan Assessment & Plan (1) COPD (chronic obstructive pulmonary disease): Code(s): J44.9 - Chronic obstructive pulmonary disease, unspecified Category: Medical Qualifiers: COPD type: unspecified COPD Qualified Code(s): J44.9 - Chronic obstructive pulmonary disease, unspecified (2) Congestive heart failure (CHF): Code(s): I50.9 - Heart failure, unspecified Category: Medical Qualifiers: Heart failure type: systolic Heart failure chronicity: chronic Qualified Code(s): I50.22 - Chronic systolic (congestive) heart failure (3) Nicotine dependence, cigarettes, uncomplicated: Code(s): F17.210 - Nicotine dependence, cigarettes, uncomplicated Category: Medical (4) Obstructive sleep apnea: Code(s): G47.33 - Obstructive sleep apnea (adult) (pediatric) Category: Medical (5) Nocturnal hypoxemia: Code(s): G47.34 - Idiopathic sleep related nonobstructive alveolar hypoventilation Category: Medical Plan Steve presents with significant wheezing throughout despite being on 40 mg of prednisone and recently completed doxycyline. Minimal change after Duoneb. On exam patient also with bibasilar inspiratory crackles and 1+ pitting edema of BLE. He also noted that his oxygen saturation had dropped into the 60s earlier today on room air. Today he was 84% when he arrived to the room, slowly recovering to >92% on 4L. He was given duoneb in office and discussed solumedrol IM however he stated he would wait until he went to the ED to obtain. Patient agreeable to emergent evaluation, he is accompanied by his who will be transporting him. All questions were answered and patient is in agreement of plan. Will follow up after ED evaluation. Orders: Orders AMB Nebulizer Treatment Today J44.9 - Chronic obstructive pulmonary disease, unspecified Medications: New tiotropium bromide 2.5 mcg/actuation (Spiriva Respimat) 2 puffs inhalation DAILY 4 grams 6RF Coding Level of Care Code Est Pt Level 4 (39602) Complex EM visit Add On G2211 Diagnoses Chronic obstructive pulmonary disease, unspecified COPD type J44.9 COPD type: unspecified COPD Chronic systolic congestive heart failure I50.22 Heart failure type: systolic Heart failure chronicity: chronic Nicotine dependence, cigarettes, uncomplicated F17.210 Obstructive sleep apnea G47.33 Nocturnal hypoxemia G47.34 CPT Codes Nebulizer Treatment - Nebulizer Treatment, initial or subsequent: 50119- Nebulizer/MDI RX initial, or Nebulizer Subsequent Treatment ([id number])
[2024-10-10 14:57] VITALS: BP 142/60; PULSE 81; O2SAT 93; BMI 28.7
== END 2024-10-10 16:16 | disposition home or self-care (01) ==
PROVIDERS: PCP Internal Medicine; Visit Provider Nurse Practitioner Family
DX: J44.9 Chronic obstructive pulmonary disease, unspecified (principal); I50.22 Chronic systolic (congestive) heart failure; F17.210 Nicotine dependence, cigarettes, uncomplicated; G47.33 Obstructive sleep apnea (adult) (pediatric); G47.34 Idiopathic sleep related nonobstructive alveolar hypoventilation
CPT/HCPCS: 99214; G2211

== ENCOUNTER → 2024-10-10 14:39 | Outpatient (BNVA) | payer MEDICARE, SELFPAY | PROVIDERS: PCP Internal Medicine; Visit Provider Nurse Practitioner Family | DX: J44.9 Chronic obstructive pulmonary disease, unspecified (principal); F17.210 Nicotine dependence, cigarettes, uncomplicated; G47.33 Obstructive sleep apnea (adult) (pediatric); G47.34 Idiopathic sleep related nonobstructive alveolar hypoventilation; I50.22 Chronic systolic (congestive) heart failure | CPT/HCPCS: 94640; 99212 ==

== ENCOUNTER 2024-10-10 16:52 | Emergency (ER) | payer MEDICARE, SELFPAY ==
--- NOTE | ~2024-10-10 | XR_ITS ---
EXAMINATION: XR CHEST CLINICAL INFORMATION: pain COMPARISON: 10/08/2024 TECHNIQUE: 2 views of the chest were obtained. FINDINGS: No focal consolidation, pulmonary edema, or pleural effusion. Longitudinal scarring along the medial right upper lobe. Stable cardiomediastinal silhouette. XR/XR chest 2V IMPRESSION: No acute cardiopulmonary findings. Electronically signed by: Smith Lipscomb MD 10/10/2024 08:53 PM EST
[2024-10-10 17:17] VITALS: BP 125/66; PULSE 73; RESP 22; TEMP 36.1; O2SAT 93; BMI 27.9
--- NOTE | 2024-10-10 17:22 | ED_ITS ---
HPI - General Adult General Chief complaint: Dyspnea Stated complaint: Wheezing/Sent by provider Time Seen by Provider: 10/10/24 18:26 Source: patient and family History of Present Illness HPI narrative: 68-year-old male who has a history of COPD on 2-3 L of oxygen at all time, history of CHF, paroxysmal AFib currently on Eliquis, presents from his electronics scale tester's office for evaluation of shortness of breath and hypoxia. Of note, patient was admitted to the hospital on October 04 for COPD exacerbation and KARTIK. Patient felt well at time of discharge. However the patient returned on October 08 due to shortness of breath. He received a nebulizer treatment at that time and was feeling well and was discharged home. Patient states he has been doing fairly well since that time. He had a follow up appointment with his electronics scale tester today and was noted to be hypoxic with oxygen saturation dropping into the 70s and 80s. He received a albuterol treatment there and was feeling well since then. Patient states he is compliant with all his medications including the recent antibiotics, steroid taper and nebulizer treatments. He denies any chest pain at this time. No shortness of breath. He reports having oxygen at home. Related Data Home Medications ?Medication ?Instructions ?Recorded ?Confirmed levothyroxine 25 mcg tablet 25 mcg PO DAILY@0600 10/04/24 10/10/24 rosuvastatin 20 mg tablet 20 mg PO BEDTIME 10/04/24 10/10/24 albuterol sulfate 90 mcg/actuation 2 puff inhalation QID PRN wheezing 10/10/24 10/10/24 aerosol inhaler (Ventolin HFA) prednisone 10 mg tablet See Taper PO DIRECTED 10/10/24 10/10/24 valsartan 80 mg tablet 80 mg PO BID 10/10/24 10/10/24 Previous Rx's ?Medication ?Instructions ?Recorded apixaban 5 mg tablet (Eliquis) 5 mg PO BID 90 days #180 tabs 04/11/24 furosemide 40 mg tablet (Lasix) 40 mg PO DAILY 90 days #90 tabs 04/11/24 metoprolol tartrate 25 mg tablet 25 mg PO BID 90 days #180 tabs 04/11/24 amiodarone 200 mg tablet 200 mg PO DAILY 90 days #120 tabs 04/30/24 ipratropium 0.5 mg-albuterol 3 mg 3 ml inhalation Q6H PRN wheezing 07/14/24 (2.5 mg base)/3 mL nebulization #180 mL soln budesonide-formoterol HFA 160 2 puff inhalation Q12H #10.2 grams 08/18/24 mcg-4.5 mcg/actuation aerosol inhaler (Symbicort) ipratropium 20 mcg-albuterol 100 1 puff inhalation Q6H #4 grams 08/18/24 mcg/actuation mist for inhalation (Combivent Respimat) clopidogrel 75 mg tablet 75 mg PO DAILY #90 tabs 09/15/24 doxycycline monohydrate 100 mg 100 mg PO Q12H #6 caps 10/06/24 capsule Allergies Allergy/AdvReac Type Severity Reaction Status Date / Time No Known Allergies Allergy Verified 10/10/24 17:22 [No Known Allergies*] Review of Systems 2 Constitutional: Constitutional: Denies chills and Denies fever(s) Cardiovascular: Cardiovascular: Denies chest pain, Denies palpitations, Reports dyspnea and Denies orthopnea Respiratory: Respiratory: Denies cough and Reports dyspnea Gastrointestinal: Gastrointestinal: Denies abdominal pain, Denies melena, Denies hematochezia, Denies diarrhea, Denies nausea and Denies vomiting Genitourinary: Genitourinary: Denies difficulty urinating, Denies dysuria and Denies urinary urgency Musculoskeletal: Musculoskeletal: Denies back pain and Denies muscle weakness Endocrine: Endocrine: Denies palpitations PMFSH Past Medical History Medical History Smoker Acquired hypothyroidism Obesity (BMI 30-39.9) Coronary artery disease Congestive heart failure (CHF) Atrial fibrillation with RVR COPD (chronic obstructive pulmonary disease) Surgical History Hx of cardiac cath S/P appendectomy History of coronary artery stent placement Social History Social History Household Members: Significant Other Housing: Apartment Do you presently have visiting nurse or other home services: No Alcohol intake: never Comment: pt refused bed alarm Patient Tobacco Use Status: Former Tobacco user Tobacco use type: Cigarette Cigarette Packs Per Day: 0.25 Cigarettes Per Day: 5 Years Smoked: 50 Smoked in Last 30 Days: No e-Cigarette/Vaping Use: Former Use Second Hand Smoke Exposure: Yes Use of substances other than those prescribed or required for medical reasons: No Substance Use Type: Marijuana Advance Directives: No Advance Directives Information Provided: No Do you have a plan to hurt others: No Plan service: No Current occupational status: retired Cognitive needs: No Hearing needs: No Vision needs: No Physical Exam ED Vital Signs: Vital Signs - 24 hr 10/10/24 17:17 10/10/24 18:34 10/10/24 19:28 Temperature 96.9 F Pulse Rate 73 70 75 Respiratory Rate 22 H 20 19 Blood Pressure 125/66 111/61 Pulse Oximetry 93 94 Oxygen Delivery Method Oxymask Oxymask Oxygen Flow Rate 2 10/10/24 20:00 10/10/24 22:40 Temperature 98.2 F 97.5 F Pulse Rate 74 70 Respiratory Rate 17 26 H Blood Pressure 122/61 124/69 Pulse Oximetry 92 94 Oxygen Delivery Method Non-Rebreather Mask Non-Rebreather Mask Oxygen Flow Rate 3 3 BMI result Body Mass Index 27.9 Const Other: Speaks full clear sentences Resp Other: decreased lung sounds throughout. Fine expiratory wheezes throughout. Cardio Rate: regular rate Extrem Other: No calf tenderness or pedal edema bilaterally. Course Course Course Narrative: RME, this is a rapid medical exam performed by Richy Mckeon please refer to primary provider for complete H&P- 69-year-old male with past medical history significant for heart failure, hypothyroidism, atrial fibrillation, COPD on 4 L via nasal cannula, coronary artery disease presents for evaluation of shortness of breath and chest pain. His PCP sent him over here after he found the patient to have an oxygen saturation of 92% on his 4 L. plan for labs, chest x-ray, viral swabs Reevaluation(s) Reevaluation #1: Upon initial arrival, patient with mild wheezing. No tachypnea. Check DuoNeb treatment. Patient reports good improvement after DuoNeb treatment. He is maintaining oxygen saturation of approximately 90-92% on 3 L. Time: 19:00 Reevaluation #2: patient is resting comfortably while in the exam stretcher. Oxygen saturation maintained at approximately 90% on 3 L. with short ambulation, desaturation on 3 L of oxygen to 84% with tachypnea. Given this finding, patient will be brought into the hospital for further evaluation and management. Discussed with Dr. Mcmillan for transfer of care. Discussed with the patient and significant other at the bedside, he agrees with current plan of admission. Time: 21:00 Reevaluation #3: at this time the patient is quite adamant about not staying in the hospital. Patient states that after much thought he feels as though he can manage at home. Patient states that his is there to care for him and he has the appropriate medications which he is compliant. Patient states he has oxygen at home. Patient also spoke with Dr. Mcmillan about his refusal for admission. He did receive IV steroids. The patient is requesting to sign out against medical advice. He appears to be of sound mind and able to make the decision along with his at the bedside. Patient expresses understanding that his condition may worsen and may not improve which could result in severe debilitation or even . Patient expressed understanding of all discharge instructions and has no further questions at this time. Time: 22:01 Medications Administered Generic Name Dose Route Start Last Admin Trade Name Freq PRN Reason Stop Dose Admin Methylprednisolone Sodium Succinate 40 mg 10/10/24 21:00 10/10/24 21:15 Methylprednisolone Sod Succ 40 Mg/Ml Vial IVPUSH 40 mg Q12H TREY Administration Discontinued Medications Generic Name Dose Route Start Last Admin Trade Name Freq PRN Reason Stop Dose Admin Albuterol Sulfate 5 mg/ 0 mg 10/10/24 18:57 10/10/24 19:24 Albuterol/Ipratropium 3 ml INHALE 10/10/24 18:58 1 each ONCE ONE Administration Potassium Chloride 40 meq 10/10/24 19:01 10/10/24 19:16 Potassium Chloride Packet 20 Meq Packet PO 10/10/24 19:02 40 meq ONCE ONE Administration Medical Decision Making Medical Decision Making MDM Narrative: 68-year-old male with history of COPD currently on 3 L of oxygen at home, CHF, paroxysmal AFib on Eliquis, returns to the emergency department for shortness of breath despite current antibiotic, steroid and respiratory treatments. Patient affirms compliance with his medications. Concern for patient's significant hypoxia while at the pulmonology office. Patient states his baseline is between 90 and 94% while on oxygen. Repeat labs, chest x-ray. Consideration for ABG. Consideration for chest CT however the study from 4 days ago did not reveal any acute process. Differential Diagnosis Differential Diagnoses: The differential diagnosis associated with the presentation includes Hypoxia Pneumonia COPD Respiratory failure Admission/Observation Consideration of admission/observation: Escalation of care including admission/observation considered Consult Healthcare Provider Management of the patient was discussed with: Hospitalist (Dr. Nixon) Lab Data MDM Lab Attestation statement: I reviewed the patient's lab results. 10/10/24 17:41 10/10/24 17:41 Labs: Lab Results 10/10/24 10/10/24 Range/Units 17:40 17:41 WBC 14.7 H (4.8-10.8) X10*3/uL RBC 4.41 L (4.60-5.80) X10*6/uL Hgb 13.4 L (14.0-18.0) g/dl Hct 40.9 L (42.0-52.0) % MCV 92.7 (80.0-98.0) fL MCH 30.4 (27.0-33.0) pg MCHC 32.8 (31.0-36.0) g/dl RDW 14.2 (11.0-16.0) % Plt Count 274 (160-400) X10*3/uL MPV 9.2 L (9.4-12.4) fL Immature Gran % (Auto) 4.2 H (0.0-0.4) % Neut % (Auto) 78.0 H (45-73) % Lymph % (Auto) 12.7 L (20-40) % Rolette % (Auto) 4.8 (2-11) % Eos % (Auto) 0.0 (0-4) % Baso % (Auto) 0.3 (0-2) % Lymph # (Auto) 1.9 (1.2-4.9) X10*3/uL Rolette # (Auto) 0.7 (0.1-1.2) X10*3/uL Eos # (Auto) 0.0 (0.0-0.4) X10*3/uL Baso # (Auto) 0.0 (0.0-0.2) X10*3/uL Abs Immat Gran (auto) 0.62 H (0.00-0.03) X10*3/uL Absolute Neuts (auto) 11.4 H (2.0-8.3) x10*3/uL Absolute Nucleated RBC 0.000 (0.0-0.012) X10*3/uL Nucleated RBC % (auto) 0.0 (0.0-0.2) /100WBC PT 15.6 H (10.9-12.4) SEC INR 1.3 H (0.9-1.1) Sodium 138 (135-145) mmol/L Potassium 3.2 L (3.3-5.1) mmol/L Chloride 95 L (96-108) mmol/L Carbon Dioxide 35 H (22-29) mmol/L Anion Gap 11 L (12-20) BUN 29 H (9-16) mg/dL Creatinine 1.32 (0.5-1.4) mg/dL Estim Creat Clear Calc 56.5 Estimated GFR 54 Random Glucose 112 (60-115) mg/dL Lactic Acid 1.1 (0.5-2.0) mmol/L Calcium 8.8 D (8.4-10.2) mg/dL Total Bilirubin 0.4 (0.0-1.0) mg/dL AST 40 H (5-37) U/L ALT 32 (0-40) U/L Alkaline Phosphatase 90 (39-117) U/L Troponin I High Sens 11.2 (<3.5-35.0) ng/L B-Natriuretic Peptide 88 (<100) pg/mL Total Protein 6.8 (6.5-8.0) g/dL Albumin 3.6 (3.5-5.0) g/dL Lipase 22 (8-78) U/L Influenza Type A (PCR) NEGATIVE (Negative) Influenza Type B (PCR) NEGATIVE (Negative) RSV RNA Qual (PCR) NEGATIVE (Negative) SARS-CoV-2 RNA (RT-PCR) NEGATIVE (Negative) Independent Interpretation I performed an independent interpretation of an: EKG ( sinusAt 73 beats per minute. No acute ischemic changes) Radiology Impression Discussion of test interpretation with radiology: I have reviewed the radiologist's reading. Radiologist Impression: [address] [address] XRay Report Signed Patient: Steve Morales MR#: [id number] : 1955 Acct:[id number] Age/Sex: 68 / M ADM Date: 10/10/24 Loc: HO.ED Attending Dr: Ordering Physician: Loki Mckeon Date of Service: 10/10/24 Procedure(s): XR chest 2V Accession Number(s): [id number] cc: Papi Sanders MD; Loki Mckeon~ EXAMINATION: XR CHEST CLINICAL INFORMATION: pain COMPARISON: 10/08/2024 TECHNIQUE: 2 views of the chest were obtained. FINDINGS: No focal consolidation, pulmonary edema, or pleural effusion. Longitudinal scarring along the medial right upper lobe. Stable cardiomediastinal silhouette. XR/XR chest 2V IMPRESSION: No acute cardiopulmonary findings. Electronically signed by: Smith Lipscomb MD 10/10/2024 08:53 PM EST Dictated By: Smith Lipscomb MD Signed By: <Electronically signed by Smith Lipscomb MD in OV> 10/10/242052 DD/ 21 TD/TT: 10/10/24 1750 Appeals Analyst: JUANA Independent Historian Clinical information obtained from an independent historian. History obtained from or confirmed by: Spouse External Record Review External record reviewed: Inpatient record Tests considered The following testing was considered but not selected: consideration for CT, ABG. Chronic Conditions Patient?s care impacted by: Hypertension and Other ( Respiratory) Critical Care Time Critical Care Time Critical Care Time: Yes Total Critical Care Time: 35 Attestation: repeat assessments respiratory treatments, family and patient updates. Discharge Plan Discharge Clinical Impression: Hypoxia Patient Disposition: Left Against Medical Advice Instructions: Hypoxia (ED) Additional Instructions: You have chosen To leave against medical advice. You may return at any time for any concern. You received a breathing treatment and steroids today. Follow up with your electronics scale tester. Call tomorrow for follow-up appointment. Follow-up with your primary care provider. Call this week to schedule a follow- up appointment. Return to the emergency department if you have any worsening of symptoms, or any concerns. Get well soon! Prescriptions: No Action rosuvastatin 20 mg tablet 20 mg PO BEDTIME levothyroxine 25 mcg tablet 25 mcg PO DAILY@0600 Rx Instructions: Take on an empty stomach, first thing in the morning, with water. Do not eat or drink anything else for 30 minutes afterwards doxycycline monohydrate 100 mg Capsule 100 mg PO Q12H Qty: 6 0RF prednisone 10 mg tablet See Taper PO DIRECTED Taper: Prednisone 30 mg daily for 3 Days and 0 Hour 20 mg daily for 3 Days and 0 Hour 10 mg daily for 3 Days and 0 Hour Rx Instructions: see taper instructions albuterol sulfate [Ventolin HFA] 90 mcg/actuation HFA aerosol inhaler 2 puff INHALATION QID PRN (Reason: wheezing) valsartan 80 mg tablet 80 mg PO BID furosemide [Lasix] 40 mg tablet 40 mg PO DAILY 90 Days Qty: 90 1RF metoprolol tartrate 25 mg tablet 25 mg PO BID 90 Days Qty: 180 1RF Eliquis 5 mg tablet 5 mg PO BID 90 Days Qty: 180 1RF amiodarone 200 mg tablet 200 mg PO DAILY 90 Days Qty: 120 3RF clopidogrel 75 mg tablet 75 mg PO DAILY Qty: 90 4RF ipratropium-albuterol 0.5 mg-3 mg(2.5 mg base)/3 mL solution for nebulization 3 ml inhalation Q6H PRN (Reason: wheezing) Qty: 180 4RF budesonide-formoterol [Symbicort] 160-4.5 mcg/actuation HFA aerosol inhaler 2 puff inhalation Q12H Qty: 10.2 6RF Combivent Respimat 20-100 mcg/actuation mist 1 puff inhalation Q6H Qty: 4 3RF Stand Alone Forms: Against Medical Advice Print Language: Turkish
--- NOTE | 2024-10-10 17:22 | ECG_ITS ---
Test Reason : SOB Blood Pressure : / mmHG Vent. Rate : 073 BPM Atrial Rate : 073 BPM P-R Int : 158 ms QRS Dur : 096 ms QT Int : 440 ms P-R-T Axes : 057 032 047 degrees QTc Int : 484 ms Normal sinus rhythm Low voltage QRS Nonspecific T wave abnormality Abnormal ECG When compared with ECG of 08-OCT-2024 04:52, Nonspecific T wave abnormality now evident in Inferior leads QT has lengthened Referred By: Loki Mckeon Electronically Signed By:CECILIA GIBBS MD
[2024-10-10 17:49] LABS: MANUAL DIFF FLAG NO
[2024-10-10 17:59] LABS: INTERNATIONAL NORM RATIO 1.3 (0.9-1.1); Prothrombin Time 15.6 SEC (10.9-12.4)
[2024-10-10 18:06] LABS: Basophils Percent Auto 0.3 % (0-2); Hematocrit 40.9 % (42.0-52.0); Hemoglobin 13.4 g/dl (14.0-18.0); Imm Gran Abs Auto 0.62 X10*3/uL (0.00-0.03); Imm Gran Pct Auto 4.2 % (0.0-0.4); Lactic Acid 1.1 mmol/L (0.5-2.0); Lymphocytes Absolute Auto 1.9 X10*3/uL (1.2-4.9); Lymphocytes Percent Auto 12.7 % (20-40); Mean Corpuscular HGB Conc 32.8 g/dl (31.0-36.0); Mean Corpuscular Hemoglobin 30.4 pg (27.0-33.0); Mean Corpuscular Volume 92.7 fL (80.0-98.0); Mean Platelet Volume 9.2 fL (9.4-12.4); Monocytes Absolute Auto 0.7 X10*3/uL (0.1-1.2); Monocytes Percent Auto 4.8 % (2-11); Neutrophils Absolute Auto 11.4 x10*3/uL (2.0-8.3); Platelet Count 274 X10*3/uL (160-400); Red Blood Count 4.41 X10*6/uL (4.60-5.80); Red Cell Distribution Width 14.2 % (11.0-16.0); White Blood Count 14.7 X10*3/uL (4.8-10.8)
[2024-10-10 18:07] LABS: Alanine Aminotransferase 32 U/L (0-40); Albumin Level 3.6 g/dL (3.5-5.0); Alkaline Phosphatase 90 U/L (39-117); Anion Gap 11 (12-20); Aspartate Amino Transferase 40 U/L (5-37); Bilirubin Total 0.4 mg/dL (0.0-1.0); Blood Urea Nitrogen 29 mg/dL (9-16); Calcium 8.8 mg/dL (8.4-10.2); Carbon Dioxide 35 mmol/L (22-29); Chloride 95 mmol/L (96-108); Creatinine Clr Calc Pharmacy 56.5; Estimated Glomerular Filt Rate 54; Glucose Random 112 mg/dL (60-115); Lipase 22 U/L (8-78); Potassium 3.2 mmol/L (3.3-5.1); Sodium 138 mmol/L (135-145); Total Protein 6.8 g/dL (6.5-8.0)
[2024-10-10 18:14] LABS: B Type Natriuretic Peptide 88 pg/mL (<100)
--- NOTE | 2024-10-10 18:15 | PC.NURSE ---
pt is alert and oriented, skin pwd, respirations even and unlabored, ls wheezing on the lower bases and some rhonci/corse, pt reports being told to come to the ED for feeling SOB, was just admitted recently- feels better when in the hospital then goes home and starts feeling SOB again, pt reports midsternal chest pain only with deep inspirations, pt does have some old bruising and dressing on the left forearm area-pt is on blood thinners for a-fib
[2024-10-10 18:16] LABS: Troponin-I High Sensitivity 11.2 ng/L (<3.5-35.0)
[2024-10-10 18:25] LABS: Influenza A PCR NEGATIVE (Negative); Influenza B PCR NEGATIVE (Negative); Resp Syncy Virus RNA Qual PCR NEGATIVE (Negative); SARS COV2 PCR INHOUSE NEGATIVE (Negative)
[2024-10-10 18:34] VITALS: BP 111/61; PULSE 70; RESP 20; O2SAT 94
[2024-10-10] MEDS: Potassium Chloride Packet 20 MEQ PACKET 40 MEQ PO (19:16)
--- NOTE | 2024-10-10 19:19 | PC.NURSE ---
medicated per mar.
[2024-10-10] MEDS: Albuterol Sulfate 5 MG, Albuterol/Iprat 2.5/0.5MG 3 ML 3 ML INHALE (19:24)
[2024-10-10 19:28] VITALS: PULSE 75; RESP 19; O2SAT 95
[2024-10-10 20:00] VITALS: BP 122/61; PULSE 74; RESP 17; TEMP 36.8; O2SAT 92
--- NOTE | 2024-10-10 20:53 | PC.NURSE ---
O2 walk test, pt O2 drop to 84, provider aware.
[2024-10-10] MEDS: methylPREDNISolone Sod Succ 40 MG/ML VIAL IVPUSH (21:15)
--- NOTE | 2024-10-10 21:21 | PC.NURSE ---
medicated per mar.
--- NOTE | 2024-10-10 21:33 | PHA.MEDREC ---
Addendum entered by Mic Marin [facility] 10/10/24 21:46: med rec reviewed Original Note: Pharmacy Consult ? Medication Reconciliation Pharmacy has completed the medication reconciliation. Spoke with patient had list from home. list had on it Prednisone 20mg tabs 2 tabs daily and when I asked about that the patient and his were not sure what the dose hes taking is but his states he is taking 4 tabs daily and when I asked if it is a taper the was not aware of it being a taper and stating the Dr never told them if it was a taper or not. The confirmed the Doxycycline Monohydrate 100mg tab 1 Q12H and the states he has 1-2 tabs left at home but would of been done in the next day or 2. The confirmed he was still taking the Rosuvastatin 20mg tabs but states he ran out in the last week and has not been able to get refills yet. They also confirmed he got prescribed a Spiriva inhaler today after the patients appointment but he has not been able to pick remover and start that. They confirmed he took all his morning medication this morning.
--- NOTE | 2024-10-10 22:16 | PM.EVENT ---
Event Note Date of Service: 10/10/24 Event Note: Was asked to evaluate patient for possible admission into the hospital for acute on chronic hypoxic respiratory failure in the setting of COPD exacerbation. Spoke to patient who adamantly declined admission into the hospital, stating he felt much better and there was nothing we would do in the hospital that he could not do at home. Patient is alert and oriented x4 and demonstrating capacity. Attempted to explain to patient our recommendation for additional treatments here at the hospital that exceed capabilities at home, including the use of IV steroids, but patient stated he no longer wanted any more steroids and instead wanted to leave the hospital as soon as possible. Patient understood risks of leaving the hospital against medical advice, including complications such as severe respiratory distress/failure leading to intubation and/or , but patient continued to decline hospital admission and left AMA. Patient knows to return to the hospital should his symptoms worsen. Time Spent With Patient Time: Total time managing care of this patient today ____ minutes.
[2024-10-10 22:40] VITALS: BP 124/69; PULSE 70; RESP 26; TEMP 36.4; O2SAT 94
--- NOTE | 2024-10-10 22:56 | PC.NURSE ---
Iv removed, Reviewed discharge instructions with pt. pt verbalized understanding, no sign of distress upon discharge.
[2024-10-10 22:59] VITALS: BP 124/69; PULSE 70; RESP 26; TEMP 36.4; O2SAT 94
== END 2024-10-11 00:41 | disposition left against medical advice (07) ==
LOC: HO.ED 17:51 → HO.EDOVER 21:12 → HO.ED 22:35
PROVIDERS: Physician Assistant; Emergency Provider Internal Medicine; PCP Internal Medicine
DX: R09.02 Hypoxemia (principal); Z53.29 Procedure and treatment not carried out because of patient's decision for other reasons; R06.02 Shortness of breath; J44.9 Chronic obstructive pulmonary disease, unspecified; Z99.81 Dependence on supplemental oxygen; Z03.818 Encounter for observation for suspected exposure to other biological agents ruled out; I48.0 Paroxysmal atrial fibrillation; Z79.01 Long term (current) use of anticoagulants; Z87.891 Personal history of nicotine dependence
CPT/HCPCS: 0241U; 71046; 80053; 83605; 83690; 83880; 84484; 85025; 85610; 87040; 93005; 94640; 96374; 99212; 99285; J2919

== ENCOUNTER → 2024-10-10 17:22 | Outpatient (BNV) | payer MEDICARE, SELFPAY | PROVIDERS: Emergency Provider Internal Medicine; PCP Internal Medicine; Visit Provider Internal Medicine Cardiovascular Disease | DX: R94.31 Abnormal electrocardiogram [ECG] [EKG] (principal) | CPT/HCPCS: 93010 ==

== ENCOUNTER 2024-10-13 10:08 | Outpatient (AMB) | payer MEDICARE, SELFPAY ==
--- NOTE | 2024-10-13 10:19 | MHC.PC.OV ---
Vital Signs 10/13/24 10:21 Height 5 ft 9 in Weight 194 lb 2 oz BMI 28.7 BP 120/62 Blood Pressure Location Lt brachial Position Sitting Pulse 138 H Pulse Source Pulse Oximeter Pulse Oximetry (%) 77 L Oxygen Delivery Method Nasal Cannula Intake Visit Reasons: [facility] COPD Intake Note: Patient is here for hospital discharge follow up. Patient was [place] [facility] [place]. 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 Date of admission 10/04/2024, date of discharge 10/10/2024. TCM TCM Information Date of Discharge 10/06/24 Discharged From [facility] Interactive Contact Date (Reference documentation from this date) 10/07/24 [facility] Medical History Smoker Acquired hypothyroidism Obesity (BMI 30-39.9) Coronary artery disease Congestive heart failure (CHF) Atrial fibrillation with RVR COPD (chronic obstructive pulmonary disease) Surgical History Hx of cardiac cath S/P appendectomy History of coronary artery stent placement Social History Household Members: Significant Other Housing: Apartment Do you presently have visiting nurse or other home services: No Alcohol intake: never Comment: pt refused bed alarm Patient Tobacco Use Status: Former Tobacco user Tobacco use type: Cigarette Cigarette Packs Per Day: 0.25 Cigarettes Per Day: 5 Years Smoked: 50 e-Cigarette/Vaping Use: Former Use Second Hand Smoke Exposure: Yes Substance Use Type: Marijuana service: No Current occupational status: retired Cognitive needs: No Hearing needs: No Vision needs: No Questionnaire Thrive Questionnaire Date Thrive assessed: 10/05/24 AUDIT C Alcohol Use Questionnaire (AUDIT-C) 2. How many drinks containing alcohol do you have on a typical day when you are drinking?: 1 or 2 3. How often do you have six or more drinks on one occasion?: Never Total Score: 0 JANEE-7 AMB Questionnaire JANEE-7 Date JANEE - 7 assessed: 08/01/24 Source: Developed by Drs. Danilo Rico, Denisse Brown, Tino Magana and colleagues, with an educational tali from [employer]. Physical exam (Primary Care) Vital Signs: Last Vital Signs Pulse 138 H 10/13/24 10:21 BP 120/62 10/13/24 10:21 Pulse Ox 77 L 10/13/24 10:21 Oxygen Delivery Method Nasal Cannula 10/13/24 10:21 BMI result Body Mass Index 28.7 Tobacco/Smoking Status: Tobacco use Status Tobacco use date assessed 10/13/24 10/13/24 10:30 Patient Tobacco Use Status Former Tobacco user 10/13/24 10:30 Tobacco use type Cigarette 10/13/24 10:30 e-Cigarette/Vaping Use Former Use 10/13/24 10:30 Thrive Assessment: Date of Thrive Assessment Date Thrive assessed 10/05/24 10/13/24 10:30 Const General: cooperative and healthy appearing Nutritional Appearance: well nourished Orientation/consciousness: patient oriented x3 Limitations: no limitations HENMT Head: Yes normal to inspection Eyes General: appearance normal, both eyes and all related structures Neck Neck: Yes normal visual inspection Chest Chest palpation & inspection: normal palpation of entire chest wall Resp Effort & Inspection: normal respiratory effort Neuro General: patient oriented x3 Coding Level of Care Code TCM Mod MDM <= 14 Days Complex EM visit Add On G2211 Diagnoses Chronic obstructive pulmonary disease, unspecified COPD type J44.9 COPD type: unspecified COPD Assessment & Plan Assessment & Plan (1) COPD (chronic obstructive pulmonary disease): Code(s): J44.9 - Chronic obstructive pulmonary disease, unspecified Category: Medical Qualifiers: COPD type: unspecified COPD Qualified Code(s): J44.9 - Chronic obstructive pulmonary disease, unspecified Plan: History of Present Illness The patient is a 68-year-old male presenting with chronic respiratory insufficiency. The initial hospital admission occurred on September 03, and discharge was on the after stabilization. Thereafter, follow-up visits with a schedule checker indicated repeated episodes of breathlessness, leading to recommendations for ED visits, which the patient resisted due to financial concerns. Post-discharge, the patient has been utilizing supplemental oxygen since August, a new necessity in his management plan. He reported inadequate supply and issues with refilling oxygen tanks. Prior to oxygen therapy commencement, the patient never used oxygen support and described a significant limitation in mobility due to current insufficiencies in oxygen supply. The patient has a history of Chronic Obstructive Pulmonary Disease, congestive heart failure, and atrial fibrillation, diagnosed in 2017. He moved recently from [place] to [place], received a heart pacemaker, and is actively managing his health status with various cardiologists. A prior heart attack led to a hospitalization where congestive heart failure management became paramount. He reports past smoking history, quitting in November following a health scare involving swollen extremities and increased shortness of breath. The chronic breathing issues are accompanied by occasional exacerbations possibly related to underlying heart conditions. Social History Review of Systems - Respiratory: Reports shortness of breath, especially without supplemental oxygen. - Cardiovascular: Reports history of myocardial infarction, management with pacemaker. - Genitourinary: Denies current kidney-related symptoms outside of those managed in the last hospital stay. Physical Exam Results Plan - For COPD: Reassessment of current oxygen therapy to ensure adequate supply. Discussions with the current oxygen vendor Ruth Ann) to supply full tanks and larger volumes if necessary. - For CHF: Maintain current cardiac medications, monitor symptoms closely, and report any weight gain indicative of fluid retention. - For AFib: Continue current anti-coagulant therapy with Eliquist. Evaluate the potential for medication adjustment based on renal function. - For Renal: Monitor renal function, ensure hydration status is maintained to prevent acute renal episodes. - General: Arrange necessary follow-up with cardiology and pulmonology as scheduled. Patient was informed and verbally consented to the use of an ambient scribe for clinic note documentation during this visit. Discussion Notes I have discussed with the patient the need to ensure a full and reliable oxygen supply for improved management of COPD-related respiratory insufficiency. We have agreed to liaise with the oxygen vendor to address the issues of half-filled oxygen tanks and the potential to increase tank size or accessibility. I emphasized to the patient the importance of contacting healthcare providers if he experiences weight changes indicating possible exacerbation of CHF. The patient acknowledged the chronicity and severity of his conditions and agreed to follow up with the scheduled medical appointments, including that with Dr. Sanders in October. I reviewed the necessity to continue current cardiac medications, including Eliquist, while considering his renal function status. Patient Instructions - Contact the oxygen supply vendor to ensure full tanks and discuss the possibility of larger tanks. - Monitor weight daily and report any significant changes to your healthcare provider. - Continue taking all prescribed medications as directed. - Keep all scheduled follow-up appointments, including the October appointment with Dr. Sanders. - Maintain a diet inclusive of fruits and vegetables to support overall health and possible nutritional needs due to the medication side effects. - Report any episodes of severe shortness of breath or other significant symptoms to your healthcare provider immediately.
[2024-10-13 10:21] VITALS: BP 120/62; PULSE 138; O2SAT 77; BMI 28.7
== END 2024-10-13 11:03 | disposition home or self-care (01) ==
PROVIDERS: PCP Internal Medicine; Visit Provider Internal Medicine
DX: J44.9 Chronic obstructive pulmonary disease, unspecified (principal)

== ENCOUNTER → 2024-10-13 10:08 | Outpatient (BNVA) | payer MEDICARE, SELFPAY | PROVIDERS: PCP Internal Medicine; Visit Provider Internal Medicine | DX: J44.9 Chronic obstructive pulmonary disease, unspecified (principal) | CPT/HCPCS: 99495 ==

== ENCOUNTER 2024-10-17 07:40 | Observation (INO) | payer MEDICARE, SELFPAY ==
[2024-10-17] VITALS (11 sets, daily range): BP systolic 94–136; BP diastolic 54–73; PULSE 61–76; RESP 16–20; TEMP 36.2–37.4; O2SAT 91–100; BMI 30.3
--- NOTE | ~2024-10-17 | CT_ITS ---
EXAMINATION: CT CHEST WITHOUT CONTRAST. CT ABDOMEN AND PELVIS WITH CONTRAST CLINICAL INFORMATION: Cough, fever. Right lower abdominal pain, mass on blood thinner COMPARISON: CT chest 10/06/[address] abdomen and pelvis 04/10/2018. TECHNIQUE: CT chest without contrast. Multidetector volumetric imaging was performed of the abdomen and pelvis following administration of 85 mL Omnipaque 350 intravenous contrast. No oral contrast material.. Sagittal and coronal reformatted images were obtained on the technologist's workstation. This CT examination was performed using dose optimization techniques as appropriate, variously including the following: *Automated exposure control *Adjustment of mA and/or kV according to patient size (this includes techniques or standardized protocols for targeted exams where dose is matched to indication/reason for exam; i.e. extremities or head) *Use of iterative reconstruction technique DLP: 294 and 744 mGy-cm FINDINGS: LUNGS: Mild centrilobular emphysema with atelectasis/scarring at the lung apices, decreased since the prior study. Linear atelectasis/scarring in the anterior upper lobes is also slightly less prominent. There is atelectasis/consolidation in the right middle lobe abutting the minor fissure which is slightly retracted, possibly due to mucous plugging. This is more prominent. MEDIASTINUM: No pericardial effusion. No significant adenopathy. There is a 9 mm precarinal lymph node with a fatty hilum. Coronary artery calcifications are present. PLEURA: No pleural effusion. AXILLA: No adenopathy. LIVER, GALLBLADDER, AND BILIARY TREE: The liver is normal in size, shape, and attenuation. No focal hepatic lesion or biliary ductal dilatation is present. The gallbladder is unremarkable with no evidence of radiopaque gallstones, gallbladder wall thickening, or obvious pericholecystic inflammatory changes. PANCREAS: Unremarkable SPLEEN: Unremarkable ADRENAL GLANDS: Unremarkable KIDNEYS AND URETERS: The kidneys are normal in size, shape, and attenuation. No hydronephrosis, hydroureter, or calculi seen. No perinephric stranding. BLADDER: Unremarkable GASTROINTESTINAL TRACT: Colonic diverticulosis, severe at the junction of the descending and sigmoid colon. No focal inflammatory process or obstruction. ABDOMINAL WALL: There is a right rectus sheath hematoma measuring 4.1 x 4.2 cm in transverse dimensions, extending the length of approximately 8 cm. There is a fat-containing supraumbilical hernia. LYMPH NODES: Normal VASCULAR: Scattered atherosclerotic calcifications. PELVIC VISCERA: Unremarkable. OSSEOUS STRUCTURES: Unremarkable CT/CT abdomen pelvis w IV con IMPRESSION: 1. There is a right rectus sheath hematoma measuring 4.1 x 4.2 x 8 cm. 2. There is atelectasis/consolidation in the right middle lobe abutting the minor fissure which is slightly retracted, possibly due to mucous plugging. This is more prominent than on the prior study. Centrilobular emphysema. 3. Colonic diverticulosis, severe at the junction of the descending and sigmoid colon. No focal inflammatory process or obstruction. Fleischner guidelines were followed. Electronically signed by: Smith Lipscomb MD 10/17/2024 12:02 PM [facility] GRANT
--- NOTE | ~2024-10-17 | XR_ITS ---
EXAMINATION: XR CHEST CLINICAL INFORMATION: Wheezing. Shortness of breath. COMPARISON: CT chest dated 10/17/2024. TECHNIQUE: Frontal view of the chest was obtained. FINDINGS: Chronic interstitial prominence is unchanged with new patchy right basilar opacities which could represent atelectasis versus early pneumonia. No pleural effusion or pneumothorax. Stable cardiomediastinal silhouette. XR/XR chest 1V IMPRESSION: 1. New patchy right basilar opacities which could represent atelectasis versus early pneumonia. 2. Chronic interstitial prominence is unchanged. Electronically signed by: Jose Zuniga MD 10/18/2024 07:43 AM EST
--- NOTE | ~2024-10-17 | XR_ITS ---
EXAMINATION: XR CHEST CLINICAL INFORMATION: cough COMPARISON: Chest radiograph from 10/10/2024 TECHNIQUE: Frontal view of the chest was obtained. FINDINGS: Increasing right infrahilar radiopacity and left lung base curvilinear radiopacity which may reflect atelectasis versus infectious/inflammatory etiology potentially as a sequela of aspiration. Correlation with symptomatology. No pneumothorax. Trachea is midline. Cardiac mediastinal silhouette is stable. No large pleural effusion. Osseous structures are intact. Soft tissues are unremarkable. XR/XR chest 1V IMPRESSION: Increasing right infrahilar radiopacity and left lung base curvilinear radiopacity which may reflect atelectasis versus infectious/inflammatory etiology potentially as a sequela of aspiration. Correlation with symptomatology. Electronically signed by: Hedy Farias MD 10/17/2024 09:39 AM SUKHWINDER
--- NOTE | 2024-10-17 07:42 | ED_ITS ---
HPI - SOB/Dyspnea General Chief Complaint: Abdominal Pain Stated Complaint: SOB SINCE YESTERDAY COUGH Source: patient, EMS and old records reviewed Mode of arrival: EMS Limitations: no limitations History of Present Illness ED Provider: NATIVIDAD SORIA Narrative: 68 yo male with PMH of COPD on home 2-4L home O2 continues to smoke, CHF, cardiac cath with stent 1 month ago, hypothyroidism, PAF on eliquis, just admitted here 10/04 for COPD and KARTIK he returned on 10/08 received neg and felt better, returned again 10/10 for dyspnea and refused admission. Today he comes in with c/o pain in RLQ that hurts with a cough. He has no n/v/d. His breathing is worse at times due to pain in that area. He never felt a mass but it tears when he coughs or stands up. No constipation n/v/d and is passing flatus. MD elicited complaint: cough (abdominal wall pain) Pertinent past history: COPD, congestive heart failure and diabetes Onset (ago): day(s) (1) Context: recent illness Timing: intermittent Severity: moderate Exacerbating factors: movement and coughing Relieving factors: rest Known history of: COPD and congestive heart failure Associated symptoms: cough Treatment prior to arrival: bronchodilator Related Data Home Medications ?Medication ?Instructions ?Recorded ?Confirmed levothyroxine 25 mcg tablet 25 mcg PO DAILY@0600 10/04/24 10/10/24 rosuvastatin 20 mg tablet 20 mg PO BEDTIME 10/04/24 10/10/24 albuterol sulfate 90 mcg/actuation 2 puff inhalation QID PRN wheezing 10/10/24 10/10/24 aerosol inhaler (Ventolin HFA) prednisone 10 mg tablet See Taper PO DIRECTED 10/10/24 10/10/24 valsartan 80 mg tablet 80 mg PO BID 10/10/24 10/10/24 Previous Rx's ?Medication ?Instructions ?Recorded amiodarone 200 mg tablet 200 mg PO DAILY 90 days #120 tabs 04/30/24 ipratropium 0.5 mg-albuterol 3 mg 3 ml inhalation Q6H PRN wheezing 07/14/24 (2.5 mg base)/3 mL nebulization #180 mL soln budesonide-formoterol HFA 160 2 puff inhalation Q12H #10.2 grams 08/18/24 mcg-4.5 mcg/actuation aerosol inhaler (Symbicort) ipratropium 20 mcg-albuterol 100 1 puff inhalation Q6H #4 grams 08/18/24 mcg/actuation mist for inhalation (Combivent Respimat) clopidogrel 75 mg tablet 75 mg PO DAILY #90 tabs 09/15/24 doxycycline monohydrate 100 mg 100 mg PO Q12H #6 caps 10/06/24 capsule apixaban 5 mg tablet (Eliquis) 5 mg PO BID 90 days #180 tabs 10/14/24 furosemide 40 mg tablet (Lasix) 40 mg PO DAILY 90 days #90 tabs 10/14/24 metoprolol tartrate 25 mg tablet 25 mg PO BID 90 days #180 tabs 10/14/24 Allergies Allergy/AdvReac Type Severity Reaction Status Date / Time No Known Allergies Allergy Verified 10/17/24 07:54 [No Known Allergies*] Review of Systems 2 Review of Systems: Constitutional : No Weight loss, No Fever, No Chills ENT/Mouth : No sore throat, No Rhinorrhea Eyes: No Swelling, No Redness Cardiovascular : No Chest Pain, No SOB, NoEdema Respiratory : pos Cough, No Sputum, No Wheezing Gastrointestinal : no Nausea, no Vomiting, no Diarrhea, positive abdominal Pain, No Hematochezia, No Melena Genitourinary : No Dysuria, No Urinary Frequency, No Hematuria, No Urgency Musculoskeletal : No joint pain, No Myalgias, No Joint Swelling Skin : No Skin Lesions, No rash Neuro : No Weakness, No Numbness, No Dizziness, No Headache All other systems reviewed and are negative. [facility] Past Medical History Attestation statement: The following information was validated with the patient. Source: old records reviewed Medical History Smoker Acquired hypothyroidism Obesity (BMI 30-39.9) Coronary artery disease Congestive heart failure (CHF) Atrial fibrillation with RVR COPD (chronic obstructive pulmonary disease) Surgical History Hx of cardiac cath S/P appendectomy History of coronary artery stent placement Social History Social History Household Members: Significant Other Housing: Apartment Do you presently have visiting nurse or other home services: No Alcohol intake: never Comment: pt refused bed alarm Patient Tobacco Use Status: Former Tobacco user Tobacco use type: Cigarette Cigarette Packs Per Day: 0.25 Cigarettes Per Day: 5 Years Smoked: 50 Smoked in Last 30 Days: No e-Cigarette/Vaping Use: Former Use Second Hand Smoke Exposure: Yes Use of substances other than those prescribed or required for medical reasons: No Substance Use Type: Marijuana Advance Directives: Yes Advance Directives Information Provided: Yes Advance Directives on File: No service: No Current occupational status: retired Cognitive needs: No Hearing needs: No Vision needs: No Physical Exam 2 Vital Signs: Vital Signs: Last Vital Signs Temp 98.2 F 10/17/24 10:49 Pulse 68 10/17/24 10:49 Resp 18 10/17/24 10:49 BP 103/56 L 10/17/24 10:49 Pulse Ox 100 10/17/24 10:49 O2 Del Method Room Air 10/17/24 10:49 O2 Flow Rate 1.5 10/17/24 08:46 Oxygen Flow Rate 4 10/17/24 07:50 BMI result Body Mass Index 30.3 Appearance: Alert. Oriented X3. No acute distress. Eyes: Pupils equal, round and reactive to light. ENT: Pharynx normal. Neck: Normal inspection. Neck supple. CVS: Normal heart rate and rhythm. Pulses normal. Respiratory: No respiratory distress. Breath sounds diminished Abdomen: Soft and very reducible non tender umbilical hernia, R groin he reports pain but I see no mass he does have bruising - no firmness Skin: Skin warm and dry. Normal skin color. Normal skin turgor. Extremities: trace pitting lower extremity edema. Neuro: Oriented X 3. No motor deficit. No sensory deficit. Course Course Course Narrative: WBC count is chronic up and down likely due to recent steroid use and not infection or severe sepsis Medications Administered Discontinued Medications Generic Name Dose Route Start Last Admin Trade Name Ripq PRN Reason Stop Dose Admin Albuterol Sulfate 2.5 mg/ 0 mg 10/17/24 08:20 10/17/24 08:23 Albuterol/Ipratropium 3 ml INHALE 10/17/24 08:21 1 dose ONCE ONE Administration Iohexol 85 ml 10/17/24 10:20 10/17/24 10:20 Iohexol 350 Mg/Ml 100 Ml Infus..Btl IV 10/17/24 10:21 85 ml ONCE ONE Administration Oxycodone HCl 5 mg 10/17/24 09:13 10/17/24 09:25 Oxycodone Hcl Immed Release 5 Mg Tablet PO 10/17/24 09:14 5 mg ONCE ONE Administration Medical Decision Making Medical Decision Making [facility] Narrative: 68 yo male with PMH of COPD on home 2-4L home O2 continues to smoke, CHF, cardiac cath with stent 1 month ago, hypothyroidism, PAF on eliquis here with c/o chronic cough no changes but reports he did have a coughing fit yesterday and now has RLQ pain worried he popped a hernia. On exam I do not see a hernia or feel a hard mass but given his eliquis use I am going to obtain labs, give nebs PRN, cough does not appear infectious and is at baseline. Will need CT scan to rule out hernia/rectus sheath hematoma Differential Diagnosis Differential Diagnoses: The differential diagnosis associated with the presentation includes hernia/rectus sheath hematoma/abd wall strain Admission/Observation Consideration of admission/observation: Escalation of care including admission/observation considered admit for pain control and observation of H/H. He is at risk with his resp status as well would benefit from pulm toilet Consult Healthcare Provider Management of the patient was discussed with: Hospitalist (will admit) Lab Data [facility] Lab Attestation statement: I reviewed the patient's lab results. 10/17/24 10:48 10/17/24 08:09 Labs: Lab Results 10/17/24 10/17/24 Range/Units 08:09 10:48 WBC 16.2 H 13.9 H (4.8-10.8) X10*3/uL RBC 4.04 L 3.94 L (4.60-5.80) X10*6/uL Hgb 12.4 L 12.2 L (14.0-18.0) g/dl Hct 38.3 L 37.4 L (42.0-52.0) % MCV 94.8 94.9 (80.0-98.0) fL MCH 30.7 31.0 (27.0-33.0) pg MCHC 32.4 32.6 (31.0-36.0) g/dl RDW 14.2 14.2 (11.0-16.0) % Plt Count 165 D 155 L (160-400) X10*3/uL MPV 9.8 9.9 (9.4-12.4) fL Immature Gran % (Auto) 1.3 H (0.0-0.4) % Neut % (Auto) 86.3 H (45-73) % Lymph % (Auto) 8.5 L (20-40) % [place] % (Auto) 3.6 (2-11) % Eos % (Auto) 0.2 (0-4) % Baso % (Auto) 0.1 (0-2) % Lymph # (Auto) 1.4 (1.2-4.9) X10*3/uL [place] # (Auto) 0.6 (0.1-1.2) X10*3/uL Eos # (Auto) 0.0 (0.0-0.4) X10*3/uL Baso # (Auto) 0.0 (0.0-0.2) X10*3/uL Abs Immat Gran (auto) 0.21 H (0.00-0.03) X10*3/uL Absolute Neuts (auto) 14.0 H (2.0-8.3) x10*3/uL Absolute Nucleated RBC 0.000 0.000 (0.0-0.012) X10*3/uL Nucleated RBC % (auto) 0.0 0.0 (0.0-0.2) /100WBC Sodium 135 (135-145) mmol/L Potassium 4.1 D (3.3-5.1) mmol/L Chloride 94 L (96-108) mmol/L Carbon Dioxide 32 H (22-29) mmol/L Anion Gap 13 (12-20) BUN 19 H (9-16) mg/dL Creatinine 1.61 H (0.5-1.4) mg/dL Estim Creat Clear Calc 48.1 Estimated GFR 43 Random Glucose 106 (60-115) mg/dL Calcium 8.5 (8.4-10.2) mg/dL Magnesium 2.1 (1.6-2.6) mg/dL Total Bilirubin 0.9 (0.0-1.0) mg/dL Direct Bilirubin 0.4 (0.0-0.5) mg/dL AST 32 (5-37) U/L ALT 27 (0-40) U/L Alkaline Phosphatase 71 (39-117) U/L Troponin I High Sens 8.2 (<3.5-35.0) ng/L B-Natriuretic Peptide 200 H (<100) pg/mL Total Protein 6.4 L (6.5-8.0) g/dL Albumin 3.5 (3.5-5.0) g/dL Independent Interpretation I performed an independent interpretation of an: EKG, Plain X-Ray and CT Scan (rectus sheath hematoma) Interpretation: Rate: 68 Rhythm: NSR with PVCs [place]: normal Normal P waves. Normal SUNSHINE. Normal QRS complex. ST T wave : no KLEVER qTC: 435 prior studies: other than PVCs no sig change The study has been interpreted contemporaneously by me. . Radiology Impression Discussion of test interpretation with radiology: I have reviewed the radiologist's reading. External Record Review External record reviewed: Inpatient record and Outpatient record Discharge Plan Discharge Clinical Impression: Rectus sheath hematoma Patient Disposition: Admitted As Inpatient Prescriptions: No Action metoprolol tartrate 25 mg tablet 25 mg PO BID 90 Days Qty: 180 1RF furosemide [Lasix] 40 mg tablet 40 mg PO DAILY 90 Days Qty: 90 1RF Eliquis 5 mg tablet 5 mg PO BID 90 Days Qty: 180 1RF rosuvastatin 20 mg tablet 20 mg PO BEDTIME levothyroxine 25 mcg tablet 25 mcg PO DAILY@0600 Rx Instructions: Take on an empty stomach, first thing in the morning, with water. Do not eat or drink anything else for 30 minutes afterwards doxycycline monohydrate 100 mg Capsule 100 mg PO Q12H Qty: 6 0RF prednisone 10 mg tablet See Taper PO DIRECTED Taper: Prednisone 30 mg daily for 3 Days and 0 Hour 20 mg daily for 3 Days and 0 Hour 10 mg daily for 3 Days and 0 Hour Rx Instructions: see taper instructions albuterol sulfate [Ventolin HFA] 90 mcg/actuation HFA aerosol inhaler 2 puff INHALATION QID PRN (Reason: wheezing) valsartan 80 mg tablet 80 mg PO BID amiodarone 200 mg tablet 200 mg PO DAILY 90 Days Qty: 120 3RF clopidogrel 75 mg tablet 75 mg PO DAILY Qty: 90 4RF ipratropium-albuterol 0.5 mg-3 mg(2.5 mg base)/3 mL solution for nebulization 3 ml inhalation Q6H PRN (Reason: wheezing) Qty: 180 4RF budesonide-formoterol [Symbicort] 160-4.5 mcg/actuation HFA aerosol inhaler 2 puff inhalation Q12H Qty: 10.2 6RF Combivent Respimat 20-100 mcg/actuation mist 1 puff inhalation Q6H Qty: 4 3RF Print Language: [place]
--- NOTE | 2024-10-17 07:55 | ECG_ITS ---
Test Reason : SOB Blood Pressure : / mmHG Vent. Rate : 068 BPM Atrial Rate : 068 BPM P-R Int : 164 ms QRS Dur : 088 ms QT Int : 410 ms P-R-T Axes : 070 010 060 degrees QTc Int : 435 ms Sinus rhythm with frequent Premature ventricular complexes Low voltage QRS Nonspecific T wave abnormality Abnormal ECG When compared with ECG of 10-OCT-2024 17:18, Premature ventricular complexes are now Present QT has shortened Referred By: Brunilda Vargas Electronically Signed By:BULL NUNN
[2024-10-17 08:14] LABS: MANUAL DIFF FLAG NO
[2024-10-17 08:15] LABS: Basophils Percent Auto 0.1 % (0-2); Eosinophils Percent Auto 0.2 % (0-4); Hematocrit 38.3 % (42.0-52.0); Hemoglobin 12.4 g/dl (14.0-18.0); Imm Gran Abs Auto 0.21 X10*3/uL (0.00-0.03); Imm Gran Pct Auto 1.3 % (0.0-0.4); Lymphocytes Absolute Auto 1.4 X10*3/uL (1.2-4.9); Lymphocytes Percent Auto 8.5 % (20-40); Mean Corpuscular HGB Conc 32.4 g/dl (31.0-36.0); Mean Corpuscular Hemoglobin 30.7 pg (27.0-33.0); Mean Corpuscular Volume 94.8 fL (80.0-98.0); Mean Platelet Volume 9.8 fL (9.4-12.4); Monocytes Absolute Auto 0.6 X10*3/uL (0.1-1.2); Monocytes Percent Auto 3.6 % (2-11); Neutrophils Percent Auto 86.3 % (45-73); Platelet Count 165 X10*3/uL (160-400); Red Blood Count 4.04 X10*6/uL (4.60-5.80); Red Cell Distribution Width 14.2 % (11.0-16.0); White Blood Count 16.2 X10*3/uL (4.8-10.8)
[2024-10-17] MEDS: Albuterol Sulfate 2.5 MG, Albuterol/Iprat 2.5/0.5MG 3 ML 3 ML INHALE (08:23)
[2024-10-17 08:32] LABS: Alanine Aminotransferase 27 U/L (0-40); Albumin Level 3.5 g/dL (3.5-5.0); Alkaline Phosphatase 71 U/L (39-117); Anion Gap 13 (12-20); Aspartate Amino Transferase 32 U/L (5-37); Bilirubin Direct 0.4 mg/dL (0.0-0.5); Bilirubin Total 0.9 mg/dL (0.0-1.0); Blood Urea Nitrogen 19 mg/dL (9-16); Calcium 8.5 mg/dL (8.4-10.2); Carbon Dioxide 32 mmol/L (22-29); Chloride 94 mmol/L (96-108); Creatinine Clr Calc Pharmacy 48.1; Estimated Glomerular Filt Rate 43; Glucose Random 106 mg/dL (60-115); Magnesium 2.1 mg/dL (1.6-2.6); Potassium 4.1 mmol/L (3.3-5.1); Sodium 135 mmol/L (135-145); Total Protein 6.4 g/dL (6.5-8.0)
[2024-10-17 08:37] LABS: B Type Natriuretic Peptide 200 pg/mL (<100)
[2024-10-17 08:39] LABS: Troponin-I High Sensitivity 8.2 ng/L (<3.5-35.0)
[2024-10-17] MEDS: oxyCODONE HCl Immed Release 5 MG TABLET PO ×2 (09:25→17:06)
[2024-10-17] MEDS: iohexoL 350 MG/ML 100 ML INFUS..BTL 85 ML IV (10:20)
[2024-10-17 10:54] LABS: Hematocrit 37.4 % (42.0-52.0); Hemoglobin 12.2 g/dl (14.0-18.0); Mean Corpuscular HGB Conc 32.6 g/dl (31.0-36.0); Mean Corpuscular Volume 94.9 fL (80.0-98.0); Mean Platelet Volume 9.9 fL (9.4-12.4); Platelet Count 155 X10*3/uL (160-400); Red Blood Count 3.94 X10*6/uL (4.60-5.80); Red Cell Distribution Width 14.2 % (11.0-16.0); White Blood Count 13.9 X10*3/uL (4.8-10.8)
--- NOTE | 2024-10-17 12:40 | PM.IMHP ---
History of Present Illness Date of Service: 10/17/24 Attending physician on admission: Nawaf Mcgowan Chief Complaint: Lower right quadrant abdominal pain Pt is a 68-year-old male with a PMH significant for?paroxysmal AFib on Eliquis with MAIA cardioversion 12/08/2023, CAD s/p RCA stenting 08/2024, CHF with mildly reduced EF, COPD chronically on 2-4L home O2, active smoker, and hypothyroidism who presents to the ED with?RLQ abdominal pain x72 hours. Patient states approximately 3 days ago had a ?COPD coughing fit? and then felt a ?pull in the bottom of my gut? and subsequently experienced right lower abdominal/pelvic pain that worsened with cough, standing, or movement. Patient has long had an umbilical hernia, and thought pain was from a new inguinal hernia. Experienced no other symptoms. No nausea, vomiting. Changes to bowel or bladder habits. Denies fever, chills. Chronic Chest tightness, cough, and SOB secondary to COPD at baseline. Pain continued to worsen until patient was unable to tolerate standing or ambulation, so presented to the ED for further evaluation. In the ED pt had soft BP as low as 96/56, otherwise vitals stable and WNL. Labs were significant for leukocytosis of 16.2 (has been chronically elevated), H&H 12.4/38.3, down from 13 0.4/40.9 on 10/10/2024, creatinine 1.61 (elevated from 1.32 on 10/10), and BNP elevated at 200. CT of abdomen/pelvis found right rectus sheath hematoma measuring 4.1 x 4.2 x 8 cm. CTA of chest found atelectasis/consolidation in right middle lobe abutting minor fissure which is slightly retracted, possibly due to mucus plugging. CXR showed increasing right infrahilar radiopacity at left lung base possibly reflecting atelectasis versus infectious/inflammatory etiology. EKG demonstrated sinus rhythm with frequent PVCs but no evidence of significant ST elevations or depressions. Pt was treated with DuoNebs and oxycodone. Pt will be admitted to the hospital under observation for treatment and further evaluation of right rectus sheath hematoma with pain control and close monitoring CBC. Review of Systems Review of Systems: Negative except for that which is stated in the [facility] Medical History Smoker Acquired hypothyroidism Obesity (BMI 30-39.9) Coronary artery disease Congestive heart failure (CHF) Atrial fibrillation with RVR COPD (chronic obstructive pulmonary disease) Surgical History Hx of cardiac cath S/P appendectomy History of coronary artery stent placement Social History Household Members: Significant Other Housing: Apartment Do you presently have visiting nurse or other home services: No Alcohol intake: never Comment: pt refused bed alarm Patient Tobacco Use Status: Former Tobacco user Tobacco use type: Cigarette Cigarette Packs Per Day: 0.25 Cigarettes Per Day: 5 Years Smoked: 50 Smoked in Last 30 Days: No e-Cigarette/Vaping Use: Former Use Second Hand Smoke Exposure: Yes Use of substances other than those prescribed or required for medical reasons: No Substance Use Type: Marijuana Advance Directives: Yes Advance Directives Information Provided: Yes Advance Directives on File: No service: No Current occupational status: retired Cognitive needs: No Hearing needs: No Vision needs: No Meds Allergies Allergy/AdvReac Type Severity Reaction Status Date / Time No Known Allergies Allergy Verified 10/17/24 07:54 [No Known Allergies*] Home Medications ?Medication ?Instructions ?Recorded ?Confirmed ?Last Taken ?Type levothyroxine 25 mcg tablet 25 mcg PO DAILY@0600 10/04/24 10/17/24 10/17/24 04:30 History rosuvastatin 20 mg tablet 20 mg PO BEDTIME 10/04/24 10/17/24 10/16/24 History valsartan 80 mg tablet 80 mg PO BID 10/10/24 10/17/24 10/17/24 04:30 History Physical Exam Vital Signs and Narrative: Vital Signs: Last Vital Signs Temp 98.2 F 10/17/24 10:49 Pulse 68 10/17/24 10:49 Resp 18 10/17/24 10:49 BP 103/56 L 10/17/24 10:49 Pulse Ox 100 10/17/24 10:49 O2 Del Method Room Air 10/17/24 10:49 O2 Flow Rate 1.5 10/17/24 08:46 Oxygen Flow Rate 4 10/17/24 07:50 BMI result Body Mass Index 30.3 Constitutional: Alert, in no acute distress. Mental Status: Oriented to person, place and time. Eyes: Pupils are equal, round, and reactive to light. Ear, Nose, and Throat: Oropharynx clear, mucous membranes moist. Ears and nose without deformities. Trachea midline. Respiratory: Diffuse wheezing and rhonchi. Cardiovascular: S1, S2 regular. No murmurs, rubs, or gallops. Gastrointestinal: Abdomen soft, non-tender, non-distended. Normal bowel sounds. Reducible, nontender umbilical hernia. Right groin tenderness. Small amount of bruising to right groin. No palpable mass. Neurologic: Cranial nerves II-XII are grossly intact bilaterally. No focal neurological deficits. Moves all extremities spontaneously. Skin: Warm, dry. Musculoskeletal: No cyanosis or clubbing. Extremities: No edema. Psychiatric: Normal mood and affect. Results Labs 10/17/24 10:48 10/17/24 08:09 Labs: Laboratory Results - last 24 hr 10/17/24 10/17/24 08:09 10:48 MCV 94.8 94.9 MCH 30.7 31.0 MCHC 32.4 32.6 RDW 14.2 14.2 Plt Count 165 D 155 L MPV 9.8 9.9 Immature Gran % (Auto) 1.3 H Neut % (Auto) 86.3 H Lymph % (Auto) 8.5 L Carroll % (Auto) 3.6 Eos % (Auto) 0.2 Baso % (Auto) 0.1 Lymph # (Auto) 1.4 Carroll # (Auto) 0.6 Eos # (Auto) 0.0 Baso # (Auto) 0.0 Abs Immat Gran (auto) 0.21 H Absolute Neuts (auto) 14.0 H Absolute Nucleated RBC 0.000 0.000 Nucleated RBC % (auto) 0.0 0.0 Anion Gap 13 Estim Creat Clear Calc 48.1 Estimated GFR 43 Random Glucose 106 Calcium 8.5 Magnesium 2.1 Total Bilirubin 0.9 Direct Bilirubin 0.4 AST 32 ALT 27 Alkaline Phosphatase 71 Troponin I High Sens 8.2 B-Natriuretic Peptide 200 H Total Protein 6.4 L Albumin 3.5 Imaging Radiologist's Impressions: Impressions Chest X-Ray 10/17/24 07:55 IMPRESSION: Increasing right infrahilar radiopacity and left lung base curvilinear radiopacity which may reflect atelectasis versus infectious/inflammatory etiology potentially as a sequela of aspiration. Correlation with symptomatology. Electronically signed by: Hedy Farias MD 10/17/2024 09:39 AM EST RP Abdomen/Pelvis CT 10/17/24 09:39 IMPRESSION: 1. There is a right rectus sheath hematoma measuring 4.1 x 4.2 x 8 cm. 2. There is atelectasis/consolidation in the right middle lobe abutting the minor fissure which is slightly retracted, possibly due to mucous plugging. This is more prominent than on the prior study. Centrilobular emphysema. 3. Colonic diverticulosis, severe at the junction of the descending and sigmoid colon. No focal inflammatory process or obstruction. Fleischner guidelines were followed. Electronically signed by: Smith Lipscomb MD 10/17/2024 12:02 PM EST RP Chest CT 10/17/24 09:48 IMPRESSION: 1. There is a right rectus sheath hematoma measuring 4.1 x 4.2 x 8 cm. 2. There is atelectasis/consolidation in the right middle lobe abutting the minor fissure which is slightly retracted, possibly due to mucous plugging. This is more prominent than on the prior study. Centrilobular emphysema. 3. Colonic diverticulosis, severe at the junction of the descending and sigmoid colon. No focal inflammatory process or obstruction. Fleischner guidelines were followed. Electronically signed by: Smith Lipscomb MD 10/17/2024 12:02 PM EST RP Assessment and Plan (1) Rectus sheath hematoma: Qualifiers: Encounter type: initial encounter Qualified Code(s): S30.1XXA - Contusion of abdominal wall, initial encounter Status: Acute Plan Pt is a 68-year-old male with a PMH significant for?paroxysmal AFib on Eliquis with MAIA cardioversion 12/08/2023, CAD s/p RCA stenting 08/2024, CHF with mildly reduced EF, COPD chronically on 2-4L home O2, active smoker, and hypothyroidism who presents to the ED with?RLQ abdominal pain x72 hours. Pt will be admitted to the hospital under observation for treatment and further evaluation of right rectus sheath hematoma with pain control and close monitoring CBC. Right rectus sheath hematoma CT found hematoma measuring 4.1 x 4.2 x 8 cm Likely stress-induced from coughing in the setting Eliquis and clopidogrel use H&H 12.4/38.3, stable while in the ED but reduced from 13.4/40.9 on 10/10 No indication for surgical intervention at this time Analgesics for pain management Hold Plavix and Eliquis today, resume Plavix tomorrow Monitor CBC COPD Does not appear to be in acute exacerbation Wheezing, but no hypoxia Continue home inhalers DuoNebs On 4L NC at home Paroxysmal AFib Hold Eliquis for now Continue amiodarone CAD/HLD S/P JOSE to RCA in 08/2024 Hold Plavix HTN BP soft, hold metoprolol, valsartan for now Resume as warranted Hypothyroidism Levothyroxine DNR/DNI Attending:?Dr. Mcgowan DVT Prophylaxis: Pneumatic compression due to hematoma Patient will be admitted to the hospital under observation for treatment and further evaluation of right rectus sheath hematoma that will require pain control and close H&H monitoring. Quality Stroke Does the patient have a stroke diagnosis?: No VTE Prior VTE?: No VTE Risk Level:: Medical - moderate - high VTE Device Contraindication: Treatment Not Indicated VTE Drug Contraindication: N/A - Med Ordered
--- NOTE | 2024-10-17 13:22 | PHA.MEDREC ---
Addendum entered by Mic Marin [facility] 10/17/24 14:26: Med rec reviewed Original Note: Pharmacy Consult ? Medication Reconciliation Pharmacy has completed the medication reconciliation. Spoke with patient and his at bedside. Patients had a list from home that she verbally read down to me. The patient and his stated he was done with his Doxycycline 100mg regimen about 3 days after coming home from the hospital. and the Prednisone 10mg tab they claim he is done with them and he finished them about 2-3 days ago. , I asked more on that since the script was started 10/06 for 12 days but the got a bit agitated and stated my is not taking any antibiotics right now . The patient confirmed he took his medications this morning around 0430.
[2024-10-17] MEDS: 0.9 % Sodium Chloride Flush 3 ML SYRINGE IVFLUSH ×2 (17:06→19:39)
[2024-10-17] MEDS: Albuterol/Iprat 2.5/0.5MG 3 ML AMPUL.NEB INHALE ×2 (17:16→20:02)
[2024-10-17] MEDS: Morphine Sulfate 2 MG/ML CARTRIDGE IVPUSH (18:02)
[2024-10-17] MEDS: guaiFENesin DM 200/20/10 ML 10 ML SYRUP PO (18:02)
[2024-10-17] MEDS: Valsartan 80 MG TABLET PO (19:39)
[2024-10-17] MEDS: Atorvastatin Calcium 80 MG TABLET PO (19:39)
[2024-10-18] VITALS (13 sets, daily range): BP systolic 97–111; BP diastolic 51–59; PULSE 64–85; RESP 16–20; TEMP 36.3–36.9; O2SAT 87–100
[2024-10-18] MEDS: Albuterol/Iprat 2.5/0.5MG 3 ML AMPUL.NEB INHALE ×6 (01:26→19:48)
--- NOTE | 2024-10-18 03:41 | HO.SKINPHOTO ---
Location: Right hand- thenar region Pt states this has been present since start of admission, but feels that it has spread/worsened . Region is reddened with small areas of bruising, warm to the touch and tender. Outlined area with skin marker.
[2024-10-18] MEDS: Levothyroxine Sodium 25 MCG TABLET PO (05:36)
[2024-10-18] MEDS: Acetaminophen 325 MG TABLET 650 MG PO (05:36)
[2024-10-18] MEDS: guaiFENesin DM 200/20/10 ML 10 ML SYRUP PO (05:56)
--- NOTE | 2024-10-18 05:57 | P.EN_ITS ---
Event Note Date of Service: 10/18/24 Event Note: The patient reports intermittent shortness of breath (SOB), bilateral wheezing, and productive cough with phlegm. He states these episodes occur at home but are typically relieved with a nebulizer. His oxygen requirement has increased to 3 liters. Exam: very pleasant: RR 18, O2 sat 94 on 3 liter, speaks in full sentences Respiratory: No obvious acute respiratory distress observed. Bilateral expiratory wheezing is present without accessory muscle use. Chest Imaging: Chest CT from yesterday shows right middle lobe (RML) consolidation/atelectasis and possible mucus plug. Plan: Acute COPD Exacerbation and Possible RML PNA with acute hypoxic resp failure * IV Solumedrol for inflammation control. * Ceftriaxone and Doxycycline for potential infectious trigger. * Provide flutter valve therapy to aid secretion clearance. * Tessalon and robitussin for cough relief. * Repeat CXR to assess for progression or improvement of consolidation. * Monitor oxygen saturation and titrate O2 as needed to maintain adequate ox ygenation of no more than 94% * Continue nebulizer treatments scheduled and as needed for bronchodilation and symptom relief. Time Spent With Patient Time: Total time managing care of this patient today ____ minutes.
[2024-10-18] MEDS: cefTRIAXone sodium 1 GM VIAL IVPUSH (06:09)
[2024-10-18] MEDS: Doxycycline Monohydrate 100 MG CAPSULE PO ×2 (06:09→17:22)
[2024-10-18] MEDS: Benzonatate 100 MG CAPSULE PO ×3 (06:09→20:31)
[2024-10-18] MEDS: methylPREDNISolone Sod Succ 40 MG/ML VIAL 30 MG IVPUSH ×2 (06:37→17:22)
[2024-10-18 07:08] LABS: Hematocrit 36.1 % (42.0-52.0); Hemoglobin 11.4 g/dl (14.0-18.0); Mean Corpuscular HGB Conc 31.6 g/dl (31.0-36.0); Mean Corpuscular Hemoglobin 30.6 pg (27.0-33.0); Mean Corpuscular Volume 96.8 fL (80.0-98.0); Mean Platelet Volume 10.2 fL (9.4-12.4); Platelet Count 150 X10*3/uL (160-400); Red Blood Count 3.73 X10*6/uL (4.60-5.80); Red Cell Distribution Width 14.6 % (11.0-16.0); White Blood Count 13.1 X10*3/uL (4.8-10.8)
[2024-10-18 07:11] LABS: Anion Gap 11 (12-20); Blood Urea Nitrogen 18 mg/dL (9-16); Calcium 7.9 mg/dL (8.4-10.2); Carbon Dioxide 35 mmol/L (22-29); Chloride 93 mmol/L (96-108); Creatinine Clr Calc Pharmacy 63.4; Estimated Glomerular Filt Rate 59; Glucose Random 73 mg/dL (60-115); Potassium 3.1 mmol/L (3.3-5.1); Sodium 136 mmol/L (135-145)
[2024-10-18] MEDS: Furosemide 40 MG TABLET PO (09:34)
[2024-10-18] MEDS: Valsartan 80 MG TABLET PO ×2 (09:34→20:31)
[2024-10-18] MEDS: Amiodarone HCL 200 MG TABLET PO (09:34)
[2024-10-18] MEDS: Clopidogrel Bisulfate 75 MG TABLET PO (09:34)
[2024-10-18] MEDS: Potassium Chloride ER 20 MEQ TAB.ER.PRT 40 MEQ PO (09:35)
[2024-10-18] MEDS: 0.9 % Sodium Chloride Flush 3 ML SYRINGE IVFLUSH ×3 (09:35→20:40)
--- NOTE | 2024-10-18 09:46 | MHC.CM.PN ---
PT REPORTS HE LIVES WITH HIS S/O AND IS INDEPENDENT WITH PERSONAL CARE PT HAS OXYGEN FROM [facility] AND A NEBULIZER COPY OF HCP REQUESTED, HE REPORTS IT IS HIS [facility] PCP: JESSIE BILL OBSERVATION NOTICE DELIVERED DCP: HOME NO SERVICES S/O TO TRANSPORT
--- NOTE | 2024-10-18 12:28 | HO.PM.IMPN ---
Subjective Subjective Date of Service: 10/18/24 Interval History: seen and evaluated had rough time overnight breathing Hb dropped no abd pain Review of Systems Review of Systems: Yes all other systems are reviewed and are negative Physical Exam Vital Signs: Vital Signs: Last Vital Signs Temp 97.8 F 10/18/24 11:27 Pulse 75 10/18/24 12:00 Resp 20 10/18/24 12:00 BP 100/56 L 10/18/24 12:00 Pulse Ox 95 10/18/24 12:00 O2 Del Method Nasal Cannula 10/18/24 12:00 O2 Flow Rate 4 10/18/24 12:00 Oxygen Flow Rate 4 10/17/24 07:50 BMI result Body Mass Index 30.3 Const: Other: Constitutional : Awake, interactive, not in distress Neck : Normal inspection, Supple Cardiovascular : RRR, no JVP, no lower extremity edema Respiratory : good bilateral air entry, no crackles, bilateral wheezes Gastrointestinal: soft, lax, Normal bowel sounds, Non tender Skin : Warm, Dry Neurological : Alert & oriented x3, No focal deficit Objective Data Active Medications Acetaminophen (Acetaminophen 325 Mg Tablet) 650 mg PO Q6H PRN PRN Reason: Pain, Mild (Pain Scale 1-3), fever or headache Last Admin: 10/18/24 05:36 Dose: 650 mg Documented By: TAMARA Albuterol/Ipratropium (Albuterol/Iprat 2.5/0.5mg 3 Ml Ampul.Neb) 3 ml INHALE RQ4H WHILE AWAKE [facility] Last Admin: 10/18/24 11:25 Dose: 3 ml Documented By: ROSARIO Albuterol/Ipratropium (Albuterol/Iprat 2.5/0.5mg 3 Ml Ampul.Neb) 3 ml INHALE Q2H PRN PRN Reason: Shortness of Breath/Wheezing Last Admin: 10/18/24 03:32 Dose: 3 ml Documented By: NIXON Amiodarone HCl (Amiodarone Hcl 200 Mg Tablet) 200 mg PO DAILY [facility] Last Admin: 10/18/24 09:34 Dose: 200 mg Documented By: TORY Atorvastatin Calcium (Atorvastatin Calcium 80 Mg Tablet) 80 mg PO BEDTIME [facility] Last Admin: 10/17/24 19:39 Dose: 80 mg Documented By: TAMARA Benzonatate (Benzonatate 100 Mg Capsule) 100 mg PO TID PRN PRN Reason: Cough Last Admin: 10/18/24 06:09 Dose: 100 mg Documented By: TAMARA Calcium Carbonate (Calcium Carbonate 750 Mg Tab.Chew) 750 mg PO Q4H PRN PRN Reason: Heartburn Ceftriaxone Sodium (Ceftriaxone Sodium 1 Gm Vial) 1 gm IVPUSH Q24H [facility] Last Admin: 10/18/24 06:09 Dose: 1 gm Documented By: TAMARA Clopidogrel Bisulfate (Clopidogrel Bisulfate 75 Mg Tablet) 75 mg PO DAILY [facility] Last Admin: 10/18/24 09:34 Dose: 75 mg Documented By: TORY Doxycycline Monohydrate (Doxycycline Monohydrate 100 Mg Capsule) 100 mg PO Q12H [facility] Last Admin: 10/18/24 06:09 Dose: 100 mg Documented By: TAMARA Furosemide (Furosemide 40 Mg Tablet) 40 mg PO DAILY [facility]; Protocol Last Admin: 10/18/24 09:34 Dose: 40 mg Documented By: TORY Guaifenesin/Dextromethorphan (Guaifenesin Dm 200/20/10 Ml 10 Ml Syrup) 10 ml PO Q4H PRN PRN Reason: Cough Last Admin: 10/18/24 05:56 Dose: 10 ml Documented By: TAMARA Levothyroxine Sodium (Levothyroxine Sodium 25 Mcg Tablet) 25 mcg PO DAILY@0600 [facility] Last Admin: 10/18/24 05:36 Dose: 25 mcg Documented By: TAMARA Magnesium Hydroxide (Milk Of Magnesia 30 Ml Oral.Susp) 30 ml PO DAILY PRN PRN Reason: Constipation Melatonin (Melatonin 3 Mg Tablet) 6 mg PO BEDTIME PRN PRN Reason: Insomnia Methylprednisolone Sodium Succinate (Methylprednisolone Sod Succ 40 Mg/Ml Vial) 30 mg IVPUSH Q12H [facility] Last Admin: 10/18/24 06:37 Dose: 30 mg Documented By: TAMARA Morphine Sulfate (Morphine Sulfate 2 Mg/Ml Cartridge) 2 mg IVPUSH Q4H PRN; Protocol PRN Reason: Pain, Severe (Pain Scale 7-10) Last Admin: 10/17/24 18:02 Dose: 2 mg Documented By: TORY Ondansetron HCl (Ondansetron Hcl 4 Mg/2 Ml Vial) 4 mg IVPUSH Q8H PRN PRN Reason: Nausea and Vomiting Oxycodone HCl (Oxycodone Hcl Immed Release 5 Mg Tablet) 5 mg PO Q4H PRN PRN Reason: Pain, Moderate(Pain Scale 4-6) Last Admin: 10/17/24 17:06 Dose: 5 mg Documented By: TORY Sodium Chloride (0.9 % Sodium Chloride Flush 3 Ml Syringe) 3 ml IVFLUSH QSHIFT [facility] Last Admin: 10/18/24 09:35 Dose: 3 ml Documented By: TORY Valsartan (Valsartan 80 Mg Tablet) 80 mg PO BID [facility]; Protocol Last Admin: 10/18/24 09:34 Dose: 80 mg Documented By: TORY Labs 10/18/24 05:30 10/18/24 05:30 Labs: Laboratory Results - last 24 hr 10/18/24 05:30 MCV 96.8 MCH 30.6 MCHC 31.6 RDW 14.6 Plt Count 150 L MPV 10.2 Absolute Nucleated RBC 0.000 Nucleated RBC % (auto) 0.0 Anion Gap 11 L Estim Creat Clear Calc 63.4 Estimated GFR 59 Random Glucose 73 Calcium 7.9 L D Assessment and Plan (1) Rectus sheath hematoma: Status: Acute (2) Hypoxia: Status: Acute (3) CHF exacerbation: Status: Acute (4) Acute on chronic blood loss anemia: Status: Acute Plan Pt is a 68-year-old male with a PMH significant for?paroxysmal AFib on Eliquis with MAIA cardioversion 12/08/2023, CAD s/p RCA stenting 08/2024, CHF with mildly reduced EF, COPD chronically on 2-4L home O2, active smoker, and hypothyroidism who presents to the ED with?RLQ abdominal pain x72 hours. Pt will be admitted to the hospital under observation for treatment and further evaluation of right rectus sheath hematoma with pain control and close monitoring CBC. acute on chronic blood loss anemia 2/2 [address]us sheath hematoma CT found hematoma measuring 4.1 x 4.2 x 8 cm Likely stress-induced from coughing in the setting Eliquis and clopidogrel use Hn dropped to 11.5 No indication for surgical intervention at this time Analgesics for pain management Hold Eliquis , resume Plavix Monitor CBC COPD with acute exacerbation Continue home inhalers DuoNebs and steroids On 4L NC at home cough medication Paroxysmal AFib Hold Eliquis for now Continue amiodarone CAD/HLD S/P JOSE to RCA in 08/2024 restart Plavix HTN BP soft, hold metoprolol, valsartan for now Resume as warranted Hypothyroidism Levothyroxine DNR/DNI DVT Prophylaxis: Pneumatic compression due to hematoma Patient will be admitted to the hospital overnight for treatment and further evaluation of anemia 2/2 right rectus sheath hematoma that will require pain control and close H&H monitoring with treatment of COPD exacerbation Quality Stroke Does the patient have a stroke diagnosis?: No VTE Prior VTE?: No VTE Risk Level:: Medical - moderate - high VTE Device Contraindication: Treatment Not Indicated VTE Drug Contraindication: N/A - Med Ordered
[2024-10-18] MEDS: Sodium Chloride 0.65 % Nasal 44 ML SPRBTL 1 SPRAY NOSTRIL-B (17:56)
[2024-10-18] MEDS: Atorvastatin Calcium 80 MG TABLET PO (20:31)
[2024-10-18] MEDS: oxyCODONE HCl Immed Release 5 MG TABLET PO (20:34)
[2024-10-19 02:33] VITALS: BP 101/55; PULSE 76; RESP 18; TEMP 36.2; O2SAT 93
[2024-10-19] MEDS: cefTRIAXone sodium 1 GM VIAL IVPUSH (05:33)
[2024-10-19] MEDS: methylPREDNISolone Sod Succ 40 MG/ML VIAL 30 MG IVPUSH (05:33)
[2024-10-19] MEDS: Levothyroxine Sodium 25 MCG TABLET PO (05:33)
[2024-10-19] MEDS: Doxycycline Monohydrate 100 MG CAPSULE PO (05:33)
[2024-10-19 06:33] LABS: Hematocrit 35.4 % (42.0-52.0); Hemoglobin 11.6 g/dl (14.0-18.0); Mean Corpuscular HGB Conc 32.8 g/dl (31.0-36.0); Mean Corpuscular Hemoglobin 30.9 pg (27.0-33.0); Mean Corpuscular Volume 94.1 fL (80.0-98.0); Mean Platelet Volume 10.1 fL (9.4-12.4); Platelet Count 151 X10*3/uL (160-400); Red Blood Count 3.76 X10*6/uL (4.60-5.80); Red Cell Distribution Width 14.4 % (11.0-16.0); White Blood Count 12.2 X10*3/uL (4.8-10.8)
[2024-10-19 06:34] LABS: Hematocrit 34.8 % (42.0-52.0); Hemoglobin 11.3 g/dl (14.0-18.0); Mean Corpuscular HGB Conc 32.5 g/dl (31.0-36.0); Mean Corpuscular Hemoglobin 30.6 pg (27.0-33.0); Mean Corpuscular Volume 94.3 fL (80.0-98.0); Mean Platelet Volume 10.3 fL (9.4-12.4); Platelet Count 157 X10*3/uL (160-400); Red Blood Count 3.69 X10*6/uL (4.60-5.80); Red Cell Distribution Width 14.3 % (11.0-16.0); White Blood Count 12.5 X10*3/uL (4.8-10.8)
[2024-10-19 07:03] LABS: Anion Gap 12 (12-20); Blood Urea Nitrogen 14 mg/dL (9-16); Calcium 8.7 mg/dL (8.4-10.2); Carbon Dioxide 30 mmol/L (22-29); Chloride 95 mmol/L (96-108); Creatinine Clr Calc Pharmacy 81.5; Estimated Glomerular Filt Rate > 60; Glucose Random 120 mg/dL (60-115); Sodium 133 mmol/L (135-145)
[2024-10-19 07:14] VITALS: BP 113/59; PULSE 71; RESP 18; TEMP 36.6; O2SAT 95
[2024-10-19 08:00] VITALS: PULSE 72; RESP 18; O2SAT 92
[2024-10-19] MEDS: Albuterol/Iprat 2.5/0.5MG 3 ML AMPUL.NEB INHALE (08:00)
[2024-10-19] MEDS: Benzonatate 100 MG CAPSULE PO (08:55)
[2024-10-19] MEDS: Furosemide 40 MG TABLET PO (08:55)
[2024-10-19] MEDS: 0.9 % Sodium Chloride Flush 3 ML SYRINGE IVFLUSH (08:55)
[2024-10-19] MEDS: Clopidogrel Bisulfate 75 MG TABLET PO (08:55)
[2024-10-19] MEDS: Amiodarone HCL 200 MG TABLET PO (08:55)
[2024-10-19] MEDS: Valsartan 80 MG TABLET PO (08:55)
--- NOTE | 2024-10-19 10:45 | PM.DS ---
DS: Providers Provider Date of Service: 10/19/24 Date of admission: 10/17/24 12:43 Date of discharge: 10/19/24 Primary care physician: Papi Sanders MD DS: Diagnosis Discharge Diagnosis (1) Rectus sheath hematoma: Status: Acute (2) Hypoxia: Status: Acute (3) Acute on chronic blood loss anemia: Status: Acute (4) COPD exacerbation: Status: Acute (5) Pneumonia involving right lung: Status: Acute DS: Summary Hospital Course Hospital Course: Admission note HPI Pt is a 68-year-old male with a PMH significant for?paroxysmal AFib on Eliquis with MAIA cardioversion 12/08/2023, CAD s/p RCA stenting 08/2024, CHF with mildly reduced EF, COPD chronically on 2-4L home O2, active smoker, and hypothyroidism who presents to the ED with?RLQ abdominal pain x72 hours. Patient states approximately 3 days ago had a ?COPD coughing fit? and then felt a ?pull in the bottom of my gut? and subsequently experienced right lower abdominal/pelvic pain that worsened with cough, standing, or movement. Patient has long had an umbilical hernia, and thought pain was from a new inguinal hernia. Experienced no other symptoms. No nausea, vomiting. Changes to bowel or bladder habits. Denies fever, chills. Chronic Chest tightness, cough, and SOB secondary to COPD at baseline. Pain continued to worsen until patient was unable to tolerate standing or ambulation, so presented to the ED for further evaluation. In the ED pt had soft BP as low as 96/56, otherwise vitals stable and WNL. Labs were significant for leukocytosis of 16.2 (has been chronically elevated), H&H 12.4/38.3, down from 13 0.4/40.9 on 10/10/2024, creatinine 1.61 (elevated from 1.32 on 10/10), and BNP elevated at 200. CT of abdomen/pelvis found right rectus sheath hematoma measuring 4.1 x 4.2 x 8 cm. CTA of chest found atelectasis/consolidation in right middle lobe abutting minor fissure which is slightly retracted, possibly due to mucus plugging. CXR showed increasing right infrahilar radiopacity at left lung base possibly reflecting atelectasis versus infectious/inflammatory etiology. EKG demonstrated sinus rhythm with frequent PVCs but no evidence of significant ST elevations or depressions. Pt was treated with DuoNebs and oxycodone. Pt will be admitted to the hospital under observation for treatment and further evaluation of right rectus sheath hematoma with pain control and close monitoring CBC. Hospital course The patient was admitted for the following: acute on chronic blood loss anemia secondary to Right rectus sheath hematoma as CT found hematoma measuring 4.1 x 4.2 x 8 cm which is Likely stress-induced from coughing in the setting Eliquis and clopidogrel use with Hb dropped to 11.5 from baseline of 13.5. stable at 11.6 on repeat as No indication for surgical intervention at this time. Analgesics for pain management with no more pain reported. Held Eliquis but resumed Plavix as he has recent stent. To restart Eliquis on Sunday and repeat CBC as outpatient. Noticed to have COPD with acute exacerbation and possible pneumonia as CXR showed new RLL infiltrates. Treated with home inhalers, DuoNebs and steroids, Doxycycline and Ceftriaxone along with cough medication. weaned down O2 to 2L his baseline. Discharge plan Restart Eliquis on Sunday Repeat CBC on Sunday and follow with PCP for result Start Ceftin and Doxycycline for pneumonia treatment as suspected on chest XR Continue 4 more days of Prednisone Use home nebulizer 4 times daily for the next 3 days then as needed Time Attestation Discharge Coordination Time (in mins): 43 Quality: Safe Use of Opioids Does Pt have an Active Cancer Diagnosis on the Problem List?: No Quality: Stroke Does the patient have a stroke diagnosis?: No Physical Exam Vital Signs: Vital Signs: Last Vital Signs Temp 97.9 F 10/19/24 07:14 Pulse 72 10/19/24 08:00 Resp 18 10/19/24 08:00 BP 113/59 L 10/19/24 07:14 Pulse Ox 95 10/19/24 07:14 O2 Del Method Oxymask 10/19/24 07:14 O2 Flow Rate 2 10/19/24 07:14 Oxygen Flow Rate 4 10/17/24 07:50 BMI result Body Mass Index 30.3 Const: Other: Constitutional : Awake, interactive, not in distress Neck : Normal inspection, Supple Cardiovascular : RRR, no JVP, no lower extremity edema Respiratory : good bilateral air entry, no crackles, no more wheezes Gastrointestinal: soft, lax, Normal bowel sounds, Non tender Skin : Warm, Dry Neurological : Alert & oriented x3, No focal deficit DS: Data Data Completed and Pending Completed studies during hospitalization [Text1]: Procedures Confucianism of Cardiac Rhythm, Single (11/22/23) Ultrasonography of Heart with Aorta, Transesophageal (11/22/23) Labs on day of discharge: Laboratory Results - last 24 hr 10/19/24 10/19/24 10/19/24 05:48 05:48 05:48 WBC 12.5 H 12.2 H RBC 3.69 L 3.76 L Hgb 11.3 L Hct MCV MCH MCHC RDW Plt Count MPV Absolute Nucleated RBC Nucleated RBC % (auto) Sodium Potassium Chloride Carbon Dioxide Anion Gap BUN Creatinine Estim Creat Clear Calc Estimated GFR Random Glucose Calcium 10/19/24 10/19/24 10/19/24 05:48 05:48 05:48 WBC RBC Hgb 11.6 L Hct 34.8 L 35.4 L MCV 94.3 94.1 MCH 30.6 MCHC RDW Plt Count MPV Absolute Nucleated RBC Nucleated RBC % (auto) Sodium Potassium Chloride Carbon Dioxide Anion Gap BUN Creatinine Estim Creat Clear Calc Estimated GFR Random Glucose Calcium 10/19/24 10/19/24 10/19/24 05:48 05:48 05:48 WBC RBC Hgb Hct MCV MCH 30.9 MCHC 32.5 32.8 RDW 14.3 14.4 Plt Count 157 L MPV Absolute Nucleated RBC Nucleated RBC % (auto) Sodium Potassium Chloride Carbon Dioxide Anion Gap BUN Creatinine Estim Creat Clear Calc Estimated GFR Random Glucose Calcium 10/19/24 10/19/24 10/19/24 05:48 05:48 05:48 WBC RBC Hgb Hct MCV MCH MCHC RDW Plt Count 151 L MPV 10.3 10.1 Absolute Nucleated RBC 0.000 0.000 Nucleated RBC % (auto) 0.0 Sodium Potassium Chloride Carbon Dioxide Anion Gap BUN Creatinine Estim Creat Clear Calc Estimated GFR Random Glucose Calcium 10/19/24 05:48 WBC RBC Hgb Hct MCV MCH MCHC RDW Plt Count MPV Absolute Nucleated RBC Nucleated RBC % (auto) 0.0 Sodium 133 L Potassium 4.0 D Chloride 95 L Carbon Dioxide 30 H Anion Gap 12 BUN 14 Creatinine 0.95 Estim Creat Clear Calc 81.5 Estimated GFR > 60 Random Glucose 120 H Calcium 8.7 D Imaging Chest x-ray: Radiologist's impression: ITS Impressions Chest X-Ray 10/17/24 07:55 IMPRESSION: Increasing right infrahilar radiopacity and left lung base curvilinear radiopacity which may reflect atelectasis versus infectious/inflammatory etiology potentially as a sequela of aspiration. Correlation with symptomatology. Electronically signed by: Hedy Farias MD 10/17/2024 09:39 AM EST RP Abdomen/Pelvis CT 10/17/24 09:39 IMPRESSION: 1. There is a right rectus sheath hematoma measuring 4.1 x 4.2 x 8 cm. 2. There is atelectasis/consolidation in the right middle lobe abutting the minor fissure which is slightly retracted, possibly due to mucous plugging. This is more prominent than on the prior study. Centrilobular emphysema. 3. Colonic diverticulosis, severe at the junction of the descending and sigmoid colon. No focal inflammatory process or obstruction. Fleischner guidelines were followed. Electronically signed by: Smith Lipscomb MD 10/17/2024 12:02 PM EST RP Chest CT 10/17/24 09:48 IMPRESSION: 1. There is a right rectus sheath hematoma measuring 4.1 x 4.2 x 8 cm. 2. There is atelectasis/consolidation in the right middle lobe abutting the minor fissure which is slightly retracted, possibly due to mucous plugging. This is more prominent than on the prior study. Centrilobular emphysema. 3. Colonic diverticulosis, severe at the junction of the descending and sigmoid colon. No focal inflammatory process or obstruction. Fleischner guidelines were followed. Electronically signed by: Smith Lipscomb MD 10/17/2024 12:02 PM EST RP Chest X-Ray 10/18/24 05:58 IMPRESSION: 1. New patchy right basilar opacities which could represent atelectasis versus early pneumonia. 2. Chronic interstitial prominence is unchanged. Electronically signed by: Jose Zuniga MD 10/18/2024 07:43 AM EST RP Discharge Plan Discharge Anticipated Discharge Date/Time: 10/19/24 10:37 Patient Disposition: Home, Self-Care Discharge Diagnosis: Blood loss anemia: Rectus sheath hematoma COPD exacerbation Referrals: Papi Sanders MD [Primary Care Provider] - 1 Week Discharge Medications: New doxycycline monohydrate 100 mg Capsule 100 mg PO Q12H Qty: 10 0RF benzonatate 100 mg Capsule 100 mg PO TID Qty: 20 0RF prednisone 20 mg tablet 40 mg PO DAILY Qty: 8 0RF cefuroxime axetil 500 mg tablet 500 mg PO BID Qty: 10 0RF Continued metoprolol tartrate 25 mg tablet 25 mg PO BID 90 Days Qty: 180 1RF furosemide [Lasix] 40 mg tablet 40 mg PO DAILY 90 Days Qty: 90 1RF rosuvastatin 20 mg tablet 20 mg PO BEDTIME levothyroxine 25 mcg tablet 25 mcg PO DAILY@0600 Rx Instructions: Take on an empty stomach, first thing in the morning, with water. Do not eat or drink anything else for 30 minutes afterwards valsartan 80 mg tablet 80 mg PO BID amiodarone 200 mg tablet 200 mg PO DAILY 90 Days Qty: 120 3RF clopidogrel 75 mg tablet 75 mg PO DAILY Qty: 90 4RF ipratropium-albuterol 0.5 mg-3 mg(2.5 mg base)/3 mL solution for nebulization 3 ml inhalation Q6H PRN (Reason: wheezing) Qty: 180 4RF budesonide-formoterol [Symbicort] 160-4.5 mcg/actuation HFA aerosol inhaler 2 puff inhalation Q12H Qty: 10.2 6RF Combivent Respimat 20-100 mcg/actuation mist 1 puff inhalation Q6H Qty: 4 3RF Held Eliquis 5 mg tablet 5 mg PO BID 90 Days Qty: 180 1RF Hold Instructions: Resume on 10/22/24. Discharge Orders: Discharge Order (Routine); Ordered 10/19/24 Ordered By: Nawaf Mcgowan Diet: Low salt diet Activity on Discharge: As tolerated Stand Alone Forms: Patient Portal Discharge page Print Language: Mongolian Other Ambulatory Orders: Complete Blood Count Auto Diff (Routine) Timeframe: 3 Days Facility: [facility] - Location: Laboratory Ordered By: Nawaf Mcgowan Care Plan Goals: Restart Eliquis on Sunday Repeat CBC on Wednesday and follow with PCP for result Start Ceftin and Doxycycline for pneumonia treatment as suspected on chest XR Continue 4 more days of Prednisone Use home nebulizer 4 times daily for the next 3 days then as needed Health Concerns: as above Plan of Treatment: Rectus sheath hematoma COPD exacerbation\Pneumonia Assessment: Antibiotics Hold Eliquis
--- NOTE | 2024-10-19 11:07 | MHC.CM.PN ---
PT WILL DC HOME TODAY WITH NO SERVICES S/O TO TRANSPORT
== END 2024-10-19 11:14 | disposition home or self-care (01) ==
LOC: HO.ED 12:14 → HO.S3 14:09 → HO.EDOVER 15:32 → HO.S3 15:32
PROVIDERS: Admitting Provider Student in an Organized Health Care Education/Training Program; Emergency Provider Emergency Medicine; PCP Internal Medicine; Visit Provider Student in an Organized Health Care Education/Training Program
DX: D62 Acute posthemorrhagic anemia (principal); M79.81 Nontraumatic hematoma of soft tissue; J44.1 Chronic obstructive pulmonary disease with (acute) exacerbation; J18.9 Pneumonia, unspecified organism; I48.0 Paroxysmal atrial fibrillation; I11.0 Hypertensive heart disease with heart failure; I50.9 Heart failure, unspecified; E03.9 Hypothyroidism, unspecified; R09.02 Hypoxemia; R10.31 Right lower quadrant pain; J44.9 Chronic obstructive pulmonary disease, unspecified; R05.9 Cough, unspecified; E11.9 Type 2 diabetes mellitus without complications; E78.5 Hyperlipidemia, unspecified; I25.10 Atherosclerotic heart disease of native coronary artery without angina pectoris; R50.9 Fever, unspecified; Z79.01 Long term (current) use of anticoagulants; Z79.899 Other long term (current) drug therapy; Z66 Do not resuscitate
CPT/HCPCS: 36415; 71045; 71250; 74177; 80048; 80076; 83735; 83880; 84484; 85025; 85027; 93005; 94640; 96374; 96375; 96376; 99221; 99285; J0696; J2270; J2919; Q9967

== ENCOUNTER → 2024-10-17 07:55 | Outpatient (BNV) | payer MEDICARE, SELFPAY | PROVIDERS: Admitting Provider Student in an Organized Health Care Education/Training Program; Emergency Provider Emergency Medicine; PCP Internal Medicine; Visit Provider Internal Medicine | DX: R94.31 Abnormal electrocardiogram [ECG] [EKG] (principal) | CPT/HCPCS: 93010 ==

== ENCOUNTER → 2024-10-17 12:43 | Outpatient (BNV) | payer MEDICARE, SELFPAY | PROVIDERS: Admitting Provider Student in an Organized Health Care Education/Training Program; Emergency Provider Emergency Medicine; PCP Internal Medicine; Visit Provider Internal Medicine | DX: S30.1XXA Contusion of abdominal wall, initial encounter (principal); R09.02 Hypoxemia; D62 Acute posthemorrhagic anemia; J44.1 Chronic obstructive pulmonary disease with (acute) exacerbation; J18.9 Pneumonia, unspecified organism | CPT/HCPCS: 99222; 99232; 99239; 99499 ==

== ENCOUNTER 2024-10-28 10:46 | Outpatient (AMB) | payer MEDICARE, SELFPAY ==
--- NOTE | 2024-10-28 10:46 | MHC.OFFVIS ---
Vital Signs 10/28/24 10:55 Height 5 ft 9 in Weight 202 lb BMI 29.8 BP 94/52 L Blood Pressure Location Rt brachial Position Sitting Pulse 81 Oxygen Delivery Method Nasal Cannula Intake Visit Reasons: Umbilical hernia Intake Note: Patient referred by pcp Dr. Sanders for umbilical hernia. Present for 1yr. Patient c/o; pain above umbilicus. CT abd: 10-17-2024. 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 He was seen by 1 of my colleagues and during the summer. He now presents here because the hernia is still symptomatic and he would like to have it repaired. Patient presents with his significant other. Chart was reviewed and patient evaluated. Patient has appreciable and numerous comorbidities. Cardiac history as noted above. He is on Eliquis and Plavix for drug-eluting stents placed. He requires home O2. [facility] Medical History CHF exacerbation Smoker Acquired hypothyroidism Obesity (BMI 30-39.9) Coronary artery disease Congestive heart failure (CHF) Atrial fibrillation with RVR COPD (chronic obstructive pulmonary disease) Surgical History Hx of cardiac cath S/P appendectomy History of coronary artery stent placement Social History Household Members: Significant Other Housing: Apartment Do you presently have visiting nurse or other home services: No Alcohol intake: never Comment: pt refused bed alarm Patient Tobacco Use Status: Former Tobacco user Tobacco use type: Cigarette Cigarette Packs Per Day: 0.25 Cigarettes Per Day: 5 Years Smoked: 50 e-Cigarette/Vaping Use: Former Use Second Hand Smoke Exposure: Yes Substance Use Type: Marijuana Advance Directives Date on File: 10/17/24 service: Yes Current occupational status: retired Cognitive needs: No Hearing needs: No Vision needs: No Physical Exam Vital Signs: Last Vital Signs Pulse 81 10/28/24 10:55 BP 94/52 L 10/28/24 10:55 Oxygen Delivery Method Nasal Cannula 10/28/24 10:55 BMI result Body Mass Index 29.8 Const Other: Patient on portable oxygen. No acute respiratory distress. Able to converse easily. Chest Other: Chest breath sounds bilaterally, consistent with COPD. HS 1 in 2 GI Other: Patient was examined both supine and standing with Valsalva. Abdomen mildly corpulent, soft, benign. Patient has a reducible roughly 3 cm supraumbilical ventral hernia. Assessment & Plan Assessment & Plan (1) Ventral hernia: Comment: supraumbilical Code(s): K43.9 - Ventral hernia without obstruction or gangrene Category: Surgical Qualifiers: Obstruction and gangrene presence: without obstruction or gangrene Qualified Code(s): K43.9 - Ventral hernia without obstruction or gangrene Plan Patient would like to have this repaired as noted above. Risks, benefits, alternatives of procedure reviewed with the patient and the significant other and included but not limited to bleeding, infection, recurrence, numbness, pain, scarring and the patient wishes to proceed. We will have him see Cardiology regarding his anticoagulation. With the appropriate anesthesia provider, this patient should be a candidate for MAC anesthesia and local anesthesia of for repair. Arrangements will be made when the above has occurred and the patient has been cleared. I discussed with the patient that he may need to wait at least 3-4 more months status post stenting before the Plavix can be held but that will be deferred to the contact representative. All questions answered. Coding Level of Care Code New Pt Level 5 (42358) Diagnoses Ventral hernia without obstruction or gangrene K43.9 Obstruction and gangrene presence: without obstruction or gangrene
[2024-10-28 10:55] VITALS: BP 94/52; PULSE 81; BMI 29.8
== END 2024-10-28 11:00 | disposition home or self-care (01) ==
PROVIDERS: PCP Internal Medicine; Referring Provider Internal Medicine; Visit Provider Surgery
DX: K43.9 Ventral hernia without obstruction or gangrene (principal)
CPT/HCPCS: 99204

== ENCOUNTER → 2024-10-28 10:46 | Outpatient (BNVA) | payer MEDICARE, SELFPAY | PROVIDERS: PCP Internal Medicine; Referring Provider Internal Medicine; Visit Provider Surgery | DX: K43.9 Ventral hernia without obstruction or gangrene (principal) | CPT/HCPCS: 99202 ==

== ENCOUNTER → 2024-11-13 19:30 | Outpatient (REF) | payer MEDICARE, SELFPAY | LOC: HO.SL 19:30 | PROVIDERS: PCP Internal Medicine; Visit Provider Nurse Practitioner Family | DX: G47.33 Obstructive sleep apnea (adult) (pediatric) (principal); G47.34 Idiopathic sleep related nonobstructive alveolar hypoventilation | CPT/HCPCS: 95811 ==

== ENCOUNTER → 2024-11-13 20:57 | Outpatient (BNV) | payer MEDICARE, SELFPAY | PROVIDERS: PCP Internal Medicine; Visit Provider Internal Medicine | DX: G47.33 Obstructive sleep apnea (adult) (pediatric) (principal) | CPT/HCPCS: 95811 ==

== ENCOUNTER 2025-01-21 13:37 | Outpatient (AMB) | payer MEDICARE, SELFPAY ==
--- NOTE | 2025-01-21 13:45 | A.OFFVIS_ITS ---
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 Accompanied by: Self / Same As Patient Allergies No Known Allergies [No Known Allergies*] Allergy (Verified 10/28/24 10:53) Medication List - Last Reconciled 01/21/25 by Yordy De La Rosa MD amiodarone 200 mg PO DAILY 90 days apixaban (Eliquis) 5 mg PO BID 90 days benzonatate 100 mg PO TID budesonide-formoterol 160-4.5 mcg/actuation (Symbicort) 2 puffs inhalation Q12H cefuroxime axetil 500 mg PO BID clopidogrel 75 mg PO DAILY doxycycline monohydrate 100 mg PO Q12H furosemide (Lasix) 40 mg PO DAILY 90 days ipratropium-albuterol 0.5 mg-3 mg(2.5 mg base)/3 mL 3 mL inhalation Q6H PRN ipratropium-albuterol 20-100 mcg/actuation (Combivent Respimat) 1 puff inhalation Q6H levothyroxine 25 mcg PO DAILY@0600 metoprolol tartrate 25 mg PO BID 90 days prednisone 40 mg (2 x 20 mg) PO DAILY rosuvastatin 20 mg PO BEDTIME umeclidinium 62.5 mcg/actuation (Incruse Ellipta) 1 inh inhalation DAILY valsartan 80 mg PO BID HPI Comments Details: Pleasant 69-year-old gentleman who is here for follow-up. He has background history of COPD, paroxysmal atrial fibrillation and severe cardiomyopathy for which he underwent MAIA cardioversion in 12/08/2023. Subsequently had another episode of atrial fibrillation and went to the ER but this was self-limiting. He has been on amiodarone since then. He has not sure whether he is taking amiodarone daily or twice a day. He is also on digoxin, metoprolol tartrate 25 mg twice a day and apixaban 5 mg twice a day. He has been experiencing abdominal pain due to ventral hernia and is being considered for surgery. He is sent to us for perioperative cardiovascular risk assessment. He has shortness of breath with short distance activity. He continues to smoke up to 3 cigarettes per day. He has not seen pulmonology in the past. 09/15/24: He is here for follow-up. He underwent cardiac catheterization for abnormal nuclear perfusion imaging showing inferior perfusion defect. This was done on September 04. He was noticed to have severe distal RCA stenosis involving the PDA PL bifurcation. This was treated with provisional approach with 2.75 by 18 mm tori JOSE which was post dilated with 3.5 mm balloon proximally. He was noticed to have hypoxia at rest and we decided to admit him and involve Pulmonary have nurse to see if we can get home oxygen arranged for him. He said he had oxygen arranged for him and went home. Next day he had some swelling at the wrist/cath site which slowly progressed and he has significant bruising of his whole forearm and lower part of the arm. He has some swelling there too. He is denying any trauma to the arm. He has left arm bruising which is improving and he is saying this is due to local trauma from bumping into things etcetera. He is on Plavix 75 mg daily and Eliquis currently. He is on prednisone for COPD. 01/21/2025: Here for follow-up. Denying chest pain or shortness of breath. He is saying he has been doing quite well. Currently not taking apixaban, amiodarone, Lasix and rosuvastatin because the pharmacy did not refill his prescriptions. Continues to smoke 3 cigarettes per day. [facility] Medical History CHF exacerbation Smoker Acquired hypothyroidism Obesity (BMI 30-39.9) Coronary artery disease Congestive heart failure (CHF) Atrial fibrillation with RVR COPD (chronic obstructive pulmonary disease) Surgical History Hx of cardiac cath S/P appendectomy History of coronary artery stent placement Social History Household Members: Significant Other Housing: Apartment Do you presently have visiting nurse or other home services: No Alcohol intake: never Comment: pt refused bed alarm Patient Tobacco Use Status: Former Tobacco user Tobacco use type: Cigarette Cigarette Packs Per Day: 0.25 Cigarettes Per Day: 5 Years Smoked: 50 e-Cigarette/Vaping Use: Former Use Second Hand Smoke Exposure: Yes Substance Use Type: Marijuana Advance Directives Date on File: 10/17/24 service: Yes Current occupational status: retired Cognitive needs: No Hearing needs: No Vision needs: No Review of Systems Const Denies chills, Denies fatigue, Denies fever(s), Denies frequent falls, Denies weakness, Denies weight gain and Denies weight loss ENT Denies dizziness Card Denies chest pain, Denies leg edema, Denies lightheadedness, Denies palpitations, Denies dyspnea and Denies dyspnea on exertion Resp Denies cough, Denies dyspnea and Denies dyspnea on exertion GI Denies hematochezia Musc Denies abnormal gait, Denies muscle weakness, Denies numbness, Denies radiating pain into limb and Denies tingling Neuro Denies abnormal gait, Denies dizziness, Denies frequent falls, Denies numbness, Denies tingling and Denies weakness Endo Denies fatigue and Denies palpitations Physical Exam Vital Signs: Last Vital Signs Pulse 89 01/21/25 13:47 BP 124/66 01/21/25 13:47 BMI result Body Mass Index 28.6 GENERAL APPEARANCE: in no acute distress, pleasant. NECK: no carotid bruit, no jugular venous distention. SKIN: no suspicious lesions, warm and dry. HEART: no murmurs, regular rate and rhythm. LUNGS: clear to auscultation bilaterally. ABDOMEN: soft, nontender. EXTREMITIES: no edema. PERIPHERAL PULSES: equal. NEUROLOGIC: No gross deficits, AAO X 3 Assessment & Plan Assessment & Plan (1) Coronary artery disease: Code(s): I25.10 - Atherosclerotic heart disease of [place] coronary artery without angina pectoris Category: Medical Qualifiers: Coronary Disease-Associated Artery/Lesion type: [place] artery [place] vs. transplanted heart: [place] heart Associated angina: without angina Qualified Code(s): I25.10 - Atherosclerotic heart disease of [place] coronary artery without angina pectoris (2) PAF (paroxysmal atrial fibrillation): Code(s): I48.0 - Paroxysmal atrial fibrillation Category: Medical (3) Stable angina: Code(s): I20.89 - Other forms of angina pectoris Category: Medical Plan Pleasant 69 year gentleman with a tachycardia induced cardiomyopathy which improved after cardioversion. He is on amiodarone and was previously referred to EP but is yet to see electrophysiology for ablation. On anticoagulation with apixaban but did not get refills at pharmacy and has not been taking it. I have sent refills for the medications he mentioned. Known coronary disease with a distal RCA severe stenosis with saturated with drug-eluting stent. He is on Plavix. No bleeding reported. Clinically stable. He is still smokes 3 cigarettes per day but plans not to quit smoking completely. Thank you for allowing me to participate in the care of your patient. Please feel free to contact me if you have any questions. Medications: New apixaban 5 mg PO BID 120 tabs 3RF rosuvastatin 20 mg PO BEDTIME 90 tabs 3RF Refilled furosemide (Lasix) 40 mg PO DAILY 90 days 90 tabs 3RF amiodarone 200 mg PO DAILY 90 days 120 tabs 3RF Discontinued apixaban (Eliquis) Discontinued Reason: Doctor's Order 5 mg PO BID 90 days 180 tabs 1RF Coding Level of Care Code Est Pt Level 4 (03438) Diagnoses Coronary artery disease involving [place] coronary artery of [place] heart without angina pectoris I25.10 Coronary Disease-Associated Artery/Lesion type: [place] artery [place] vs. transplanted heart: [place] heart Associated angina: without angina PAF (paroxysmal atrial fibrillation) I48.0 Stable angina I20.89
[2025-01-21 13:47] VITALS: BP 124/66; PULSE 89; BMI 28.6
--- OUTSIDE RECORDS SUMMARY | 2025-01-21 16:14 | XMS_ITS | Continuity of Care Document ---
Author Organization [facility] Address [address] [place] [id number]- Care Team Providers Care Heavy Equipment Mechanic Name Role Phone Papi Sanders MD Primary Care Physician Encounter [facility] [place] Date(s): 10/24/24 - 01/17/25 [facility] [address] [place] [id number] Attending Physician: Ceasar Gonzalez DO Admitting Physician: Ceasar Gonzalez DO Referring Physician: Papi Sanders MD Encounter Type: Pre-OutPatient One Time Allergies, Adverse Reactions, Alerts No Known Allergies Immunizations Given and Recorded Vaccine Date Status Refusal Reason influenza virus vaccine, inactivated 1 08/06/17 Re corded Tet/Diphth/Acel, Pertussis (oldterm) 2 08/11/08 Gi [facility]na 1Location History: [facility] 2Admin Note: SANOFI PASTUER HANDOUT DATED 04-04-07 Medications albuterol CFC free 90 mcg/inh inhalation aerosol 2, puffs, Inhalation, 4 times a day, PRN, # 1 each, Refills 2, Tot. Refills 2, Maintenance, 12/10/1909:28:43 AM EST, Aerosol, Route to Pharmacy Electronically, [id number], [id number] Start Date: 12/10/18 Status: Ordered Quantity: 1.0 Unit: each Repeat number: 3 amiodarone 200 mg oral tablet 200 mg, 1, tablet, By Mouth, Daily, Refills 0, Maintenance, 03/27/18 7:06:54 AM EDT Start Date: 03/27/18 Status: Ordered Repeat number: 1 clopidogrel 75 mg oral tablet 75 mg, By Mouth, Daily, # 30 tablet, Refills 0, Tot. Refills 0, Maintenance, 09/07/24 12:35:00 PM EDT, Route to Pharmacy Electronically, [facility], Partial fill upon patient request ifthe prescription is for a schedule II opioid drug., 175.3, cm, 09/07/24 8:38:00 EDT, Height Start Date: 09/07/24 Stop Date: 10/07/24 Status: Ordered Quantity: 30.0 Unit: tablet Repeat number: 1 Combivent Respimat 20 mcg-100 mcg/inh inhalation aerosol 1 puffs, Inhalation, 4 times a day, # 4 Gm, 0 Refills, Maintenance, 09/07/24 12:30:00 PM EDT, Aerosol, [facility] 3, Partial fill upon patient request if the prescription is for a schedule II opioid drug., 1 puffs Inhalation 4 times a day,x30 days, 175.3, cm, 09/07/24 8:38:00 EDT, Height Start Date: 09/07/24 Stop Date: 10/07/24 Status: Ordered Quantity: 4.0 Unit: g Repeat number: 1 CPAP Machine and supplies CPAP Machine and supplies, See Instructions, # 1 each, Refills 11, Tot. Refills 11, Maintenance, Cpap machine with mask, tubing,filters,headgear,and water chamber,with 12 cm H2O, heated humidifier, via mask DX DUSTIN G47.33, 04/19/17 10:32:42 AM EDT, Compound Start Date: 04/19/17 Status: Ordered Quantity: 1.0 Unit: each Repeat number: 12 Eliquis 5 mg oral tablet 1 tablet = 5 mg, By Mouth, 2 times a day, # 60 tablet, 0 Refills, Maintenance, 09/07/24 12:35:00 PMEDT, Tablet, [facility], 175.3, cm, 09/07/24 8:38:00 EDT, Height Start Date: 09/07/24 Status: Ordered Quantity: 60.0 Unit: tablet Repeat number: 1 furosemide 40 mg oral tablet 40 mg, 1, tablet, By Mouth, Daily, # 30 tablet, Refills 0, Maintenance, 07/17/18 6:12:06 PM EDT Start Date: 07/17/18 Status: Ordered Quantity: 30.0 Unit: tablet Repeat number: 1 Lab orders Lab orders, See Instructions, # 1 each, Refills 0, Tot. Refills 0, Maintenance, H & H, BUN/Cr, electrolytes, 07/18/18 12:09:21 PM EDT, Compound Start Date: 07/18/18 Status: Ordered Quantity: 1.0 Unit: each Repeat number: 1 levothyroxine 0.025 mg oral tablet TAKE 1 TABLET BY MOUTH EVERY DAY IN THE MORNING Start Date: 09/05/24 Status: Ordered Repeat number: 1 metoprolol 25 mg oral tablet 25 mg, 1, tablet, By Mouth, 2 times a day, # 60 tablet, Refills 0, Maintenance, 09/04/24 9:48:00 AMEDT, Partial fill upon patient request if the prescription is for a schedule II opioid drug. Start Date: 09/04/24 Status: Ordered Quantity: 60.0 Unit: tablet Repeat number: 1 rosuvastatin 20 mg oral tablet = 20 mg, By Mouth, Daily, # 30 tablet, 0 Refills, Maintenance, 09/07/24 1:01:00 PM EDT, Tablet, [facility] 3, Partial fill upon patient request if the prescription is for a schedule II opioid drug., 175.3, cm, 09/07/24 8:38:00 EDT, Height Start Date: 09/07/24 Stop Date: 10/07/24 Status: Ordered Quantity: 30.0 Unit: tablet Repeat number: 1 Symbicort 160mcg/4.5mcg Inhaler 2, puffs, Inhalation, 2 times a day, # 6 Gm, Refills 0, Tot. Refills 0, Maintenance, 09/07/24 12:30:00 PM EDT, Inhaler, Route to Pharmacy Electronically, [id number], [facility], 175.3, cm, 09/07/24 8:38:00 EDT, Height Start Date: 09/07/24 Stop Date: 10/07/24 Status: Ordered Quantity: 6.0 Unit: g Repeat number: 1 valsartan 40 mg oral tablet 40 mg, 1, tablet, By Mouth, 2 times a day, # 60 tablet, Refills 0, Maintenance, 09/04/24 10:03:00 AM EDT, Partial fill upon patient request if the prescription is for a schedule II opioid drug. Start Date: 09/04/24 Status: Ordered Quantity: 60.0 Unit: tablet Repeat number: 1 Problem List Condition Confirmation Course Effective Dates Status Health St atus Informant COPD exacerbation Confirmed Active NSTEMI (non-ST elevated myocardial infarction) Confirmed Active Benign essential hypertension Confirmed Active COPD (chronic obstructive pulmonary disease) Confirmed Active Cigarette smoker Confirmed Active Dizziness Confirmed Active Elevated blood pressure Confirmed Active NSVT (nonsustained ventricular tachycardia) Confirmed Active Obese class I Confirmed Active DUSTIN (obstructive sleep apnea) Confirmed Active Social History Social History Type Response Smoking Status Former smoker entered on: 04/10/18 Sex Sex Representation Male (finding) Patient Care team information Care Team Personnel Name: Papi Sanders MD Position: Reference Physician Member Role: PCP Address: [address] [place] [address] Telecom: Name: Donna Cuba RN Position: S RN Member Role: Primary Care Nurse Name: Stefanie Gaona RN Position: S RN Member Role: Primary Care Nurse Name: Silvana Bustillos RN Position: S RN Member Role: Primary Care Nurse Name: Yanet Iyer RN Position: S RN Member Role: Primary Care Nurse Name: Teresa Gardner RN Position: S RN Member Role: Primary Care Nurse Name: Wero Hoskins RN Position: S RN Supelizabeth Member Role: Primary Care Nurse Name: Shena Loera RN Position: S RN Member Role: Primary Care Nurse Care Team Related Persons Name: HAILEY GEORGETTE Name: KADE SAUCEDO Name: KADE BEEBE Insurance Providers Guarantor name: AMINAH BEEBE Health Plan Information #: 2 Payer: [facility] Member Number: [id number] Policy Number: NA Group Number: NA Health Plan Information #: 1 Payer: NA Member Number: [id number] Policy Number: NA Group Number: [id number]
--- OUTSIDE RECORDS SUMMARY | 2025-01-21 16:14 | XMS_ITS | Clinical Summary ---
Author Organization [facility] Address [address] [place] [address] Care Team Providers Care Blue Line Operator Name Role Phone Akshat Bill Primary Care Provider Unav ailable Allergies No known active allergies Medications Medication Sig Dispensed Refills Start Date End Date Status PROAIR HFA 108 (90 Base) MCG/ACT inhaler Inhale 2 puffs as needed. 02/26/2018 Active amiODARONE (PACERONE) 200 MG tablet Take 1 tablet by mouth daily. 03/04/2018 Active ELIQUIS 5 MG tablet Take 1 tablet by mouth 2 (two) times a day. 03/04/2018 Active ASPIR-LOW 81 MG EC tablet Take 1 tablet by mouth daily. 01/24/2018 Active atorvastatin (LIPITOR) 80 MG tablet Take 1 tablet by mouth nightly. 03/04/2018 Active SYMBICORT 160-4.5 MCG/ACT inhaler Inhale 2 puffs 2 (two) times a day. 02/27/2018 Active diltiazem (CARDIZEM CD) 240 MG 24 hr capsule Take 1 capsule by mouth daily. 02/27/2018 Active furosemide (LASIX) 40 MG tablet Take 1 tablet by mouth daily. 03/04/2018 Active metoPROLOL TARTRATE (LOPRESSOR) 50 MG tablet Take 1 tablet by mouth 2 (two) times a day. 02/26/2018 Active ATROVENT HFA 17 MCG/ACT inhaler Inhale 1 puff as needed. 02/27/2018 Active ranitidine (ZANTAC) 150 MG capsule Take 300 mg by mouth daily. Active Active Problems Problem Noted Date Diagnosed Date Atrial fibrillation 03/25/2018 Persistent atrial fibrillation 03/18/2018 Overview (03/18/2018): Added automatically from request for surgery [id number] Social History Tobacco Use Types Packs/Day Years Used Date Smoking Tobacco: Light Smoker Smokeless Tobacco: Never Comments:1-2 cigarettes/ day Alcohol Use Standard Drinks/Week Comments Yes 0 (1 standard drink = 0.6 oz pur e alcohol) occasionally Sex and Gender Information Value Date Recorded Sex Assigned at Not on file Gender Identity Not on file Sexual Orientation Not on file Last Filed Vital Signs Vital Sign Reading Time Taken Comments Blood Pressure 94/53 03/26/2018 11:54 AM EDT Pulse 61 03/26/2018 11:54 AM EDT Temperature 36.7 ??C (98 ??F) 03/26/2018 8:00 AM EDT Respiratory Rate 18 03/26/2018 3:59 AM EDT Oxygen Saturation 90% 03/26/2018 11:54 AM EDT Inhaled Oxygen Concentration - - Weight 113 kg (249 lb 6.4 oz) 03/26/2018 8:00 AM EDT Height 177.8 cm (5' 10 ) 03/25/2018 6:38 AM EDT Body Mass Index 35.79 03/25/2018 6:38 AM EDT Plan of Treatment Health Maintenance Due Date Last Done Comments Hepatitis C Virus Screening 1953 DTaP/Tdap/Td Vaccines (1 - Tdap) 1972 Colonoscopy 1998 Pneumococcal Vaccines 50+ (1 of 1 - PCV) 2003 Zoster (Shingles) Vaccine (1 of 2) 2003 Influenza Vaccine 06/19/2024 COVID-19 Vaccine (1 - 2023-2 5 season) 2024 RSV Vaccine 60 years and old er and Patients (1 - 1-dose 75+ series) 2028 Hepatitis B Vaccines Aged Out No long er eligible based on patient's age to complete this topic Advance Directives * Full Code (Latest Code Status on File) Date Activated Date Inactivated Comments 03/25/2018 12:22 PM * Full Code Date Activated Date Inactivated Comments 03/25/2018 12:14 PM 03/25/2018 12:22 PM Care Teams Blue Line Operator Relationship Specialty Start Date End Date Akshat Bill PCP - General 03/22/18
--- OUTSIDE RECORDS SUMMARY | 2025-01-21 16:14 | XMS_ITS | Continuity of Care Document ---
Author Organization [facility] Address [address] [place] [id number]- Care Team Providers Care Sheet Metal Pattern Cutter Name Role Phone Papi Sanders MD Primary Care Physician [phone] [place] [facility] [place]s): 12/18/24 - 01/17/25 [facility] [address] [place] [id number] Attending Physician: AdmKenyetta guevara Admitting Physician: AdmtrKenyetta Referring Physician: Admtr, Ar8 Encounter Type: Triage Allergies, Adverse Reactions, Alerts No Known Allergies [...] AM EST, Aerosol, Route to Pharmacy Electronically, [id number], [facility] [id number] Start Date: 12/10/18 Status: Ordered Quantity: 1.0 [...] 12:35:00 PM EDT, Route to Pharmacy Electronically, [facility] 3, Partial fill upon patient request ifthe prescription is for a schedule II opioid drug., 175.3, cm, 09/07/24 8:38:00 EDT, Height Start Date: 09/07/24 Stop Date: 10/07/24 Status: Ordered Quantity: 30.0 Unit: tablet Repeat number: 1 Combivent Respimat 20 mcg-100 mcg/inh inhalation aerosol 1 puffs, Inhalation, 4 times a day, # 4 Gm, 0 Refills, Maintenance, 09/07/24 12:30:00 PM EDT, Aerosol, [facility] 3, Partial fill upon patient [...] 0 Refills, Maintenance, 09/07/24 12:35:00 PMEDT, Tablet, [facility] 3, 175.3, cm, 09/07/24 8:38:00 EDT, Height [...] Refills, Maintenance, 09/07/24 1:01:00 PM EDT, Tablet, [facility] 3, Partial fill upon patient [...] PM EDT, Inhaler, Route to Pharmacy Electronically, [id number], [facility], 175.3, cm, 09/07/24 8:38:00 EDT, Height [...] Position: Reference Physician Member Role: PCP Address: [address] [place] [address] Telecom: Name: Donna Cuba RN Position: S RN Member Role: Primary Care Nurse Name: Stefanie Gaona RN Position: S RN Member Role: Primary Care Nurse Name: Silvana Bustlilos RN Position: S RN Member Role: Primary Care Nurse Name: Yanet Iyer RN Position: S RN Member Role: Primary Care Nurse Name: Teresa Gardner RN Position: S RN Member Role: Primary Care Nurse Name: Wero Hoskins RN Position: [facility] RN Wilmer Member Role: Primary Care Nurse Name: Shena Loera RN Position: S RN Member Role: Primary Care Nurse Care Team Related Persons Name: GEORGETTE HART Name: KADE SAUCEDO Name: KADE BEEBE Insurance Providers Guarantor name: AMINAH BEEBE Health Plan Information #: 1 Payer: NA Member Number: NA Policy Number: NA Group Number: NA Health Plan Information #: 2 Payer: [facility] Member Number: NA Policy Number: NA Group Number: NA
--- OUTSIDE RECORDS SUMMARY | 2025-01-21 16:14 | XMS_ITS | Encounter Summary ---
Author Organization [facility] Address [address] [place] [address] Care Team Providers Care Data Security Administrator Name Role Phone Akshat Bill Primary Care Provider Unav ailable Encounter Details Date Type Department Care Team (Late st Contact Info) Description 03/18/2018 Scanned Document [facility] [place] [address] Zoila Tom MD [facility] [address] A Social History Tobacco Use Types Packs/Day Years Used Date Smoking Tobacco: Never Assessed Sex and Gender Information Value Date Recorded Sex Assigned at Not on file Gender Identity Not on file Sexual Orientation Not on file documented as of this encounter Plan of Treatment Not on file documented as of this encounter Visit Diagnoses Not on filedocumented in this encounter Care Teams Data Security Administrator Relationship Specialty Start Date End Date Akshat Bill PCP - General 03/22/18 documented as of this encounter
== END 2025-01-21 14:09 | disposition home or self-care (01) ==
PROVIDERS: PCP Internal Medicine; Visit Provider Internal Medicine Cardiovascular Disease
DX: I25.118 Atherosclerotic heart disease of native coronary artery with other forms of angina pectoris (principal); I48.0 Paroxysmal atrial fibrillation
CPT/HCPCS: 99214

== ENCOUNTER → 2025-01-21 13:37 | Outpatient (BNVA) | payer MEDICARE, SELFPAY | PROVIDERS: PCP Internal Medicine; Visit Provider Internal Medicine Cardiovascular Disease | DX: I48.0 Paroxysmal atrial fibrillation (principal); I25.118 Atherosclerotic heart disease of native coronary artery with other forms of angina pectoris; J44.9 Chronic obstructive pulmonary disease, unspecified; F17.210 Nicotine dependence, cigarettes, uncomplicated | CPT/HCPCS: 99212 ==

== ENCOUNTER 2025-02-18 13:46 | Outpatient (AMB) | payer MEDICARE, SELFPAY ==
[2025-02-18 13:52] VITALS: BP 120/70; PULSE 88; O2SAT 90; BMI 28.6
--- NOTE | 2025-02-18 13:52 | A.OFFVIS_ITS ---
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 Required: No Client Services Associate: Client Services Associate offered & declined Accompanied by: Self / Same As Patient Allergies No Known Allergies [No Known Allergies*] Allergy (Verified 02/18/25 13:56) Medication List - Last Reconciled 02/18/25 by Lorena Quintero LPN amiodarone 200 mg PO DAILY 90 days apixaban 5 mg PO BID benzonatate 100 mg PO TID budesonide-formoterol 160-4.5 mcg/actuation (Symbicort) 2 puffs inhalation Q12H clopidogrel 75 mg PO DAILY furosemide (Lasix) 40 mg PO DAILY 90 days ipratropium-albuterol 0.5 mg-3 mg(2.5 mg base)/3 mL 3 mL inhalation Q6H PRN ipratropium-albuterol 20-100 mcg/actuation (Combivent Respimat) 1 puff inhalation Q6H levothyroxine 25 mcg PO DAILY@0600 metoprolol tartrate 25 mg PO BID 90 days rosuvastatin 20 mg PO BEDTIME umeclidinium 62.5 mcg/actuation (Incruse Ellipta) 1 inh inhalation DAILY umeclidinium 62.5 mcg/actuation (Incruse Ellipta) 1 inh inhalation DAILY valsartan 80 mg PO BID HPI HPI COPD: Details: Steve is a pleasant 68 year old male, current minimal smoker with 50 pack year history with underlying COPD, severe cardiomyopathy maintained on amiodarone, metoprolol, atrial fibrillation s/p cardioversion in 2018 on eliquis, CAD and CHF on lasix 40 mg. At baseline, he is moderately controlled on symbicort 160 mcg, DuoNeb, combivent and Incruse. He did admit to overusing combivent/DuoNeb which we have discussed in the past. He continues to use 3L of supplemental oxygen with exertion to maintain >92% and 2L NOC. Today he presents for an acute visit. He reports worsenign sinus pain/pressure/congestion, headache, and chills. He states the congestion and discomfort have made it difficult to use nasal cannula. Of note, patient ambulated approximately 25yrds from waiting room to exam room maintaining 90% on room air. He endorses chills, denies fevers, chest congestion or sick contacts. He denies any visits to urgent care or hospitalizations related to respiratory distress in the last two months. He continues to smoke 4 cigarettes per day and does not feel he can cut down anymore. [facility] Medical History CHF exacerbation Smoker Acquired hypothyroidism Obesity (BMI 30-39.9) Coronary artery disease Congestive heart failure (CHF) Atrial fibrillation with RVR COPD (chronic obstructive pulmonary disease) Surgical History Hx of cardiac cath S/P appendectomy History of coronary artery stent placement Social History (Updated 02/18/25 @ 14:00 by Lorena Quintero LPN) Household Members: Significant Other Housing: Apartment Do you presently have visiting nurse or other home services: No Alcohol intake: never Comment: pt refused bed alarm Patient Tobacco Use Status: Current everyday Tobacco user Tobacco use type: Cigarette Cigarette Packs Per Day: 0.25 Cigarettes Per Day: 4 Years Smoked: 50 e-Cigarette/Vaping Use: Former Use Second Hand Smoke Exposure: Yes Substance Use Type: Marijuana Advance Directives Date on File: 10/17/24 service: Yes Current occupational status: retired Cognitive needs: No Hearing needs: No Vision needs: No Review of Systems Const Denies chills, Denies excessive sweating, Denies fever(s), Reports headache(s) and Denies night sweats Eyes Denies dry eyes, Denies irritation and Denies itchy eyes ENT Reports Normal hearing present, Reports headache(s), Reports nasal congestion, Denies post nasal drip, Reports sinus pain, Reports sinus pressure and Denies sore throat Card Denies chest pain, Denies chest pain at rest, Denies chest pain with activity, Denies claudication, Denies leg edema, Reports dyspnea on exertion, Denies orthopnea and Denies paroxysmal nocturnal dyspnea Resp Denies change in phlegm color, Denies chest congestion, Reports cough, Denies hemoptysis, Denies excessive phlegm production, Denies pain on inspiration, Denies pain with cough, Reports dyspnea on exertion, Denies stridor and Denies wheezing Musc Denies myalgias Neuro Reports Normal hearing present and Reports headache(s) Endo Denies excessive sweating Akhil/Lymph Denies lymphadenopathy Aller/Immun Denies itchy eyes, Denies seasonal rhinorrhea and Denies wheezing Physical Exam Vital Signs: Last Vital Signs Pulse 88 02/18/25 13:52 BP 120/70 02/18/25 13:52 Pulse Ox 90 L 02/18/25 13:52 Oxygen Delivery Method Room Air 02/18/25 13:52 BMI result Body Mass Index 28.6 Const General: cooperative, well developed and alert Orientation/consciousness: patient oriented x3 HEENT Head: Yes normal to inspection, Yes normocephalic and Yes atraumatic Ears: hearing grossly normal bilaterally and external ears normal Face and sinus: Yes erythema, Yes edema and Yes sinus tenderness Eyes General: appearance normal, both eyes and all related structures Eyelids: Yes eyelids normal Sclerae: sclerae normal EOM: EOMs intact bilaterally Neck Neck: Yes normal visual inspection and Yes no lymphadenopathy Lymphatic: no lymphadenopathy noted Chest Chest palpation & inspection: normal inspection of the chest Resp Other: scattered rhonchi, no wheezes or crackles Effort & Inspection: normal respiratory effort, no audible wheezes, no cough, no stridor, not tachypneic, no tripod positioning, no use of accessory muscles and prolonged expiratory phase Auscultation: diminished lung sounds Cardio Jugular venous distension: no JVD Rate: regular rate Skin Other: warm, dry General skin exam: no rashes or lesions noted Neuro General: patient oriented x3 Cranial nerves: Yes Normal hearing present Cognition (Neuro): normal cognition Extrem Other: 1-2 + pitting edema BLE Psych Appearance: grossly normal and well kempt Speech and movement: Normal speech and movement present and Clear speech present Affect: normal affect Attitude: cooperative Thought process: Normal thought process present Thought content: Normal thought content present Insight: Good insight present (Psych) Judgement: Good judgement present (Psych) Assessment & Plan Assessment & Plan (1) COPD (chronic obstructive pulmonary disease): Code(s): J44.9 - Chronic obstructive pulmonary disease, unspecified Category: Medical Qualifiers: COPD type: unspecified COPD Qualified Code(s): J44.9 - Chronic obstructive pulmonary disease, unspecified (2) Congestive heart failure (CHF): Code(s): I50.9 - Heart failure, unspecified Category: Medical Qualifiers: Heart failure chronicity: chronic Heart failure type: systolic Qualified Code(s): I50.22 - Chronic systolic (congestive) heart failure (3) Nicotine dependence, cigarettes, uncomplicated: Code(s): F17.210 - Nicotine dependence, cigarettes, uncomplicated Category: Medical (4) Obstructive sleep apnea: Code(s): G47.33 - Obstructive sleep apnea (adult) (pediatric) Category: Medical (5) Nocturnal hypoxemia: Code(s): G47.34 - Idiopathic sleep related nonobstructive alveolar hypoventilation Category: Medical Plan Will treat sinusitis with Augmentin. He is aware to call if symptoms do not improve. At baseline patient has been moderately controlled on current regimen advised to continue. Again discussed combivent and DuoNeb are the same medication and should not be overused. Smoking cessation reviewed, patient not ready to quit at this time. Also reviewed in lab titration study with recommendations for CPAP with pressure of 8cmH2O, however no note of supplemental oxygen in report. Will reach out to interpreting provider to reread study, as other paperwork states 3L supplemental oxygen was used. Once confirmed correct settings, will send order. All questions were answered and patient is in agreement of plan. Will follow up in 8 weeks or sooner if needed. Medications: New amoxicillin-pot clavulanate 875-125 mg 1 tab PO Q12H 20 tabs 0RF Coding Level of Care Code Est Pt Level 4 (83964) Complex EM visit Add On G2211 Diagnoses Chronic obstructive pulmonary disease, unspecified COPD type J44.9 COPD type: unspecified COPD Chronic systolic congestive heart failure I50.22 Heart failure chronicity: chronic Heart failure type: systolic Nicotine dependence, cigarettes, uncomplicated F17.210 Obstructive sleep apnea G47.33 Nocturnal hypoxemia G47.34
--- OUTSIDE RECORDS SUMMARY | 2025-02-18 16:29 | XMS_ITS | Clinical Summary ---
Author Organization [facility] Address [address] [place] [address] Care Team Providers Care Adult Services Librarian Name Role Phone Akshat Bill Primary Care [...] (03/18/2018): Added automatically from request for surgery [id number] Social History Tobacco Use Types Packs/Day Years [...] 12:14 PM 03/25/2018 12:22 PM Care Teams Adult Services Librarian Relationship Specialty Start Date End Date Akshat Bill PCP - General 03/22/18
--- OUTSIDE RECORDS SUMMARY | 2025-02-18 16:29 | XMS_ITS | Encounter Summary ---
Author Organization [facility] Address [address] [place] [address] Care Team Providers Care Vulcan Crewmember Name Role Phone Akshat Bill Primary Care Provider Unav ailable Encounter Details Date Type Department Care Team (Late st Contact Info) Description 03/18/2018 Scanned Document [facility] [place] [address] Zoila Tom MD [facility] [address] A Social History Tobacco Use Types [...] on filedocumented in this encounter Care Teams Vulcan Crewmember Relationship Specialty Start Date End Date Akshat Bill PCP - General 03/22/18 documented as of this encounter
== END 2025-02-18 14:24 | disposition home or self-care (01) ==
LOC: HO.HPSW 13:47
PROVIDERS: PCP Internal Medicine; Visit Provider Nurse Practitioner Family
DX: J44.9 Chronic obstructive pulmonary disease, unspecified (principal); I50.22 Chronic systolic (congestive) heart failure; F17.210 Nicotine dependence, cigarettes, uncomplicated; G47.33 Obstructive sleep apnea (adult) (pediatric); G47.34 Idiopathic sleep related nonobstructive alveolar hypoventilation
CPT/HCPCS: 99214; G2211

== ENCOUNTER → 2025-02-18 13:46 | Outpatient (BNVA) | payer MEDICARE, SELFPAY | PROVIDERS: PCP Internal Medicine; Visit Provider Nurse Practitioner Family | DX: J44.9 Chronic obstructive pulmonary disease, unspecified (principal); G47.33 Obstructive sleep apnea (adult) (pediatric); G47.34 Idiopathic sleep related nonobstructive alveolar hypoventilation; I50.22 Chronic systolic (congestive) heart failure; F17.210 Nicotine dependence, cigarettes, uncomplicated; Z79.899 Other long term (current) drug therapy; Z99.81 Dependence on supplemental oxygen | CPT/HCPCS: 99212 ==

== ENCOUNTER 2025-07-29 08:47 | Outpatient (AMB) | payer MEDICARE, SELFPAY ==
[2025-07-29 08:51] VITALS: BP 98/60; PULSE 90; O2SAT 86; BMI 27.5
--- NOTE | 2025-07-29 08:51 | A.OFFVIS_ITS ---
Vital Signs 07/29/25 08:51 Height 5 ft 9 in Weight 186 lb 8 oz BMI 27.5 BP 98/60 Blood Pressure Location Rt brachial Position Sitting Pulse 90 Pulse Source Pulse Oximeter Pulse Oximetry (%) 86 L Oxygen Delivery Method Room Air Intake Visit Reasons: COPD Allergies No Known Allergies (No Known Allergies*) Allergy (Verified 07/29/25 08:54) HPI HPI COPD: Details: Steve is a pleasant 69 year old male, current 50 pack year smoker with underlying COPD, severe cardiomyopathy maintained on amiodarone, metoprolol, atrial fibrillation s/p cardioversion in 2018 on eliquis, CAD and CHF on lasix 40 mg. At baseline, he is moderately controlled on symbicort 160 mcg, DuoNeb, combivent and Incruse. Since last visit, he reports improvement in dyspnea and decreasing use of Combivent and DuoNeb. He reports now he is able to walk through the grocery store without having to rest due to significant dyspnea. He denies any visits to urgent care hospitalizations related to respiratory distress since last visit. Unfortunately due to life stressors he has increased his smoking now upwards of a half a pack a day. He continues to use 3 L of supplemental oxygen at night, however uses intermittently during the day. He reports oxygen saturation as low as 83% at home on room air. Upon arrival to [facility] room today he was not wearing supplemental oxygen and oxygen saturation was 83%. Of note, he does not drive as he reports worsening vision. [facility] Medical History CHF exacerbation Smoker Acquired hypothyroidism Obesity (BMI 30-39.9) Coronary artery disease Congestive heart failure (CHF) Atrial fibrillation with RVR COPD (chronic obstructive pulmonary disease) Surgical History Hx of cardiac cath S/P appendectomy History of coronary artery stent placement Social History (Updated 07/29/25 @ 08:54 by Savanah Jimenes CMA) Household Members: Significant Other Housing: Apartment Do you presently have visiting nurse or other home services: No Alcohol intake: never Comment: pt refused bed alarm Patient Tobacco Use Status: Current everyday Tobacco user Tobacco use type: Cigarette Cigarette Packs Per Day: 0.5 Cigarettes Per Day: 10 Years Smoked: 50 e-Cigarette/Vaping Use: Former Use Second Hand Smoke Exposure: Yes Substance Use Type: Marijuana Advance Directives Date on File: 10/17/24 service: Yes Current occupational status: retired Cognitive needs: No Hearing needs: No Vision needs: No Review of Systems Const Denies chills, Denies excessive sweating, Denies fever(s), Reports headache(s) and Denies night sweats Eyes Denies dry eyes, Denies irritation and Denies itchy eyes ENT Reports Normal hearing present, Reports headache(s), Reports nasal congestion, Denies post nasal drip, Reports sinus pain and Denies sore throat Card Denies chest pain, Denies chest pain at rest, Denies chest pain with activity, Denies claudication, Denies leg edema, Reports dyspnea on exertion, Denies orthopnea and Denies paroxysmal nocturnal dyspnea Resp Denies change in phlegm color, Denies chest congestion, Reports cough, Denies hemoptysis, Denies excessive phlegm production, Denies pain on inspiration, Denies pain with cough, Reports dyspnea on exertion, Denies stridor and Denies wheezing Musc Denies myalgias Neuro Reports Normal hearing present and Reports headache(s) Endo Denies excessive sweating Akhil/Lymph Denies lymphadenopathy Aller/Immun Denies itchy eyes, Denies seasonal rhinorrhea and Denies wheezing Physical Exam Vital Signs: Last Vital Signs Pulse 90 07/29/25 08:51 BP 98/60 07/29/25 08:51 Pulse Ox 86 L 07/29/25 08:51 Oxygen Delivery Method Room Air 07/29/25 08:51 BMI result Body Mass Index 27.5 Const General: cooperative, well developed and alert Orientation/consciousness: patient oriented x3 HEENT Head: Yes normal to inspection, Yes normocephalic and Yes atraumatic Ears: hearing grossly normal bilaterally and external ears normal Face and sinus: Yes erythema, Yes edema and Yes sinus tenderness Eyes General: appearance normal, both eyes and all related structures Eyelids: Yes eyelids normal Sclerae: sclerae normal EOM: EOMs intact bilaterally Neck Neck: Yes normal visual inspection and Yes no lymphadenopathy Lymphatic: no lymphadenopathy noted Chest Chest palpation & inspection: normal inspection of the chest Resp Other: scattered rhonchi Effort & Inspection: normal respiratory effort, no audible wheezes, no cough, no stridor, not tachypneic, no tripod positioning, no use of accessory muscles and prolonged expiratory phase Auscultation: diminished lung sounds Cardio Jugular venous distension: no JVD Rate: regular rate Skin Other: warm, dry General skin exam: no rashes or lesions noted Neuro General: patient oriented x3 Cranial nerves: Yes Normal hearing present Cognition (Neuro): normal cognition Extrem Other: 1-2 + pitting edema BLE Psych Appearance: grossly normal and well kempt Speech and movement: Normal speech and movement present and Clear speech present Affect: normal affect Attitude: cooperative Thought process: Normal thought process present Thought content: Normal thought content present Insight: Good insight present (Psych) Judgement: Good judgement present (Psych) Assessment & Plan Assessment & Plan (1) COPD (chronic obstructive pulmonary disease): Code(s): J44.9 - Chronic obstructive pulmonary disease, unspecified Category: Medical Qualifiers: COPD type: unspecified COPD Qualified Code(s): J44.9 - Chronic obstructive pulmonary disease, unspecified (2) Congestive heart failure (CHF): Code(s): I50.9 - Heart failure, unspecified Category: Medical Qualifiers: Heart failure type: systolic Heart failure chronicity: chronic Qualified Code(s): I50.22 - Chronic systolic (congestive) heart failure (3) Nicotine dependence, cigarettes, uncomplicated: Code(s): F17.210 - Nicotine dependence, cigarettes, uncomplicated Category: Medical (4) Obstructive sleep apnea: Code(s): G47.33 - Obstructive sleep apnea (adult) (pediatric) Category: Medical (5) Nocturnal hypoxemia: Code(s): G47.34 - Idiopathic sleep related nonobstructive alveolar hypoventilation Category: Medical Plan Will treat bronchitic symptoms with doxycycline and prednisone. He is aware to call if symptoms do not improve or seek emergent care symptoms worsen. Advised to continue Symbicort, Incruse and Combivent/DuoNeb PRN. We had lengthy discussion regarding the importance of supplemental oxygen including the adverse effects of hypoxia and the risks with driving with the potential for revoking license. He did state that he no longer drives due to vision changes. He states that he uses supplemental oxygen 3L at night however does not use supplemental oxygen consistently with exertion. He reports significant financial strains preventing him from renting a CPAP and is not interested in pursing this despite adverse effects of untreated DUSTIN. He also refuses to have further testing done including chest imaging or overnight oximery. Had discussed programs that may be able to assist him financially but he was not interested. He is aware to call if symptoms do not improve. All questions were answered and patient is in agreement of plan. Will follow up in 6-8 weeks or sooner if needed. Medications: New prednisone 40 mg (2 x 20 mg) PO DAILY 10 tabs 0RF doxycycline hyclate 100 mg PO BID 14 caps 0RF Refilled budesonide-formoterol 160-4.5 mcg/actuation (Symbicort) 2 puffs inhalation Q12H 10.2 grams 6RF ipratropium-albuterol 0.5 mg-3 mg(2.5 mg base)/3 mL 3 mL inhalation Q6H PRN 180 mL 3RF wheezing Discontinued umeclidinium 62.5 mcg/actuation (Incruse Ellipta) Discontinued Reason: Patient Completed Course 1 inh inhalation DAILY 30 ea 6RF amoxicillin-pot clavulanate 875-125 mg Discontinued Reason: Patient Completed Course 1 tab PO Q12H 20 tabs 0RF Coding Level of Care Code Est Pt Level 4 (97481) Diagnoses Chronic obstructive pulmonary disease, unspecified COPD type J44.9 COPD type: unspecified COPD Chronic systolic congestive heart failure I50.22 Heart failure type: systolic Heart failure chronicity: chronic Nicotine dependence, cigarettes, uncomplicated F17.210 Obstructive sleep apnea G47.33 Nocturnal hypoxemia G47.34
--- OUTSIDE RECORDS SUMMARY | 2025-07-29 10:16 | XMS_ITS | Encounter Summary ---
Author Organization [facility] Address [address] [place] [address] Care Team Providers Care Combination Machine Tender Name Role Phone Akshat Bill Primary Care Provider Unav ailable Encounter Details Date Type Department Care Team (Late st Contact Info) Description 03/18/2018 Scanned Document [facility] [place] [address] Zoila Tom MD [facility] [address] [facility] A Social History Tobacco Use Types Packs/Day Years Used Date Smoking Tobacco: Never Assessed Sex and Gender Information Value Date Recorded Sex Assigned at Not on file Legal Sex Male 10:46 AM EDT Gender Identity Not on file Sexual Orientation Not on file documented as of this encounter Plan of Treatment Not on file documented as of this encounter Visit Diagnoses Not on filedocumented in this encounter Care Teams Combination Machine Tender Relationship Specialty Start Date End Date Akshat Bill PCP - General 03/22/18 documented as of this encounter
--- OUTSIDE RECORDS SUMMARY | 2025-07-29 10:16 | XMS_ITS | Clinical Summary ---
Author Organization [facility] Address [address] [place] [address] Care Team Providers Care Advertising Account Manager Name Role Phone Akshat Bill Primary Care Provider Unav ailable Allergies No known active allergies Medications PROAIR HFA 108 (90 Base) MCG/ACT inhaler [...] (03/18/2018): Added automatically from request for surgery [id number] Social History Tobacco Use Types Packs/Day Years [...] 61 03/26/2018 11:54 AM EDT Temperature 36.7 C (98 F) 03/26/2018 8:00 AM EDT Respiratory Rate 18 03/26/2018 3:59 AM EDT Oxygen Saturation 90% 03/26/2018 11:54 AM EDT Inhaled Oxygen Concentration - - Weight 113 kg (249 lb 6.4 oz) 03/26/2018 8:00 AM EDT Height 177.8 cm (5' 10 ) 03/25/2018 6:38 AM EDT Body Mass Index 35.79 03/25/2018 6:38 AM EDT Plan of Treatment Health Maintenance Due Date Last Done Comments Advance Care Planning 1955 Hepatitis C Virus Screening 1955 DTaP/Tdap/Td Vaccines (1 - Tdap) 1972 Colonoscopy 1998 Pneumococcal Vaccines 50+ (1 of 1 - PCV) 2003 Zoster (Shingles) Vaccine (1 of 2) 2003 Influenza Vaccine 06/19/2025 COVID-19 Vaccine (1 - 2023-2 5 season) 2025 RSV Vaccine 60 years and old er and Patients (1 - 1-dose 75+ series) 2028 Hepatitis B Vaccines Aged Out No long er eligible based on patient's age to complete this topic Insurance [facility] H[facility] Advance Directives * Full Code (Latest Code Status on File) Date Activated Date Inactivated Comments 03/25/2018 12:22 PM * Full Code Date Activated Date Inactivated Comments 03/25/2018 12:14 PM 03/25/2018 12:22 PM Care Teams Advertising Account Manager Relationship Specialty Start Date End Date Akshat Bill PCP - General 03/22/18
== END 2025-07-29 09:31 | disposition home or self-care (01) ==
LOC: HO.HPSW 08:48
PROVIDERS: PCP Internal Medicine; Visit Provider Nurse Practitioner Family
DX: J44.9 Chronic obstructive pulmonary disease, unspecified (principal); I50.22 Chronic systolic (congestive) heart failure; F17.210 Nicotine dependence, cigarettes, uncomplicated; G47.33 Obstructive sleep apnea (adult) (pediatric); G47.34 Idiopathic sleep related nonobstructive alveolar hypoventilation
CPT/HCPCS: 99214

== ENCOUNTER → 2025-07-29 08:47 | Outpatient (BNVA) | payer MEDICARE, SELFPAY | PROVIDERS: PCP Internal Medicine; Visit Provider Nurse Practitioner Family | DX: G47.34 Idiopathic sleep related nonobstructive alveolar hypoventilation (principal); G47.33 Obstructive sleep apnea (adult) (pediatric); J44.9 Chronic obstructive pulmonary disease, unspecified; I50.22 Chronic systolic (congestive) heart failure; F17.210 Nicotine dependence, cigarettes, uncomplicated | CPT/HCPCS: 99212 ==

== ENCOUNTER 2025-09-04 12:23 | Outpatient (AMB) | payer MEDICARE, MEDICAID, SELFPAY ==
[2025-09-04 12:33] VITALS: BP 136/82; PULSE 78; O2SAT 88; BMI 27.6
--- NOTE | 2025-09-04 12:33 | A.OFFPC_ITS ---
Vital Signs 09/04/25 12:33 Height 5 ft 9 in Weight 187 lb BMI 27.6 BP 136/82 Blood Pressure Location Lt brachial Position Sitting Pulse 78 Pulse Source Pulse Oximeter Pulse Oximetry (%) 88 L Oxygen Delivery Method Room Air Intake Visit Reasons: annual exam Dining Room Host/Hostess Required: No Accompanied by: Self / Same As Patient Allergies No Known Allergies (No Known Allergies*) Allergy (Verified 09/04/25 12:39) Medication List - Last Reconciled 09/04/25 by Papi Sanders MD amiodarone 200 mg PO DAILY 90 days apixaban (Eliquis) 5 mg PO BID aspirin 81 mg PO DAILY budesonide-formoterol 160-4.5 mcg/actuation (Symbicort) 2 puffs inhalation Q12H clopidogrel 75 mg PO DAILY furosemide (Lasix) 40 mg PO DAILY 90 days ipratropium-albuterol 0.5 mg-3 mg(2.5 mg base)/3 mL 3 mL inhalation Q6H PRN ipratropium-albuterol 20-100 mcg/actuation (Combivent Respimat) 1 puff inhalation Q6H levothyroxine 25 mcg PO DAILY@0600 metoprolol tartrate 25 mg PO BID 90 days rosuvastatin 20 mg PO BEDTIME umeclidinium 62.5 mcg/actuation (Incruse Ellipta) 1 inh inhalation DAILY valsartan 80 mg PO BID Tobacco use date assessed: 09/04/25 Fall risk assessment: No Falls in past year Last assessed Fall Risk: 09/04/25 Dental Screening Dental Screen Date: 09/04/25 Did you have a dental visit in the last 12 months?: No Did you have a dental problem in the last 6 months where you did not have access to dental care?: No Was dental information given to patient?: Patient has dentist HPI annual exam HPI Details Patient comes in today for his annual physical examination - was last seen by me over a year ago in July 2024 States that he currently feels okay He finally underwent cardiac catheterization last year on 09/04/2024 due to findings of a fixed perfusion defect in the inferior wall, inferolateral wall and adjacent parts of apex seen on myocardial perfusion scan done earlier last year; gated LVEF was 44% during stress and 48% during rest Cardiac catheterization revealed severe distal RCA stenosis involving the PDA PL bifurcation and this was subsequently treated with tori JOSE which was post dilated with 3.5 mm balloon proximally He develop hypoxia at rest and was subsequently admitted; pulmonary was consulted and home oxygen was eventually arranged for him He is currently on amiodarone 200 mg QD, Eliquis 5 mg BID, aspirin 81 QD, Clopidogrel 75 mg QD and Rosuvastatin 20 mg QD He denies any headaches or dizziness Denies any chest pains, no increased SOB - states that he is currently doing well and no longer requires home oxygen No nausea/vomiting, no abdominal pain No change in bowel habits noted He denies any acute urinary symptoms Patient states that he has never had a screening colonoscopy done by choice but is now agreeable to getting one done if it is fully covered by his insurance [facility] Medical History (Updated 09/05/25 @ 21:10 by Papi Sanders MD) Overweight (BMI 25.0-29.9) COPD (chronic obstructive pulmonary disease) Essential hypertension Pure hypercholesterolemia CHF exacerbation Smoker Acquired hypothyroidism Obesity (BMI 30-39.9) Coronary artery disease Congestive heart failure (CHF) Atrial fibrillation with RVR Surgical History (Updated 09/05/25 @ 20:55 by Papi Sanders MD) Hx of cardiac cath S/P appendectomy History of coronary artery stent placement Social History Household Members: Significant Other Housing: Apartment Do you presently have visiting nurse or other home services: No Alcohol intake: never Comment: pt refused bed alarm Patient Tobacco Use Status: Current everyday Tobacco user Tobacco use type: Cigarette Cigarette Packs Per Day: 0.5 Cigarettes Per Day: 10 Years Smoked: 50 e-Cigarette/Vaping Use: Former Use Second Hand Smoke Exposure: Yes Substance Use Type: Marijuana Advance Directives Date on File: 10/17/24 service: Yes Current occupational status: retired Cognitive needs: No Hearing needs: No Vision needs: No Questionnaire PHQ-9 Over the last 2 weeks, how often have you been bothered by any of the following problems? 1. Little interest or pleasure in doing things: not at all 2. Feeling down, depressed, or hopeless: not at all 3. Trouble falling or staying asleep, or sleeping too much: not at all 4. Feeling tired or having little energy: not at all 5. Poor appetite or overeating: not at all 6. Feeling bad about yourself - or that you are a failure or have let yourself or your family down: not at all 7. Trouble concentrating on things, such as reading the newspaper or watching television: not at all 8. Moving or speaking so slowly that other people could have noticed. Or the opposite - being so fidgety or restless that you have been moving around a lot more than usual: not at all 9. Thoughts that you would be better off or of hurting yourself in some way: not at all Total score: 0 Depression Screening Interpretation: Negative Depression Screening Done: Yes 75616 - PHQ-9 Billing: Yes Source: Developed by Drs. Danilo Rico, Denisse Brown, Tino Magana and colleagues, with an educational tali from [employer]. Thrive Questionnaire Date Thrive assessed: 09/04/25 I am a: Patient What is your living situation today?: I have a place to live, but I am worried about losing it in the future Within the past 12 months, did the food you bought not last and you didn't have the money to get more?: Sometimes True Within the past 12 months, did you worry whether your food would run out before you got money to buy more?: Often true Do you have trouble paying for medicines?: No Do you have trouble getting transportation to medical appointments?: Yes Do you have trouble paying your heating and electricity bill?: Yes Do you have trouble taking care of your child, family member or friend?: No Do you have trouble with day-to-day activities such as bathing, preparing meals, shopping, managing finances, etc.?: Yes Are you currently unemployed and looking for a job?: No Are you interested in more education?: No Currently or been in a relationship where the following occur: No concerns reported THRIVE Score: 5 AUDIT C Alcohol Use Questionnaire (AUDIT-C) 1. How often do you have a drink containing alcohol?: Never 3. How often do you have six or more drinks on one occasion?: Never Total Score: 0 Score Reviewed/Action Taken: Yes JANEE-7 AMB Questionnaire JANEE-7 Date JANEE - 7 assessed: 09/04/25 Feeling nervous, anxious, or on edge: 3 = Nearly every day Not being able to stop or control worryin = Nearly every day Worrying too much about different things: 3 = Nearly every day Trouble relaxin = Nearly every day Being so restless that it is hard to sit still: 3 = Nearly every day Becoming easily annoyed or irritable: 3 = Nearly every day Feeling afraid as if something awful might happen: 3 = Nearly every day Total JANEE-7 score (0-4 normal; 5-9 mild; 10-14 moderate; 15-21 severe): 21 Source: Developed by Drs. Danlio Rico, Denisse Brown, Tino Magana and colleagues, with an educational tali from [employer]. Review of Systems Const Denies chills, Denies fatigue, Denies fever(s) and Denies headache(s) ENT Denies dysphagia, Denies dizziness, Denies otalgia, Denies headache(s), Denies neck pain, Denies odynophagia and Denies sore throat Card Denies chest pain, Denies palpitations and Reports dyspnea on exertion (mild) Resp Denies chest congestion, Denies cough and Reports dyspnea on exertion (mild) GI Reports abdominal pain (on and off, mostly over where his hernia is at), Denies constipation, Denies dysphagia, Denies heartburn, Denies diarrhea, Denies nausea, Denies odynophagia and Denies vomiting Denies difficulty urinating, Denies dysuria, Denies nocturia and Denies urinary frequency Musc Denies back pain and Denies neck pain Skin/Breast Denies rash Neuro Denies dizziness and Denies headache(s) Endo Denies fatigue and Denies palpitations Physical exam (Primary Care) Vital Signs: Last Vital Signs Pulse 78 09/04/25 12:33 BP 136/82 09/04/25 12:33 Pulse Ox 88 L 09/04/25 12:33 Oxygen Delivery Method Room Air 09/04/25 12:33 BMI result Body Mass Index 27.6 Tobacco/Smoking Status: Tobacco use Status Tobacco use date assessed 09/04/25 09/04/25 12:36 Patient Tobacco Use Status Current everyday Tobacco 09/04/25 12:36 Tobacco use type Cigarette 09/04/25 12:36 e-Cigarette/Vaping Use Former Use 09/04/25 12:36 Depression Screening Interpretation: Negative Thrive Assessment: Date of Thrive Assessment Date Thrive assessed 09/04/25 09/04/25 12:36 Currently or been in a relationship where the following occur: No concerns reported Const General: no acute distress and alert HENMT Ears: TM's normal bilaterally and EAC's normal Throat: Yes posterior oropharynx normal and Yes tonsils normal (no TP congestion) Neck Neck: Yes supple and No lymphadenopathy Thyroid: Thyroid normal Resp Auscultation: no crackles, no rales, no wheezes and diminished lung sounds bilateral Cardio Rate: regular rate Rhythm: regular rhythm Heart sounds: no murmurs GI Palpation (GI): Soft to palpation, nontender and Hernia present ventral Auscultation: normal bowel sounds General: Yes no CVA tenderness Back/Spine/Pelvis Back: no CVA tenderness Thoracic/Lumbar Spine: No lumbar spinal tenderness Skin Rashes: no rashes Extrem General: Yes no clubbing, cyanosis or edema Coding Level of Care Code Est Pt Prev Care >65y(53747) Diagnoses Annual physical exam Z00.00 Coronary artery disease involving mohegan coronary artery of mohegan heart without angina pectoris I25.10 Coronary Disease-Associated Artery/Lesion type: mohegan artery Craig vs. transplanted heart: mohegan heart Associated angina: without angina PAF (paroxysmal atrial fibrillation) I48.0 Pure hypercholesterolemia E78.00 Essential hypertension I10 Acquired hypothyroidism E03.9 Chronic obstructive pulmonary disease, unspecified COPD type J44.9 COPD type: unspecified COPD Overweight (BMI 25.0-29.9) E66.3 Colon cancer screening Z12.11 Additional Codes PHQ-9 - 23309 - PHQ-9 Billing: Yes ([id number]) Assessment & Plan Assessment & Plan (1) Annual physical exam: Code(s): Z00.00 - Encounter for general adult medical examination without abnormal findings Category: Medical Plan: Check labs to complete his annual exam today Patient states that he has never had a screening colonoscopy done by choice but is now agreeable to getting one done if it is fully covered by his insurance (2) Coronary artery disease: Code(s): I25.10 - Atherosclerotic heart disease of mohegan coronary artery without angina pectoris Category: Medical Qualifiers: Coronary Disease-Associated Artery/Lesion type: mohegan artery Craig vs. transplanted heart: mohegan heart Associated angina: without angina Qualified Code(s): I25.10 - Atherosclerotic heart disease of mohegan coronary artery without angina pectoris Plan: Patient had a fixed perfusion defect in the inferior wall, inferolateral wall and adjacent parts of apex seen on myocardial perfusion scan done earlier last year Cardiac catheterization done on 09/04/2024 revealed severe distal RCA stenosis involving the PDA PL bifurcation and this was subsequently treated with tori JOSE which was post dilated with 3.5 mm balloon proximally Continue Aspirin 81 QD, Clopidogrel 75 mg QD, Metoprolol 25 mg BID and Rosuvastatin 20 mg QD He was seen by cardiology for follow up last year but has not been seen since Have advised patient that with his significant cardiac history, he should be seeing cardiology regularly for follow up - will refer him back to cardiology (3) PAF (paroxysmal atrial fibrillation): Code(s): I48.0 - Paroxysmal atrial fibrillation Category: Medical Plan: (+) Hx of paroxysmal atrial fibrillation, s/p MAIA cardioversion on 12/08/2023, and is now on Amiodarone maintenance Tx He has tachycardia induced cardiomyopathy which improved after his cardioversion Continue Amiodarone 200 mg QD and Eliquis 5 mg BID for thromboembolism prophylaxis Follow up with cardiology as scheduled (4) Pure hypercholesterolemia: Code(s): E78.00 - Pure hypercholesterolemia, unspecified Category: Medical Plan: Will have patient recheck his fasting lipids KAYCE for follow up Reinforced low cholesterol diet Continue Rosuvastatin 20 mg QD Will have patient recheck his labs and fasting lipids in 4 months or so for follow up (5) Essential hypertension: Code(s): I10 - Essential (primary) hypertension Category: Medical Plan: Reinforced low sodium diet - goal is systolic BP of 120 mm or less Continue Valsartan 80 mg BID, Metoprolol 25 mg BID and Furosemide 40 mg QD (6) Acquired hypothyroidism: Code(s): E03.9 - Hypothyroidism, unspecified Category: Medical Plan: Continue Levothyroxine 25 mcg QD Will have patient recheck his TFTs KAYCE for follow up (7) COPD (chronic obstructive pulmonary disease): Code(s): J44.9 - Chronic obstructive pulmonary disease, unspecified Category: Medical Qualifiers: COPD type: unspecified COPD Qualified Code(s): J44.9 - Chronic obstructive pulmonary disease, unspecified Plan: Controlled Continue Symbicort 160-4.5 mcg 2 inhalations Q 12 hours, Incruse Ellipta 62.5 mcg 1 inhalation QD and Duoneb via nebulizer Q 6 hours PRN Follow up with pulmonary as scheduled (8) Overweight (BMI 25.0-29.9): Code(s): E66.3 - Overweight Category: Medical Plan: Reinforced diet; exercise and weight loss are not practical due to patient's multiple comorbidities (9) Colon cancer screening: Code(s): Z12.11 - Encounter for screening for malignant neoplasm of colon Category: Medical Plan: Patient states that he has never had his screening colonoscopy done past by choice but is agreeable now to have a colonoscopy done if his insurance will cover the procedure Will refer him to Gastroenterology for screening colonoscopy Plan Follow up in 4 months (January 2026) Orders: Orders Complete Blood Count Auto Diff 09/04/25 D64.9 - Anemia, unspecified, Z00.00 - Encounter for general adult medical examination without abnormal findings Comprehensive Edmondson. Panel Fast 09/04/25 E78.00 - Pure hypercholesterolemia, unspecified, Z00.00 - Encounter for general adult medical examination without abnormal findings Vitamin D 25-OH Total 09/04/25 E55.9 - Vitamin D deficiency, unspecified, Z00.00 - Encounter for general adult medical examination without abnormal findings Complete Blood Count Auto Diff 01/23/26 D64.9 - Anemia, unspecified Comprehensive Edmondson. Panel Fast 01/23/26 E78.00 - Pure hypercholesterolemia, unspecified Thyroid Stimulating Hormone 01/23/26 E03.9 - Hypothyroidism, unspecified UA CC w/rflx Micro + Cult 01/23/26 R30.0 - Dysuria NT Pro B Type Natriuretic Pept 01/23/26 R06.09 - Other forms of dyspnea Lipid Panel 09/04/25 E78.00 - Pure hypercholesterolemia, unspecified, Z00.00 - Encounter for general adult medical examination without abnormal findings TSH reflex Free T4 09/04/25 E78.00 - Pure hypercholesterolemia, unspecified, Z00.00 - Encounter for general adult medical examination without abnormal findings UA CC w/rflx Micro + Cult 09/04/25 R30.0 - Dysuria, Z00.00 - Encounter for general adult medical examination without abnormal findings Prostate Specific Antigen 09/04/25 N40.0 - Benign prostatic hyperplasia without lower urinary tract symptoms, Z00.00 - Encounter for general adult medical examination without abnormal findings Free T4 (Free Thyroxine) 01/23/26 E03.9 - Hypothyroidism, unspecified Lipid Panel 01/23/26 E78.00 - Pure hypercholesterolemia, unspecified Vitamin D 25-OH Total 01/23/26 E55.9 - Vitamin D deficiency, unspecified Referrals 2 Gastroenterology Referral Z12.11 - Encounter for screening for malignant neoplasm of colon Cardiology Referral I25.10 - Atherosclerotic heart disease of mohegan coronary artery without angina pectoris, Z95.5 - Presence of coronary angioplasty implant and graft
--- OUTSIDE RECORDS SUMMARY | 2025-09-04 14:55 | XMS_ITS | Encounter Summary ---
Author Organization [facility] Address [address] [place] [address] Care Team Providers Care Supplier Diversity Director Name Role Phone Akshat Bill Primary Care Provider Unav ailable Encounter Details Date Type Department Care Team (Late st Contact Info) Description 03/18/2018 Scanned Document [facility] [place] [address] Zoila Tom MD [facility] [place] [address] [facility] A Social History Tobacco Use Types [...] on filedocumented in this encounter Care Teams Supplier Diversity Director Relationship Specialty Start Date End Date Akshat Bill PCP - General 03/22/18 documented as of this encounter
--- OUTSIDE RECORDS SUMMARY | 2025-09-04 14:55 | XMS_ITS | Clinical Summary ---
Author Organization [facility] Address [address] [place] [address] Care Team Providers Care Pad Extraction Tender Name Role Phone Akshat Bill Primary [...] (03/18/2018): Added automatically from request for surgery [id number] Social History Tobacco Use Types Packs/Day Years [...] 50+ (1 of 1 - PCV) 2003 RSV Vaccine 50 years and old er and Patients (1 - Risk 50-74 years 1-dose series) 2003 Zoster (Shingles) Vaccine (1 of 2) 2003 Influenza Vaccine 06/19/2025 COVID-19 Vaccine (1 - 2023-2 5 season) 2025 Hepatitis B Vaccines Aged Out No long er eligible based on patient's age to complete this topic Insurance BLUE CROSS OUT OF STATE - HMO Advance Directives * Full Code (Latest Code Status on File) Date Activated Date Inactivated Comments 03/25/2018 12:22 PM * Full Code Date Activated Date Inactivated Comments 03/25/2018 12:14 PM 03/25/2018 12:22 PM Care Teams Pad Extraction Tender Relationship Specialty Start Date End Date Akshat Bill PCP - General 03/22/18
== END 2025-09-04 13:41 | disposition home or self-care (01) ==
LOC: HO.HMCH 12:23
PROVIDERS: PCP Internal Medicine; Visit Provider Internal Medicine
DX: Z00.00 Encounter for general adult medical examination without abnormal findings (principal); I25.10 Atherosclerotic heart disease of native coronary artery without angina pectoris; I48.0 Paroxysmal atrial fibrillation; E78.00 Pure hypercholesterolemia, unspecified; I10 Essential (primary) hypertension; E03.9 Hypothyroidism, unspecified; J44.9 Chronic obstructive pulmonary disease, unspecified; E66.3 Overweight; Z12.11 Encounter for screening for malignant neoplasm of colon

== ENCOUNTER → 2025-09-04 12:23 | Outpatient (BNVA) | payer MEDICARE, OTHER, SELFPAY | PROVIDERS: PCP Internal Medicine; Visit Provider Internal Medicine | DX: Z00.00 Encounter for general adult medical examination without abnormal findings (principal); I25.10 Atherosclerotic heart disease of native coronary artery without angina pectoris; I48.0 Paroxysmal atrial fibrillation; E78.00 Pure hypercholesterolemia, unspecified; I10 Essential (primary) hypertension; E03.9 Hypothyroidism, unspecified; J44.9 Chronic obstructive pulmonary disease, unspecified; E66.3 Overweight; Z79.01 Long term (current) use of anticoagulants; Z79.899 Other long term (current) drug therapy; Z68.27 Body mass index [BMI] 27.0-27.9, adult | CPT/HCPCS: 96127; 99397 ==

== ENCOUNTER 2025-10-01 16:02 | Inpatient (IN) | payer MEDICARE, OTHER, SELFPAY ==
[2025-10-01] VITALS (14 sets, daily range): BP systolic 93–137; BP diastolic 64–83; PULSE 107–149; RESP 13–26; TEMP 34.7–37.2; O2SAT 87–96; BMI 33.6
--- NOTE | ~2025-10-01 | CT_ITS ---
CLINICAL HISTORY: hypoxia CT Angiography Chest with contrast. 3-D postprocessing Comparison: CT/SR - CT CHEST WO IV CON - 10/17/24 09:48 EST Findings: No suspicious thyroid nodules. 1.7 cm right lower paratracheal lymph node (8, 64), likely reactive. Mediastinum and Heart: Right heart enlargement. Pulmonary arteries: No pulmonary embolism to the level of the proximal segmental arteries. The main pulmonary artery is enlarged and measures 37 mm. Lungs: Diffuse interlobular septal thickening. Multifocal areas of air trapping. Mild paraseptal emphysema. Subsegmental atelectasis in the lung bases. Mild ground-glass opacities in the right lower lobe posteriorly. No consolidation, pleural effusion, or pneumothorax. No suspicious lung nodule. Multifocal areas of bronchial wall thickening. Upper abdomen: Partially visualized and unremarkable. Bones and soft tissues: Multilevel degenerative changes. No acute fracture. Impression: Interlobular septal thickening which can be seen with pulmonary edema. Multifocal areas of air trapping, mosaic attenuation, and bronchial wall thickening. Correlate for reactive airway disease or bronchitis. No pulmonary embolism to the level of the proximal segmental pulmonary arteries. Enlarged main pulmonary artery measuring 37 mm which can be seen with pulmonary arterial hypertension. Right heart enlargement. This document has been electronically signed by: Esther Hathaway MD on 10/01/2025 21:56:31
--- NOTE | ~2025-10-01 | XR_ITS ---
CLINICAL HISTORY: dyspnea 1 view chest x-ray. Comparison: 10/18/2024 Findings: No consolidation or effusion. Cardiac and mediastinal contours appear stable. Bones unremarkable. Impression: 1. No acute pulmonary disease. This document has been electronically signed by: Amandeep Valle MD on 10/01/2025 18:11:15
--- NOTE | 2025-10-01 16:12 | ED_ITS ---
HPI - General Adult General Chief complaint: General Medical Stated complaint: lower legs swelling/feet weeping Time Seen by Provider: 10/01/25 16:47 Source: patient and family () Mode of arrival: ambulatory Limitations: no limitations History of Present Illness ED Provider: Linda HPI narrative: 69-year-old male with past medical history significant for COPD, hypertension, congestive heart failure atrial fibrillation on Eliquis presents for evaluation of leg swelling. Patient reports he has had increasing leg swelling over the last few days pain He reports that he has not noticed any increase from his shortness of breath compared to his baseline. Patient reports that his legs are so swollen and now they are weeping clear fluid. He denies any significant pain from them The patient reports that he takes furosemide 40 milligrams daily which she has been compliant with pain Denies any neck pain or chest pain. He endorses weakness and fatigue No other complaints or concerns at this time Related Data Home Medications ?Medication ?Instructions ?Recorded ?Confirmed aspirin 81 mg tablet 81 mg PO DAILY 09/04/2509/19 ipratropium 20 mcg-albuterol 100 1 puff inhalation Q6H 10/02/25 10/02/25 mcg/actuation mist for inhalation (Combivent Respimat) umeclidinium 62.5 mcg/actuation 1 inh inhalation DAILY 10/02/25 10/02/25 blister powder for inhalation (Incruse Ellipta) Previous Rx's ?Medication ?Instructions ?Recorded clopidogrel 75 mg tablet 75 mg PO DAILY #90 tabs 08/20 07/12 rosuvastatin 20 mg tablet 20 mg PO BEDTIME #90 tabs valsartan 80 mg tablet 80 mg PO BID #180 tabs 04/06 levothyroxine 25 mcg tablet 25 mcg PO DAILY@0600 #90 t abs 07/10/25 budesonide-formoterol HFA 160 2 puff inhalation Q12H # 10.2 grams 07/29/25 mcg-4.5 mcg/actuation aerosol inhaler (Symbicort) ipratropium 0.5 mg-albuterol 3 mg 3 ml inhalation Q6H PRN wheezing 07/29/25 (2.5 mg base)/3 mL nebulization #180 mL soln apixaban 5 mg tablet (Eliquis) 5 mg PO BID #180 tabs 1 0/09/25 amiodarone 200 mg tablet 400 mg (2 x 200 mg) PO BID # 90 tabs 10/03/25 doxycycline monohydrate 100 mg 100 mg PO Q12H #10 caps 10/03/25 capsule furosemide 40 mg tablet 40 mg PO DAILY #90 tabs 09/19 04/12 prednisone 20 mg tablet 40 mg (2 x 20 mg) PO DAILY # 8 tabs 10/03/25 Allergies Allergy/AdvReac Type Severity Reaction Status Date / Time No Known Allergies (No Known Allergy Verified 10/01/25 16:09 Allergies*) Review of Systems 2 Constitutional: Constitutional: Denies body ache(s), Denies chills, Denies fever(s) and Denies headache(s) Eyes: Eyes: Denies blurry vision ENT: Denies vertigo, Denies dizziness and Denies headache(s) Cardiovascular: Cardiovascular: Denies chest pain, Denies syncope, Reports rapid heart rate, Reports pedal edema, Reports leg edema, Reports palpitations, Denies dyspnea and Denies dyspnea on exertion Respiratory: Respiratory: Denies cough, Denies dyspnea and Denies dyspnea on exertion Gastrointestinal: Gastrointestinal: Denies abdominal pain Musculoskeletal: Musculoskeletal: Denies back pain Integumentary/Breasts: Skin/Breast: Denies rash Neurologic: Denies vertigo, Denies dizziness, Denies syncope and Denies headache(s) Endocrine: Endocrine: Reports palpitations PMFSH Past Medical History Medical History Overweight (BMI 25.0-29.9) COPD (chronic obstructive pulmonary disease) Essential hypertension Pure hypercholesterolemia CHF exacerbation Smoker Acquired hypothyroidism Obesity (BMI 30-39.9) Coronary artery disease Congestive heart failure (CHF) Atrial fibrillation with RVR Surgical History Hx of cardiac cath S/P appendectomy History of coronary artery stent placement Social History Social History Household Members: Significant Other Housing: Apartment Do you presently have visiting nurse or other home services: No Alcohol intake: never Comment: pt refused bed alarm Patient Tobacco Use Status: Current everyday Tobacco user Tobacco use type: Cigarette Cigarette Packs Per Day: 0.5 Cigarettes Per Day: 10 Years Smoked: 50 e-Cigarette/Vaping Use: Former Use Second Hand Smoke Exposure: Yes Substance Use Type: Marijuana Advance Directives Date on File: 10/17/24 service: Yes Current occupational status: retired Cognitive needs: No Hearing needs: No Vision needs: No Physical Exam ED Vital Signs: Vital Signs - 24 hr 10/01/25 16:08 10/01/25 16:32 10/01/25 17:02 Temperature 94.4 F L 98.2 F 98.2 F Pulse Rate 124 H 116 H 120 H Respiratory Rate 24 H 13 16 Blood Pressure 98/72 113/78 111/80 Pulse Oximetry 90 L 95 91 L Oxygen Delivery Method Room Air Nasal Cannula Nasal Cannula Oxygen Flow Rate 3 10/01/25 18:20 10/01/25 18:37 10/01/25 18:52 Temperature 98.6 F Pulse Rate 132 H 107 H Respiratory Rate 16 24 H Blood Pressure 137/83 120/74 Pulse Oximetry 92 Oxygen Delivery Method Oxymask Oxygen Flow Rate 10/01/25 19:36 10/01/25 20:35 10/01/25 20:46 Temperature 98.4 F 98.8 F 99 F Pulse Rate 125 H 136 H 149 H Respiratory Rate 24 H 23 H 26 H Blood Pressure 126/64 111/68 109/69 Pulse Oximetry 88 L 87 L 87 L Oxygen Delivery Method Oxymask Oxymask Oxymask Oxygen Flow Rate 4 4 10/01/25 21:12 10/01/25 21:47 10/01/25 22:07 Temperature 99.0 F 98.8 F 98.8 F Pulse Rate 147 H 133 H 128 H Respiratory Rate 26 H 24 H 22 H Blood Pressure 93/66 112/77 102/72 Pulse Oximetry 88 L 96 95 Oxygen Delivery Method Oxymask Oxymask Oxymask Oxygen Flow Rate 4 6 6 10/01/25 22:44 10/01/25 22:55 10/02/25 00:08 Temperature 98.6 F 98.6 F Pulse Rate 125 H 141 H Respiratory Rate 26 H 26 H 22 H Blood Pressure 117/75 119/77 Pulse Oximetry 93 94 Oxygen Delivery Method Oxymask Oxymask Oxygen Flow Rate 4 4 BMI result Body Mass Index 33.6 Const General: healthy appearing, comfortable, no acute distress, alert and awake Nutritional Appearance: well nourished Orientation/consciousness: patient oriented x3 [facility] Head: Yes normocephalic and Yes atraumatic Eyes Eyelids: Yes eyelids normal Conjunctivae: conjunctivae normal Sclerae: sclerae normal Corneas: corneas normal Pupils: Equal, round and reactive pupils present EOM: EOMs intact bilaterally Neck Neck: Yes full ROM Resp Effort & Inspection: able to speak in complete sentences Auscultation: not clear to auscultation bilaterally, crackles and wheezes (Worse bibasilar) Cardio Rate: tachycardic Rhythm: abnormal rhythm and abnormal rhythm irregularly irregular GI Inspection: No distended Palpation (GI): Soft to palpation, not firm, nontender, no guarding and not rigid Skin General skin exam: elasticity normal Neuro General: patient oriented x3 Cranial nerves: Yes Equal, round and reactive pupils present and Yes Bilaterally intact EOM present Cognition (Neuro): normal cognition Extrem Other: Moving all extremities well without any obvious deformities Course Course Course Narrative: RME: 69-year-old male history of COPD AFib CHF presents to ED for bilateral leg swelling, shortness of breath, and fatigue. Patient is hypotensive, tachycardic, hypoxic and hypothermic. Patient brought back to the ED Reevaluation(s) Reevaluation #1: The patient is on Eliquis and reports being compliant, he became hypoxic to 79 percent on room air. Given this [place] [address] with no significant pleural effusions I ordered a CT angiography to evaluate for PE. Additionally with the increased hypoxia and wheezing I ordered a dose of Solu- Medrol. There is still no evidence of bacterial infection. The patient's lactic acid is elevated to 3.0, but I attribute this to albuterol use as he has been using his inhaler throughout the day today. Time: 19:48 Reevaluation #2: After patient returned from CT scan, he was quite restless and had some increased hypoxia and oxygen demands. I suspect this was due to positional changes due to his CHF. When he lied flat he had more trouble breathing. The patient is arousable, his oxygen saturation is improving at rest. His blood pressure is improving, he remains afebrile. I did order a dose of antibiotics as he had increasing hypoxia but is still with fairly low threshold for pneumonia. The patient is and will require admission for increased oxygen demand in the setting of congestive heart failure and volume overload Time: 21:42 Reevaluation #3: The patient remains tachycardic around 12/09/2029 but spiked as high as 140 in atrial fibrillation with RVR. His blood pressures has been low normal and nose conscious giving him diltiazem or beta blockade that would lower his blood pressure too much. I discussed with Cardiology who recommends digoxin and Lasix drip. I asked the patient if he use CPAP at night and he reports that he is supposed to be using a CPAP machine at bedtime but he does not. I ordered nocturnal CPAP for the patient. We will continue to follow up, Time: 23:43 Additional Reevaluation(s): Patient resting comfortably, oxygen saturation of 92 percent, his heart rate is 100-120 in AFib. This is improving. He is not jumping up to 130s or 140s anymore. He has urinated almost 3 full liters. Plan to discuss with the hospitalist for admission Medications Administered Discontinued Medications Generic Name Dose Route Start Last Admin Trade Name Ripq PRN Reason Stop Dose Admin Amiodarone HCl 200 mg 10/02/25 01:45 10/02/25 02:26 Amiodarone Hcl 200 Mg Tablet PO 10/02/25 01:46 200 mg ONCE STA Administration Amiodarone HCl 400 mg 10/02/25 11:30 10/03/25 08:27 Amiodarone Hcl 200 Mg Tablet PO 400 mg BID TREY Administration Apixaban 5 mg 10/02/25 11:15 10/03/25 08:27 Apixaban 5 Mg Tablet PO 5 mg BID TREY Administration Atorvastatin Calcium 80 mg 10/02/25 21:00 10/02/25 20:26 Atorvastatin Calcium 80 Mg Tablet PO 80 mg BEDTIME TREY Administration Albuterol Sulfate 2.5 mg/ 0 mg 10/01/25 18:36 10/01/25 18:45 Albuterol/Ipratropium 3 ml INHALE 10/01/25 18:37 5 dose ONCE ONE Administration Digoxin 0.25 mg 10/01/25 22:57 10/01/25 23:10 Digoxin 0.5 Mg/2 Ml Ampul IVPUSH 10/01/25 22:58 0.25 mg ONCE ONE Administration Protocol Furosemide 80 mg 10/01/25 18:26 10/01/25 18:52 Furosemide 100 Mg/10 Ml Vial IVPUSH 10/01/25 18:27 80 mg ONCE ONE Administration Protocol Ceftriaxone Sodium 1 gm/ 50 mls @ 100 mls/hr 10/01/25 21:20 10/01/25 21:43 Sodium Chloride IV 10/01/25 21:49 Infused ONCE ONE Infusion Azithromycin 500 mg/ Sodium 250 mls @ 125 mls/hr 10/01/25 21:20 10/02/25 01:13 Chloride IV 10/01/25 23:19 Infused ONCE ONE Infusion Potassium Chloride/Sodium Chloride 20 meq in 1,000 mls @ 150 mls/hr 10/01/25 22:00 10/01/25 22:38 Kcl 20 Meq In 0.9 % Sodium Chl IVCONT Infused .Q6H40M TREY Infusion Potassium Chloride 10 meq in 100 mls @ 100 mls/hr 10/01/25 23:00 10/02/25 03:43 Potassium Chloride/H20 IV 10/02/25 02:59 Not Given Q1H TREY Furosemide 200 mg/ Sodium 100 mls @ 2.5 mls/hr 10/01/25 23:45 10/03/25 09:58 Chloride IVCONT Infused .Q24H TREY Infusion 5 MG/HR Doxycycline Hyclate 100 mg/ 250 mls @ 166.67 mls/hr 10/02/25 09:00 10/03/25 09:57 Sodium Chloride IV Infused Q12H TREY Infusion Iohexol 65 ml 10/01/25 21:00 10/01/25 21:00 Iohexol 350 Mg/Ml 100 Ml Infus..Btl IV 10/01/25 21:01 65 ml ONCE ONE Administration Levalbuterol HCl 1.25 mg 10/02/25 01:45 10/02/25 02:26 Levalbuterol Hcl 1.25 Mg/3 Ml Vial.Neb INHALE 10/02/25 01:46 1.25 mg ONCE STA Administration Levothyroxine Sodium 25 mcg 10/02/25 11:15 10/03/25 05:55 Levothyroxine Sodium 25 Mcg Tablet PO 25 mcg DAILY@0600 TREY Administration Lorazepam 1 mg 10/01/25 18:48 10/01/25 19:04 Lorazepam 1 Mg Tablet PO 10/01/25 18:49 1 mg ONCE ONE Administration Melatonin 6 mg 10/02/25 01:42 10/02/25 23:31 Melatonin 3 Mg Tablet PO 6 mg BEDTIME PRN Administration Insomnia Methylprednisolone Sodium Succinate 60 mg 10/01/25 19:45 10/01/25 19:51 Methylprednisolone Sod Succ 125 Mg/2 Ml Vial IVPUSH 10/01/25 19:46 60 mg ONCE ONE Administration Methylprednisolone Sodium Succinate 40 mg 10/02/25 06:00 10/03/25 05:55 Methylprednisolone Sod Succ 40 Mg/Ml Vial IVPUSH 40 mg Q12H TREY Administration Metoprolol Tartrate 25 mg 10/02/25 02:10 10/02/25 02:25 Metoprolol Tartrate 25 Mg Tablet PO 10/02/25 02:11 25 mg ONCE STA Administration Protocol Nicotine 14 mg 10/03/25 05:20 10/03/25 05:53 Nicotine 14 Mg Patch.Td24 TRANSDERMA 14 mg DAILY TREY Administration Potassium Chloride 20 meq 10/02/25 09:00 10/03/25 08:27 Potassium Chloride Packet 20 Meq Packet PO 20 meq TID TREY Administration Sodium Chloride 3 ml 10/02/25 08:00 10/03/25 08:23 0.9 % Sodium Chloride Flush 3 Ml Syringe IVFLUSH 3 ml QSHIFT TREY Administration Medical Decision Making Medical Decision Making [facility] Narrative: 69-year-old male presents for evaluation of leg swelling and weeping. Is legs have 3+ pitting edema bilaterally, no surrounding erythema, no wounds. He has some mild wheezing with crackles on exam. He has COPD at baseline but his oxygen saturation did drop as low as 86 percent on room air. He was transitioned to nasal cannula. A chest x-ray does not show significant edema [place] [address]. The patient does have JVD in addition to his leg swelling. I ordered a dose of Lasix 80 milligrams IV. The patient's lactic acid was elevated to 3.0 and I suspect this is due to albuterol use that he was using prior to come into the hospital. He denies any cough, shortness of breath, chest pain. He is afebrile, he has no leukocytosis to suggest infectious process. Differential Diagnosis Differential Diagnoses: The differential diagnosis associated with the presentation includes Acute hypoxic respiratory failure Congestive heart failure COPD exacerbation Pneumonia Admission/Observation Consideration of admission/observation: Escalation of care including admission/observation considered Lab Data [facility] Lab Attestation statement: I reviewed the patient's lab results. No leukocytosis or significant anemia. Normal platelet count. The patient has a normal sodium, potassium in his slightly low at 3.2 which is likely due to his chronic furosemide use. He is volume overloaded and will need additional furosemide therefore we will replete his potassium. 10/02/25 05:09 10/03/25 09:23 Labs: Lab Results 10/01/25 10/01/25 10/01/25 Range/Units 16:41 16:41 16:49 WBC 9.7 (4.8-10.8) X10*3/uL RBC 5.05 D (4.60-5.80) X10*6/uL Hgb 14.9 D (14.0-18.0) g/dl Hct 47.3 D (42.0-52.0) % MCV 93.7 (80.0-98.0) fL MCH 29.5 (27.0-33.0) pg MCHC 31.5 (31.0-36.0) g/dl RDW 16.4 H (11.0-16.0) % Plt Count 164 (160-400) X10*3/uL MPV 10.9 (9.4-12.4) fL Immature Gran % (Auto) 0.5 H (0.0-0.4) % Neut % (Auto) 71.2 (45-73) % Lymph % (Auto) 20.4 (20-40) % Florence % (Auto) 5.9 (2-11) % Eos % (Auto) 1.3 (0-4) % Baso % (Auto) 0.7 (0-2) % Lymph # (Auto) 2.0 (1.2-4.9) X10*3/uL Florence # (Auto) 0.6 (0.1-1.2) X10*3/uL Eos # (Auto) 0.1 (0.0-0.4) X10*3/uL Baso # (Auto) 0.1 (0.0-0.2) X10*3/uL Abs Immat Gran (auto) 0.05 H (0.00-0.03) X10*3/uL Absolute Neuts (auto) 6.9 (2.0-8.3) x10*3/uL Absolute Nucleated RBC 0.000 (0.0-0.012) X10*3/uL Nucleated RBC % (auto) 0.0 (0.0-0.2) /100WBC PT 16.9 H (11.2-13.5) SEC INR 1.4 H (0.9-1.1) APTT 35.5 H (26.7-34.1) SEC VBG pH 7.38 (7.32-7.43) VBG pCO2 32 mmHg VBG pO2 49 mmHg VBG HCO3 19 L (22-26) mmol/L VBG O2 Saturation 77.0 % VBG Base Excess -4.5 mmol/L Sodium 139 (135-145) mmol/L Potassium 3.2 L (3.3-5.1) mmol/L Chloride 110 H (96-108) mmol/L Carbon Dioxide 20 L (22-29) mmol/L Anion Gap 12 (12-20) BUN 15 (9-16) mg/dL Creatinine 1.41 H (0.5-1.4) mg/dL Estim Creat Clear Calc 51.7 Estimated GFR 50 Random Glucose 78 (60-115) mg/dL Lactic Acid 3.0 H* (0.5-2.0) mmol/L Calcium 7.5 L D (8.4-10.2) mg/dL Total Bilirubin 0.8 (0.0-1.0) mg/dL AST 39 H (5-37) U/L ALT 20 (0-40) U/L Alkaline Phosphatase 114 (39-117) U/L Troponin I High Sens 23.9 D (<3.5-35.0) ng/L NT-Pro-B Natriuret Pep Cancelled 86649.6 H Total Protein 5.5 L (6.5-8.0) g/dL Albumin 3.1 L (3.5-5.0) g/dL TSH 5.29 H (0.32-4.0) uIU/mL Urine Color Urine Appearance Urine pH (5.0-9.0) Ur Specific Riesel (1.005-1.025) Urine Protein (Neg-Trace) mg/dL Urine Glucose (UA) (Negative) mg/dL Urine Ketones (Negative) mg/dL Urine Blood (Negative) Urine Nitrite (Negative) Ur Leukocyte Esterase (Negative) Urine Opiates Screen (Not Detect) Ur Buprenorphine Scrn (Not Detect) ng/mL Ur Oxycodone Screen (Not Detect) ng/mL Urine Methadone Screen (Not Detect) ng/mL Urine Fentanyl Screen (Not Detect) Ur Barbiturates Screen (Not Detect) Ur Phencyclidine Scrn (Not Detect) Ur Amphetamines Screen (Not Detect) U Benzodiazepines Scrn (Not Detect) Urine Cocaine Screen (Not Detect) U Marijuana (THC) Screen (Not Detect) Ethyl Alcohol < 10 mg/dL Influenza Type A (PCR) NEGATIVE (Negative) Influenza Type B (PCR) NEGATIVE (Negative) RSV RNA Qual (PCR) NEGATIVE (Negative) SARS-CoV-2 RNA (RT-PCR) NEGATIVE (Negative) 10/01/25 10/01/25 10/01/25 Range/Units 21:31 21:37 21:41 WBC (4.8-10.8) X10*3/uL RBC (4.60-5.80) X10*6/uL Hgb (14.0-18.0) g/dl Hct (42.0-52.0) % MCV (80.0-98.0) fL MCH (27.0-33.0) pg MCHC (31.0-36.0) g/dl RDW (11.0-16.0) % Plt Count (160-400) X10*3/uL MPV (9.4-12.4) fL Immature Gran % (Auto) (0.0-0.4) % Neut % (Auto) (45-73) % Lymph % (Auto) (20-40) % Florence % (Auto) (2-11) % Eos % (Auto) (0-4) % Baso % (Auto) (0-2) % Lymph # (Auto) (1.2-4.9) X10*3/uL Florence # (Auto) (0.1-1.2) X10*3/uL Eos # (Auto) (0.0-0.4) X10*3/uL Baso # (Auto) (0.0-0.2) X10*3/uL Abs Immat Gran (auto) (0.00-0.03) X10*3/uL Absolute Neuts (auto) (2.0-8.3) x10*3/uL Absolute Nucleated RBC (0.0-0.012) X10*3/uL Nucleated RBC % (auto) (0.0-0.2) /100WBC PT (11.2-13.5) SEC INR (0.9-1.1) APTT (26.7-34.1) SEC VBG pH 7.37 (7.32-7.43) VBG pCO2 41 mmHg VBG pO2 50 mmHg VBG HCO3 24 (22-26) mmol/L VBG O2 Saturation 78.0 % VBG Base Excess -0.5 mmol/L Sodium (135-145) mmol/L Potassium (3.3-5.1) mmol/L Chloride (96-108) mmol/L Carbon Dioxide (22-29) mmol/L Anion Gap (12-20) BUN (9-16) mg/dL Creatinine (0.5-1.4) mg/dL Estim Creat Clear Calc Estimated GFR Random Glucose (60-115) mg/dL Lactic Acid (0.5-2.0) mmol/L Calcium (8.4-10.2) mg/dL Total Bilirubin (0.0-1.0) mg/dL AST (5-37) U/L ALT (0-40) U/L Alkaline Phosphatase (39-117) U/L Troponin I High Sens 23.9 (<3.5-35.0) ng/L NT-Pro-B Natriuret Pep Total Protein (6.5-8.0) g/dL Albumin (3.5-5.0) g/dL TSH (0.32-4.0) uIU/mL Urine Color Yellow Urine Appearance Clear Urine pH 6.0 (5.0-9.0) Ur Specific Riesel <= 1.005 (1.005-1.025) Urine Protein Negative (Neg-Trace) mg/dL Urine Glucose (UA) Negative (Negative) mg/dL Urine Ketones Negative (Negative) mg/dL Urine Blood Negative (Negative) Urine Nitrite Negative (Negative) Ur Leukocyte Esterase Negative (Negative) Urine Opiates Screen Not Detected (Not Detect) Ur Buprenorphine Scrn Not Detected (Not Detect) ng/mL Ur Oxycodone Screen Not Detected (Not Detect) ng/mL Urine Methadone Screen Not Detected (Not Detect) ng/mL Urine Fentanyl Screen Not Detected (Not Detect) Ur Barbiturates Screen Not Detected (Not Detect) Ur Phencyclidine Scrn Not Detected (Not Detect) Ur Amphetamines Screen Not Detected (Not Detect) U Benzodiazepines Scrn Not Detected (Not Detect) Urine Cocaine Screen Not Detected (Not Detect) U Marijuana (THC) Screen Not Detected (Not Detect) Ethyl Alcohol mg/dL Influenza Type A (PCR) (Negative) Influenza Type B (PCR) (Negative) RSV RNA Qual (PCR) (Negative) SARS-CoV-2 RNA (RT-PCR) (Negative) Critical Care Time Critical Care Time Critical Care Time: Yes Total Critical Care Time: 60 Attestation: Patient presented with leg swelling and weeping clear fluid, he was found to be in significant volume overload/CHF. He became hypoxic and tachypneic/tachycardic. He was treated with IV Lasix and ultimately a Lasix drip. He was given antibiotics and steroids due to history of COPD but his primary diagnosis is congestive heart failure Discharge Plan Discharge Clinical Impression: Acute respiratory failure with hypoxia, Congestive heart failure Patient Disposition: Admitted As Inpatient Interventions: Admission Worksheet (ED) Last Done: 10/02/25 09:12 Discharge Date/Time: 10/02/25 09:55
--- NOTE | 2025-10-01 16:12 | ECG_ITS ---
Test Reason : dyspnea Blood Pressure : */* mmHG Vent. Rate : 114 BPM Atrial Rate : * BPM P-R Int : * ms QRS Dur : 90 ms QT Int : 306 ms P-R-T Axes : * 128 252 degrees QTcB Int : 421 ms Atrial fibrillation with rapid ventricular response Left posterior fascicular block ST & T wave abnormality, consider inferior ischemia Abnormal ECG When compared with ECG of 17-Oct-2024 07:54, Vent. rate has increased by 46 bpm Left posterior fascicular block is now Present T wave inversion now evident in Inferior leads Nonspecific T wave abnormality now evident in Anterior leads Referred By: Moses Pressley Electronically Signed By: CECILIA GIBBS MD
[2025-10-01 16:49] LABS: MANUAL DIFF FLAG NO
[2025-10-01 16:52] LABS: Venous Blood Gas Refer to POC result
[2025-10-01 16:53] LABS: VBG HCO3 19 mmol/L (22-26); VBG O2 % Saturation 77.0 %
[2025-10-01 16:56] LABS: Hematocrit 47.3 % (42.0-52.0); Hemoglobin 14.9 g/dl (14.0-18.0); Imm Gran Abs Auto 0.05 X10*3/uL (0.00-0.03); Imm Gran Pct Auto 0.5 % (0.0-0.4); Lymphocytes Absolute Auto 2.0 X10*3/uL (1.2-4.9); Mean Corpuscular HGB Conc 31.5 g/dl (31.0-36.0); Mean Corpuscular Hemoglobin 29.5 pg (27.0-33.0); Mean Corpuscular Volume 93.7 fL (80.0-98.0); NRBC Abs Auto 0.000 X10*3/uL (0.0-0.012); NRBC Pct Auto 0.0 /100WBC (0.0-0.2); Platelet Count 164 X10*3/uL (160-400); Red Blood Count 5.05 X10*6/uL (4.60-5.80); White Blood Count 9.7 X10*3/uL (4.8-10.8)
[2025-10-01 16:58] LABS: INTERNATIONAL NORM RATIO 1.4 (0.9-1.1); Prothrombin Time 16.9 SEC (11.2-13.5)
[2025-10-01 17:00] LABS: Partial Thromboplastin Time 35.5 SEC (26.7-34.1)
[2025-10-01 17:10] LABS: Alanine Aminotransferase 20 U/L (0-40); Albumin Level 3.1 g/dL (3.5-5.0); Alkaline Phosphatase 114 U/L (39-117); Anion Gap 12 (12-20); Aspartate Amino Transferase 39 U/L (5-37); Blood Urea Nitrogen 15 mg/dL (9-16); Calcium 7.5 mg/dL (8.4-10.2); Carbon Dioxide 20 mmol/L (22-29); Chloride 110 mmol/L (96-108); Creatinine Clr Calc Pharmacy 51.7; Estimated Glomerular Filt Rate 50; Potassium 3.2 mmol/L (3.3-5.1); Sodium 139 mmol/L (135-145); Total Protein 5.5 g/dL (6.5-8.0)
[2025-10-01 17:13] LABS: Troponin-I High Sensitivity 23.9 ng/L (<3.5-35.0)
--- NOTE | 2025-10-01 17:24 | PC.NURSE ---
pt presents to dept- direct bedded to ED23 from triage, pt noted to have increased WOB while ambulating to exam room. pt sts that he has been feeling increasingly tired, and has noted increased shortness of breath when laying flat. pt temperature on arrival found to be 94.4- rectal probe placed, ciara hugger applied on medium with improvement to 98.2 pt found to be 86% on room air- per Pt uses up to 4L O2 at home- 3L O2 applied via NC w/ capnography with improvement to 89%- pt noted to be mouth breathing- switched to oxymask- SpO2 90-92% at this time pt does not have a CPAP d/t cost pt does still smoke cigarttes denies etoh/drug use pt noted to be tachycardic in the 120's- security monitor applied- EKG obtained 20G IV access obtained in R-FA Labs and cultures obtained Pt awaiting provider eval at this time
[2025-10-01 17:29] LABS: Resp Syncy Virus RNA Qual PCR NEGATIVE (Negative); SARS COV2 PCR INHOUSE NEGATIVE (Negative)
[2025-10-01] MEDS: Albuterol Sulfate 2.5 MG, Albuterol/Iprat 2.5/0.5MG 3 ML 3 ML INHALE (18:45)
[2025-10-01 18:46] LABS: Reflex Lactate? Lactic Acid Added
[2025-10-01] MEDS: Furosemide 100 MG/10 ML VIAL 80 MG IVPUSH (18:52)
--- OUTSIDE RECORDS SUMMARY | 2025-10-01 18:53 | XMS_ITS | Clinical Summary ---
Author Organization [facility] Address [address] [place] [address] Care Team Providers Care Channel Marketing Coordinator Name Role Phone Akshat Bill Primary Care [...] (03/18/2018): Added automatically from request for surgery [id number] Social History Tobacco Use Types Packs/Day Years [...] 12:14 PM 03/25/2018 12:22 PM Care Teams Channel Marketing Coordinator Relationship Specialty Start Date End Date Akshat Bill PCP - General 03/22/18
--- OUTSIDE RECORDS SUMMARY | 2025-10-01 18:53 | XMS_ITS | Encounter Summary ---
Author Organization [facility] Address [address] [place] [address] Care Team Providers Care Supervisor Beehive Kiln Name Role Phone Akshat Bill Primary Care Provider Unav ailable Encounter Details Date Type Department Care Team (Late st Contact Info) Description 03/18/2018 Scanned Document [facility] [place] [address] Zoila Tom MD [facility] [place] [address] [facility] A Social History Tobacco Use Types Packs/Day [...] on filedocumented in this encounter Care Teams Supervisor Beehive Kiln Relationship Specialty Start Date End Date Akshat Bill PCP - General 03/22/18 documented as of this encounter
--- NOTE | 2025-10-01 19:35 | PC.NURSE ---
trialed pt on room air s/p breathing treatment- pt SpO2 dropped to 78%. MARY Buitrago brought to bedside, pt to have CTA chest
--- NOTE | 2025-10-01 20:40 | PC.NURSE ---
pt resting on exam room gurney- eyes closed, audibly snoring- pt apears restless. thrashing arms and legs- pt SpO2 holding between 87-91% on 4L via oxymask- Pt remains tachycardic into the 150's male purewick in place- 650-mls haeys colored urine in wall suctions canister.
[2025-10-01] MEDS: iohexoL 350 MG/ML 100 ML INFUS..BTL 65 ML IV (21:00)
--- NOTE | 2025-10-01 21:10 | PC.NURSE ---
Assumed care of this patient at 2100, upon return from CT scan, pt found to be increasingly agitated, yelling out intermittently I need help / get off me , sats 88% on 4L, persistently tachy to 130's - 150's. Pt not able to appropriately answer questions at this time. MARY Lockhart made aware, etoh level added onto lab work.
[2025-10-01 21:40] LABS: Venous Blood Gas Refer to POC result
[2025-10-01 21:40] LABS: VBG HCO3 24 mmol/L (22-26); VBG O2 % Saturation 78.0 %
[2025-10-01 21:54] LABS: Appearance Urine Clear; Glucose Urine UA Negative (Negative); PH 6.0 (5.0-9.0); Specific Gravity - Urine <= 1.005 (1.005-1.025)
--- NOTE | 2025-10-01 21:55 | PC.NURSE ---
attempted to administer PO K per order to patient, patient increasingly more difficult to arouse, not able to tolerate PO at at this time, JVD extremely apparent. MARY Lockhart made aware.
[2025-10-01 21:57] LABS: Troponin-I High Sensitivity 23.9 ng/L (<3.5-35.0)
[2025-10-01 22:03] LABS: Cannabinoid Screen Urine Not Detected (Not Detect)
[2025-10-01] MEDS: KCl 20 mEq in 0.9 % Sodium ChL 20 MEQ/1,000 ML IV.SOLN 150 MEQ IVCONT (22:04)
--- NOTE | 2025-10-01 22:36 | PC.NURSE ---
Confirmed w/ provider Richy he wanted 1L 20 meQ over 6 hours, Richy to change order.
--- NOTE | 2025-10-01 22:49 | PC.NURSE ---
pt currently on 4L O2 via oxymask- per MARY Mckeon no capnography needed at this time. Pt repositioned for comfort, male purewick in place drained a total of 2L a this time. Allevyn dressing placed on right lateral elbow skin tear that nuclear reactor technician reported occurred during Imaging. no active bleeding at this time.
[2025-10-01] MEDS: Potassium Chloride/H20 10 MEQ/100 ML PIGGYBACK 100 MEQ IV (22:55)
[2025-10-02] VITALS (12 sets, daily range): BP systolic 98–141; BP diastolic 55–96; PULSE 87–123; RESP 18–26; TEMP 35.9–36.9; O2SAT 89–100; BMI 32.7; BMI 31.8
[2025-10-02] MEDS: Furosemide 200 MG in 0.9 % Sodium Chloride 80 ML IVCONT (00:48)
[2025-10-02] MEDS: Potassium Chloride/H20 10 MEQ/100 ML PIGGYBACK 100 MEQ IV ×2 (00:50→02:10)
--- NOTE | 2025-10-02 01:49 | P.HPHOSP_ITS ---
History of Present Illness Date of Service: 10/02/25 Attending physician on admission: Tigre Weathers Chief Complaint: Leg swelling Steve Morales is a 69 years old man with a complex past medical history including COPD on home O2 2-3 L/min, essential hypertension, severe cardiomyopathy, hypothyroidism, paroxysmal AFib s/p cardioversion in 2023 on amiodarone and Eliquis, CAD on Eliquis and DUSTIN noncompliant with CPAP presents to the emergency department complaining of leg swelling over the last several days. Patient is a vague historian. He does complain of occasional cough. Denied chest pain, dizziness or palpitations. He denied any acute gastrointestinal or genitourinary symptoms. He has an ongoing tobacco smoker. Denied alcohol abuse or illicit drug use. In the ED, he was found to have tachycardia consistent with rapid AFib, tachypnea and oxygen saturation of 87% on OxyMask. There is no fever and blood pressure is stable. There is no leukocytosis. Hemoglobin is 14.9 and platelets 164. INR is 1.4. Venous blood gas showed no respiratory acidosis. There is mild hypokalemia of 3.2, chloride 110, CO2 20, anion gap 12, BUN 15 and creatinine 1.41. There is lactic acidosis of 3.0. AST is 39, alk-phos 114, ALT 20 and [place] [address].6. Troponin is 23.9 x2. Albumin is 3.1. UA showed no proteinuria or hematuria. Toxicology and alcohol is negative. COVID-19, RSV and influenza testing is negative. Chest CTA showed interlobular septal thickening which can be seen with pulmonary edema and find a possible secondary to reactive airway disease or bronchitis. There is no PE and changes consistent with pulmonary artery hypertension. The right heart is enlarged. ECG showed rapid AFib, heart rate 114 beats per minute. ED tx: Digoxin 0.25 mg IV, furosemide IV infusion, Klor-Con 60 mEq p.o., KCl 20 IV, ceftriaxone 1 g IV, azithromycin 500 mg IV, Ativan 1 mg p.o., Solu-Medrol 60 mg IV, furosemide 60 mg IV, albuterol 2.5 mg nebs Review of Systems 2 Review of Systems: All 12 systems were reviewed and normal except as noted in HPI. [facility] Medical History (Updated 10/02/25 @ 02:15 by Tigre Weathers MD) Overweight (BMI 25.0-29.9) COPD (chronic obstructive pulmonary disease) Essential hypertension Pure hypercholesterolemia CHF exacerbation Smoker Acquired hypothyroidism Obesity (BMI 30-39.9) Coronary artery disease Congestive heart failure (CHF) Atrial fibrillation with RVR Surgical History (Updated 09/05/25 @ 20:55 by Papi Sanders MD) Hx of cardiac cath S/P appendectomy History of coronary artery stent placement Social History Household Members: Significant Other Housing: Apartment Do you presently have visiting nurse or other home services: No Alcohol intake: never Comment: pt refused bed alarm Patient Tobacco Use Status: Current everyday Tobacco user Tobacco use type: Cigarette Cigarette Packs Per Day: 0.5 Cigarettes Per Day: 10 Years Smoked: 50 Smoked in Last 30 Days: Yes e-Cigarette/Vaping Use: Former Use Second Hand Smoke Exposure: Yes Use of substances other than those prescribed or required for medical reasons: No Substance Use Type: Marijuana Advance Directives: Yes Advance Directives on File: Yes Advance Directives Date on File: 10/17/24 service: Yes Current occupational status: retired Cognitive needs: No Hearing needs: No Vision needs: No Meds Allergies Allergy/AdvReac Type Severity Reaction Status Date / Time No Known Allergies (No Known Allergy Verified 10/01/25 16:09 Allergies*) Active Medications: Current Medications Acetaminophen (Acetaminophen 325 Mg Tablet) 975 mg PO Q6H PRN PRN Reason: Pain, Mild 1-3,fever,headache Amiodarone HCl (Amiodarone Hcl 200 Mg Tablet) 200 mg PO ONCE STA Stop: 10/02/25 01:46 Calcium Carbonate (Calcium Carbonate 750 Mg Tab.Chew) 750 mg PO Q4H PRN PRN Reason: Heartburn Potassium Chloride (Potassium Chloride/H20) 10 meq in 100 mls @ 100 mls/hr IV Q1H TREY Stop: 10/02/25 02:59 Last Admin: 10/02/25 00:50 Dose: 100 mls/hr Furosemide 200 mg/ Sodium (Chloride) 100 mls @ 2.5 mls/hr IVCONT .Q24H TREY Last Admin: 10/02/25 00:48 Dose: 5 mg/hr, 2.5 mls/hr Levalbuterol HCl (Levalbuterol Hcl 1.25 Mg/3 Ml Vial.Neb) 1.25 mg INHALE ONCE STA Stop: 10/02/25 01:46 Magnesium Hydroxide (Milk Of Magnesia 30 Ml Oral.Susp) 30 ml PO DAILY PRN PRN Reason: Constipation Melatonin (Melatonin 3 Mg Tablet) 6 mg PO BEDTIME PRN PRN Reason: Insomnia Methylprednisolone Sodium Succinate (Methylprednisolone Sod Succ 40 Mg/Ml Vial) 40 mg IVPUSH Q12H TREY Potassium Chloride (Potassium Chloride Packet 20 Meq Packet) 20 meq PO TID TREY Sodium Chloride (0.9 % Sodium Chloride Flush 3 Ml Syringe) 3 ml IVFLUSH QSHIFT TREY Home Medications ?Medication ?Instructions ?Recorded ?Confirmed ?Last Taken ?Type aspirin 81 mg tablet 81 mg PO DAILY 09/04/2508/19 Unknown History Physical Exam 2 Vital Signs and Narrative: Vital Signs: Last Vital Signs Temp 98.4 F 10/02/25 01:06 Pulse 120 H 10/02/25 01:06 Resp 25 H 10/02/25 01:06 BP 105/88 10/02/25 01:06 Pulse Ox 91 L 10/02/25 01:06 O2 Del Method CPAP 10/02/25 01:06 O2 Flow Rate 4 10/01/25 22:55 BMI result Body Mass Index 33.6 General: Alert, oriented, in no acute distress. Cooperative. Afebrile. CPAP mask in place. HEENT: Head normocephalic, atraumatic. PER, EOMI. Sclerae anicteric, conjunctiva clear. Oropharynx without erythema or exudate. Mucous membranes moist. Neck: Supple, positive JVD. Heart: Irregular rhythm, tachycardia, no murmurs, rubs or gallops. Lungs: Tachypnea, Bilateral expiratory wheezes. Bibasilar crackles. Normal respiratory effort. Abdomen: Soft, non tenderness, nondistended, normoactive bowel sounds. Depressible supraumbilical hernia. Extremities: Bilateral edema to the lower extremities. Musculoskeletal: Full range of motion. No joint swelling, deformity, or tenderness. Skin: Warm/Dry. No pallor. No jaundice. Neurologic: Alert & oriented x4. Moving all extremities spontaneously. Normal speech. Psychological: Normal mood and affect. Thought process coherent. Results Labs 10/01/25 16:41 10/01/25 16:41 Labs: Laboratory Results - last 24 hr 10/01/25 10/01/25 10/01/25 16:41 16:41 16:49 MCV 93.7 MCH 29.5 MCHC 31.5 RDW 16.4 H Plt Count 164 MPV 10.9 Immature Gran % (Auto) 0.5 H Neut % (Auto) 71.2 Lymph % (Auto) 20.4 [place] % (Auto) 5.9 Eos % (Auto) 1.3 Baso % (Auto) 0.7 Lymph # (Auto) 2.0 [place] # (Auto) 0.6 Eos # (Auto) 0.1 Baso # (Auto) 0.1 Abs Immat Gran (auto) 0.05 H Absolute Neuts (auto) 6.9 Absolute Nucleated RBC 0.000 Nucleated RBC % (auto) 0.0 PT 16.9 H INR 1.4 H APTT 35.5 H VBG pH 7.38 VBG pCO2 32 VBG pO2 49 VBG HCO3 19 L VBG O2 Saturation 77.0 VBG Base Excess -4.5 Anion Gap 12 Estim Creat Clear Calc 51.7 Estimated GFR 50 Random Glucose 78 Lactic Acid 3.0 H* Calcium 7.5 L D Total Bilirubin 0.8 AST 39 H ALT 20 Alkaline Phosphatase 114 Troponin I High Sens 23.9 D NT-Pro-B Natriuret Pep Cancelled 18999.6 H Total Protein 5.5 L Albumin 3.1 L Urine Color Urine Appearance Urine pH Ur Specific [place] Urine Protein Urine Glucose (UA) Urine Ketones Urine Blood Urine Nitrite Ur Leukocyte Esterase Urine Opiates Screen Ur Buprenorphine Scrn Ur Oxycodone Screen Urine Methadone Screen Urine Fentanyl Screen Ur Barbiturates Screen Ur Phencyclidine Scrn Ur Amphetamines Screen U Benzodiazepines Scrn Urine Cocaine Screen U Marijuana (THC) Screen Ethyl Alcohol < 10 Influenza Type A (PCR) NEGATIVE Influenza Type B (PCR) NEGATIVE RSV RNA Qual (PCR) NEGATIVE SARS-CoV-2 RNA (RT-PCR) NEGATIVE 10/01/25 10/01/25 10/01/25 21:31 21:37 21:41 MCV MCH MCHC RDW Plt Count MPV Immature Gran % (Auto) Neut % (Auto) Lymph % (Auto) [place] % (Auto) Eos % (Auto) Baso % (Auto) Lymph # (Auto) [place] # (Auto) Eos # (Auto) Baso # (Auto) Abs Immat Gran (auto) Absolute Neuts (auto) Absolute Nucleated RBC Nucleated RBC % (auto) PT INR APTT VBG pH 7.37 VBG pCO2 41 VBG pO2 50 VBG HCO3 24 VBG O2 Saturation 78.0 VBG Base Excess -0.5 Anion Gap Estim Creat Clear Calc Estimated GFR Random Glucose Lactic Acid Calcium Total Bilirubin AST ALT Alkaline Phosphatase Troponin I High Sens 23.9 NT-Pro-B Natriuret Pep Total Protein Albumin Urine Color Yellow Urine Appearance Clear Urine pH 6.0 Ur Specific [place] <= 1.005 Urine Protein Negative Urine Glucose (UA) Negative Urine Ketones Negative Urine Blood Negative Urine Nitrite Negative Ur Leukocyte Esterase Negative Urine Opiates Screen Not Detected Ur Buprenorphine Scrn Not Detected Ur Oxycodone Screen Not Detected Urine Methadone Screen Not Detected Urine Fentanyl Screen Not Detected Ur Barbiturates Screen Not Detected Ur Phencyclidine Scrn Not Detected Ur Amphetamines Screen Not Detected U Benzodiazepines Scrn Not Detected Urine Cocaine Screen Not Detected U Marijuana (THC) Screen Not Detected Ethyl Alcohol Influenza Type A (PCR) Influenza Type B (PCR) RSV RNA Qual (PCR) SARS-CoV-2 RNA (RT-PCR) Assessment and Plan (1) Acute on chronic right-sided congestive heart failure: Status: Acute (2) Acute and chronic respiratory failure with hypoxia: Status: Acute Plan Steve Morales is a 69 y/o man with severe cardiomyopathy who presents with: Acute on chronic hypoxic respiratory failure, likely secondary to right-sided heart failure/cor pulmonale + acute on chronic systolic CHF and acute exacerbation of COPD; underlying DUSTIN noncompliant with CPAP. Telemetry. Pulse oximetry. Continue supplemental O2 to keep O2 sats > 90%. Continue bronchodilator therapy, IV steroids, IV diuretics and empiric IV antibiotic therapy with doxycycline. Continue to monitor pro BNP. Check TTE. I&O. Low- salt diet. Daily weight. Encourage nocturnal CPAP use. Cardiology consult. Rapid AFib, paroxysmal. s/p cardioversion in 2023. Received digoxin 0.25 mcg IV in ED. Continue amiodarone, metoprolol and Eliquis. Acute kidney injury, likely multifactorial: Furosemide use; acute CHF. Continue to monitor. Essential hypertension. Continue losartan. CAD. s/p RCA stenting. Continue Plavix, aspirin and statin. Hyperlipidemia. Continue statin. Hypothyroidism. Continue levothyroxine. Check TSH. Tobacco dependence. Tobacco cessation education. Code status: Full DVT prophylaxis: On Eliquis Patient will need hospitalization for at least 2 midnights for acute on chronic hypoxic respiratory failure secondary to CHF and COPD exacerbation therapy with supplemental oxygen, IV diuresis, IV steroids and IV antibiotic therapy. Quality Stroke Does the patient have a stroke diagnosis?: No VTE Prior VTE?: No VTE Risk Level:: Medical - moderate - high VTE Device Contraindication: Treatment Not Indicated VTE Drug Contraindication: N/A - Med Ordered
--- NOTE | 2025-10-02 02:38 | PC.NURSE ---
pt repositioned and medicated per mar.
[2025-10-02 02:43] LABS: Thyroid Stimulating Hormone 5.29 uIU/mL (0.32-4.0)
--- NOTE | 2025-10-02 02:58 | PC.NURSE ---
pt de-stating on cpap, notified respiratory, oxygen increased.
--- NOTE | 2025-10-02 03:23 | PC.NURSE ---
pt reposition for comfort, 900cc of urine emptied
--- NOTE | 2025-10-02 04:44 | PC.NURSE ---
pt reposition for comfort. vitals taken
[2025-10-02 05:14] LABS: MANUAL DIFF FLAG NO
[2025-10-02 05:15] LABS: Hematocrit 43.2 % (42.0-52.0); Hemoglobin 13.3 g/dl (14.0-18.0); Imm Gran Abs Auto 0.02 X10*3/uL (0.00-0.03); Imm Gran Pct Auto 0.4 % (0.0-0.4); Lymphocytes Absolute Auto 0.5 X10*3/uL (1.2-4.9); Mean Corpuscular HGB Conc 30.8 g/dl (31.0-36.0); Mean Corpuscular Hemoglobin 28.9 pg (27.0-33.0); Mean Corpuscular Volume 93.9 fL (80.0-98.0); NRBC Abs Auto 0.000 X10*3/uL (0.0-0.012); NRBC Pct Auto 0.0 /100WBC (0.0-0.2); Platelet Count 160 X10*3/uL (160-400); Red Blood Count 4.60 X10*6/uL (4.60-5.80); White Blood Count 5.3 X10*3/uL (4.8-10.8)
[2025-10-02 05:34] LABS: Anion Gap 14 (12-20); Blood Urea Nitrogen 15 mg/dL (9-16); Calcium 8.0 mg/dL (8.4-10.2); Carbon Dioxide 25 mmol/L (22-29); Chloride 105 mmol/L (96-108); Creatinine Clr Calc Pharmacy 45.0; Estimated Glomerular Filt Rate 42; Magnesium 2.1 mg/dL (1.6-2.6); Potassium 4.2 mmol/L (3.3-5.1); Sodium 140 mmol/L (135-145)
[2025-10-02 06:04] LABS: Venous Blood Gas Refer to POC result
[2025-10-02 06:09] LABS: VBG HCO3 25 mmol/L (22-26); VBG O2 % Saturation 80.0 %
--- NOTE | 2025-10-02 06:10 | PC.NURSE ---
repeat labs ordered, 1000cc of urine output, medicated per mar, pt repositioned
--- NOTE | 2025-10-02 06:18 | PC.NURSE ---
Per DR. Jules mack to hold 4th bag of potassium, due to pt refusing.
[2025-10-02 06:40] LABS: Cancel Lactic Acid Canceled
--- NOTE | 2025-10-02 07:00 | CA_ITS ---
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 LV ejection fraction severely reduced at% 2. Moderately dilated right-sided chambers with moderate to severe reduction RV systolic function 3. Calcified aortic valve changes noted with cardiac valvular Dopplers showing moderately severe tricuspid regurgitation 4. Moderately elevated right ventricular systolic pressure with significantly elevated right atrial pressures 5. No gross pericardial effusion Findings Procedure Information The study quality is limited by the patients inability to tolerate the test. Left Ventricle Normal left ventricular cavity size. There is normal left ventricular wall thickness. The left ventricular systolic function is severely decreased. The visually estimated ejection fraction is between 20-25%. There is severe global hypokinesis. Diastolic function is indeterminate on the basis of available data. Right Ventricle Moderately increased right ventricular cavity size. There is moderate to severely decreased right ventricular systolic function. Atria The left atrium is moderately dilated. Interatrial shunt cannot be excluded. The right atrium is moderately dilated. Aortic Valve There is moderate calcification of the aortic valve. There is no aortic valve stenosis. There is no aortic valve regurgitation. Mitral Valve There is mild anterior and posterior mitral leaflet thickening. There is mild mitral valve regurgitation. There is no mitral valve stenosis. Pulmonic Valve The pulmonic valve is likely normal. Tricuspid Valve Normal tricuspid valve structure. There is moderate to severe tricuspid valve regurgitation. Significantly elevated right atrial pressure. Moderate pulmonary hypertension is present. Great Vessels All visible segments of the aorta are normal in size. The pulmonary artery was not well visualized. There is no dilatation of the ascending aorta measuring 3.60 cm. Small plaque is seen in the sino tubular ridge. Venous The inferior vena cava is moderately dilated and does not collapse with inspiration. Pericardium/Pleural There is no evidence of pericardial effusion. Prior Study Comparison Significant changes compared to prior study dated: 05/27/2024. LV ejection fraction has significantly reduced Measurements 2D Linear Measurements IVSd: 0.99 0.6-0.9/0.6-1.0 cm LVIDd: 4.06 3.9-5.3/4.2-5.9 cm LVIDd Index: 2.19 2.4-3.2/2.2-3.1 cm/m2 LVIDs: 3.59 2.0-3.6 cm LVPWd: 0.79 0.7-1.1 cm LV Mass: 137.33 67-162/88-224 g LV Mass Index: 74.23 43-95/49-115 g/m2 LVOT Diam: 2.30 3.0+(-)1.3 cm 2D Systolic Function EF 4C: 20.50 >55% Mitral Valve MV Pk E: 1.01 MV Decel Time: 109.00 E'Lateral: 9.94 E'Medial: 5.76 E/E' Med: 17.50 E/E' Lat: 10.20 PHT: 32.00 MVA PHT: 6.88 Decel [place]: 9.32 Aortic Valve AoV Pk Garrick: 0.65 AoV Mn Garrick: 0.48 AoV VTI: 0.10 AoV Pk Grad: 2.00 Aov Mn Grad: 1.00 SANIYA Cont.VTI: 2.25 LVOT LVOT Pk Garrick: 0.41 LVOT Mn Garrick: 0.26 LVOT VTI: 0.05 LVOT Pk Grad: 1.00 LVOT Mn Grad: 0.00 LVOT Diam: 2.30 LVOT Area: 4.15 Diastolic Function MV Pk E: 1.01 E'Medial: 5.76 E/E' Med: 17.50 E' Laterial: 9.94 E/E' Lat: 10.20 Right Ventricle TAPSE (mm): 9.71 TVS' Garrick: 6.64 Tricuspid Valve TR Pk Garrick: 3.16 TR Pk Grad: 40.00 RA Press: 15.00 RVSP: 55.00 Great Vessels Aorta Sinus of Valsalva: 3.67 2.0-3.5 cm Ao Asc: 3.60 2.1-3.4 cm Updated in Other Vendor System with Status of Final Manny Man MD electronically signed on 10/02/2025 1:36:56 PM with status of Final
--- NOTE | 2025-10-02 07:07 | PC.NURSE ---
notified Dr. Vicente of elevated bp
--- NOTE | 2025-10-02 08:05 | PC.NURSE ---
Assumed care of pt at 0800. Pt transferred from ED23 to ED 8. A/ox3, sitting upright in bed maintaining own airway, CPAP removed and placed on NC O2 d/t pt eating breakfast. Placed on 3L- maintaining O2 sat >88%. Respirations even and unlabored, no increased wob/sob noted, Afib on tobacco scrap sifter, HR 110s-120s, denies SOB/CP. Vitals updated in worklist. Lasix drip infusing per MAR @5mg/hr. Repositioned in bed for comfort. Call mccoy within reach, all needs met at this time.
--- NOTE | 2025-10-02 09:00 | PHA.MEDREC ---
Addendum entered by Godwin Powell RPh 10/02/25 10:33: MED REC REVIEWED BY [facility] Original Note: Pharmacy Consult ? Medication Reconciliation Pharmacy has completed the medication reconciliation. Patient was able to confirm med list. Patient is no longer taking Amiodarone 20 mg, Furosemide 40 mg, and Metoprolol tart 25 mg. Patient confirmed he is on both Eliquis 5 mg and Plavix 75 mg claim history does reflect patient is on both. Patient confirms he is taking Combivet respimat, Budes/Formot 160-4.5, and Incruse elpt INH 62.5 mcg and claims history matches. Patient last had his medications last night.
[2025-10-02] MEDS: Potassium Chloride Packet 20 MEQ PACKET PO ×3 (09:25→20:30)
--- NOTE | 2025-10-02 10:46 | MHC.CM.PN ---
CM met with Patient and his Significant Other/HCP/Jennifer and addressed IMM with them, providing Patient with the original and a copy has been placed on the chart. Patient lives in an apartment with Jennifer, who will transport Patient at dc. Patient receives his home O2 from [facility] and home/resume said services is the goal ; CM has initiated and will follow for dc planning. PCP is DR. Papi Sanders.
--- NOTE | 2025-10-02 11:19 | PM.CNNEP ---
History of Present Illness Reason for Consult Consult date: 10/02/25 Chief Complaint Chief complaint: hypoxic respiratory failure History of Present Illness Narrative: 69-year-old gentleman with past medical history of CAD s/p stent to distal RCA in 08/2024, normal LV systolic and diastolic function, normal RV systolic function in 05/2024, atrial fibrillation on amiodarone and Eliquis, hypertension, COPD, DUSTIN, hypothyroidism presented to the ED with leg swelling. Has a baseline creatinine about 0.9-1.2 in 2023, is started on Lasix drip and is net-1.9 L yesterday. Urinalysis is clean. This morning creatinine increased to 1.62 so nephrology is consulted. Review of Systems Review of Systems Const : no body aches, no chills, no excessive sweating and no fatigue Eyes: no blurry vision and no change in vision ENT: no bleeding gums and no change in voice, no dizziness Card: no chest pain, no shortness of breath, no orthopnea, no PND Resp: no cough, no excessive phlegm production, no SOB GI: no abdominal pain and no nausea, no vomiting : no hematuria, no urinary frequency and no difficulty voiding Musc: no abnormal gait, no bone pain Neuro: no abnormal movements, no weakness, no dizziness, no abnormal gait and no behavioral changes Psych: no behavioral changes and no change in appetite Endo: no change in body appearance, no cold intolerance, no excessive sweating and no fatigue PMFSH Past Medical History Medical History Overweight (BMI 25.0-29.9) COPD (chronic obstructive pulmonary disease) Essential hypertension Pure hypercholesterolemia CHF exacerbation Smoker Acquired hypothyroidism Obesity (BMI 30-39.9) Coronary artery disease Congestive heart failure (CHF) Atrial fibrillation with RVR Surgical History Surgical History Hx of cardiac cath S/P appendectomy History of coronary artery stent placement Social History Social History Household Members: Significant Other Housing: Apartment Do you presently have visiting nurse or other home services: No Alcohol intake: never Comment: pt refused bed alarm Patient Tobacco Use Status: Current everyday Tobacco user Tobacco use type: Cigarette Cigarette Packs Per Day: 0.5 Cigarettes Per Day: 10 Years Smoked: 50 e-Cigarette/Vaping Use: Former Use Second Hand Smoke Exposure: Yes Substance Use Type: Marijuana Advance Directives Date on File: 10/17/24 service: Yes Current occupational status: retired Cognitive needs: No Hearing needs: No Vision needs: No Meds Allergies Allergy/AdvReac Type Severity Reaction Status Date / Time No Known Allergies (No Known Allergy Verified 10/01/25 16:09 Allergies*) Active Medications: Current Medications Acetaminophen (Acetaminophen 325 Mg Tablet) 975 mg PO Q6H PRN PRN Reason: Pain, Mild 1-3,fever,headache Albuterol/Ipratropium (Albuterol/Iprat 2.5/0.5mg 3 Ml Ampul.Neb) 3 ml INHALE Q6H PRN PRN Reason: Wheezing Apixaban (Apixaban 5 Mg Tablet) 5 mg PO BID [facility] Aspirin (Aspirin 81 Mg Tab.Chew) 81 mg PO DAILY [facility] Atorvastatin Calcium (Atorvastatin Calcium 80 Mg Tablet) 80 mg PO BEDTIME [facility] Calcium Carbonate (Calcium Carbonate 750 Mg Tab.Chew) 750 mg PO Q4H PRN PRN Reason: Heartburn Clopidogrel Bisulfate (Clopidogrel Bisulfate 75 Mg Tablet) 75 mg PO DAILY [facility] Furosemide 200 mg/ Sodium (Chloride) 100 mls @ 2.5 mls/hr IVCONT .Q24H [facility] Last Admin: 10/02/25 00:48 Dose: 5 mg/hr, 2.5 mls/hr Doxycycline Hyclate 100 mg/ (Sodium Chloride) 250 mls @ 166.67 mls/hr IV Q12H [facility] Last Infusion: 10/02/25 11:12 Dose: Infused Levothyroxine Sodium (Levothyroxine Sodium 25 Mcg Tablet) 25 mcg PO DAILY@0600 [facility] Magnesium Hydroxide (Milk Of Magnesia 30 Ml Oral.Susp) 30 ml PO DAILY PRN PRN Reason: Constipation Melatonin (Melatonin 3 Mg Tablet) 6 mg PO BEDTIME PRN PRN Reason: Insomnia Methylprednisolone Sodium Succinate (Methylprednisolone Sod Succ 40 Mg/Ml Vial) 40 mg IVPUSH Q12H [facility] Last Admin: 10/02/25 06:08 Dose: 40 mg Potassium Chloride (Potassium Chloride Packet 20 Meq Packet) 20 meq PO TID [facility] Last Admin: 10/02/25 09:25 Dose: 20 meq Sodium Chloride (0.9 % Sodium Chloride Flush 3 Ml Syringe) 3 ml IVFLUSH QSHIFT [facility] Last Admin: 10/02/25 09:14 Dose: Not Given Home Medications ?Medication ?Instructions ?Recorded ?Confirmed ?Last Taken ?Type aspirin 81 mg tablet 81 mg PO DAILY 09/04/25 10/02/25 10/01/25 History ipratropium 20 mcg-albuterol 100 1 puff inhalation Q6H 10/02/25 10/02/25 10/01/25 History mcg/actuation mist for inhalation (Combivent Respimat) umeclidinium 62.5 mcg/actuation 1 inh inhalation DAILY 10/02/25 10/02/25 10/01/25 History blister powder for inhalation (Incruse Ellipta) Physical Exam Vital Signs: Last Vital Signs Temp 97.3 F 10/02/25 10:27 Pulse 123 H 10/02/25 10:27 Resp 20 10/02/25 10:27 BP 120/83 10/02/25 10:27 Pulse Ox 93 10/02/25 10:27 O2 Del Method Nasal Cannula 10/02/25 10:27 O2 Flow Rate 4 10/02/25 10:27 BMI result Body Mass Index 31.8 General: not in any acute distress, ill appearing Nutritional Appearance: well nourished and overweight Eyes: appearance normal, both eyes and all related structures; Alignment and Position: alignment normal and position normal Neck: No lymphadenopathy, no thyromegaly Resp: bilateral air entry equal, no added sounds present Cardio: Regular rate, regular rhythm; Heart sounds: S1 normal heart sound present and S2 normal heart sound present GI: soft, nontender, no guarding, no hepatosplenomegaly : bladder normal to inspection, bladder normal to palpation, no renal angle tenderness Skin: no rashes or lesions noted and elasticity normal Neuro: alert, oriented x 3, moves all extremities Results Lab Results 10/02/25 05:09 10/02/25 05:09 Lab results: Chemistry 10/01/25 10/02/25 16:41 05:09 Sodium 139 140 Potassium 3.2 L 4.2 D Carbon Dioxide 20 L 25 BUN 15 15 Creatinine 1.41 H 1.62 H Calcium 7.5 L D 8.0 L D Hematology 10/01/25 10/02/25 16:41 05:09 WBC 9.7 5.3 Hgb 14.9 D 13.3 L Plt Count 164 160 Urinalysis 10/01/25 21:41 Urine Color Yellow Urine Appearance Clear Urine pH 6.0 Ur Specific [place] <= 1.005 Urine Protein Negative Urine Glucose (UA) Negative Urine Ketones Negative Urine Blood Negative Urine Nitrite Negative Ur Leukocyte Esterase Negative Assessment and Plan (1) Chronic heart failure: Status: Acute Plan Acute kidney injury: Patient has a baseline creatinine about 0.9-1.1 in 2023. Presented with a creatinine normal, with IV diuresis patient is net-1.9 L and creatinine went up to 1.62 suggesting the KARTIK is secondary to volume related. Urinalysis clean, cardiac catheterization showed normal LV systolic and diastolic function in August 2024, TTE in 05/2024 showed normal RV systolic function. Recommend stopping continuous Lasix drip and switching to as needed Lasix pushes to keep the patient euvolemic. Please repeat another echo to look for RV function as patient's BNP is over 10,000. Blood pressure is under control. Procedures Date of Service Date of Service: 10/02/25
--- NOTE | 2025-10-02 13:50 | PM.CNCAR ---
History of Present Illness History of Present Illness Date of Service: 10/02/25 Requesting physician: Rod Christensen Consult reason: atrial fibrillation and congestive heart failure Chief complaint: hypoxic respiratory failure Narrative: I was consulted to see Steve in cardiology consultation today for decompensated congestive heart failure leading to acute hypoxemic respiratory failure along with atrial fibrillation with rapid ventricular response. Patient is 69-year-old male with question compliance with follow-up and medications last seen by Cardiology office by in January this year while he was doing well with history of paroxysmal atrial fibrillation requiring amiodarone use after cardioversion with prior history of severe cardiomyopathy that had led to congestive heart failure and he had undergone a MAIA cardioversion. Since then he had a repeat echocardiogram which had shown near normal LV ejection fraction. He has severe COPD with oxygen requirement with chronic respiratory failure, CAD status post PCI to distal RCA stenosis in August of 2024, obesity and continued smoking. Patient came to the hospital with sudden-onset shortness of breath over 3 days although he says his shortness of breath slightly was compared to his baseline but also notice significant leg swelling in both lower extremity along with seeping edema. Patient was then came to the hospital was noted to be in atrial fibrillation rapid ventricular response in his decompensated congestive heart failure. He was then diuresed and said his breathing is better in his leg edema has significantly improved although rate remains difficult control. Did receive digoxin loading. He said he has been religiously taking his medication except for amiodarone and as per the the amiodarone was never renewed. Patient is taking Eliquis religiously and also taking Plavix. Patient denies any chest pain. He has no lightheadedness, syncope. Denies any prolonged palpitation irregular heartbeat. Review of Systems Constitutional: Constitutional: Reports weakness Cardiovascular: Cardiovascular: Denies chest pain, Denies rapid heart rate, Reports leg edema, Denies lightheadedness, Denies Loss of Consciousness, Denies palpitations, Reports dyspnea on exertion and Reports orthopnea Respiratory: Respiratory: Reports cough, Reports dyspnea on exertion and Reports wheezing Genitourinary: Genitourinary: Reports no additional male genitourinary complaints Musculoskeletal: Musculoskeletal: Reports no additional musculoskeletal complaints Neurologic: Reports system reviewed and no additional complaints, except as documented and Reports weakness Psychiatric: Psychiatric: Reports no additional psychiatric complaints Endocrine: Endocrine: Denies palpitations Allergic/Immunologic: Allergic/Immunologic: Reports wheezing [facility] Past Medical History Medical History Overweight (BMI 25.0-29.9) COPD (chronic obstructive pulmonary disease) Essential hypertension Pure hypercholesterolemia CHF exacerbation Smoker Acquired hypothyroidism Obesity (BMI 30-39.9) Coronary artery disease Congestive heart failure (CHF) Atrial fibrillation with RVR Surgical History Surgical History Hx of cardiac cath S/P appendectomy History of coronary artery stent placement Social History Social History Household Members: Significant Other Housing: Apartment Do you presently have visiting nurse or other home services: No Alcohol intake: never Comment: pt refused bed alarm Patient Tobacco Use Status: Current everyday Tobacco user Tobacco use type: Cigarette Cigarette Packs Per Day: 0.5 Cigarettes Per Day: 10 Years Smoked: 50 e-Cigarette/Vaping Use: Former Use Second Hand Smoke Exposure: Yes Substance Use Type: Marijuana Advance Directives Date on File: 10/17/24 service: Yes Current occupational status: retired Cognitive needs: No Hearing needs: No Vision needs: No Meds Allergies Allergy/AdvReac Type Severity Reaction Status Date / Time No Known Allergies (No Known Allergy Verified 10/01/25 16:09 Allergies*) Active Medications: Current Medications Acetaminophen (Acetaminophen 325 Mg Tablet) 975 mg PO Q6H PRN PRN Reason: Pain, Mild 1-3,fever,headache Albuterol/Ipratropium (Albuterol/Iprat 2.5/0.5mg 3 Ml Ampul.Neb) 3 ml INHALE Q6H PRN PRN Reason: Wheezing Amiodarone HCl (Amiodarone Hcl 200 Mg Tablet) 400 mg PO BID [facility] Last Admin: 10/02/25 12:03 Dose: 400 mg Apixaban (Apixaban 5 Mg Tablet) 5 mg PO BID [facility] Last Admin: 10/02/25 12:02 Dose: 5 mg Atorvastatin Calcium (Atorvastatin Calcium 80 Mg Tablet) 80 mg PO BEDTIME [facility] Calcium Carbonate (Calcium Carbonate 750 Mg Tab.Chew) 750 mg PO Q4H PRN PRN Reason: Heartburn Furosemide 200 mg/ Sodium (Chloride) 100 mls @ 2.5 mls/hr IVCONT .Q24H [facility] Last Admin: 10/02/25 00:48 Dose: 5 mg/hr, 2.5 mls/hr Doxycycline Hyclate 100 mg/ (Sodium Chloride) 250 mls @ 166.67 mls/hr IV Q12H [facility] Last Infusion: 10/02/25 11:12 Dose: Infused Levothyroxine Sodium (Levothyroxine Sodium 25 Mcg Tablet) 25 mcg PO DAILY@0600 [facility] Last Admin: 10/02/25 12:03 Dose: 25 mcg Magnesium Hydroxide (Milk Of Magnesia 30 Ml Oral.Susp) 30 ml PO DAILY PRN PRN Reason: Constipation Melatonin (Melatonin 3 Mg Tablet) 6 mg PO BEDTIME PRN PRN Reason: Insomnia Methylprednisolone Sodium Succinate (Methylprednisolone Sod Succ 40 Mg/Ml Vial) 40 mg IVPUSH Q12H [facility] Last Admin: 10/02/25 06:08 Dose: 40 mg Potassium Chloride (Potassium Chloride Packet 20 Meq Packet) 20 meq PO TID [facility] Last Admin: 10/02/25 09:25 Dose: 20 meq Sodium Chloride (0.9 % Sodium Chloride Flush 3 Ml Syringe) 3 ml IVFLUSH QSHIFT [facility] Last Admin: 10/02/25 09:14 Dose: Not Given Home Medications ?Medication ?Instructions ?Recorded ?Confirmed ?Last Taken ?Type aspirin 81 mg tablet 81 mg PO DAILY 09/04/25 10/02/25 10/01/25 History ipratropium 20 mcg-albuterol 100 1 puff inhalation Q6H 10/02/25 10/02/25 10/01/25 History mcg/actuation mist for inhalation (Combivent Respimat) umeclidinium 62.5 mcg/actuation 1 inh inhalation DAILY 10/02/25 10/02/25 10/01/25 History blister powder for inhalation (Incruse Ellipta) Physical Exam Vital Signs: Vital Signs: Last Vital Signs Temp 97.3 F 10/02/25 10:27 Pulse 123 H 10/02/25 10:27 Resp 20 10/02/25 10:27 BP 120/83 10/02/25 10:27 Pulse Ox 93 10/02/25 10:27 O2 Del Method Nasal Cannula 10/02/25 10:27 O2 Flow Rate 4 10/02/25 10:27 BMI result Body Mass Index 31.8 Objective Labs and Meds 10/02/25 05:09 10/02/25 05:09 Lab results: Laboratory Results - last 24 hr 10/01/25 10/01/25 10/01/25 16:41 16:41 16:49 WBC 9.7 RBC 5.05 D Hgb 14.9 D Hct 47.3 D MCV 93.7 MCH 29.5 MCHC 31.5 RDW 16.4 H Plt Count 164 MPV 10.9 Immature Gran % (Auto) 0.5 H Neut % (Auto) 71.2 Lymph % (Auto) 20.4 Mccone % (Auto) 5.9 Eos % (Auto) 1.3 Baso % (Auto) 0.7 Lymph # (Auto) 2.0 Mccone # (Auto) 0.6 Eos # (Auto) 0.1 Baso # (Auto) 0.1 Abs Immat Gran (auto) 0.05 H Absolute Neuts (auto) 6.9 Absolute Nucleated RBC 0.000 Nucleated RBC % (auto) 0.0 PT 16.9 H INR 1.4 H APTT 35.5 H VBG pH 7.38 VBG pCO2 32 VBG pO2 49 VBG HCO3 19 L VBG O2 Saturation 77.0 VBG Base Excess -4.5 Sodium 139 Potassium 3.2 L Chloride 110 H Carbon Dioxide 20 L Anion Gap 12 BUN 15 Creatinine 1.41 H Estim Creat Clear Calc 51.7 Estimated GFR 50 Random Glucose 78 Lactic Acid 3.0 H* Calcium 7.5 L D Magnesium Total Bilirubin 0.8 AST 39 H ALT 20 Alkaline Phosphatase 114 Troponin I High Sens 23.9 D NT-Pro-B Natriuret Pep Cancelled 64918.6 H Total Protein 5.5 L Albumin 3.1 L TSH 5.29 H Urine Color Urine Appearance Urine pH Ur Specific [place] Urine Protein Urine Glucose (UA) Urine Ketones Urine Blood Urine Nitrite Ur Leukocyte Esterase Urine Opiates Screen Ur Buprenorphine Scrn Ur Oxycodone Screen Urine Methadone Screen Urine Fentanyl Screen Ur Barbiturates Screen Ur Phencyclidine Scrn Ur Amphetamines Screen U Benzodiazepines Scrn Urine Cocaine Screen U Marijuana (THC) Screen Ethyl Alcohol < 10 Influenza Type A (PCR) NEGATIVE Influenza Type B (PCR) NEGATIVE RSV RNA Qual (PCR) NEGATIVE SARS-CoV-2 RNA (RT-PCR) NEGATIVE 10/01/25 10/01/25 10/01/25 21:31 21:37 21:41 WBC RBC Hgb Hct MCV MCH MCHC RDW Plt Count MPV Immature Gran % (Auto) Neut % (Auto) Lymph % (Auto) Mccone % (Auto) Eos % (Auto) Baso % (Auto) Lymph # (Auto) Mccone # (Auto) Eos # (Auto) Baso # (Auto) Abs Immat Gran (auto) Absolute Neuts (auto) Absolute Nucleated RBC Nucleated RBC % (auto) PT INR APTT VBG pH 7.37 VBG pCO2 41 VBG pO2 50 VBG HCO3 24 VBG O2 Saturation 78.0 VBG Base Excess -0.5 Sodium Potassium Chloride Carbon Dioxide Anion Gap BUN Creatinine Estim Creat Clear Calc Estimated GFR Random Glucose Lactic Acid Calcium Magnesium Total Bilirubin AST ALT Alkaline Phosphatase Troponin I High Sens 23.9 NT-Pro-B Natriuret Pep Total Protein Albumin TSH Urine Color Yellow Urine Appearance Clear Urine pH 6.0 Ur Specific [place] <= 1.005 Urine Protein Negative Urine Glucose (UA) Negative Urine Ketones Negative Urine Blood Negative Urine Nitrite Negative Ur Leukocyte Esterase Negative Urine Opiates Screen Not Detected Ur Buprenorphine Scrn Not Detected Ur Oxycodone Screen Not Detected Urine Methadone Screen Not Detected Urine Fentanyl Screen Not Detected Ur Barbiturates Screen Not Detected Ur Phencyclidine Scrn Not Detected Ur Amphetamines Screen Not Detected U Benzodiazepines Scrn Not Detected Urine Cocaine Screen Not Detected U Marijuana (THC) Screen Not Detected Ethyl Alcohol Influenza Type A (PCR) Influenza Type B (PCR) RSV RNA Qual (PCR) SARS-CoV-2 RNA (RT-PCR) 10/02/25 10/02/25 10/02/25 05:09 05:59 06:04 WBC 5.3 RBC 4.60 Hgb 13.3 L Hct 43.2 MCV 93.9 MCH 28.9 MCHC 30.8 L RDW 16.0 Plt Count 160 MPV 10.9 Immature Gran % (Auto) 0.4 Neut % (Auto) 87.9 H Lymph % (Auto) 9.8 L Mccone % (Auto) 1.7 L Eos % (Auto) 0.0 Baso % (Auto) 0.2 Lymph # (Auto) 0.5 L Mccone # (Auto) 0.1 Eos # (Auto) 0.0 Baso # (Auto) 0.0 Abs Immat Gran (auto) 0.02 Absolute Neuts (auto) 4.7 Absolute Nucleated RBC 0.000 Nucleated RBC % (auto) 0.0 PT INR APTT VBG pH 7.35 VBG pCO2 45 VBG pO2 54 VBG HCO3 25 VBG O2 Saturation 80.0 VBG Base Excess -0.1 Sodium 140 Potassium 4.2 D Chloride 105 Carbon Dioxide 25 Anion Gap 14 BUN 15 Creatinine 1.62 H Estim Creat Clear Calc 45.0 Estimated GFR 42 Random Glucose 127 H Lactic Acid 2.2 H* Calcium 8.0 L D Magnesium 2.1 Total Bilirubin AST ALT Alkaline Phosphatase Troponin I High Sens NT-Pro-B Natriuret Pep Total Protein Albumin TSH Urine Color Urine Appearance Urine pH Ur Specific [place] Urine Protein Urine Glucose (UA) Urine Ketones Urine Blood Urine Nitrite Ur Leukocyte Esterase Urine Opiates Screen Ur Buprenorphine Scrn Ur Oxycodone Screen Urine Methadone Screen Urine Fentanyl Screen Ur Barbiturates Screen Ur Phencyclidine Scrn Ur Amphetamines Screen U Benzodiazepines Scrn Urine Cocaine Screen U Marijuana (THC) Screen Ethyl Alcohol Influenza Type A (PCR) Influenza Type B (PCR) RSV RNA Qual (PCR) SARS-CoV-2 RNA (RT-PCR) Assessment and Plan (1) Decompensated heart failure: Status: Acute Decompensated congestive heart failure which appears to be most likely related to recurrent atrial fibrillation rapid ventricular response. 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 Patient clinically still appears to be in heart failure with fluid overload. Continue IV diuresis. Patient will require probably rhythm control approach but I would pursue rate control for now along with diuresis as patient has significant cardio respiratory distress that may make any procedure is a little more difficult. Strict intake output chart needs to be provided. Rate control with amiodarone, see below. Start Jardiance 10 mg daily. Eventually once more stabilized will start other medications to help with neurohormonal modulation heart failure management as his blood pressure is on the softer side. (2) Atrial fibrillation with RVR: Status: Acute Recurrent atrial fibrillation with rapid ventricular response most likely due to inadvertent discontinuation of amiodarone for unclear reasons. Will start on amiodarone loading 400 mg b.i.d. with the plans to probably pursue synchronized cardioversion again patient has been taking oral anticoagulation Eliquis religiously. Meanwhile amiodarone will help with rate control. Will follow with you Procedures Date of Service Date of Service: 10/02/25
--- NOTE | 2025-10-02 15:09 | PM.EVENT ---
Event Note Date of Service: 10/02/25 Event Note: Patient seen and examined Shortness of breaths somewhat improving, still short of breath with minimal exertion, has significant leg edema Assessment and plan and physical exam per h&P note. Acute on chronic hypoxic respiratory failure sec to acute on chronic systolic CHF and acute exacerbation of COPD Continue nebs, steroids, IV diuretics and monitor I&O. Added Jardiance Hold Hernandez due to KARTIK, Nephrology evaluation. Cardiology evaluation noted. AFib with RVR: Continue amiodarone. Time Spent With Patient Time: Total time managing care of this patient today ____ minutes.
[2025-10-02] MEDS: 0.9 % Sodium Chloride Flush 3 ML SYRINGE IVFLUSH ×2 (16:42→20:27)
[2025-10-03] MEDS: Furosemide 200 MG in 0.9 % Sodium Chloride 80 ML IVCONT (01:05)
[2025-10-03 03:57] VITALS: BP 124/79; PULSE 123; RESP 18; TEMP 36.6; O2SAT 94
[2025-10-03] MEDS: Nicotine 14 MG PATCH.TD24 TRANSDERMA (05:53)
[2025-10-03 07:24] VITALS: BP 114/75; PULSE 101; RESP 20; TEMP 36.3; O2SAT 92
[2025-10-03] MEDS: 0.9 % Sodium Chloride Flush 3 ML SYRINGE IVFLUSH (08:23)
[2025-10-03] MEDS: Potassium Chloride Packet 20 MEQ PACKET PO (08:27)
[2025-10-03 09:51] LABS: Anion Gap 16 (12-20); Blood Urea Nitrogen 26 mg/dL (9-16); Calcium 8.5 mg/dL (8.4-10.2); Carbon Dioxide 27 mmol/L (22-29); Chloride 103 mmol/L (96-108); Creatinine Clr Calc Pharmacy 42.2; Estimated Glomerular Filt Rate 40; Potassium 4.5 mmol/L (3.3-5.1); Sodium 141 mmol/L (135-145)
[2025-10-03 11:33] VITALS: BP 140/64; PULSE 100; RESP 20; TEMP 36.8; O2SAT 96
--- NOTE | 2025-10-03 13:40 | PM.PNCARD ---
Subjective Subjective Date of Service: 10/03/25 Interval history: Patient is still short of breath. Has diuresed. Heart rate is better controlled. However he is unhappy about being in the hospital and wants to leave has he thinks that this is very expensive for him to stay in the hospital. Review of Systems Constitutional: Reports weakness Cardiovascular: Denies chest pain, Denies rapid heart rate, Reports leg edema, Denies lightheadedness, Denies Loss of Consciousness, Denies palpitations, Reports dyspnea on exertion and Reports orthopnea Respiratory: Reports cough, Reports dyspnea on exertion and Reports wheezing Genitourinary: Reports no additional male genitourinary complaints Musculoskeletal: Reports no additional musculoskeletal complaints Reports system reviewed and no additional complaints, except as documented and Reports weakness Psychiatric: Reports no additional psychiatric complaints Endocrine: Denies palpitations Allergic/Immunologic: Reports wheezing Physical Exam Vital Signs: Last Vital Signs Temp 98.3 F 10/03/25 11:33 Pulse 100 10/03/25 11:33 Resp 20 10/03/25 11:33 BP 140/64 H 10/03/25 11:33 Pulse Ox 96 10/03/25 11:33 O2 Del Method Nasal Cannula 10/03/25 11:33 O2 Flow Rate 4 10/03/25 11:33 BMI result Body Mass Index 31.8 Const General: acute distress mild and respiratory Nutritional Appearance: obese Orientation/consciousness: patient oriented x3 Neck Neck: Yes trachea midline, Yes supple and Yes JVD Resp Effort & Inspection: respiratory distress Auscultation: wheezes and diminished lung sounds Cardio Jugular venous distension: JVD Rate: tachycardic Rhythm: abnormal rhythm irregularly irregular Heart sounds: S1 normal heart sound present, S2 normal heart sound present, no click, no gallops and no murmurs Neuro General: patient oriented x3 and no focal motor deficits Extrem General: No clubbing and Yes edema Objective Labs and Meds 10/02/25 05:09 10/03/25 09:23 Lab results: Laboratory Results - last 24 hr 10/03/25 10/03/25 07:13 09:23 Sodium 141 Potassium 4.5 Chloride 103 Carbon Dioxide 27 Anion Gap 16 BUN 26 H Creatinine 1.68 H Estim Creat Clear Calc 42.2 Estimated GFR 40 Random Glucose 177 H Calcium 8.5 D NT-Pro-B Natriuret Pep 14664.4 H Progress Note: A&P Assessment and plan (1) Decompensated heart failure: Status: Acute Assessment and Plan: Decompensated congestive heart failure improving but not completely euvolemic. Patient appears to be fluid overloaded and needs further diuresis. He has a again recurrent severe cardiomyopathy most likely due to recurrent atrial fibrillation which was present last year most likely due to withdrawal of amiodarone therapy for unclear reasons. Patient should continue with IV diuresis in the hospital and should pursue rhythm control approach. Amiodarone has been started. Advised him to stay admitted to the hospital and pursue cardioversion on Sunday. However he has very frustrated and wants to leave against medical advice. He needs further optimization of neurohormonal modulation which should be started. I would suggest to continue valsartan for now. Add low-dose metoprolol therapy. Add Jardiance 10 mg. Continue Lasix. (2) Atrial fibrillation with RVR: Status: Acute Assessment and Plan: Atrial fibrillation borderline rate control. He is on amiodarone loading at this point time. Will benefit as he has in past with rhythm control approach. Discussed with him about it for pursuing cardioversion on Sunday. He is adamant on probably not wanting to stay in the hospital. Hospitalist team will discuss with case management. Continue amiodarone loading 400 mg b.i.d. for 2 weeks followed by 200 mg daily. Synchronized cardioversion should be pursued. Continue full oral anticoagulation with Eliquis. Will follow with him if patient is still in the hospital Time Spent With Patient Time: Total time managing care of this patient today ____ minutes. Progress Note: Quality Stroke Does the patient have a stroke diagnosis?: No Procedures Date of Service Date of Service: 10/03/25
--- NOTE | 2025-10-03 14:22 | P.DS_ITS ---
DS: Providers Provider Date of Service: 10/03/25 Date of admission: 10/02/25 01:13 Date of discharge: 10/03/25 Primary care physician: Papi Sanders MD Consults: 10/02/25 01:46 Consult to Cardiology Routine Consulting Provider: [facility] Reason for consultation: Acute CHF Has provider been notified: No 10/02/25 07:54 Consult to Nephrology Routine Consulting Provider: [facility] Reason for consultation: kartik in setting of chf Has provider been notified: No Attending physician on discharge: Rod Christensen Discharging clinician: Rod Christensen DS: Diagnosis Discharge Diagnosis (1) Decompensated heart failure: Status: Acute (2) Atrial fibrillation with RVR: Status: Acute DS: Summary Hospital Course Hospital Course: HPI:69 years old man with a complex past medical history including COPD on home O2 2-3 L/min, essential hypertension, severe cardiomyopathy, hypothyroidism, paroxysmal AFib s/p cardioversion in 2023 on amiodarone and Eliquis, CAD on Eliquis and DUSTIN noncompliant with CPAP presents to the emergency department complaining of leg swelling over the last several days. Patient is a vague historian. He does complain of occasional cough. Denied chest pain, dizziness or palpitations. He denied any acute gastrointestinal or genitourinary symptoms. He has an ongoing tobacco smoker. Denied alcohol abuse or illicit drug use. In the ED, he was found to have tachycardia consistent with rapid AFib, tachypnea and oxygen saturation of 87% on OxyMask. There is no fever and blood pressure is stable. There is no leukocytosis. Hemoglobin is 14.9 and platelets 164. INR is 1.4. Venous blood gas showed no respiratory acidosis. There is mild hypokalemia of 3.2, chloride 110, CO2 20, anion gap 12, BUN 15 and creatinine 1.41. There is lactic acidosis of 3.0. AST is 39, alk-phos 114, ALT 20 and [place] [address].6. Troponin is 23.9 x2. Albumin is 3.1. UA showed no proteinuria or hematuria. Toxicology and alcohol is negative. COVID-19, RSV and influenza testing is negative. Chest CTA showed interlobular septal thickening which can be seen with pulmonary edema and find a possible secondary to reactive airway disease or bronchitis. There is no PE and changes consistent with pulmonary artery hypertension. The right heart is enlarged. ECG showed rapid AFib, heart rate 114 beats per minute. ED tx: Digoxin 0.25 mg IV, furosemide IV infusion, Klor-Con 60 mEq p.o., KCl 20 IV, ceftriaxone 1 g IV, azithromycin 500 mg IV, Ativan 1 mg p.o., Solu-Medrol 60 mg IV, furosemide 60 mg IV, albuterol 2.5 mg nebs Patient came to the hospital for acute on chronic hypoxemic respiratory failure secondary to possible acute on chronic systolic CHF, acute COPD exacerbation: Patient was treated with IV Lasix, IV antibiotics and steroids patient is somewhat improving, also has AFib with RVR for which patient was started on amiodarone. Cardiology suggested for cardioversion for better AFib control : In addition patient was started on low-dose beta-mahesh and amiodarone, added Jardiance. Above was discussed with the patient detail length his heart failure is not significantly improved yet as well as need cardioversion for AFib but patient categorically declines and says that he wants to sign out against medical advice-risks discussed with him in detail-including arrhythmia, worsening heart failure and . He understand and he is alert oriented x3, still wants to leave. Also advised to him to go to nearest emergency room to to seek further medical care. plan: Amiodarone 400 mg p.o. b.i.d. until 10/15/25 and then on 10/16/25 amiodarone 200 mg p.o. daily. Lasix 40 mg daily Jardiance 10 mg daily Hold losartan until repeat BMP, follow up with Nephro outpatient. Prednisone 40 mg daily for 4 days. Doxycycline 100 mg p.o. b.i.d. for 5 days. CHF education given-if gains weight 2 lb or more in a week-will need outpatient Lasix dosing assessment with PCP. Consider Follow-up with cardiology outpatient Patient was strongly advised to follow up with PCP and Cardiology outpatient Above management discussed with the patient detail length he understand and in agreement with the above plan, time spent 50 minutes. Time Attestation Total time managing care of this patient today: 50 mintues. Discharge Coordination Time (in mins): 50 min Quality: Safe Use of Opioids Does Pt have an Active Cancer Diagnosis on the Problem List?: No Quality: Stroke Does the patient have a stroke diagnosis?: No Physical Exam Exam: Exam: refused. Vital Signs: Vital Signs: Last Vital Signs Temp 98.3 F 10/03/25 11:33 Pulse 100 10/03/25 11:33 Resp 20 10/03/25 11:33 BP 140/64 H 10/03/25 11:33 Pulse Ox 96 10/03/25 11:33 O2 Del Method Nasal Cannula 10/03/25 11:33 O2 Flow Rate 4 10/03/25 11:33 BMI result Body Mass Index 31.8 DS: Data Data Completed and Pending Completed studies during hospitalization [Text1]: Procedures Yazdanism of Cardiac Rhythm, Single (11/22/23) Ultrasonography of Heart with Aorta, Transesophageal (11/22/23) Labs on day of discharge: Laboratory Results - last 24 hr 10/03/25 10/03/25 07:13 09:23 Sodium 141 Potassium 4.5 Chloride 103 Carbon Dioxide 27 Anion Gap 16 BUN 26 H Creatinine 1.68 H Estim Creat Clear Calc 42.2 Estimated GFR 40 Random Glucose 177 H Calcium 8.5 D NT-Pro-B Natriuret Pep 90880.4 H Preliminary micro results at discharge 10/01/25 16:41 Blood Culture - Preliminary Blood - Venous No growth after 24 hours. 10/01/25 16:41 Blood Culture - Preliminary Blood - Venous No growth after 24 hours. Imaging Chest x-ray: My impression: cxr: 1. No acute pulmonary disease. Cta: Impression: Interlobular septal thickening which can be seen with pulmonary edema. M ultifocal areas of air trapping, mosaic attenuation, and bronchial wall thickening. Correlate for reactive airway disease or bronchitis. No pulmonary embolism to the level of the proximal segmental pulmonary arteries. Enlarged main pulmonary artery measuring 37 mm which can be seen with pulmonary arterial hypertension. Right heart enlargement. echo: Conclusions: - 1. LV ejection fraction severely reduced at% 2. Moderately dilated right-sided chambers with moderate to severe reduction RV systolic function 3. Calcified aortic valve changes noted with cardiac valvular Dopplers showing moderately severe tricuspid regurgitation 4. Moderately elevated right ventricular systolic pressure with significantly elevated right atrial pressures 5. No gross pericardial effusion Findings Procedure Information The study quality is limited by the patients inability to tolerate the test. Left Ventricle Normal left ventricular cavity size. There is normal left ventricular wall thickness. The left ventricular systolic function is severely decreased. The visually estimated ejection fraction is between 20-25%. There is severe global hypokinesis. Diastolic function is indeterminate on the basis of available data. Right Ventricle Moderately increased right ventricular cavity size. There is moderate to severely decreased right ventricular systolic function. Atria The left atrium is moderately dilated. Interatrial shunt cannot be excluded. The right atrium is moderately dilated. Aortic Valve There is moderate calcification of the aortic valve. There is no aortic valve stenosis. There is no aortic valve regurgitation. Mitral Valve There is mild anterior and posterior mitral leaflet thickening. There is mild mitral valve regurgitation. There is no mitral valve stenosis. Pulmonic Valve The pulmonic valve is likely normal. Tricuspid Valve Normal tricuspid valve structure. There is moderate to severe tricuspid valve regurgitation. Significantly elevated right atrial pressure. Moderate pulmonary hypertension is present. Great Vessels All visible segments of the aorta are normal in size. The pulmonary artery was not well visualized. There is no dilatation of the ascending aorta measuring 3.60 cm. Small plaque is seen in the sino tubular ridge. Venous The inferior vena cava is moderately dilated and does not collapse with inspiration. Pericardium/Pleural There is no evidence of pericardial effusion. Prior Study Comparison Significant changes compared to prior study dated: 05/27/2024. LV ejection fraction has significantly reduced Discharge Plan Discharge Anticipated Discharge Date/Time: 10/03/25 14:05 Patient Disposition: Left Against Medical Advice Discharge Diagnosis: AFib with the RVR, CHF, COPD exacerbation Referrals: Lev Machado MD [Physician, Critical Care ([facility])] - 1 Week Papi Sanders MD [Primary Care Provider, Internal Medicine] - 1 Week Discharge Medications: New doxycycline monohydrate 100 mg Capsule 100 mg PO Q12H Qty: 10 0RF furosemide 40 mg Tablet 40 mg PO DAILY Qty: 90 0RF Protocol: Hold for SBP< HOLD for SBP < : 90 prednisone 20 mg Tablet 40 mg PO DAILY Qty: 8 0RF amiodarone 200 mg Tablet 400 mg PO BID Qty: 90 0RF Rx Instructions: Continue amiodarone 2 tablets (400 mg) p.o. b.i.d. until 10/15/25. Then switched to amiodarone 200 mg p.o. daily on 10/16/2025. Continued levothyroxine 25 mcg tablet 25 mcg PO DAILY@0600 Qty: 90 0RF Rx Instructions: Take on an empty stomach, first thing in the morning, with water. Do not eat or drink anything else for 30 minutes afterwards Eliquis 5 mg tablet 5 mg PO BID Qty: 180 0RF Rx Instructions: Patient needs cardio follow-up for medication management. Incruse Ellipta 62.5 mcg/actuation blister with device 1 inh inhalation DAILY Combivent Respimat 20-100 mcg/actuation mist 1 puff INHALATION Q6H rosuvastatin 20 mg tablet 20 mg PO BEDTIME Qty: 90 3RF budesonide-formoterol [Symbicort] 160-4.5 mcg/actuation HFA aerosol inhaler 2 puff inhalation Q12H Qty: 10.2 6RF ipratropium-albuterol 0.5 mg-3 mg(2.5 mg base)/3 mL solution for nebulization 3 ml inhalation Q6H PRN (Reason: wheezing) Qty: 180 3RF Held valsartan 80 mg tablet 80 mg PO BID Qty: 180 3RF Hold Instructions: Resume on 10/09/25. Discontinued clopidogrel 75 mg tablet 75 mg PO DAILY Qty: 90 4RF aspirin 81 mg tablet 81 mg PO DAILY Discharge Orders: Discharge Order (Routine); Ordered 10/03/25 Ordered By: Rod Christensen Diet: Advance to usual diet Activity on Discharge: As tolerated Stand Alone Forms: Work/School Release Print Language: Amharic Other Ambulatory Orders: Basic Metabolic Panel (Routine) Timeframe: 1 Week Facility: [facility] - Location: Laboratory Ordered By: Rod Christensen Care Plan Goals: as below. Health Concerns: Amiodarone 400 mg p.o. b.i.d. until 10/15/25 and then on 10/16/25 amiodarone 200 mg p.o. daily. Lasix 40 mg daily Jardiance 10 mg daily Hold losartan due to KARTIK until repeat BMP, consider follow up with Nephro outpatient. Prednisone 40 mg daily for 4 days. Doxycycline 100 mg p.o. b.i.d. for 5 days. CHF education given-if gains weight 2 lb or more in a week-will need outpatient Lasix dosing assessment with PCP. Consider Follow-up with cardiology outpatient Patient was strongly advised to follow up with PCP and Cardiology outpatient. Plan of Treatment: As above. Assessment: As above. Discharge Date/Time: 10/03/25 15:21
== END 2025-10-03 15:21 | disposition left against medical advice (07) | DRG 190 ==
LOC: HO.ED 10-02 01:04 → HO.EDOVER 10-02 01:17 → HO.IMC 10-02 08:34
PROVIDERS: Physician Assistant; Admitting Provider Internal Medicine; Emergency Provider Emergency Medicine Emergency Medical Services; PCP Internal Medicine; Visit Provider Internal Medicine
DX: J44.1 Chronic obstructive pulmonary disease with (acute) exacerbation (principal); I50.23 Acute on chronic systolic (congestive) heart failure; J96.21 Acute and chronic respiratory failure with hypoxia; N17.9 Acute kidney failure, unspecified; I25.10 Atherosclerotic heart disease of native coronary artery without angina pectoris; Z95.5 Presence of coronary angioplasty implant and graft; F17.210 Nicotine dependence, cigarettes, uncomplicated; I48.0 Paroxysmal atrial fibrillation; I27.81 Cor pulmonale (chronic); E78.5 Hyperlipidemia, unspecified; E03.9 Hypothyroidism, unspecified; E87.6 Hypokalemia; I50.810 Right heart failure, unspecified; Z20.822 Contact with and (suspected) exposure to COVID-19; Z71.6 Tobacco abuse counseling; Z99.81 Dependence on supplemental oxygen; Z79.01 Long term (current) use of anticoagulants; Z79.890 Hormone replacement therapy; Z79.899 Other long term (current) drug therapy
CPT/HCPCS: 36415; 71045; 71275; 80048; 80053; 80307; 81003; 82803; 83605; 83735; 83880; 84443; 84484; 85025; 85610; 85730; 87040; 87637; 93005; 93306; 94640; 99285; J0456; J0696; J1160; J1271; J1938; J2919; J3480; Q9957; Q9967

== ENCOUNTER → 2025-10-01 16:12 | Outpatient (BNV) | payer MEDICARE, MEDICAID, SELFPAY | PROVIDERS: Admitting Provider Internal Medicine; Emergency Provider Emergency Medicine Emergency Medical Services; PCP Internal Medicine; Visit Provider Internal Medicine Cardiovascular Disease | DX: I48.91 Unspecified atrial fibrillation (principal); I44.4 Left anterior fascicular block | CPT/HCPCS: 93010 ==

== ENCOUNTER → 2025-10-01 17:50 | Outpatient (BNV) | payer MEDICARE, MEDICAID, SELFPAY | PROVIDERS: PCP Internal Medicine; Visit Provider Radiology Diagnostic Radiology | DX: J96.21 Acute and chronic respiratory failure with hypoxia (principal) | CPT/HCPCS: 71045; 71275 ==

== ENCOUNTER → 2025-10-02 01:13 | Outpatient (BNV) | payer MEDICARE, MEDICAID, SELFPAY | PROVIDERS: Admitting Provider Internal Medicine; Emergency Provider Emergency Medicine Emergency Medical Services; PCP Internal Medicine; Visit Provider Internal Medicine Cardiovascular Disease | DX: I50.9 Heart failure, unspecified (principal); I48.91 Unspecified atrial fibrillation | CPT/HCPCS: 99233 ==

== ENCOUNTER → 2025-10-02 01:13 | Outpatient (BNV) | payer MEDICARE, MEDICAID, SELFPAY | PROVIDERS: Admitting Provider Internal Medicine; Emergency Provider Emergency Medicine Emergency Medical Services; PCP Internal Medicine; Visit Provider Internal Medicine Critical Care Medicine | DX: I50.9 Heart failure, unspecified (principal); N17.9 Acute kidney failure, unspecified | CPT/HCPCS: 99223 ==

== ENCOUNTER → 2025-10-02 01:13 | Outpatient (BNV) | payer MEDICARE, MEDICAID, SELFPAY | PROVIDERS: Admitting Provider Internal Medicine; Emergency Provider Emergency Medicine Emergency Medical Services; PCP Internal Medicine; Visit Provider Internal Medicine | DX: I48.0 Paroxysmal atrial fibrillation (principal); I50.813 Acute on chronic right heart failure | CPT/HCPCS: 99223; 99239; 99499 ==